=== PATIENT | female | born 1960 | race Caucasian/White ===

== ENCOUNTER 2017-08-14 21:24 | Inpatient (IN) | payer OTHER ==
[~2017-08-14] VITALS: Ht 162.6 cm; Wt 58.0 kg
[~2017-08-14 21:24] MED LIST: APRI0.372 PO; AZAT50 PO; DILTCD120 PO; FERR324T4 PO; GLUCTAB PO; METH5 PO; PRED20 PO; RISP2TAB2 PO
--- NOTE | 2017-08-14 21:36 | PD ---
HPI Chief Complaint: BA Time Seen by Provider: 21:33 Travel History International Travel<30 days: No Contact w/Intl Traveler<30days: No Traveled to known affect area: No History of Present Illness HPI This is a 56-year-old female who presents under Guardado act initiated by [facility]'s office. According her paperwork the patient has been noncompliant with her psychiatric medication and has been defecating all over the house and refusing to shower. She has been exposing herself and making paranoid statements. symptoms are moderate, onset unknown, no aggravating or relieving factors known. According to chart review she has a history of schizophrenia, ulcerative colitis, hyperthyroidism, atrial fibrillation, anxiety. When asked if she has a history of schizophrenia, ulcerative colitis hyperthyroidism she answers in the affirmative. When asked if she has been taking her medication she says no. She otherwise refuses to answer any questions and she smiles and laughs appropriately during the examination. History is limited. PFSH Past Medical History Arthritis: No Asthma: No Atrial Fibrillation: Yes (hx of) Autoimmune Disease: No Blood Disorders: No Bipolar Disorder: Yes (denies. states only schizophrenic) Anxiety: Yes Depression: No Heart Rhythm Problems: No Cancer: No Cardiovascular Problems: No High Cholesterol: No Chemotherapy: No Chest Pain: No Congestive Heart Failure: No COPD: No Cerebrovascular Accident: No Diabetes: Yes Diminished Hearing: No Endocrine: Yes Gastrointestinal Disorders: Yes (ulcerative colitis) GERD: No Genitourinary: No Hiatal Hernia: No Immune Disorder: No Implanted Vascular Access Dvce: No Kidney Stones: No Musculoskeletal: No Neurologic: No Psychiatric: Yes Reproductive: No Respiratory: No Immunizations Current: No Migraines: No Radiation Therapy: No Renal Failure: No Schizophrenia: Yes Seizures: No Sleep Apnea: No Thyroid Disease: Yes Ulcer: No Menopausal: Yes : 0 Past Surgical History Abdominal Surgery: No Cardiac Surgery: No Ear Surgery: No Endocrine Surgery: No Eye Surgery: No Genitourinary Surgery: No Gynecologic Surgery: No Oral Surgery: No Thoracic Surgery: No Tonsillectomy: Yes (as a child) Other Surgery: No Social History Alcohol Use: No Tobacco Use: No Substance Use: No Allergies-Medications (Allergen,Severity, Reaction): Coded Allergies: meperidine (Unverified Allergy, Severe, Rash, 08/14/17) Reported Meds & Prescriptions Reported Meds & Active Scripts Active Bactrim DS (Sulfamethoxazole-Trimethoprim) 800-160 Mg Tab 1 Tab PO BID Reported Risperdal (Risperidone) 1 Mg Tab 1 Mg BID Prednisone 20 Mg Tab 20 Mg PO DAILY Review of Systems ROS Limitations: Psychotic Except as stated in HPI: all other systems reviewed are Neg Physical Exam Exam Limitations: Psychotic Narrative GENERAL: Well-developed well-nourished female no acute distress SKIN: Warm and dry. HEAD: Atraumatic. Normocephalic. EYES: Pupils equal and round. No scleral icterus. No injection or drainage. ENT: No nasal bleeding or discharge. Mucous membranes pink and moist. NECK: Trachea midline. No JVD. CARDIOVASCULAR: Regular rate and rhythm. No murmur appreciated. RESPIRATORY: No accessory muscle use. Clear to auscultation. Breath sounds equal bilaterally. GASTROINTESTINAL: Abdomen soft, non-tender, nondistended. Hepatic and splenic margins not palpable. MUSCULOSKELETAL: No obvious deformities. No clubbing. No cyanosis. No edema. NEUROLOGICAL: Awake and alert. No obvious cranial nerve deficits. Motor grossly within normal limits. Normal speech. PSYCHIATRIC: Smiling laughing appropriately. Insight and judgment are poor. Data Data Last Documented VS Vital Signs Date Time Temp Pulse Resp B/P (MAP) Pulse Ox O2 Delivery O2 Flow Rate FiO2 08/15/17 08:29 98.2 76 18 126/61 (82) 98 Room Air Orders Orders Complete Blood Count With Diff (08/14/17 21:43) Comprehensive Metabolic Panel (08/14/17 21:43) Thyroid Stimulating Hormone (08/14/17 21:43) Psych Screen (08/14/17 21:43) Drug Screen, Random Urine (08/14/17 21:43) Alcohol (Ethanol) (08/14/17 21:43) Free Thyroxine (T4) (08/14/17 21:48) Free T3 (08/14/17 21:48) Urinalysis - C+S If Indicated (08/14/17 21:48) Urine Culture (08/14/17 21:55) Ceftriaxone Inj (Rocephin Inj) (08/14/17 22:45) Sodium Chlor 0.9% 1000 Ml Inj (Ns 1000 M (08/14/17 22:39) Potassium Chloride (Kcl) (08/14/17 22:45) Methimazole (Tapazole) (08/14/17 22:45) Diet Regular Basic (08/15/17 Breakfast) Admit Order (Ed Use Only) (08/15/17 11:25) Admit To Inpatient Psych (08/15/17 ) Code Status (08/15/17 11:25) Vital Signs (Adult) GUNNER.Q12H.E (08/15/17 11:25) Activity Oob Ad Pham (08/15/17 11:25) Diet Diabetic (08/15/17 Lunch) Acetaminophen (Tylenol) (08/15/17 11:30) Magnesium Hydroxide Liq (Milk Of Magnesi (08/15/17 11:30) Al-Mag Hy-Si 40-40-4 Mg/Ml Liq (Mag-Al P (08/15/17 11:30) Basic Metabolic Panel (Bmp) (08/16/17 06:00) Lipid Profile (08/16/17 06:00) Hemoglobin (Hgb) A1c (08/16/17 06:00) Sulfamet-Trimeth Ds 800-160 Mg (Bactrim (08/15/17 12:00) Labs Laboratory Tests Test 08/14/17 21:55 White Blood Count 12.6 TH/MM3 Red Blood Count 4.12 MIL/MM3 Hemoglobin 9.9 GM/DL Hematocrit 30.6 % Mean Corpuscular Volume 74.3 FL Mean Corpuscular Hemoglobin 24.0 PG Mean Corpuscular Hemoglobin Concent 32.2 % Red Cell Distribution Width 16.6 % Platelet Count 285 TH/MM3 Mean Platelet Volume 7.1 FL Neutrophils (%) (Auto) 73.8 % Lymphocytes (%) (Auto) 12.7 % Monocytes (%) (Auto) 12.1 % Eosinophils (%) (Auto) 1.1 % Basophils (%) (Auto) 0.3 % Neutrophils # (Auto) 9.3 TH/MM3 Lymphocytes # (Auto) 1.6 TH/MM3 Monocytes # (Auto) 1.5 TH/MM3 Eosinophils # (Auto) 0.1 TH/MM3 Basophils # (Auto) 0.0 TH/MM3 CBC Comment DIFF FINAL Differential Comment Urine Color ORANGE Urine Turbidity CLOUDY Urine pH 5.0 Urine Specific [place] 1.027 Urine Protein 30 mg/dL Urine Glucose (UA) TRACE mg/dL Urine Ketones 10 mg/dL Urine Occult Blood MOD Urine Nitrite NEG Urine Bilirubin NEG Urine Urobilinogen 4.0 MG/DL Urine Leukocyte Esterase MOD Urine RBC 13 /hpf Urine WBC 13 /hpf Urine Squamous Epithelial Cells 1 /hpf Urine Amorphous Sediment RARE Urine Bacteria OCC /hpf Urine Hyaline Casts 39 /lpf Urine Mucus MANY /lpf Microscopic Urinalysis Comment CULTURE INDICATED Blood Urea Nitrogen 17 MG/DL Creatinine 1.58 MG/DL Random Glucose 164 MG/DL Total Protein 7.1 GM/DL Albumin 2.7 GM/DL Calcium Level 8.2 MG/DL Alkaline Phosphatase 82 U/L Aspartate Amino Transf (AST/SGOT) 4 U/L Alanine Aminotransferase (ALT/SGPT) 10 U/L Total Bilirubin 1.0 MG/DL Sodium Level 134 MEQ/L Potassium Level 3.4 MEQ/L Chloride Level 100 MEQ/L Carbon Dioxide Level 16.6 MEQ/L Anion Gap 17 MEQ/L Estimat Glomerular Filtration Rate 34 ML/MIN Free Thyroxine 1.84 NG/DL Free Triiodothyronine (T3) pg/dL 4.47 PG/ML Thyroid Stimulating Hormone 3rd Gen LESS THAN 0.005 uIU/ML Urine Opiates Screen NEG Urine Barbiturates Screen NEG Urine Amphetamines Screen NEG Urine Benzodiazepines Screen NEG Urine Cocaine Screen NEG Urine Cannabinoids Screen NEG Ethyl Alcohol Level LESS THAN 3 MG/DL MDM Medical Decision Making Medical Screen Exam Complete: Yes Emergency Medical Condition: Yes Medical Record Reviewed: Yes Differential Diagnosis Schizophrenia, thyroid storm, acute psychosis, substance-induced mood disorder, medication noncompliance, adjustment reaction Narrative Course 56-year-old female with history of schizophrenia, hyperthyroidism, ulcerative colitis, presents under Guardado act for psychiatric evaluation. Mental health screening discussed with the patient. Psychiatric screen ordered. CBC reveals WBC count of 12.6 otherwise unremarkable. Catheterized urine specimen reveals moderate leukocyte esterase, 13 RBCs, 13 WBCs, pending culture results she will be given a dose of IV Rocephin and a prescription for Bactrim has been written. Her GFR is 34 which is decreased from her baseline and this is likely secondary to poor oral intake secondary to her psychiatric condition. 1 L of IV fluids will be initiated and oral hydration will be encouraged. Her TSH/T4/T3 findings are consistent with hyperthyroidism, according to most recent hospitalization in 2016 she was at that time taking methimazole 2.5 mg daily. She will be given a 5 mg dose today. If required during her psychiatric hospitalization certainly medicine could be consulted to help manage these medical conditions. She is medically cleared. Diagnosis Primary Impression: Schizophrenia Additional Impressions: Hyperthyroidism UTI (lower urinary tract infection) Acute kidney injury Scripts Sulfamethoxazole-Trimethoprim (Bactrim DS) 800-160 Mg Tab 1 TAB PO BID for Infection, #14 TAB 0 Refills Prov: Reinier Sauceda MD 08/14/17 Jose Hussein Aug 14, 2017 21:36
[2017-08-14 21:41] VITALS: BP 121/57; PULSE 89; RESP 18; TEMP 99.6; O2SAT 99
[2017-08-14 22:13] LABS: AUTOMATED NEUTROPHIL # 9.3 TH/MM3 (1.8-7.7); BASOPHIL % 0.3 % (0.0-2.0); EOSINOPHIL # 0.1 TH/MM3 (0-0.4); EOSINOPHIL % 1.1 % (0.0-4.0); HEMATOCRIT 30.6 % (35.0-46.0); HEMOGLOBIN 9.9 GM/DL (11.6-15.3); LYMPH % 12.7 % (9.0-44.0); LYMPHOCYTE # 1.6 TH/MM3 (1.0-4.8); MEAN CELL VOLUME 74.3 FL (80.0-100.0); MEAN CORPUSCULAR HGB CONC 32.2 % (32.0-36.0); MEAN PLATELET VOLUME 7.1 FL (7.0-11.0); MONO % 12.1 % (0.0-8.0); MONOCYTE # 1.5 TH/MM3 (0-0.9); NEUT % 73.8 % (16.0-70.0); PLATELET COUNT 285 TH/MM3 (150-450); RED BLOOD COUNT 4.12 MIL/MM3 (4.00-5.30); RED CELL DISTRIBUTION WIDTH 16.6 % (11.6-17.2); WHITE BLOOD COUNT 12.6 TH/MM3 (4.0-11.0)
[2017-08-14 22:30] LABS: AMORPHOUS SEDIMENT, URINE RARE; BACTERIA, URINE OCC /hpf; BLOOD, URINE MOD (NEG); GLUCOSE,URINE TRACE mg/dL (NEG); HYALINE CAST, URINE 39 /lpf (RARE); KETONE, URINE 10 mg/dL (NEG); MUCUS URINE MANY /lpf (OCC); NITRITE,URINE NEG (NEG); SQUAMOUS EPITHELIAL CELL URINE 1 /hpf (0-5); URINE LEUKOCYTE ESTERASE MOD (NEG)
[2017-08-14 22:31] LABS: ALBUMIN 2.7 GM/DL (3.4-5.0); AST (GOT) 4 U/L (15-37); BICARBONATE 16.6 MEQ/L (21.0-32.0); BLOOD UREA NITROGEN 17 MG/DL (7-18); CALCIUM 8.2 MG/DL (8.5-10.1); CHLORIDE 100 MEQ/L (98-107); CREATININE 1.58 MG/DL (0.50-1.00); GLOMERULAR FILTRATION RATE 34 ML/MIN (>89); GLUCOSE,RANDOM 164 MG/DL (74-106); SODIUM (NA) 134 MEQ/L (136-145)
[2017-08-14 22:32] LABS: BILIRUBIN, URINE NEG (NEG); URINE COLOR ORANGE (YELLW/STRAW)
[2017-08-14 22:33] LABS: ALT (GPT) 10 U/L (10-53)
[2017-08-14] MEDS ORDERED: BACT800T5 PO (22:37)
[2017-08-14] MEDS ORDERED: SODIUM CHLOR 0.9% 1000 ML INJ 1,000 ML IV SCH (22:39)
[2017-08-14 22:42] LABS: ALKALINE PHOSPHATASE 82 U/L (45-117); FREE T3 4.47 PG/ML (2.18-3.98); FREE T4 1.84 NG/DL (0.76-1.46); TOTAL PROTEIN 7.1 GM/DL (6.4-8.2)
[2017-08-14] MEDS ORDERED: METHIMAZOLE 5 MG TAB PO ONE (22:45)
[2017-08-14] MEDS ORDERED: POTASSIUM CHLORIDE 20 MEQ CONTROLLED RELEASE TAB PO ONE (22:45)
[2017-08-14] MEDS ORDERED: cefTRIAXone INJ 1,000 MG in SODIUM CHLORIDE 0.9% INJ 100 ML IV ONE (22:45)
[2017-08-15 02:43] VITALS: BP 114/56; PULSE 80; RESP 16; O2SAT 99
[2017-08-15 07:15] VITALS: BP 120/60; PULSE 76; RESP 16; O2SAT 97
[2017-08-15 08:29] VITALS: BP 126/61; PULSE 76; RESP 18; TEMP 98.2; O2SAT 98
--- NOTE | 2017-08-15 11:10 | PD ---
History of Present Illness Chief Complaint: Psychiatric Symptoms Time Seen by Provider: 08:30 Travel History International Travel<30 Days: No Contact w/Intl Traveler<30days: No Known affected area: No History of Present Illness: Patient is a 56-year-old female who was brought to the emergency room under a Guardado Act by the [facility]. Guardado act states, "on 08/14/2017 approximately 1929, Olaf Bautista responded to address in reference to her well- being check. Upon arrival he may contact with Xavier Conteh who advised Ramonita was not taking her medications and has been defecating all over the house refusing to shower. Xavier stated he that she is supposed to be on psychotropic medications and not been taking them. Xavier also states she has been walking around the house exposing herself inquiring if the bubbles in the poisonous. Xavier expressed a huge concern for Ramonita's well-being and self-neglect. I made contact with Ramonita and her bedroom area and observed fecal matter all over the floor. Her landlord Ramonita Dev advised that she came over to check on Ramonita and found that she had been defecating all over herself and then in the room. Ramonita was not advised that she had been eaten or when she had had last bathed. Both Ramonita Park completed a written sworn statement 12 which were attached to this document. Is great concern that without care of treatment Ramonita is likely to suffer from the neglect, refused to care for herself." Chart reviewed and discussed with nursing staff. Patient is in room D38 of the Emergency Department. She is in a hospital gown, disheveled and malodorous. She is thought blocking and will only answer select questions. She states she is not hearing voices, but is internally stimulated. Demonstrating signs of paranoia. She states she has a poor appetite and does sleep well. She states she has a son, but I am not sure if this is true. Insight and judgement is poor. Speech is normal for rate , tone and rhythm. Patient currently has a UTI and has been prescribed Bactrim. Patient was last seen in 2017 and was a patient in inpatient psychiatry, at that time she was also under a Guardado Act and not medication compliant. She had eloped from a facility . At that time they were trying Risperdal M-Tab and [place]. At this time, I do not have a medication list and patient is unable to tell me her medications. From record: Thyroid, Atrial fib, NIDDM, Ulcerative colitis and IBS. Patient is a poor historian. I attempted to call the Landlord for a medication list, Ciera Méndez [phone] , but was unable to reach her. Dx: Schizophrenia PFSH Past Medical History Arthritis: No Asthma: No Atrial Fibrillation: Yes Autoimmune Disease: No Blood Disorders: No Bipolar Disorder: Yes Anxiety: Yes Depression: No Heart Rhythm Problems: No Cancer: No Cardiovascular Problems: No High Cholesterol: No Chemotherapy: No Chest Pain: No Congestive Heart Failure: No COPD: No Cerebrovascular Accident: No Diabetes: Yes Diminished Hearing: No Endocrine: Yes Gastrointestinal Disorders: Yes (ulcerative colitis) GERD: No Genitourinary: No Hiatal Hernia: No Immune Disorder: No Implanted Vascular Access Dvce: No Kidney Stones: No Musculoskeletal: No Neurologic: No Psychiatric: Yes Reproductive: No Respiratory: No Immunizations Current: No Migraines: No Radiation Therapy: No Renal Failure: No Schizophrenia: Yes Seizures: No Sleep Apnea: No Thyroid Disease: Yes Ulcer: No Menopausal: Yes : 0 Past Surgical History Abdominal Surgery: No Cardiac Surgery: No Ear Surgery: No Endocrine Surgery: No Eye Surgery: No Genitourinary Surgery: No Gynecologic Surgery: No Oral Surgery: No Thoracic Surgery: No Tonsillectomy: Yes (as a child) Other Surgery: No Psychiatric History Psychiatric History Last psychiatric admission in 2014 at [facility] with Dr. Byrne. Hx Psychiatric Treatment: LONG HISTORY OF SCHIZOPHRENIA. History of Inpatient Treatment: Yes Social History Hx Alcohol Use: No Hx Tobacco Use: No Hx Substance Use: No Hx of Substance Use Treatment: No Allergies-Medications (Allergen,Severity, Reaction): Coded Allergies: meperidine (Unverified Allergy, Severe, Rash, 08/14/17) Reported Meds & Prescriptions Reported Meds & Active Scripts Active Bactrim DS (Sulfamethoxazole-Trimethoprim) 800-160 Mg Tab 1 Tab PO BID Mental Status Examination Appearance: Dirty, Disheveled Consciousness: Alert Orientation: Person Motor Activity: Normal gait Speech: Unremarkable Language: Adequate Fund of Knowledge: Poor Attention and Concentration: Easily Distracted Memory: Impaired Mood: Good Affect: Euthymic Thought Process & Associations: Loose associations, Disorganized Thought Content: Hallucinations Hallucination Type: Auditory Delusion Type: Bizarre, Paranoid Suicidal Ideation: No Suicidal Plan: No Suicidal Intention: No Homicidal Ideation: No Homicidal Plan: No Homicidal Intention: No Insight: Adequate Judgment: Adequate MDM Medical Decision Making Medical Record Reviewed: Yes Assessment/Plan Patient is a 56 year old female under a Guardado Act. She has along history of Schizophrenia and not being medication compliant. A well check call found the patient in her own feces in her apartment by her landlord. Patient is currently thought blocking and refusing to answer questions. She is a poor historian. She is internally stimulated, paranoid and appears to be hearing voices. She is easily distracted and is not aware of her current situation. Patient is at moderate risk for decompensation. Will admit patient for further assessment and evaluation. Orders Orders Complete Blood Count With Diff (08/14/17 21:43) Comprehensive Metabolic Panel (08/14/17 21:43) Thyroid Stimulating Hormone (08/14/17 21:43) Psych Screen (08/14/17 21:43) Drug Screen, Random Urine (08/14/17 21:43) Alcohol (Ethanol) (08/14/17 21:43) Free Thyroxine (T4) (08/14/17 21:48) Free T3 (08/14/17 21:48) Urinalysis - C+S If Indicated (08/14/17 21:48) Urine Culture (08/14/17 21:55) Ceftriaxone Inj (Rocephin Inj) (08/14/17 22:45) Sodium Chlor 0.9% 1000 Ml Inj (Ns 1000 M (08/14/17 22:39) Potassium Chloride (Kcl) (08/14/17 22:45) Methimazole (Tapazole) (08/14/17 22:45) Diet Regular Basic (08/15/17 Breakfast) Results Vital Signs Date Time Temp Pulse Resp B/P (MAP) Pulse Ox O2 Delivery O2 Flow Rate FiO2 08/15/17 08:29 98.2 76 18 126/61 (82) 98 Room Air 08/15/17 07:15 76 16 120/60 (80) 97 Room Air 08/15/17 02:43 80 16 114/56 (75) 99 Room Air 08/14/17 21:41 99.6 89 18 121/57 (78) 99 Laboratory Tests Test 08/14/17 21:55 White Blood Count 12.6 Red Blood Count 4.12 Hemoglobin 9.9 Hematocrit 30.6 Mean Corpuscular Volume 74.3 Mean Corpuscular Hemoglobin 24.0 Mean Corpuscular Hemoglobin Concent 32.2 Red Cell Distribution Width 16.6 Platelet Count 285 Mean Platelet Volume 7.1 Neutrophils (%) (Auto) 73.8 Lymphocytes (%) (Auto) 12.7 Monocytes (%) (Auto) 12.1 Eosinophils (%) (Auto) 1.1 Basophils (%) (Auto) 0.3 Neutrophils # (Auto) 9.3 Lymphocytes # (Auto) 1.6 Monocytes # (Auto) 1.5 Eosinophils # (Auto) 0.1 Basophils # (Auto) 0.0 CBC Comment DIFF FINAL Differential Comment Urine Color ORANGE Urine Turbidity CLOUDY Urine pH 5.0 Urine Specific [place] 1.027 Urine Protein 30 Urine Glucose (UA) TRACE Urine Ketones 10 Urine Occult Blood MOD Urine Nitrite NEG Urine Bilirubin NEG Urine Urobilinogen 4.0 Urine Leukocyte Esterase MOD Urine RBC 13 Urine WBC 13 Urine Squamous Epithelial Cells 1 Urine Amorphous Sediment RARE Urine Bacteria OCC Urine Hyaline Casts 39 Urine Mucus MANY Microscopic Urinalysis Comment CULTURE INDICATED Blood Urea Nitrogen 17 Creatinine 1.58 Random Glucose 164 Total Protein 7.1 Albumin 2.7 Calcium Level 8.2 Alkaline Phosphatase 82 Aspartate Amino Transf (AST/SGOT) 4 Alanine Aminotransferase (ALT/SGPT) 10 Total Bilirubin 1.0 Sodium Level 134 Potassium Level 3.4 Chloride Level 100 Carbon Dioxide Level 16.6 Anion Gap 17 Estimat Glomerular Filtration Rate 34 Free Thyroxine 1.84 Free Triiodothyronine (T3) pg/dL 4.47 Thyroid Stimulating Hormone 3rd Gen LESS THAN 0.005 Urine Opiates Screen NEG Urine Barbiturates Screen NEG Urine Amphetamines Screen NEG Urine Benzodiazepines Screen NEG Urine Cocaine Screen NEG Urine Cannabinoids Screen NEG Ethyl Alcohol Level LESS THAN 3 Date/Time Source Procedure Growth Status 08/14/17 21:55 Urine Random Urine Urine Culture Pending Received Diagnosis Primary Impression: Schizophrenia Additional Impression: UTI (lower urinary tract infection) Admitting Information Admitting Physician Requests: Admit Prescriptions Sulfamethoxazole-Trimethoprim (Bactrim DS) 800-160 Mg Tab 1 TAB PO BID for Infection, #14 TAB 0 Refills Prov: Reinier Sauceda MD 08/14/17 Problem Qualifiers Sarah Hobbs Aug 15, 2017 11:10
[2017-08-15] MEDS ORDERED: ALUMINUM/MAGNESIUM/SIMETH 30 ML CUP PO PRN (11:30)
[2017-08-15] MEDS ORDERED: ACETAMINOPHEN 325 MG TAB PO PRN (11:30)
[2017-08-15] MEDS ORDERED: MAGNESIUM HYDROXIDE SUSP 30 ML CUP PO PRN (11:30)
[2017-08-15 12:00] VITALS: BP 120/65; PULSE 76; RESP 20; O2SAT 98
[2017-08-15] MEDS: SULFAMETHOXAZOLE-TRIMETHOPRIM DS 800-160 MG TAB PO SCH (12:00)
[2017-08-15] MEDS ORDERED: PRED20 PO (13:02)
[2017-08-15] MEDS ORDERED: RISP1 (13:02)
[2017-08-15 15:19] VITALS: BP 150/64; PULSE 91; RESP 18; O2SAT 93
[2017-08-16 06:13] VITALS: BP 128/59; PULSE 96; RESP 18; TEMP 99.1; O2SAT 95
[2017-08-16] MEDS: SULFAMETHOXAZOLE-TRIMETHOPRIM DS 800-160 MG TAB PO SCH ×2 (11:11)
[2017-08-16] MEDS ORDERED: hydrOXYzine HCL 50 MG TAB PO PRN ×2 (13:15→14:45)
[2017-08-16] MEDS ORDERED: diphenhydrAMINE HCL 50 MG CAP PO PRN (13:15)
[2017-08-16] MEDS ORDERED: ZIPRASIDONE MESYLATE 20 MG VIAL IM PRN ×2 (13:15→14:45)
--- NOTE | 2017-08-16 13:25 | HHI.HP ---
Provisional Diagnosis Admission Date Aug 15, 2017 at 11:31 [place] I. Paranoid schizophrenia F 20.0 Certification of Person's Competence To Provide Express and Informed Consent I have personally examined Ramonita Valente , a person being served at [facility] on, Aug 16, 2017 13:12. Express and informed consent means consent voluntarily given in writing, by a competent person, after sufficient explanation and disclosure of the subject matter involved to enable the person to make a knowing and willful decision without any element of force, fraud, deceit, duress, or other form of constraint or coercion. This person is 18 years of age or older, is not now known to be incompetent to consent to treatment with a guardian advocate, and does not have a health care surrogate or proxy currently making medical treatment decisions. I have found this person to be one of the following: [xxx] Competent to provide express and informed consent, as defined above, for voluntary admission to this facility and is competent to provide express and informed consent for treatment. He/she has the consistent capacity to make well reasoned, willful, and knowing decisions concerning his or her medical or mental health treatment. The person fully and consistently understands the purpose of the admission for examination/placement and is fully capable of personally exercising all rights assured under [place] Incompetent to provide express and informed consent to voluntary admission, and this is incompetent to provide express and informed consent to treatment. The person must be transferred to involuntary status and a petition for a guardian advocate filed with the Circuit Court. [] Refusing to provide express and informed consent to voluntary admission but is competent to provide express and informed consent for treatment. The person must be discharged or transferred to involuntary status. Form shall be completed within 24 hours of a person's arrival at the receiving facility and filed in the clinical record of each person: 1. Admitted on a voluntary basis 2. Permitted to provide express and informed consent to his/her own treatment 3. Allowed to transfer from involuntary to voluntary status 4. Prior to permitting a person to consent to his or her own treatment after having been previously found incompetent to consent to treatment. History of Present Illness Capacity: Lacks Capacity HPI Patient is a 56-year-old white female well known to us from multiple prior psychiatric hospitalizations comes here under a Guardado act by the [facility]'s office dated 08/13/2017 1929 hrs. that document reviewed essentially stated that the police responded to her address contact of the [employer] and advised that Ciera was not taking her medication had been defecating all over the house and refusing to shower that she had also been walking around the house exposing herself Inc. and inquiring if the bubbles and soda are poisonous and appears to landlord Ciera Méndez also came to the house and follow the defecation all over herself in the room. Patient seen screen in the ED urine toxicology negative. At the present time patient sitting quietly in her room house staff present throughout session. Ramonita is alert somewhat silly and childlike. Sitting in addressing down and appear she had just been showered. Respond ounces are markedly delayed she appears markedly distracted. She speaks quite loudly as if having out hearing difficulty. She acknowledges people talking in her head telling her to do bad things. To kill herself. She acknowledges not taking her medication when I asked how long she smiled at me and did not respond. There is no significant history of physical or sexual abuse noted, patient denies mental health issues in her family, she states they have been though she has 1 son. She is vague about any alcohol or drug use. At this time patient meets criteria for involuntary psychiatric hospitalization the Guardado act I will do first opinion request second opinion. I feel she does not have any capacity thus I will ask for health care surrogate and guardian advocate. Patient is given a quite confusing acceptance for taking medication agreeing and then disagreeing. Considering this I feel the need to offer medication that can be given either orally or intramuscularly. We will offer her Geodon 40 mg p.o. twice daily if she refuses the Geodon [address] its [address]. We need to contact patient's caregiver Ciera Méndez to discuss further care treatment of possible placement issues Review of Systems Except as stated in HPI: all other systems reviewed are Neg Past Psych History Psychological trauma history Unknown at this time Violence risk - others (6 mos) Low Violence risk - self (6 mos) Low to moderate Substance Abuse History Drugs/Alcohol past 12 months Unknown at this time Past Family Social History Coded Allergies: meperidine (Unverified Allergy, Severe, Rash, 08/14/17) Active Scripts Sulfamethoxazole-Trimethoprim (Bactrim DS) 800-160 Mg Tab, 1 TAB PO BID for Infection, #14 TAB 0 Refills Prov:Reinier Sauceda MD 08/14/17 Reported Medications Risperidone (Risperdal) 1 Mg Tab, 1 MG BID, #30 TAB 0 Refills 08/15/17 Prednisone (Prednisone) 20 Mg Tab, 20 MG PO DAILY, TAB 0 Refills 08/15/17 Current Medications Medications (Trade) Dose Ordered Sig/Ronaldo Route Start Time Stop Time Status Last Admin (Tylenol) 650 mg Q4H PRN PO 08/15/17 11:30 (Milk Of Magnesia Liq) 30 ml DAILY PRN PO 08/15/17 11:30 (Mag-Al Plus Susp Liq) 30 ml Q6H PRN PO 08/15/17 11:30 (Bactrim Ds 800-160 Mg) 1 tab Q12H PO 08/15/17 12:00 (Benadryl) 50 mg HS PRN PO 08/16/17 13:15 UNV (Atarax) 50 mg Q6H PRN PO 08/16/17 13:15 UNV Family Psych History Unknown at this time Social History Patient states she has never been is one child lives alone Patient's Strengths (min. 2) Patient verbal and has good support group Physical Exam Patient medically cleared ED at the present time patient sitting somewhat aroused state in her room she is in no acute distress, no complaints of respiratory distress or chest pain, no complaints of abdominal pain. Patient moving all 4 extremities without difficulty Vital Signs Vital Signs Date Time Temp Pulse Resp B/P (MAP) Pulse Ox O2 Delivery O2 Flow Rate FiO2 08/16/17 06:13 99.1 96 18 128/59 (82) 95 08/15/17 12:00 Room Air I/O 08/16/17 08/16/17 08/17/17 08:00 16:00 00:00 Intake Total 240 ml Balance 240 ml Lab Results Date/Time Source Procedure Growth Status 08/14/17 21:55 Urine Random Urine Urine Culture - Final NO GROWTH IN 48 HOURS. Complete Mental Status Examination Appearance: Dirty, Disheveled Consciousness: Alert Orientation: Person Motor Activity: Normal gait Speech: Unremarkable Language: Adequate Fund of Knowledge: Poor Attention and Concentration: Easily Distracted Memory: Impaired Mood: Good Affect: Euthymic Thought Process & Associations: Loose associations, Disorganized Thought Content: Hallucinations Hallucination Type: Auditory Delusion Type: Bizarre, Paranoid Suicidal Ideation: No Suicidal Plan: No Suicidal Intention: No Homicidal Ideation: No Homicidal Plan: No Homicidal Intention: No Insight: Poor Judgment: Poor Assessment & Plan Problem List: (1) Schizophrenia ICD Codes: F20.9 - Schizophrenia Status: Acute Assessment & Plan Estimated LOS: days patient is quite psychotic with significant command auditory hallucinations. Noncompliance medications. At this time I feel she is not competent will do first opinion and asked for second opinion and ask for health care surrogate and guardian advocate. We will attempt to reach patient' s guardian to gain further information discuss medication treatment of possible placement issues Discharge Planning To be determined Request HC Surrog/Guard Advoc?: Yes Problem Qualifiers (1) Schizophrenia: Qualified Codes: F20.0 - Paranoid schizophrenia Richmond Byrne MD Aug 16, 2017 13:25
--- NOTE | 2017-08-16 15:28 | PD.TTN ---
Patient Problems 1. Discharge planning 2. Medication compliance 3. Knowledge deficit 4. Lack of coping skills Progress Toward Goals Provider Present: Dr. Gamaliel Byrne Provider Input: 08/16/17 pt is known to this provider , she is psychotic Nurse(s) Input: 08/16/17Kim: euphoric, non-sensical, psychotic, appears to have a UTI, has been here 3 years ago Psychiatric Counselors Present: Yennifer Dawson LCSW Psych Therapist Input: 08/16/17 pt is not open to talk, appears suspicious Group Spec/RT/OT/NAVARRO Present: EKTA Ruff Group Spec/RT/OT/NAVARRO Input: 08/16/17 new today Documentation Teaching Recipient: Patient Yennifer Dawson LCSW Aug 16, 2017 15:28
--- NOTE | 2017-08-16 15:55 | PD.PSY.CON ---
Provisional Diagnosis Admission Date Aug 15, 2017 at 11:31 [place] I. Paranoid schizophrenia F 20.0 History of Present Illness Service Psychiatry Consult Requested By Dr. Byrne Reason for Consult Second opinion Primary Care Physician Unknown HPI Patient is a 56-year-old white female well known to us from multiple prior psychiatric hospitalizations comes here under a Guardado act by the [facility]'s office dated 08/13/2017 1929 hrs. that document reviewed essentially stated that the police responded to her address contact of the [employer] and advised that Ciera was not taking her medication had been defecating all over the house and refusing to shower that she had also been walking around the house exposing herself Inc. and inquiring if the bubbles and soda are poisonous and appears to landlord Ciera Méndez also came to the house and follow the defecation all over herself in the room. Patient seen screen in the ED urine toxicology negative. At the present time patient sitting quietly in her room house staff present throughout session. Ramonita is alert somewhat silly and childlike. Sitting in addressing down and appear she had just been showered. Respond ounces are markedly delayed she appears markedly distracted. She speaks quite loudly as if having out hearing difficulty. She acknowledges people talking in her head telling her to do bad things. To kill herself. She acknowledges not taking her medication when I asked how long she smiled at me and did not respond. There is no significant history of physical or sexual abuse noted, patient denies mental health issues in her family, she states they have been though she has 1 son. She is vague about any alcohol or drug use. At this time patient meets criteria for involuntary psychiatric hospitalization the Guardado act I will do first opinion request second opinion. I feel she does not have any capacity thus I will ask for health care surrogate and guardian advocate. Patient is given a quite confusing acceptance for taking medication agreeing and then disagreeing. Considering this I feel the need to offer medication that can be given either orally or intramuscularly. We will offer her Geodon 40 mg p.o. twice daily if she refuses the Geodon [address] its [address]. We need to contact patient's caregiver Ciera Méndez to discuss further care treatment of possible placement issues. The patient is a 56-year-old woman, she has psychiatric history of schizophrenia, multiple psychiatric hospitalizations, brought to the hospital due to psychotic behavior, noncompliant with medications. Consulted to me for second opinion. On my evaluation today the patient is alert, she seems to be in a good mood, good spirit, but selectively mute. She does not answer most of my questions, but she does say that she is happy. The patient denies suicidal and homicidal ideation, she denies visual and auditory hallucinations. She says that she is taking her medications, she wants to get better and be discharged back home. She denies pain, distress, she is smiles inappropriately often, seems to be internally stimulated. Past Family Social History Coded Allergies: meperidine (Unverified Allergy, Severe, Rash, 08/14/17) Active Scripts Sulfamethoxazole-Trimethoprim (Bactrim DS) 800-160 Mg Tab, 1 TAB PO BID for Infection, #14 TAB 0 Refills Prov:Reinier Sauceda MD 08/14/17 Reported Medications Risperidone (Risperdal) 1 Mg Tab, 1 MG BID, #30 TAB 0 Refills 08/15/17 Prednisone (Prednisone) 20 Mg Tab, 20 MG PO DAILY, TAB 0 Refills 08/15/17 Current Medications Medications (Trade) Dose Ordered Sig/Ronaldo Route Start Time Stop Time Status Last Admin (Tylenol) 650 mg Q4H PRN PO 08/15/17 11:30 (Milk Of Magnesia Liq) 30 ml DAILY PRN PO 08/15/17 11:30 (Mag-Al Plus Susp Liq) 30 ml Q6H PRN PO 08/15/17 11:30 (Bactrim Ds 800-160 Mg) 1 tab Q12H PO 08/15/17 12:00 (Benadryl) 50 mg HS PRN PO 08/16/17 13:15 (Atarax) 50 mg Q6H PRN PO 08/16/17 14:45 (Geodon) 40 mg BIDPC PO 08/16/17 18:00 (Geodon Inj) 10 mg BIDAC PRN IM 08/16/17 14:45 Patient's Strengths (min. 2) Patient verbal and has good support group Physical Exam Vital Signs Vital Signs Date Time Temp Pulse Resp B/P (MAP) Pulse Ox O2 Delivery O2 Flow Rate FiO2 08/16/17 06:13 99.1 96 18 128/59 (82) 95 08/15/17 12:00 Room Air I/O 08/16/17 08/16/17 08/17/17 08:00 16:00 00:00 Intake Total 240 ml Balance 240 ml Lab Results Date/Time Source Procedure Growth Status 08/14/17 21:55 Urine Random Urine Urine Culture - Final NO GROWTH IN 48 HOURS. Complete Mental Status Examination Appearance: Dirty, Disheveled Consciousness: Alert Orientation: Person Motor Activity: Normal gait Speech: Unremarkable Language: Adequate Fund of Knowledge: Poor Attention and Concentration: Easily Distracted Memory: Impaired Mood: Good Affect: Euthymic Thought Process & Associations: Loose associations, Disorganized Thought Content: Hallucinations Hallucination Type: Auditory Delusion Type: Bizarre, Paranoid Suicidal Ideation: No Suicidal Plan: No Suicidal Intention: No Homicidal Ideation: No Homicidal Plan: No Homicidal Intention: No Insight: Poor Judgment: Poor Assessment & Plan Problem List: (1) Schizophrenia ICD Codes: F20.9 - Schizophrenia Status: Acute Assessment & Plan: I have seen and examined this patient, reviewed documentation, I agree and concur with Dr. Byrne's assessment and plan. Assessment & Plan Estimated LOS: days Request HC Surrog/Guard Advoc?: Yes Problem Qualifiers (1) Schizophrenia: Qualified Codes: F20.0 - Paranoid schizophrenia Neri Rose MD Aug 16, 2017 15:55
[2017-08-16 17:31] VITALS: BP 112/73; PULSE 120; RESP 18; TEMP 98.3; O2SAT 95
[2017-08-16] MEDS ORDERED: ZIPRASIDONE HCL 40 MG CAP PO SCH ×2 (18:00)
[2017-08-17] MEDS: SULFAMETHOXAZOLE-TRIMETHOPRIM DS 800-160 MG TAB PO SCH
[2017-08-17 02:20] VITALS: BP 127/60; PULSE 140; RESP 18; TEMP 98.8; O2SAT 95
[2017-08-17 02:44] VITALS: BP 152/80; PULSE 138; PULSE 140; RESP 19; O2SAT 94
[2017-08-17] MEDS ORDERED: METOPROLOL TARTRATE 5 MG/5 ML VIAL IV PUSH ONE (02:45)
[2017-08-17 03:11] LABS: AUTOMATED NEUTROPHIL # 5.6 TH/MM3 (1.8-7.7); BASOPHIL # 0.1 TH/MM3 (0-0.2); BASOPHIL % 0.6 % (0.0-2.0); EOSINOPHIL # 0.4 TH/MM3 (0-0.4); EOSINOPHIL % 4.4 % (0.0-4.0); HEMATOCRIT 27.4 % (35.0-46.0); HEMOGLOBIN 9.3 GM/DL (11.6-15.3); LYMPH % 20.7 % (9.0-44.0); LYMPHOCYTE # 1.9 TH/MM3 (1.0-4.8); MEAN CELL VOLUME 73.2 FL (80.0-100.0); MEAN CORPUSCULAR HEMOGLOBIN 24.9 PG (27.0-34.0); MEAN CORPUSCULAR HGB CONC 33.9 % (32.0-36.0); MEAN PLATELET VOLUME 7.3 FL (7.0-11.0); MONO % 14.7 % (0.0-8.0); MONOCYTE # 1.4 TH/MM3 (0-0.9); NEUT % 59.6 % (16.0-70.0); PLATELET COUNT 250 TH/MM3 (150-450); RED BLOOD COUNT 3.75 MIL/MM3 (4.00-5.30); RED CELL DISTRIBUTION WIDTH 17.2 % (11.6-17.2); WHITE BLOOD COUNT 9.4 TH/MM3 (4.0-11.0)
[2017-08-17 03:26] LABS: BICARBONATE 17.5 MEQ/L (21.0-32.0); CALCIUM 8.1 MG/DL (8.5-10.1); CREATININE 1.23 MG/DL (0.50-1.00); MAGNESIUM 1.5 MG/DL (1.5-2.5)
--- NOTE | 2017-08-17 07:12 | EKG ---
Date Performed: 08/17/2017 Time Performed: 02:38:22 PTAGE: 56 years EKG: ATRIAL FIBRILLATION WITH RAPID VENTRICULAR RESPONSE Nonspecific ST and T wave abnormalities Compared to prior electrocardiogram, atrial fibrillation and Nonspecific ST and T wave abnormalities are now present . DOCTOR: Tereso Boss Interpretating Date/Time 08/17/2017 07:10:29
== END 2017-08-17 03:45 | disposition short-term general hospital (02) | DRG 885 ==
LOC: NEPD 21:24 → NEDA 08-15 11:31 → H250 08-15 14:05
PROVIDERS: ADMIT Psychiatry & Neurology Psychiatry; ATTEND Psychiatry & Neurology Psychiatry
DX: F20.0 Paranoid schizophrenia (principal); N17.9 Acute kidney failure, unspecified; E11.9 Type 2 diabetes mellitus without complications; I48.91 Unspecified atrial fibrillation; K51.90 Ulcerative colitis, unspecified, without complications; Z91.14 Patient's other noncompliance with medication regimen; N39.0 Urinary tract infection, site not specified; E05.90 Thyrotoxicosis, unspecified without thyrotoxic crisis or storm; K58.9 Irritable bowel syndrome, unspecified
CPT/HCPCS: 80048; 80053; 80307; 81001; 83735; 84439; 84443; 84481; 85025; 87086; 93005; 96374; J0696; J3486; J7030

== ENCOUNTER 2017-08-17 03:17 | Inpatient (IN) | payer MEDICAID ==
[2017-08-17] VITALS (13 sets, daily range): BP systolic 98–137; BP diastolic 62–74; PULSE 77–150; RESP 20–25; TEMP 97.9–98.4; O2SAT 97–98
[~2017-08-17] VITALS: Ht 167.6 cm; Wt 76.8 kg
[~2017-08-17 03:17] MED LIST changes: -APRI0.372 PO; -AZAT50 PO; +BACT800T5 PO; -DILTCD120 PO; -FERR324T4 PO; -GLUCTAB PO; -METH5 PO; +RISP1; -RISP2TAB2 PO
[2017-08-17] MEDS ORDERED: SODIUM CHLOR 0.9% 1000 ML INJ 1,000 ML IV SCH (03:59)
[2017-08-17] MEDS ORDERED: ACETAMINOPHEN 325 MG TAB PO PRN (04:00)
[2017-08-17] MEDS ORDERED: NALOXONE HCL 0.4 MG/ML AMP IV PUSH PRN (04:00)
[2017-08-17] MEDS ORDERED: SODIUM CHLORIDE 0.9% FLUSH 10 ML FLUSH IV FLUSH PRN (04:00)
[2017-08-17] MEDS ORDERED: MAGNESIUM SULFATE 1 GM PREMIX 100 ML IV ONE (04:15)
[2017-08-17] MEDS ORDERED: hydrOXYzine HCL 50 MG TAB PO PRN (04:15)
[2017-08-17] MEDS ORDERED: diphenhydrAMINE HCL 50 MG CAP PO PRN (04:15)
--- NOTE | 2017-08-17 04:18 | HHI.HP ---
HPI Service [facility] Primary Care Physician Unknown Admission Diagnosis Atrial fibrillation with RVR, GI bleeding/ulcerative colitis . Diagnoses: Chief Complaint: Rapid heart rate and GI bleeding Travel History International Travel<30 Days: No Contact w/Intl Traveler <30 Da: No History of Present Illness This is a 56-year-old female with a history of hyperthyroidism, atrial fibrillation, diabetes mellitus, schizophrenia, and bipolar disorder who presented to the hospital on 08/14/2017 for psychiatric treatment under Guardado act. Her heart rate was progressively becoming more elevated during her inpatient psychiatric admission and she began developing multiple episodes of diarrhea with blood clots in stool. [facility] Hospitalists were consulted and the patient was recommended for transfer to [facility] for further management and evaluation of acute medical problems. The patient is seen but is uncooperative with much of physical exam and history taking process. She answers some questions at times with simple answers but denies some of her medical history that is been clearly recorded in the electronic medical record. Review of Systems ROS Limitations: Uncooperative (unable to obtain reliable ROS) Past Family Social History Past Medical History The patient is not cooperative with much of the history taking, therefore the following is taken from review of the EMR: hyperthyroidism, atrial fibrillation, diabetes mellitus, schizophrenia, and bipolar disorder . Past Surgical History The patient is not cooperative with much of the history taking, therefore the following is taken from review of the EMR: Tonsillectomy and ankle repair in childhood . Reported Medications The patient is not cooperative with much of the history taking, therefore the following is taken from review of the EMR: Reported Meds & Active Scripts Active Bactrim DS (Sulfamethoxazole-Trimethoprim) 800-160 Mg Tab 1 Tab PO BID Reported Risperdal (Risperidone) 1 Mg Tab 1 Mg BID Prednisone 20 Mg Tab 20 Mg PO DAILY . Allergies: Coded Allergies: meperidine (Unverified Allergy, Severe, Rash, 08/14/17) Family History The patient is not cooperative with much of the history taking, therefore the following is taken from review of the EMR: Mother in her 50's, had kidney failure . Social History The patient is not cooperative with much of the history taking, therefore the following is taken from review of the EMR: previously denied smoking, drinking or taking illicit drugs . Physical Exam Vital Signs Vital Signs Date Time Temp Pulse Resp B/P (MAP) Pulse Ox O2 Delivery O2 Flow Rate FiO2 08/17/17 04:00 150 Physical Exam CONSTITUTIONAL: This is a selectively mute female patient who is frequently uncooperative with interview process. INTEGUMENTARY: No rashes, ecchymoses or lesions. Cool and dry. HEAD: Atraumatic. Normocephalic. EYES: No scleral icterus. No injection or drainage. ENT: Nose without bleeding, purulent drainage. NECK: Trachea midline. No JVD. CARDIOVASCULAR: Rapidly irregularly irregular rate without murmurs, gallops, or rubs. +1 bilateral ankle edema. RESPIRATORY: Clear to auscultation. Breath sounds equal bilaterally. No wheezes , rales, or rhonchi. GASTROINTESTINAL: Abdomen soft, non-tender, nondistended. No guarding. MUSCULOSKELETAL: Extremities without clubbing, cyanosis. No calf tenderness. NEUROLOGICAL: Awake and alert. Difficult to fully assess due to lack of cooperation from patient. . Caprini VTE Risk Assessment Caprini VTE Risk Assessment: Mod/High Risk (score >= 2) VTE Pharm Contraindication: Active bleeding Caprini Risk Assessment Model Point Value = 1 Point Value = 2 Point Value = 3 Point Value = 5 Age 41-60 Minor surgery BMI > 25 kg/m2 Swollen legs Varicose veins or History of unexplained or recurrent spontaneous Oral contraceptives or hormone replacement Sepsis (< 1 month) Serious lung disease, including pneumonia (< 1 month) Abnormal pulmonary function Acute myocardial infarction Congestive heart failure (< 1 month) History of inflammatory bowel disease Medical patient at bed rest Age 61-74 Arthroscopic surgery Major open surgery (> 45 min) Laparoscopic surgery (> 45 min) Malignancy Confined to bed (> 72 hours) Immobilizing plaster cast Central venous access Age >= 75 History of VTE Family history of VTE Factor V Leiden Prothrombin [id number] Lupus anticoagulant Anticardiolipin antibodies Elevated serum homocysteine Heparin-induced thrombocytopenia Other congenital or acquired thrombophilia Stroke (< 1 month) Elective arthroplasty Hip, pelvis, or leg fracture Acute spinal cord injury (< 1 month) Prophylaxis Regimen Total Risk Factor Score Risk Level Prophylaxis Regimen 0-1 Low Early ambulation 2 Moderate Order ONE of the following: *Sequential Compression Device (SCD) *Heparin 5000 units SQ BID 3-4 Higher Order ONE of the following medications: *Heparin 5000 units SQ TID *Enoxaparin/Lovenox 40 mg SQ daily (WT < 150 kg, CrCl > 30 mL/min) *Enoxaparin/Lovenox 30 mg SQ daily (WT < 150 kg, CrCl > 10-29 mL/min) *Enoxaparin/Lovenox 30 mg SQ BID (WT < 150 kg, CrCl > 30 mL/min) AND/OR *Sequential Compression Device (SCD) 5 or more Highest Order ONE of the following medications: *Heparin 5000 units SQ TID (Preferred with Epidurals) *Enoxaparin/Lovenox 40 mg SQ daily (WT < 150 kg, CrCl > 30 mL/min) *Enoxaparin/Lovenox 30 mg SQ daily (WT < 150 kg, CrCl > 10-29 mL/min) *Enoxaparin/Lovenox 30 mg SQ BID (WT < 150 kg, CrCl > 30 mL/min) AND *Sequential Compression Device (SCD) Assessment and Plan Problem List: (1) Atrial fibrillation with rapid ventricular response ICD Code: I48.91 - Atrial fibrillation with rapid ventricular response Status: Acute (2) Hyperthyroidism ICD Code: E05.90 - Thyrotoxicosis, unspecified without thyrotoxic crisis or storm Status: Acute (3) Ulcerative colitis ICD Code: K51.90 - Ulcerative colitis, unspecified, without complications Status: Acute (4) Diabetes ICD Code: E11.9 - Diabetes mellitus Status: Chronic Assessment and Plan This is a 56-year-old female with a history of hyperthyroidism, atrial fibrillation, diabetes mellitus, schizophrenia, and bipolar disorder who presented to the hospital on 08/14/2017 for psychiatric treatment under Guardado act. Her heart rate was progressively becoming more elevated during her inpatient psychiatric admission and she began developing multiple episodes of diarrhea with blood clots in stool. [facility] hospitalists were consulted and the patient was recommended for transfer to [facility] for further management and evaluation of acute medical problems. Atrial fibrillation with rapid ventricular response -Stat EKG obtained was personally reviewed and shows atrial fibrillation with heart rate of [address] T-wave changes -We will consult cardiology though suspect ST-T wave changes noted on EKG were likely rate related -Metoprolol 5 mg IV q5 min x 3 for sustained HR > 130 -July be related to poorly controlled hyperthyroidism Hyperthyroidism, poorly controlled - In the ER on 08/14/17 - TSH low at < 0.005, elevated Free T3/Free T4: Free T4 - 1.84, and Free T3 - 4.47 - start Methimazole 5 mg q8h p.o. - obtain baseline LFTs to monitor for hepatotoxicity and monitor CBC for pancytopenia - both adverse effects associated with methimazole GI bleeding History of ulcerative colitis - tredn serial H&H q6h - consult GI - Solumedrol 40 mg IV q12h Type 2 Diabetes Mellitus - Accucheck AC and HS with low dose NovoLog sliding scale coverage - PRN hypoglycemia treatment protocol ordered - monitor trends in blood glucose readings and adjust treatments accordingly - IVF hydration with D5NS at 100 cc/hr while NPO Bipolar disorder with acute psychotic episode - continue medications started in the psychiatric inpatient unit - consult psychiatry - Guardado Act upheld by psychiatrist - will likely need help with symptomatology while admitted for medical management DVT prophylaxis - chemoprophylaxis contraindicated by GI bleeding - SCDs/TEDs Discussed Condition With RN and Dr. Wood Physician Certification 2 Midnight Certification Type: Admission for Inpatient Services Order for Inpatient Services The services are ordered in accordance with Medicare regulations or non- Medicare payer requirements, as applicable. In the case of services not specified as inpatient-only, they are appropriately provided as inpatient services in accordance with the 2-midnight benchmark. Estimated LOS (days): 3 days is the estimated time the patient will need to remain in the hospital, assuming treatment plan goals are met and no additional complications. Post-Hospital Plan: Not yet determined Peggy Douglas Aug 17, 2017 04:18
[2017-08-17] MEDS: POTASSIUM CHLOR 20 MEQ PREMIX 100 ML IV SCH ×2 (04:25→05:26)
[2017-08-17] MEDS: METOPROLOL TARTRATE 5 MG/5 ML VIAL IV PUSH PRN ×2 (04:27→07:22)
[2017-08-17] MEDS: DEXT 5%-NACL 0.9% 1000 ML INJ 1,000 ML IV SCH ×3 (05:15→14:56)
[2017-08-17] MEDS ORDERED: DEXTROSE 50% IN WATER 50 ML VIAL(D50) IV PUSH PRN (05:15)
[2017-08-17] MEDS ORDERED: GLUCAGON 1 MG/ML VIAL OTHER PRN (05:15)
[2017-08-17] MEDS: METHIMAZOLE 5 MG TAB PO SCH ×4 (05:26→21:57)
[2017-08-17] MEDS: ZIPRASIDONE MESYLATE 20 MG VIAL IM SCH ×2 (05:33→15:55)
[2017-08-17] MEDS: INSULIN ASPART SUPPLEMENTAL SCALE SQ SCH ×4 (07:45→20:05)
[2017-08-17] MEDS: methylPREDNISolone SOD SUCC 40 MG/1 ML VIAL IV PUSH SCH ×2 (09:00→19:49)
[2017-08-17] MEDS: ZIPRASIDONE HCL 40 MG CAP PO SCH ×2 (09:00→16:22)
[2017-08-17] MEDS: SODIUM CHLORIDE 0.9% FLUSH 10 ML FLUSH IV FLUSH SCH ×2 (09:00→19:49)
[2017-08-17 09:05] LABS: HEMATOCRIT 27.7 % (35.0-46.0); HEMOGLOBIN 9.1 GM/DL (11.6-15.3)
[2017-08-17 09:18] LABS: ALBUMIN 2.3 GM/DL (3.4-5.0); DIRECT BILIRUBIN ADULT 0.1 MG/DL (0.0-0.2)
[2017-08-17 09:21] LABS: INDIRECT BILIRUBIN 0.2 MG/DL (0.0-0.8); TOTAL BILIRUBIN ADULT 0.3 MG/DL (0.2-1.0); TOTAL PROTEIN 6.3 GM/DL (6.4-8.2)
--- NOTE | 2017-08-17 11:07 | PD.CONS ---
HPI History of Present Illness This is a 56 year old F with PMH significant for atrial fibrillation, hyperthyroidism, DM, schizophrenia, bipolar disorder and UC who was brought to [place] on 08/14 under a Guardado act, she was transferred from inpatient psych to ICU due to a fib RVR. Our service has been consulted due to reports of rectal bleeding. Pt is unable to provide any history, she is awake and smiles when I answer questions. According to previous records, our service has previously seen pt for UC. Pt denies taking any medication at home for this, there is Prednisone listed on her home medication list. She denies any abdominal pain. Per RN she has not witnessed any stool yet today. Pts last EGD and colonoscopy ntoed in the computer from July 2015 --> Normal EGD. Descending colon, sigmoid colon, and rectum revealed significant diffuse ulcerative colitis. Pathology consistent with severe chronic active colitis. (Jyotsna Negro) PFSH Past Medical History The patient is not cooperative with much of the history taking, therefore the following is taken from review of the EMR: hyperthyroidism, atrial fibrillation, diabetes mellitus, schizophrenia, and bipolar disorder . Past Surgical History The patient is not cooperative with much of the history taking, therefore the following is taken from review of the EMR: Tonsillectomy and ankle repair in childhood . (Jyotsna Negro) Coded Allergies: meperidine (Unverified Allergy, Severe, Rash, 08/14/17) Family History The patient is not cooperative with much of the history taking, therefore the following is taken from review of the EMR: Mother in her 50's, had kidney failure . Social History The patient is not cooperative with much of the history taking, therefore the following is taken from review of the EMR: previously denied smoking, drinking or taking illicit drugs . (Jyotsna Negro) Review of Systems Gastrointestinal: COMPLAINS OF: Bloody stools, Diarrhea, DENIES: Abdominal pain , Constipation, Nausea, Vomiting, Difficulty Swallowing, Odynophagia, Swelling of Abdomen, Heartburn, Hematemesis (Jyotsna Negro) GI Exam Vitals I&O Vital Signs Date Time Temp Pulse Resp B/P (MAP) Pulse Ox O2 Delivery O2 Flow Rate FiO2 08/17/17 10:00 104 08/17/17 08:00 98.3 124 25 109/62 (78) 98 08/17/17 08:00 138 08/17/17 07:00 144 08/17/17 07:00 97 Room Air 08/17/17 06:00 150 08/17/17 04:00 150 I/O 08/16/17 08/16/17 08/16/17 08/17/17 08/17/17 08/17/17 07:00 15:00 23:00 07:00 15:00 23:00 Intake Total 200 ml Output Total 0 ml Balance 0 ml 200 ml Intake IV Total 200 ml Output Urine Total 0 ml Laboratory Test 08/17/17 08:42 Hemoglobin 9.1 GM/DL Hematocrit 27.7 % Total Bilirubin 0.3 MG/DL Direct Bilirubin 0.1 MG/DL Indirect Bilirubin 0.2 MG/DL Aspartate Amino Transf (AST/SGOT) 5 U/L Alanine Aminotransferase (ALT/SGPT) 8 U/L Alkaline Phosphatase 75 U/L Total Protein 6.3 GM/DL Albumin 2.3 GM/DL Physical Examination HEENT: Normocephalic; atraumatic CHEST: Even/unlabored CARDIAC: Irregular rate and rhythm, rate elevated ABDOMEN: Obese, soft, nontender, bowel sounds active EXTREMITIES: No clubbing, cyanosis, or edema. SKIN: Normal; no rash; no jaundice. [employer]: Alert. (Jyotsna Negro) Assessment and Plan Plan Assessment: Pt does not provide history therefore history was obtained through chart review - History of UC with reports of rectal bleeding, states multiple episodes a day. Unsure if she is on home medication for this, Prednisone is listed on home meds. Unsure if she follow up with a GI doctor Pt denies any associated abdominal pain. H/H has been stable since admission on 08/14 currently hgb 9.1 Previously seen by our service while inpatient. July 2015 --> Normal EGD. Descending colon, sigmoid colon, and rectum revealed significant diffuse ulcerative colitis. Pathology consistent with severe chronic active colitis. - A-fib RVR- cardiology evaluation - Guardado act Plan: C Diff stool Flex sig tomorrow Obtain consent NPO after MN Soap suds enema x 2 in AM Monitor H/H Continue Solumedrol Further recommendations based on clinical course and results of above Pt has been seen and examined by myself and Dr. Edwards and this note is written on his behalf (Jyotsna Negro) Physician Comments Seen and examined, plan as above. Consent obtained from the father. Will proceed with sigmoidoscopy in AM. Thank you for the consult. (Margaret Edwards MD) Jyotsna Negro Aug 17, 2017 11:07 Margaret Edwards MD Aug 17, 2017 23:09
[2017-08-17] MEDS ORDERED: ESMOLOL HCL 100 MG/10 ML VIAL IV PUSH PRN (13:00)
--- NOTE | 2017-08-17 13:14 | HHI.PYPN ---
Subjective Remarks The patient is a 56-year-old woman, she has psychiatric history of schizophrenia, multiple psychiatric hospitalizations, brought to the hospital due to psychotic behavior, noncompliant with medications. Consulted to me for second opinion. On my evaluation today the patient is alert, she seems to be in a good mood, good spirit, but selectively mute. She does not answer most of my questions, but she does say that she is happy. The patient denies suicidal and homicidal ideation, she denies visual and auditory hallucinations. She says that she is taking her medications, she wants to get better and be discharged back home. She denies pain, distress, she is smiles inappropriately often, seems to be internally stimulated. No aggressive behavior, no agitation reported. Mental Status Examination Appearance: Appropriate Consciousness: Alert Orientation: x4 Motor Activity: Normal gait Speech: Unremarkable, Other (Selectively mute) Language: Adequate Fund of Knowledge: Adequate Attention and Concentration: Adequate Memory: Unremarkable Mood: Appropriate Affect: Appropriate Thought Process & Associations: Loose associations, Disorganized Thought Content: Delusional Hallucination Type: None Delusion Type: None Suicidal Ideation: No Suicidal Plan: No Suicidal Intention: No Homicidal Ideation: No Homicidal Plan: No Homicidal Intention: No Insight: Poor Judgment: Poor Results Labs Test 08/17/17 08:42 Hemoglobin 9.1 GM/DL Hematocrit 27.7 % Total Bilirubin 0.3 MG/DL Direct Bilirubin 0.1 MG/DL Indirect Bilirubin 0.2 MG/DL Aspartate Amino Transf (AST/SGOT) 5 U/L Alanine Aminotransferase (ALT/SGPT) 8 U/L Alkaline Phosphatase 75 U/L Total Protein 6.3 GM/DL Albumin 2.3 GM/DL Vitals/IOs Vital Signs Date Time Temp Pulse Resp B/P (MAP) Pulse Ox O2 Delivery O2 Flow Rate FiO2 08/17/17 12:00 130 08/17/17 12:00 98.4 20 137/73 (94) 98 08/17/17 07:00 Room Air Intake and Output 08/17/17 08/17/17 08/18/17 08:00 16:00 00:00 Intake Total 200 ml Output Total 0 ml Balance 0 ml 200 ml Assessment & Plan Problem List: (1) Schizophrenia ICD Codes: F20.9 - Schizophrenia Status: Acute Assessment & Plan Estimated LOS: days Justification for Cont. Inpt. Patient continues to be acutely psychotic. Discharge Planning Continue current psychotropic regimen. Haldol 5 mg IM/IV every 8 hours as needed severe aggressive behavior or agitation. Transfer back to psychiatry was medically clear. Neri Rose MD Aug 17, 2017 13:14
[2017-08-17] MEDS: ESMOLOL DRIP INJ PREMIX 250 ML IV PRN ×3 (13:37→23:35)
[2017-08-17 16:21] LABS: HEMOGLOBIN 9.3 GM/DL (11.6-15.3)
[2017-08-17 22:16] LABS: HEMATOCRIT 26.9 % (35.0-46.0); HEMOGLOBIN 8.8 GM/DL (11.6-15.3)
[2017-08-18] VITALS (14 sets, daily range): BP systolic 114–140; BP diastolic 58–82; PULSE 72–93; RESP 14–24; TEMP 97.2–98.4; O2SAT 96–99
--- NOTE | 2017-08-18 00:51 | MB ---
cc: Rajesh Grijalva DO DATE: 08/17/2017 REASON FOR CONSULTATION: Atrial fibrillation with rapid ventricular response. HISTORY OF PRESENT ILLNESS: Ramonita Valente is a 56-year-old female who originally presented to the hospital on 08/14/2017 for psychiatric treatment under a Guardado Act. Apparently, she has been noncompliant with her psychiatric medications and defecating all over her house and refusing to shower. History is overall limited, as the patient will somewhat answer questions with yes or no shakes of her head, but will not talk to me. While in psych treatment, it was starting to be noticed that she had elevated heart rates and she was in atrial fibrillation with rapid ventricular response. Because of this, she was moved from the psychiatric unit and was admitted to the ICU. In seeing her, she is currently hemodynamically stable and answers no to chest pain, shortness of breath or palpitations. She has also had multiple episodes of diarrhea with blood clots in her stool. I was consulted to try to help with her atrial fibrillation management. Apparently, she has a history of atrial fibrillation, but was not on any medications for it per the medical records. PAST MEDICAL HISTORY: 1. Hyperthyroidism. 2. Atrial fibrillation. 3. Diabetes mellitus. 4. Schizophrenia. 5. Bipolar disorder. PAST SURGICAL HISTORY: 1. Tonsillectomy. 2. Ankle repair as a child. ALLERGIES: MEPERIDINE. MEDICATIONS: 1. Risperdal 1 mg b.i.d. 2. Prednisone 20 mg daily. FAMILY HISTORY: Mother in her 50s due to kidney failure. SOCIAL HISTORY: Previously denied tobacco, alcohol or drug abuse. REVIEW OF SYSTEMS: Unable to obtain due to the patient not answering questions, but denies chest pain, shortness of breath by shaking her head no. PHYSICAL EXAMINATION: VITAL SIGNS: Temperature 98.3, heart rate 130, blood pressure 137/73, respirations 20, pulse oximetry 98% on room air. GENERAL: The patient appears well, in no acute distress, alert and awake. She is selectively mute. HEENT: Extraocular muscles intact. Mucous membranes moist. NECK: Supple. No JVD at 45 degrees. No carotid bruits heard bilaterally. Carotid upstroke is brisk in nature. HEART: Irregularly irregular, tachycardic. No murmurs, gallops or rubs noted. LUNGS: Clear to auscultation bilaterally. No wheezes, rales or rhonchi. ABDOMEN: Soft, nontender, nondistended. No organomegaly noted. EXTREMITIES: Show no clubbing, cyanosis or edema. Femoral and distal pulses are intact bilaterally. NEUROLOGIC: No focal deficits noted. SKIN: Warm, dry and intact. OSTEOPATHIC: No kyphoscoliosis, lordosis or paraspinal tender points. LABORATORY DATA: Hemoglobin 9.1, hematocrit 27.7, platelets 250. Potassium 3.3, BUN 14, creatinine 1.23, TSH is less than 0.05. Electrocardiogram (08/17/2017 at 0238), atrial fibrillation with rapid ventricular response, with ST-T wave changes. IMPRESSION: 1. Atrial fibrillation with rapid ventricular response. 2. Possible gastrointestinal bleed with blood clots noted in the history of ulcerative colitis. 3. Hyperthyroidism. 4. Type 2 diabetes mellitus. 5. Schizophrenia. 6. Bipolar disorder. RECOMMENDATIONS: 1. Ms. Valente presented originally as a Guardado Act due to her schizophrenia and Psychiatry has been consulted for such. 2. She was found to be in atrial fibrillation with rapid ventricular response and this may be due to her hyperthyroidism. She is currently not on treatment for her atrial fibrillation or hyperthyroidism. 3. As she is not taking oral pills and there is a national shortage on Cardizem, we will place her on an esmolol drip to try to help control her heart rates. After being treated by psych and willing to take oral pills, we will plan on transferring her to some type of oral therapy for atrial fibrillation. 4. We will check a 2-D echo to look at her overall left ventricular function, cardiac structure and possible valvulopathies. 5. Overall, she is not a candidate for anticoagulation due to recurrent gastrointestinal bleed or her inability to take medications. She will be treated for her hyperthyroidism by the primary medical team. 6. Further recommendations will be made based on the hospital course. Thank you for allowing me to see Ramonita Valente. If there are any questions, please do not hesitate to call. DO TAVO Tesfaye/VALDO , 11:56 PM , 12:50 AM
[2017-08-18] MEDS: DEXT 5%-NACL 0.9% 1000 ML INJ 1,000 ML IV SCH ×3 (01:01→21:41)
[2017-08-18] MEDS: ESMOLOL DRIP INJ PREMIX 250 ML IV PRN ×4 (03:17→22:00)
[2017-08-18 03:34] LABS: HEMATOCRIT 26.3 % (35.0-46.0); HEMOGLOBIN 8.6 GM/DL (11.6-15.3)
[2017-08-18] MEDS: METHIMAZOLE 5 MG TAB PO SCH ×3 (05:42→22:00)
[2017-08-18] MEDS: INSULIN ASPART SUPPLEMENTAL SCALE SQ SCH ×4 (08:00→21:00)
[2017-08-18 08:47] LABS: AUTOMATED NEUTROPHIL # 3.9 TH/MM3 (1.8-7.7); BASOPHIL % 0.1 % (0.0-2.0); HEMATOCRIT 25.1 % (35.0-46.0); HEMOGLOBIN 8.3 GM/DL (11.6-15.3); LYMPH % 15.5 % (9.0-44.0); LYMPHOCYTE # 0.8 TH/MM3 (1.0-4.8); MEAN CELL VOLUME 75.3 FL (80.0-100.0); MEAN CORPUSCULAR HEMOGLOBIN 24.8 PG (27.0-34.0); MEAN CORPUSCULAR HGB CONC 32.9 % (32.0-36.0); MEAN PLATELET VOLUME 7.5 FL (7.0-11.0); MONO % 7.1 % (0.0-8.0); MONOCYTE # 0.4 TH/MM3 (0-0.9); NEUT % 77.3 % (16.0-70.0); PLATELET COUNT 236 TH/MM3 (150-450); RED BLOOD COUNT 3.33 MIL/MM3 (4.00-5.30); WHITE BLOOD COUNT 5.1 TH/MM3 (4.0-11.0)
[2017-08-18] MEDS: ZIPRASIDONE MESYLATE 20 MG VIAL IM SCH ×2 (08:57→16:30)
[2017-08-18] MEDS: methylPREDNISolone SOD SUCC 40 MG/1 ML VIAL IV PUSH SCH ×2 (08:57→21:00)
[2017-08-18] MEDS: SODIUM CHLORIDE 0.9% FLUSH 10 ML FLUSH IV FLUSH SCH ×2 (08:57→21:00)
[2017-08-18] MEDS: ZIPRASIDONE HCL 40 MG CAP PO SCH ×2 (08:58→18:00)
--- NOTE | 2017-08-18 11:54 | GIPROC ---
[facility] [address] [facility]. [facility], [address] FLEXIBLE SIGMOIDOSCOPY PROCEDURE REPORT EXAM DATE: 08/18/2017 PATIENT NAME: Ramonita Valente MR #: [id number] BIRTHDATE: 1960 ORDER #: [id number] ATTENDING: Margaret Edwards MD CROSSCUTTER: Ranjit Paz and Sarita Llanes STATUS: inpatient INDICATIONS: The patient is a 56 yr old female here for a flexible sigmoidoscopy due to chronic diarrhea PROCEDURE PERFORMED: Flexible Sigmoidoscopy with biopsy MEDICATIONS: None and Per Anesthesia. ESTIMATED BLOOD LOSS: None CONSENT: The patient understands the risks and benefits of the procedure and understands that these risks include, but are not limited to: sedation, allergic reaction, infection, perforation and/or bleeding. Alternative means of evaluation and treatment include, among others: physical exam, x-rays, and/or surgical intervention. The patient elects to proceed with this endoscopic procedure. medical equipment was checked for proper function. Hand hygiene and appropriate measures for infection prevention was taken. After the risks, benefits and alternatives of the procedure were thoroughly explained, Informed consent was verified, confirmed and timeout was successfully executed by the treatment team. A digital rectal exam revealed no abnormalities of the rectum The Pentax [id number] endoscope was introduced through the anus and advanced to the sigmoid colon. The prep was poor. The instrument was then slowly withdrawn as the colon was fully examined. COLON FINDINGS: Non-bleeding mucosal ulceration, continuous across the area examined, was present in the sigmoid colon. Multiple biopsies were performed using cold forceps. Retroflexion was not performed due to a narrow rectal vault The scope was then completely withdrawn from the patient and the procedure terminated. ADVERSE EVENTS: There were no complications. IMPRESSIONS: Non-bleeding mucosal ulceration in the sigmoid colon; multiple biopsies were performed using cold forceps compatible with ulcerative colitis. RECOMMENDATIONS: Await biopsy results RECALL: NONE Margaret Edwards MD eSigned: Margaret Edwards MD 08/18/2017 11:53 AM cc:
[2017-08-18] MEDS ORDERED: PROPOFOL 200 MG/20 ML AMP IV ONE (12:00)
[2017-08-18] MEDS ORDERED: LIDOCAINE HCL 1% PF 5 ML SYRINGE OTHER ONE (12:00)
[2017-08-18] MEDS ORDERED: DO NOT ADM ANY ANTICOAGULANT DRUGS PRN (13:00)
--- NOTE | 2017-08-18 16:51 | HHI.PR ---
Subjective Remarks Patient is laying in bed with eyes open but she is nonverbal catatonic I discussed with nurse and the bookstore manager Dr. Grijalva he will continue on esmolol and slowly taper her to p.o. rate control agent No other issue no fever or chills Objective Vitals Vital Signs Date Time Temp Pulse Resp B/P (MAP) Pulse Ox O2 Delivery O2 Flow Rate FiO2 08/18/17 15:00 75 08/18/17 14:00 73 08/18/17 12:00 97.9 72 14 136/82 (100) 97 08/18/17 12:00 72 08/18/17 12:00 97.8 80 14 105/54 (71) 100 Nasal Cannula 2 08/18/17 11:48 76 120/57 08/18/17 11:45 97.8 82 14 113/58 (76) 100 Nasal Cannula 2 08/18/17 10:00 78 08/18/17 08:00 80 08/18/17 08:00 97.2 80 15 120/59 (79) 98 08/18/17 07:00 82 08/18/17 07:00 98 Room Air 08/18/17 06:00 78 08/18/17 04:00 78 08/18/17 04:00 98.2 78 22 120/58 (78) 96 08/18/17 03:17 80 116/61 08/18/17 02:00 75 08/18/17 00:00 98.4 93 20 114/59 (77) 97 08/18/17 00:00 93 08/17/17 23:35 93 114/59 08/17/17 23:00 94 08/17/17 22:00 77 08/17/17 20:00 97.9 120 24 128/63 (84) 98 08/17/17 20:00 120 08/17/17 19:49 121 105/58 08/17/17 19:00 97 Room Air 08/17/17 18:00 114 I/O 08/17/17 08/17/17 08/17/17 08/18/17 08/18/17 08/18/17 07:00 15:00 23:00 07:00 15:00 23:00 Intake Total 1033 ml 260 ml 1495 ml 150 ml Output Total 0 ml Balance 0 ml 1033 ml 260 ml 1495 ml 150 ml Intake IV Total 1033 ml 260 ml 1495 ml Other 150 ml Output Urine Total 0 ml # Voids 3 4 # Bowel Movements 2 1 Result Diagram: 08/18/17 0816 Objective Remarks GENERAL: This is a well-nourished, well-developed patient, laying in bed staring at the door in catatonic state CARDIOVASCULAR: RRR, no gallops, or rubs. RESPIRATORY: Fair air entry bilaterally. No W, R, or R GASTROINTESTINAL: Abdomen soft, non-tender, nondistended. Positive bowel sounds MUSCULOSKELETAL: Extremities without clubbing, cyanosis, or edema. Pedal pulses appreciated NEUROLOGICAL: Awake and alert in catatonic state not answering question. Able to moves all extremity. A/P Problem List: (1) Atrial fibrillation with rapid ventricular response ICD Code: I48.91 - Atrial fibrillation with rapid ventricular response Status: Acute (2) Hyperthyroidism ICD Code: E05.90 - Thyrotoxicosis, unspecified without thyrotoxic crisis or storm Status: Acute (3) Ulcerative colitis ICD Code: K51.90 - Ulcerative colitis, unspecified, without complications Status: Acute (4) Diabetes ICD Code: E11.9 - Diabetes mellitus Status: Chronic Assessment and Plan This is a 56-year-old female with a history of hyperthyroidism, atrial fibrillation, diabetes mellitus, schizophrenia, and bipolar disorder who presented to the hospital on 08/14/2017 for psychiatric treatment under Guardado act. Her heart rate was progressively becoming more elevated during her inpatient psychiatric admission and she began developing multiple episodes of diarrhea with blood clots in stool. [facility] hospitalists were consulted and the patient was recommended for transfer to [facility] for further management and evaluation of acute medical problems. 08/18: Discussed with cardiology Dr. Grijalva, he will continue esmolol and switch to p.o. agents, patient to continue on steroids, sigmoidoscopy revealed colitis, biopsy pending, on steroids, appreciate GI follow-up, A/P: Atrial fibrillation with rapid ventricular response -Stat EKG obtained was personally reviewed and shows atrial fibrillation with heart rate of [address] T-wave changes -Appreciate cardiology consultation -Metoprolol 5 mg IV q5 min x 3 for sustained HR > 130 -Due to hyperthyroidism Hyperthyroidism, poorly controlled - In the ER on 08/14/17 - TSH low at < 0.005, elevated Free T3/Free T4: Free T4 - 1.84, and Free T3 - 4.47 - start Methimazole 5 mg q8h p.o. - obtain baseline LFTs to monitor for hepatotoxicity and monitor CBC for pancytopenia - both adverse effects associated with methimazole GI bleeding History of ulcerative colitis - tredn serial H&H q6h - consult GI - Solumedrol 40 mg IV q12h Type 2 Diabetes Mellitus - Accucheck AC and HS with low dose NovoLog sliding scale coverage - PRN hypoglycemia treatment protocol ordered - monitor trends in blood glucose readings and adjust treatments accordingly - IVF hydration with D5NS at 100 cc/hr while NPO Bipolar disorder with acute psychotic episode - continue medications started in the psychiatric inpatient unit - consult psychiatry - Guardado Act upheld by psychiatrist - will likely need help with symptomatology while admitted for medical management DVT prophylaxis - chemoprophylaxis contraindicated by GI bleeding - SCDs/TEDs Johanne Olsen MD Aug 18, 2017 16:51
--- NOTE | 2017-08-18 16:53 | PD.CARD.PN ---
Subjective Subjective Remarks No events overnight Converted to sinus rhythm Still not taking oral medications Objective Medications Current Medications Medications (Trade) Dose Ordered Sig/Ronaldo Route Start Time Stop Time Status Last Admin (NS Flush) 2 ml UNSCH PRN IV FLUSH 08/17/17 04:00 (NS Flush) 2 ml BID IV FLUSH 08/17/17 09:00 08/18/17 08:57 (Tylenol) 650 mg Q4H PRN PO 08/17/17 04:00 (Narcan Inj) 0.4 mg UNSCH PRN IV PUSH 08/17/17 04:00 (SoluMEDROL INJ) 40 mg Q12HR IV PUSH 08/17/17 09:00 08/18/17 08:57 (Lopressor Inj) 5 mg Q5M PRN IV PUSH 08/17/17 04:15 08/17/17 07:22 (Geodon) 40 mg BIDPC PO 08/17/17 09:00 (Geodon Inj) 10 mg BIDAC IM 08/17/17 07:00 08/18/17 16:30 (Atarax) 50 mg Q6H PRN PO 08/17/17 04:15 (Benadryl) 50 mg HS PRN PO 08/17/17 04:15 (Tapazole) 5 mg Q8HR PO 08/17/17 06:00 08/17/17 13:25 (D50w (Vial) Inj) 50 ml UNSCH PRN IV PUSH 08/17/17 05:15 (Glucagon Inj) 1 mg UNSCH PRN OTHER 08/17/17 05:15 (NovoLOG SUPPLEMENTAL SCALE) 1 ACHS SLIDING SCALE SQ 08/17/17 08:00 08/18/17 16:38 Dextrose/Sodium Chloride 1,000 ml @ 100 mls/hr Q10H IV 08/17/17 05:15 08/18/17 11:47 Esmolol HCl/ Sodium Chloride 250 ml @ 21 mls/hr TITRATE PRN IV 08/17/17 13:00 08/18/17 11:48 (Brevibloc Bolus Inj) 35 mg BOLUS PRN IV PUSH 08/17/17 13:00 ([facility] Nursing Information) ALL NURSING DEPARTME... UNSCH PRN .XX 08/18/17 13:00 08/19/17 12:59 Vital Signs / I&O Vital Signs Date Time Temp Pulse Resp B/P (MAP) Pulse Ox O2 Delivery O2 Flow Rate FiO2 08/18/17 15:00 75 08/18/17 14:00 73 08/18/17 12:00 97.9 72 14 136/82 (100) 97 08/18/17 12:00 72 08/18/17 12:00 97.8 80 14 105/54 (71) 100 Nasal Cannula 2 08/18/17 11:48 76 120/57 08/18/17 11:45 97.8 82 14 113/58 (76) 100 Nasal Cannula 2 08/18/17 10:00 78 08/18/17 08:00 80 08/18/17 08:00 97.2 80 15 120/59 (79) 98 08/18/17 07:00 82 08/18/17 07:00 98 Room Air 08/18/17 06:00 78 08/18/17 04:00 78 08/18/17 04:00 98.2 78 22 120/58 (78) 96 08/18/17 03:17 80 116/61 08/18/17 02:00 75 08/18/17 00:00 98.4 93 20 114/59 (77) 97 08/18/17 00:00 93 08/17/17 23:35 93 114/59 08/17/17 23:00 94 08/17/17 22:00 77 08/17/17 20:00 97.9 120 24 128/63 (84) 98 08/17/17 20:00 120 08/17/17 19:49 121 105/58 08/17/17 19:00 97 Room Air 08/17/17 18:00 114 I/O 08/17/17 08/17/17 08/17/17 08/18/17 08/18/17 08/18/17 07:00 15:00 23:00 07:00 15:00 23:00 Intake Total 1033 ml 260 ml 1495 ml 150 ml Output Total 0 ml Balance 0 ml 1033 ml 260 ml 1495 ml 150 ml Intake IV Total 1033 ml 260 ml 1495 ml Other 150 ml Output Urine Total 0 ml # Voids 3 4 # Bowel Movements 2 1 Physical Exam GENERAL: NAD, resting comfortably SKIN: Warm and dry. HEAD: Atraumatic. Normocephalic. EYES: Pupils equal and round. No scleral icterus. No injection or drainage. ENT: No nasal bleeding or discharge. Mucous membranes pink and moist. NECK: Trachea midline. No JVD. CARDIOVASCULAR: Regular rate and rhythm. RESPIRATORY: No accessory muscle use. Clear to auscultation. Breath sounds equal bilaterally. GASTROINTESTINAL: Abdomen soft, non-tender, nondistended. Hepatic and splenic margins not palpable. MUSCULOSKELETAL: Extremities without clubbing, cyanosis, or edema. No obvious deformities. NEUROLOGICAL: Awake and alert. No obvious cranial nerve deficits. Laboratory Laboratory Tests Test 08/17/17 21:11 08/18/17 02:39 08/18/17 08:16 Hemoglobin 8.8 GM/DL 8.6 GM/DL 8.3 GM/DL Hematocrit 26.9 % 26.3 % 25.1 % White Blood Count 5.1 TH/MM3 Red Blood Count 3.33 MIL/MM3 Mean Corpuscular Volume 75.3 FL Mean Corpuscular Hemoglobin 24.8 PG Mean Corpuscular Hemoglobin Concent 32.9 % Red Cell Distribution Width 17.0 % Platelet Count 236 TH/MM3 Mean Platelet Volume 7.5 FL Neutrophils (%) (Auto) 77.3 % Lymphocytes (%) (Auto) 15.5 % Monocytes (%) (Auto) 7.1 % Eosinophils (%) (Auto) 0.0 % Basophils (%) (Auto) 0.1 % Neutrophils # (Auto) 3.9 TH/MM3 Lymphocytes # (Auto) 0.8 TH/MM3 Monocytes # (Auto) 0.4 TH/MM3 Eosinophils # (Auto) 0.0 TH/MM3 Basophils # (Auto) 0.0 TH/MM3 CBC Comment DIFF FINAL Differential Comment Assessment and Plan Problem List: (1) Atrial fibrillation with rapid ventricular response ICD Codes: I48.91 - Atrial fibrillation with rapid ventricular response Status: Acute (2) Schizophrenia ICD Codes: F20.9 - Schizophrenia Status: Acute (3) Hyperthyroidism ICD Codes: E05.90 - Thyrotoxicosis, unspecified without thyrotoxic crisis or storm Status: Acute (4) Diabetes ICD Codes: E11.9 - Diabetes mellitus Status: Chronic (5) Ulcerative colitis ICD Codes: K51.90 - Ulcerative colitis, unspecified, without complications Status: Acute (6) Anemia ICD Codes: D64.9 - Anemia, unspecified Status: Acute (7) Lower GI bleeding ICD Codes: K92.2 - Gastrointestinal hemorrhage, unspecified Status: Resolved Assessment and Plan 1) AFib with RVR Possibly due to hyperthyroidism Converted to sinus rhythm Weaning off Esmolol drip Will try to place on oral medications and IV PRN as can't be on Esmolol forever But not taking oral medications 2) Hyperthyroidism Per primary team 3) Anemia GI bleed? Unsure results of scope Rajesh Grijalva DO Aug 18, 2017 16:53
[2017-08-18] MEDS ORDERED: PILL SPLITTER OTHER PRN (17:30)
[2017-08-18] MEDS: METOPROLOL TARTRATE 25 MG TAB PO SCH (21:00)
[2017-08-19] VITALS (12 sets, daily range): BP systolic 138–166; BP diastolic 64–91; PULSE 60–106; RESP 18–54; TEMP 97.7–98.4; O2SAT 93–100
[2017-08-19] MEDS: METHIMAZOLE 5 MG TAB PO SCH ×3 (06:00→22:08)
[2017-08-19] MEDS: ZIPRASIDONE MESYLATE 20 MG VIAL IM SCH ×2 (06:38→16:31)
[2017-08-19] MEDS: DEXT 5%-NACL 0.9% 1000 ML INJ 1,000 ML IV SCH ×2 (07:15→16:31)
[2017-08-19] MEDS: INSULIN ASPART SUPPLEMENTAL SCALE SQ SCH ×4 (08:46→21:00)
[2017-08-19] MEDS: SODIUM CHLORIDE 0.9% FLUSH 10 ML FLUSH IV FLUSH SCH ×2 (08:47→21:00)
[2017-08-19] MEDS: METOPROLOL TARTRATE 25 MG TAB PO SCH ×2 (08:47→22:07)
[2017-08-19] MEDS: ZIPRASIDONE HCL 40 MG CAP PO SCH ×2 (08:47→18:00)
[2017-08-19] MEDS: methylPREDNISolone SOD SUCC 40 MG/1 ML VIAL IV PUSH SCH ×2 (08:47→22:06)
--- NOTE | 2017-08-19 12:22 | PD.CARD.PN ---
Subjective Subjective Remarks No events overnight Converted to sinus rhythm Took dose of Metoprolol this morning Objective Medications Current Medications Medications (Trade) Dose Ordered Sig/Ronaldo Route Start Time Stop Time Status Last Admin (NS Flush) 2 ml UNSCH PRN IV FLUSH 08/17/17 04:00 (NS Flush) 2 ml BID IV FLUSH 08/17/17 09:00 08/18/17 08:57 (Tylenol) 650 mg Q4H PRN PO 08/17/17 04:00 (Narcan Inj) 0.4 mg UNSCH PRN IV PUSH 08/17/17 04:00 (SoluMEDROL INJ) 40 mg Q12HR IV PUSH 08/17/17 09:00 08/19/17 08:47 (Lopressor Inj) 5 mg Q5M PRN IV PUSH 08/17/17 04:15 08/17/17 07:22 (Geodon) 40 mg BIDPC PO 08/17/17 09:00 08/19/17 08:47 (Geodon Inj) 10 mg BIDAC IM 08/17/17 07:00 08/19/17 06:38 (Atarax) 50 mg Q6H PRN PO 08/17/17 04:15 (Benadryl) 50 mg HS PRN PO 08/17/17 04:15 (Tapazole) 5 mg Q8HR PO 08/17/17 06:00 08/17/17 13:25 (D50w (Vial) Inj) 50 ml UNSCH PRN IV PUSH 08/17/17 05:15 (Glucagon Inj) 1 mg UNSCH PRN OTHER 08/17/17 05:15 (NovoLOG SUPPLEMENTAL SCALE) 1 ACHS SLIDING SCALE SQ 08/17/17 08:00 08/19/17 12:07 Dextrose/Sodium Chloride 1,000 ml @ 100 mls/hr Q10H IV 08/17/17 05:15 08/19/17 07:15 Esmolol HCl/ Sodium Chloride 250 ml @ 21 mls/hr TITRATE PRN IV 08/17/17 13:00 08/18/17 22:00 (Brevibloc Bolus Inj) 35 mg BOLUS PRN IV PUSH 08/17/17 13:00 ([facility] [place] [facility]) ALL NURSING DEPARTME... UNSCH PRN .XX 08/18/17 13:00 08/19/17 12:59 (Lopressor) 12.5 mg Q12HR PO 08/18/17 21:00 08/19/17 08:47 (Pill Splitter) 1 ea UNSCH PRN OTHER 08/18/17 17:30 08/19/17 08:48 Vital Signs / I&O Vital Signs Date Time Temp Pulse Resp B/P (MAP) Pulse Ox O2 Delivery O2 Flow Rate FiO2 08/19/17 06:00 81 08/19/17 04:00 88 08/19/17 04:00 97.9 94 20 150/79 (102) 93 08/19/17 02:00 79 08/19/17 00:00 98.3 80 18 138/64 (88) 98 08/19/17 00:00 80 08/18/17 22:00 82 08/18/17 22:00 75 140/69 08/18/17 20:00 98.0 92 17 140/65 (90) 97 08/18/17 20:00 88 08/18/17 19:00 97 Room Air 08/18/17 18:00 79 08/18/17 16:30 62 144/66 08/18/17 16:00 74 08/18/17 16:00 98.1 74 24 122/58 (79) 99 08/18/17 15:00 75 08/18/17 14:00 73 I/O 08/18/17 08/18/17 08/18/17 08/19/17 08/19/17 08/19/17 07:00 15:00 23:00 07:00 15:00 23:00 Intake Total 1495 ml 1400 ml 250 ml 240 ml Balance 1495 ml 1400 ml 250 ml 240 ml Intake Oral 240 ml IV Total 1495 ml 1250 ml 250 ml Other 150 ml # Voids 4 5 3 # Bowel Movements 1 2 3 Physical Exam GENERAL: NAD, resting comfortably SKIN: Warm and dry. HEAD: Atraumatic. Normocephalic. EYES: Pupils equal and round. No scleral icterus. No injection or drainage. ENT: No nasal bleeding or discharge. Mucous membranes pink and moist. NECK: Trachea midline. No JVD. CARDIOVASCULAR: Regular rate and rhythm. RESPIRATORY: No accessory muscle use. Clear to auscultation. Breath sounds equal bilaterally. GASTROINTESTINAL: Abdomen soft, non-tender, nondistended. Hepatic and splenic margins not palpable. MUSCULOSKELETAL: Extremities without clubbing, cyanosis, or edema. No obvious deformities. NEUROLOGICAL: Awake and alert. No obvious cranial nerve deficits. Assessment and Plan Problem List: (1) Atrial fibrillation with rapid ventricular response ICD Codes: I48.91 - Atrial fibrillation with rapid ventricular response Status: Acute (2) Schizophrenia ICD Codes: F20.9 - Schizophrenia Status: Acute (3) Hyperthyroidism ICD Codes: E05.90 - Thyrotoxicosis, unspecified without thyrotoxic crisis or storm Status: Acute (4) Diabetes ICD Codes: E11.9 - Diabetes mellitus Status: Chronic (5) Ulcerative colitis ICD Codes: K51.90 - Ulcerative colitis, unspecified, without complications Status: Acute (6) Anemia ICD Codes: D64.9 - Anemia, unspecified Status: Acute (7) Lower GI bleeding ICD Codes: K92.2 - Gastrointestinal hemorrhage, unspecified Status: Resolved Assessment and Plan 1) AFib with RVR Possibly due to hyperthyroidism Converted to sinus rhythm Esmolol drip off Will try to place on oral medications and IV PRN Took Metoprolol this morning, will increase dose and hopefully she will con't to take meds 2) Hyperthyroidism Per primary team 3) Anemia Non-bleeding ulcer noted, Rajesh Grijalva DO Aug 19, 2017 12:22
--- NOTE | 2017-08-19 13:59 | HHI.GIFU ---
Subjective Remarks Pt resting in bed, nurse helping her eat lunch RN reports that pt has had loose stools today Pt with no complaints (Jyotsna Negro) Objective Vitals I&O Vital Signs Date Time Temp Pulse Resp B/P (MAP) Pulse Ox O2 Delivery O2 Flow Rate FiO2 08/19/17 12:00 106 08/19/17 12:00 106 08/19/17 10:00 88 08/19/17 10:00 88 08/19/17 08:00 68 08/19/17 08:00 82 08/19/17 07:00 97 Room Air 08/19/17 06:00 81 08/19/17 04:00 88 08/19/17 04:00 97.9 94 20 150/79 (102) 93 08/19/17 02:00 79 08/19/17 00:00 98.3 80 18 138/64 (88) 98 08/19/17 00:00 80 08/18/17 22:00 82 08/18/17 22:00 75 140/69 08/18/17 20:00 98.0 92 17 140/65 (90) 97 08/18/17 20:00 88 08/18/17 19:00 97 Room Air 08/18/17 18:00 79 08/18/17 16:30 62 144/66 08/18/17 16:00 74 08/18/17 16:00 98.1 74 24 122/58 (79) 99 08/18/17 15:00 75 08/18/17 14:00 73 I/O 08/18/17 08/18/17 08/18/17 08/19/17 08/19/17 08/19/17 07:00 15:00 23:00 07:00 15:00 23:00 Intake Total 1495 ml 1400 ml 250 ml 240 ml Balance 1495 ml 1400 ml 250 ml 240 ml Intake Oral 240 ml IV Total 1495 ml 1250 ml 250 ml Other 150 ml # Voids 4 5 3 # Bowel Movements 1 2 3 Laboratory Date/Time Source Procedure Growth Status 08/17/17 00:00 Stool Stool Stool Occult Blood (BERE) - Final HEMOCCULT POSITIVE Complete Physical Exam HEENT: Normocephalic; atraumatic CHEST: Even/unlabored CARDIAC: RRR ABDOMEN: Soft, nondistended, nontender; bowel sounds active EXTREMITIES: No clubbing, cyanosis, or edema. SKIN: Normal; no rash; no jaundice. TAKE DOWN SORTER: Alert (Jyotsna Negro) Assessment and Plan Plan Assessment: Pt does not provide history therefore history was obtained through chart review - History of UC with reports of rectal bleeding, states multiple episodes a day. Unsure if she is on home medication for this, Prednisone is listed on home meds. Unsure if she follow up with a GI doctor Pt denies any associated abdominal pain. H/H has been stable since admission on 08/14 currently hgb 9.1 Previously seen by our service while inpatient. July 2015 --> Normal EGD. Descending colon, sigmoid colon, and rectum revealed significant diffuse ulcerative colitis. Pathology consistent with severe chronic active colitis. - A-fib RVR- cardiology evaluation - Guardado act (08/19) Pt S/P flex sigmoidoscopy yesterday --> Non-bleeding mucosal ulceration in the sigmoid colon; multiple biopsies were performed using cold forceps compatible with ulcerative colitis. H/H fairly stable overnight. C. Diff negative Pt tolerating regular diet. Plan: Continue steroids DC on steroids with GI follow up GI will sign off, please reconsult as needed Have pt follow up with GI after DC Pt has been seen and examined by myself and Dr. Edwards and this note is written on his behalf (Jyotsna Negro) Physician Comments As above, please notify us if needed again. (Margaret Edwards MD) Jyotsna Negro Aug 19, 2017 13:59 Margaret Edwards MD Aug 20, 2017 10:48
--- NOTE | 2017-08-19 15:37 | HHI.PR ---
Subjective Remarks Patient is more talkative today but she is not making coherent speech She kept asking me who on my and every time I explained she would ask me again explained to me I discussed with the nurse heart rate has been up and down between 80s-106 patient was switched from esmolol to Lopressor, cardiology wants to monitor her for 2 days Objective Vitals Vital Signs Date Time Temp Pulse Resp B/P (MAP) Pulse Ox O2 Delivery O2 Flow Rate FiO2 08/19/17 12:00 106 08/19/17 12:00 106 08/19/17 10:00 88 08/19/17 10:00 88 08/19/17 08:00 68 08/19/17 08:00 82 08/19/17 07:00 97 Room Air 08/19/17 06:00 81 08/19/17 04:00 88 08/19/17 04:00 97.9 94 20 150/79 (102) 93 08/19/17 02:00 79 08/19/17 00:00 98.3 80 18 138/64 (88) 98 08/19/17 00:00 80 08/18/17 22:00 82 08/18/17 22:00 75 140/69 08/18/17 20:00 98.0 92 17 140/65 (90) 97 08/18/17 20:00 88 08/18/17 19:00 97 Room Air 08/18/17 18:00 79 08/18/17 16:30 62 144/66 08/18/17 16:00 74 08/18/17 16:00 98.1 74 24 122/58 (79) 99 I/O 08/18/17 08/18/17 08/18/17 08/19/17 08/19/17 08/19/17 06:59 14:59 22:59 06:59 14:59 22:59 Intake Total 1495 ml 1400 ml 250 ml 240 ml Balance 1495 ml 1400 ml 250 ml 240 ml Intake Oral 240 ml IV Total 1495 ml 1250 ml 250 ml Other 150 ml # Voids 4 5 3 # Bowel Movements 1 2 3 Result Diagram: 08/18/17 0816 Objective Remarks GENERAL: This is a well-nourished, well-developed patient, laying in bed staring at the door in catatonic state CARDIOVASCULAR: RRR, no gallops, or rubs. RESPIRATORY: Fair air entry bilaterally. No W, R, or R GASTROINTESTINAL: Abdomen soft, non-tender, nondistended. Positive bowel sounds MUSCULOSKELETAL: Extremities without clubbing, cyanosis, or edema. Pedal pulses appreciated NEUROLOGICAL: Awake and alert in catatonic state not answering question. Able to moves all extremity. A/P Problem List: (1) Atrial fibrillation with rapid ventricular response ICD Code: I48.91 - Atrial fibrillation with rapid ventricular response Status: Acute (2) Hyperthyroidism ICD Code: E05.90 - Thyrotoxicosis, unspecified without thyrotoxic crisis or storm Status: Acute (3) Ulcerative colitis ICD Code: K51.90 - Ulcerative colitis, unspecified, without complications Status: Acute (4) Diabetes ICD Code: E11.9 - Diabetes mellitus Status: Chronic Assessment and Plan This is a 56-year-old female with a history of hyperthyroidism, atrial fibrillation, diabetes mellitus, schizophrenia, and bipolar disorder who presented to the hospital on 08/14/2017 for psychiatric treatment under Guardado act. Her heart rate was progressively becoming more elevated during her inpatient psychiatric admission and she began developing multiple episodes of diarrhea with blood clots in stool. [facility] hospitalists were consulted and the patient was recommended for transfer to [facility] for further management and evaluation of acute medical problems. 08/18: Discussed with cardiology Dr. Grijalva, he will continue esmolol and switch to p.o. agents, patient to continue on steroids, sigmoidoscopy revealed colitis, biopsy pending, on steroids, appreciate GI follow-up, 08/19: Agricultural Equipment Mechanic switched esmolol drip to Lopressor with titration, IV as needed, continue monitoring for the next day or 2, GI signed off continue steroid with outpatient follow-up A/P: Atrial fibrillation with rapid ventricular response -Stat EKG obtained was personally reviewed and shows atrial fibrillation with heart rate of [address] T-wave changes -Appreciate cardiology consultation -Metoprolol 5 mg IV q5 min x 3 for sustained HR > 130 -Due to hyperthyroidism Hyperthyroidism, poorly controlled - In the ER on 08/14/17 - TSH low at < 0.005, elevated Free T3/Free T4: Free T4 - 1.84, and Free T3 - 4.47 - start Methimazole 5 mg q8h p.o. - obtain baseline LFTs to monitor for hepatotoxicity and monitor CBC for pancytopenia - both adverse effects associated with methimazole GI bleeding History of ulcerative colitis - tredn serial H&H q6h - consult GI - Solumedrol 40 mg IV q12h Type 2 Diabetes Mellitus - Accucheck AC and HS with low dose NovoLog sliding scale coverage - PRN hypoglycemia treatment protocol ordered - monitor trends in blood glucose readings and adjust treatments accordingly - IVF hydration with D5NS at 100 cc/hr while NPO Bipolar disorder with acute psychotic episode - continue medications started in the psychiatric inpatient unit - consult psychiatry - Guardado Act upheld by psychiatrist - will likely need help with symptomatology while admitted for medical management DVT prophylaxis - chemoprophylaxis contraindicated by GI bleeding - SCDs/TEDs Johanne Olsen MD Aug 19, 2017 15:37
--- NOTE | 2017-08-19 18:58 | EKG ---
Date Performed: 08/18/2017 Time Performed: 09:35:16 PTAGE: 56 years EKG: Sinus rhythm . Possible left atrial abnormality Septal T wave changes are nonspecific when compared to prior EKG, patient is no longer in atrial fibrillation Borderline ECG PREVIOUS TRACING :08/17/2017 02.38 DOCTOR: Janneth Corrigan Interpretating Date/Time 08/19/2017 18:57:06
[2017-08-20] VITALS (16 sets, daily range): BP systolic 85–159; BP diastolic 52–94; PULSE 71–146; RESP 20–31; TEMP 97–99.7; O2SAT 92–99
[2017-08-20] MEDS: METHIMAZOLE 5 MG TAB PO SCH ×4 (05:14→22:06)
[2017-08-20] MEDS: DEXT 5%-NACL 0.9% 1000 ML INJ 1,000 ML IV SCH ×3 (06:40→17:16)
[2017-08-20] MEDS: METOPROLOL TARTRATE 5 MG/5 ML VIAL IV PUSH PRN ×7 (07:52→18:09)
[2017-08-20] MEDS: INSULIN ASPART SUPPLEMENTAL SCALE SQ SCH ×4 (08:00→22:06)
[2017-08-20] MEDS: METOPROLOL TARTRATE 25 MG TAB PO SCH ×3 (09:00→21:00)
[2017-08-20] MEDS: ZIPRASIDONE HCL 40 MG CAP PO SCH ×3 (09:00→18:00)
[2017-08-20] MEDS: SODIUM CHLORIDE 0.9% FLUSH 10 ML FLUSH IV FLUSH SCH ×2 (09:00→21:00)
[2017-08-20] MEDS: methylPREDNISolone SOD SUCC 40 MG/1 ML VIAL IV PUSH SCH ×2 (10:15→21:00)
[2017-08-20] MEDS: ZIPRASIDONE MESYLATE 20 MG VIAL IM SCH ×2 (10:51→16:39)
--- NOTE | 2017-08-20 15:18 | HHI.PYPN ---
Subjective Remarks I have seen and examined this patient today for psychiatric reevaluation, the patient was recently given Geodon 10 mg IM due to increased agitation and disorganized behavior. For this reason at the moment of my evaluation the patient is sedated, poorly cooperative, she reports feeling okay, denies suicidal and homicidal ideation, she denies visual and auditory hallucinations, but continue falling asleep. As per nursing charge the patient has been having episodes of agitation, disorganization, and which the patient does not follow directions. Review of Systems Except as stated in HPI: all other systems reviewed are Neg Mental Status Examination Appearance: Appropriate Consciousness: Alert Orientation: x4 Motor Activity: Normal gait Speech: Unremarkable, Other (Selectively mute) Language: Adequate Fund of Knowledge: Adequate Attention and Concentration: Adequate Memory: Unremarkable Mood: Appropriate Affect: Appropriate Thought Process & Associations: Loose associations, Disorganized Thought Content: Delusional Hallucination Type: None Delusion Type: None Suicidal Ideation: No Suicidal Plan: No Suicidal Intention: No Homicidal Ideation: No Homicidal Plan: No Homicidal Intention: No Insight: Poor Judgment: Poor Results Labs Date/Time Source Procedure Growth Status 08/17/17 00:00 Stool Stool Stool Occult Blood (BERE) - Final HEMOCCULT POSITIVE Complete Vitals/IOs Vital Signs Date Time Temp Pulse Resp B/P (MAP) Pulse Ox O2 Delivery O2 Flow Rate FiO2 08/20/17 12:00 145 08/20/17 07:00 99 Room Air 08/20/17 04:00 98.1 20 150/72 (98) 08/18/17 12:00 2 Intake and Output 08/20/17 08/20/17 08/21/17 08:00 16:00 00:00 Intake Total 200 ml Balance 200 ml Assessment & Plan Problem List: (1) Schizophrenia ICD Codes: F20.9 - Schizophrenia Status: Acute Assessment & Plan: I will add Depakote 250 mg twice daily for behavioral dysregulation. Continue Geodon 40 mg twice daily. The patient will be admitted in psychiatry once medically stable. Assessment & Plan Estimated LOS: days Justification for Cont. Inpt. To be admitted in psychiatry. Neri Rose MD Aug 20, 2017 15:18
[2017-08-20] MEDS: ESMOLOL DRIP INJ PREMIX 250 ML IV PRN ×2 (15:43→19:43)
--- NOTE | 2017-08-20 15:53 | HHI.PR ---
Subjective Remarks Patient alternates between on and off catatonic status and noncoherent talk She does not give any valuable information Per the nurse they noticed a david blood spot on the bed today Objective Vitals Vital Signs Date Time Temp Pulse Resp B/P (MAP) Pulse Ox O2 Delivery O2 Flow Rate FiO2 08/20/17 15:43 158 105/60 08/20/17 12:00 145 08/20/17 12:00 99.7 145 28 159/63 (95) 97 08/20/17 10:00 138 08/20/17 08:00 146 08/20/17 08:00 97.2 146 24 147/94 (111) 99 08/20/17 07:00 99 Room Air 08/20/17 06:00 107 08/20/17 04:00 78 08/20/17 04:00 98.1 80 20 150/72 (98) 98 08/20/17 02:00 71 08/20/17 00:00 97.9 85 25 141/67 (91) 99 08/20/17 00:00 71 08/19/17 22:00 75 08/19/17 20:00 96 Room Air 08/19/17 20:00 87 08/19/17 20:00 97.9 85 25 141/67 (91) 99 08/19/17 18:00 92 08/19/17 16:00 97.8 86 22 166/76 (106) 96 08/19/17 16:00 86 I/O 08/19/17 08/19/17 08/19/17 08/20/17 08/20/17 08/20/17 07:00 15:00 23:00 07:00 15:00 23:00 Intake Total 240 ml 200 ml Balance 240 ml 200 ml Intake Oral 240 ml 200 ml # Voids 3 3 2 # Bowel Movements 3 3 2 Result Diagram: 08/18/17 0816 Objective Remarks GENERAL: This is a well-nourished, well-developed patient, laying in bed staring at the door in catatonic state CARDIOVASCULAR: RRR, no gallops, or rubs. RESPIRATORY: Fair air entry bilaterally. No W, R, or R GASTROINTESTINAL: Abdomen soft, non-tender, nondistended. Positive bowel sounds MUSCULOSKELETAL: Extremities without clubbing, cyanosis, or edema. Pedal pulses appreciated NEUROLOGICAL: Awake and alert in catatonic state not answering question. Able to moves all extremity. A/P Problem List: (1) Atrial fibrillation with rapid ventricular response ICD Code: I48.91 - Atrial fibrillation with rapid ventricular response Status: Acute (2) Hyperthyroidism ICD Code: E05.90 - Thyrotoxicosis, unspecified without thyrotoxic crisis or storm Status: Acute (3) Ulcerative colitis ICD Code: K51.90 - Ulcerative colitis, unspecified, without complications Status: Acute (4) Diabetes ICD Code: E11.9 - Diabetes mellitus Status: Chronic Assessment and Plan This is a 56-year-old female with a history of hyperthyroidism, atrial fibrillation, diabetes mellitus, schizophrenia, and bipolar disorder who presented to the hospital on 08/14/2017 for psychiatric treatment under Guardado act. Her heart rate was progressively becoming more elevated during her inpatient psychiatric admission and she began developing multiple episodes of diarrhea with blood clots in stool. [facility] hospitalists were consulted and the patient was recommended for transfer to [facility] for further management and evaluation of acute medical problems. 08/18: Discussed with cardiology Dr. Grijalva, he will continue esmolol and switch to p.o. agents, patient to continue on steroids, sigmoidoscopy revealed colitis, biopsy pending, on steroids, appreciate GI follow-up, 08/19: Amortization Clerk switched esmolol drip to Lopressor with titration, IV as needed, continue monitoring for the next day or 2, GI signed off continue steroid with outpatient follow-up 08/20: Heart rate back up again in the 130-140, cardiology put her back on esmolol, patient back again refusing her p.o. meds, psychiatry reevaluated the patient they recommended Depakote, we will need to consider PEG tube if you continuing to refuse oral intake and medication however there is a risk of her pulling out her tube David blood spot on the bed>> continue monitoring hemoglobin, GI following A/P: Atrial fibrillation with rapid ventricular response -Stat EKG obtained was personally reviewed and shows atrial fibrillation with heart rate of [address] T-wave changes -Appreciate cardiology consultation -Metoprolol 5 mg IV q5 min x 3 for sustained HR > 130 -Due to hyperthyroidism Hyperthyroidism, poorly controlled - In the ER on 08/14/17 - TSH low at < 0.005, elevated Free T3/Free T4: Free T4 - 1.84, and Free T3 - 4.47 - start Methimazole 5 mg q8h p.o. - obtain baseline LFTs to monitor for hepatotoxicity and monitor CBC for pancytopenia - both adverse effects associated with methimazole GI bleeding History of ulcerative colitis - tredn serial H&H q6h - consult GI - Solumedrol 40 mg IV q12h Type 2 Diabetes Mellitus - Accucheck AC and HS with low dose NovoLog sliding scale coverage - PRN hypoglycemia treatment protocol ordered - monitor trends in blood glucose readings and adjust treatments accordingly - IVF hydration with D5NS at 100 cc/hr while NPO Bipolar disorder with acute psychotic episode - continue medications started in the psychiatric inpatient unit - consult psychiatry - Guardado Act upheld by psychiatrist - will likely need help with symptomatology while admitted for medical management DVT prophylaxis - chemoprophylaxis contraindicated by GI bleeding - SCDs/TEDs Johanne Olsen MD Aug 20, 2017 15:53
[2017-08-20 17:31] LABS: HEMOGLOBIN 9.5 GM/DL (11.6-15.3)
--- NOTE | 2017-08-20 17:37 | PD.CARD.PN ---
Subjective Subjective Remarks No events overnight Converted back to Afib with RVR this morning Took pills yesterday, but agitated and not taking pills today Objective Medications Current Medications Medications (Trade) Dose Ordered Sig/Ronaldo Route Start Time Stop Time Status Last Admin (NS Flush) 2 ml UNSCH PRN IV FLUSH 08/17/17 04:00 (NS Flush) 2 ml BID IV FLUSH 08/17/17 09:00 08/18/17 08:57 (Tylenol) 650 mg Q4H PRN PO 08/17/17 04:00 (Narcan Inj) 0.4 mg UNSCH PRN IV PUSH 08/17/17 04:00 (SoluMEDROL INJ) 40 mg Q12HR IV PUSH 08/17/17 09:00 08/20/17 10:15 (Lopressor Inj) 5 mg Q5M PRN IV PUSH 08/17/17 04:15 08/20/17 16:49 (Geodon) 40 mg BIDPC PO 08/17/17 09:00 08/19/17 08:47 (Geodon Inj) 10 mg BIDAC IM 08/17/17 07:00 08/20/17 16:39 (Atarax) 50 mg Q6H PRN PO 08/17/17 04:15 (Benadryl) 50 mg HS PRN PO 08/17/17 04:15 (Tapazole) 5 mg Q8HR PO 08/17/17 06:00 08/20/17 05:14 (D50w (Vial) Inj) 50 ml UNSCH PRN IV PUSH 08/17/17 05:15 (Glucagon Inj) 1 mg UNSCH PRN OTHER 08/17/17 05:15 (NovoLOG SUPPLEMENTAL SCALE) 1 ACHS SLIDING SCALE SQ 08/17/17 08:00 08/20/17 16:40 Dextrose/Sodium Chloride 1,000 ml @ 100 mls/hr Q10H IV 08/17/17 05:15 08/20/17 17:16 Esmolol HCl/ Sodium Chloride 250 ml @ 21 mls/hr TITRATE PRN IV 08/17/17 13:00 08/20/17 15:43 (Brevibloc Bolus Inj) 35 mg BOLUS PRN IV PUSH 08/17/17 13:00 08/20/17 14:54 (Pill Splitter) 1 ea UNSCH PRN OTHER 08/18/17 17:30 08/19/17 08:48 (Lopressor) 25 mg Q12HR PO 08/19/17 21:00 08/19/17 22:07 (Depakote Er) 250 mg BID PO 08/20/17 21:00 Vital Signs / I&O Vital Signs Date Time Temp Pulse Resp B/P (MAP) Pulse Ox O2 Delivery O2 Flow Rate FiO2 08/20/17 15:43 158 105/60 08/20/17 12:00 145 08/20/17 12:00 99.7 145 28 159/63 (95) 97 08/20/17 10:00 138 08/20/17 08:00 146 08/20/17 08:00 97.2 146 24 147/94 (111) 99 08/20/17 07:00 99 Room Air 08/20/17 06:00 107 08/20/17 04:00 78 08/20/17 04:00 98.1 80 20 150/72 (98) 98 08/20/17 02:00 71 08/20/17 00:00 97.9 85 25 141/67 (91) 99 08/20/17 00:00 71 08/19/17 22:00 75 08/19/17 20:00 96 Room Air 08/19/17 20:00 87 08/19/17 20:00 97.9 85 25 141/67 (91) 99 08/19/17 18:00 92 I/O 08/19/17 08/19/17 08/19/17 08/20/17 08/20/17 08/20/17 07:00 15:00 23:00 07:00 15:00 23:00 Intake Total 240 ml 200 ml Balance 240 ml 200 ml Intake Oral 240 ml 200 ml # Voids 3 3 2 # Bowel Movements 3 3 2 Physical Exam GENERAL: NAD, agitated SKIN: Warm and dry. HEAD: Atraumatic. Normocephalic. EYES: Pupils equal and round. No scleral icterus. No injection or drainage. ENT: No nasal bleeding or discharge. Mucous membranes pink and moist. NECK: Trachea midline. No JVD. CARDIOVASCULAR: Regular rate and rhythm. RESPIRATORY: No accessory muscle use. Clear to auscultation. Breath sounds equal bilaterally. GASTROINTESTINAL: Abdomen soft, non-tender, nondistended. Hepatic and splenic margins not palpable. MUSCULOSKELETAL: Extremities without clubbing, cyanosis, or edema. No obvious deformities. NEUROLOGICAL: Awake and alert. No obvious cranial nerve deficits. Laboratory Laboratory Tests Test 08/20/17 16:24 Hemoglobin 9.5 GM/DL Hematocrit 30.0 % Assessment and Plan Problem List: (1) Atrial fibrillation with rapid ventricular response ICD Codes: I48.91 - Atrial fibrillation with rapid ventricular response Status: Acute (2) Schizophrenia ICD Codes: F20.9 - Schizophrenia Status: Acute (3) Hyperthyroidism ICD Codes: E05.90 - Thyrotoxicosis, unspecified without thyrotoxic crisis or storm Status: Acute (4) Diabetes ICD Codes: E11.9 - Diabetes mellitus Status: Chronic (5) Ulcerative colitis ICD Codes: K51.90 - Ulcerative colitis, unspecified, without complications Status: Acute (6) Anemia ICD Codes: D64.9 - Anemia, unspecified Status: Acute (7) Lower GI bleeding ICD Codes: K92.2 - Gastrointestinal hemorrhage, unspecified Status: Resolved Assessment and Plan 1) AFib with RVR Possibly due to hyperthyroidism Restarted on Esmolol drip Attempt to wean off May benefit from Amiodarone to convert her to sinus and stay in sinus, but anything we do she needs to be taking her pills for us to help Stabilize psych issues, get her to take her pills, then off Esmolol If unable/unwilling to take pills, ?PEG 2) Hyperthyroidism Per primary team 3) Anemia Non-bleeding ulcer noted, UC 4) Dr. Last available PRN over the weekend Rajesh Grijalva DO Aug 20, 2017 17:37
[2017-08-20] MEDS ORDERED: AMIODARONE INJ 150 MG in DEXTROSE 5% IN WATER 100ML INJ 100 ML IV ONE ×2 (18:41)
[2017-08-20] MEDS: AMIODARONE INJ 450 MG in SODIUM CHLOR 0.9% (EXCEL) INJ 241 ML IV PRN (19:31)
[2017-08-20] MEDS: DIVALPROEX SODIUM E.R. 250 MG TAB PO SCH (21:00)
[2017-08-21] VITALS (12 sets, daily range): BP systolic 105–141; BP diastolic 56–77; PULSE 61–85; RESP 21–27; TEMP 97.4–98.1; O2SAT 94–99
[2017-08-21] MEDS: AMIODARONE INJ 450 MG in SODIUM CHLOR 0.9% (EXCEL) INJ 241 ML IV PRN (01:14)
[2017-08-21] MEDS: METHIMAZOLE 5 MG TAB PO SCH ×3 (05:10→21:07)
[2017-08-21] MEDS: INSULIN ASPART SUPPLEMENTAL SCALE SQ SCH ×4 (08:00→21:00)
[2017-08-21] MEDS: ZIPRASIDONE HCL 40 MG CAP PO SCH ×4 (09:00→18:32)
[2017-08-21] MEDS: METOPROLOL TARTRATE 25 MG TAB PO SCH ×3 (09:00→19:11)
[2017-08-21] MEDS: DIVALPROEX SODIUM E.R. 250 MG TAB PO SCH ×3 (09:00→19:11)
[2017-08-21] MEDS: DEXT 5%-NACL 0.9% 1000 ML INJ 1,000 ML IV SCH (09:15)
[2017-08-21] MEDS: SODIUM CHLORIDE 0.9% FLUSH 10 ML FLUSH IV FLUSH SCH ×2 (09:50→19:12)
[2017-08-21] MEDS: methylPREDNISolone SOD SUCC 40 MG/1 ML VIAL IV PUSH SCH (09:51)
--- NOTE | 2017-08-21 09:54 | PD.CARD.PN ---
Subjective Subjective Remarks Not answering questions at the moment. Objective Medications Item Value Date Time Amiodarone HCl 250 ml @ 33.33 mls/hr 08/20/17 1851 450 mg/Sodium .Q7H31M PRN/IV 08/21/17 0114 Chloride Metoprolol 25 mg 08/19/17 2100 Tartrate Q12HR/PO (Lopressor) Current Medications Medications (Trade) Dose Ordered Sig/Ronaldo Route Start Time Stop Time Status Last Admin (NS Flush) 2 ml UNSCH PRN IV FLUSH 08/17/17 04:00 (NS Flush) 2 ml BID IV FLUSH 08/17/17 09:00 08/21/17 09:50 (Tylenol) 650 mg Q4H PRN PO 08/17/17 04:00 (Narcan Inj) 0.4 mg UNSCH PRN IV PUSH 08/17/17 04:00 (SoluMEDROL INJ) 40 mg Q12HR IV PUSH 08/17/17 09:00 08/21/17 09:51 (Lopressor Inj) 5 mg Q5M PRN IV PUSH 08/17/17 04:15 08/20/17 18:09 (Geodon) 40 mg BIDPC PO 08/17/17 09:00 08/21/17 09:50 (Geodon Inj) 10 mg BIDAC IM 08/17/17 07:00 08/20/17 16:39 (Atarax) 50 mg Q6H PRN PO 08/17/17 04:15 (Benadryl) 50 mg HS PRN PO 08/17/17 04:15 (Tapazole) 5 mg Q8HR PO 08/17/17 06:00 08/21/17 05:10 (D50w (Vial) Inj) 50 ml UNSCH PRN IV PUSH 08/17/17 05:15 (Glucagon Inj) 1 mg UNSCH PRN OTHER 08/17/17 05:15 (NovoLOG SUPPLEMENTAL SCALE) 1 ACHS SLIDING SCALE SQ 08/17/17 08:00 08/20/17 22:06 Dextrose/Sodium Chloride 1,000 ml @ 100 mls/hr Q10H IV 08/17/17 05:15 08/20/17 17:16 Esmolol HCl/ Sodium Chloride 250 ml @ 21 mls/hr TITRATE PRN IV 08/17/17 13:00 08/20/17 19:43 (Brevibloc Bolus Inj) 35 mg BOLUS PRN IV PUSH 08/17/17 13:00 08/20/17 14:54 (Pill Splitter) 1 ea UNSCH PRN OTHER 08/18/17 17:30 08/19/17 08:48 (Lopressor) 25 mg Q12HR PO 08/19/17 21:00 08/21/17 09:50 (Depakote Er) 250 mg BID PO 08/20/17 21:00 08/21/17 09:50 Amiodarone HCl 450 mg/Sodium Chloride 250 ml @ 33.33 mls/ hr Q7H31M PRN IV 08/20/17 18:51 08/21/17 01:14 Vital Signs / I&O Vital Signs Date Time Temp Pulse Resp B/P (MAP) Pulse Ox O2 Delivery O2 Flow Rate FiO2 08/21/17 06:00 66 08/21/17 04:00 74 08/21/17 04:00 97.8 74 23 118/64 (82) 99 08/21/17 02:00 61 08/21/17 01:14 64 109/61 08/21/17 00:00 97.4 67 27 105/56 (72) 98 08/21/17 00:00 67 08/20/17 22:00 71 08/20/17 20:30 79 97/62 (74) 08/20/17 20:15 79 85/52 (63) 08/20/17 20:00 78 08/20/17 20:00 97 Room Air 08/20/17 20:00 97.0 78 26 96/60 (72) 97 08/20/17 19:53 75 08/20/17 19:43 96 114/80 08/20/17 19:31 138 128/88 08/20/17 19:28 148 128/88 08/20/17 19:00 140 26 128/88 (101) 92 08/20/17 19:00 117 08/20/17 18:00 134 08/20/17 16:00 97.6 130 31 92/54 (67) 95 08/20/17 16:00 130 08/20/17 15:43 158 105/60 08/20/17 14:00 129 08/20/17 12:00 145 08/20/17 12:00 99.7 145 28 159/63 (95) 97 08/20/17 10:00 138 I/O 08/20/17 08/20/17 08/20/17 08/21/17 08/21/17 08/21/17 07:00 15:00 23:00 07:00 15:00 23:00 Intake Total 200 ml 672 ml 2139 ml Output Total 1 ml Balance 200 ml 671 ml 2139 ml Intake Oral 200 ml 300 ml 720 ml IV Total 372 ml 1419 ml Output Urine Total 1 ml # Voids 2 2 # Bowel Movements 2 2 Physical Exam GENERAL: Well developed, well nourished. No acute distress. HEENT: Jugular venous pressure is normal. CHEST: Lungs clear to auscultation anteriorly. CARDIAC: Regular rate and rhythm without S3, S4, or murmur. ABDOMEN: Soft, nontender, no hepatosplenomegaly. Bowel sounds present. EXTREMITIES: No clubbing, cyanosis, or edema. Laboratory Laboratory Tests Test 08/20/17 16:24 Hemoglobin 9.5 GM/DL Hematocrit 30.0 % Assessment and Plan Problem List: (1) Atrial fibrillation with rapid ventricular response ICD Codes: I48.91 - Atrial fibrillation with rapid ventricular response Status: Acute Plan: Stable overnight. Remains in NSR on IV Amiodarone. Will try changing to oral Amiodarone later, continue oral metoprolol if she will take it. Code Status full code Discussed Condition With patient Mega Last MD Aug 21, 2017 09:54
[2017-08-21] MEDS: ZIPRASIDONE MESYLATE 20 MG VIAL IM SCH ×2 (10:05→19:08)
[2017-08-21] MEDS: INSULIN DETEMIR 100 UNITS/ML VIAL SQ SCH ×2 (13:45→19:12)
--- NOTE | 2017-08-21 15:47 | HHI.PR ---
Subjective Remarks Patient sleeping she did not wake up to voice She was switched to amiodarone by cardiology and with was converted We will continue monitoring Objective Vitals Vital Signs Date Time Temp Pulse Resp B/P (MAP) Pulse Ox O2 Delivery O2 Flow Rate FiO2 08/21/17 14:00 82 08/21/17 12:00 77 08/21/17 12:00 98.1 77 24 137/69 (91) 94 08/21/17 10:00 78 08/21/17 08:00 97.5 72 21 124/71 (88) 98 08/21/17 08:00 72 08/21/17 07:00 98 Room Air 08/21/17 06:00 66 08/21/17 04:00 74 08/21/17 04:00 97.8 74 23 118/64 (82) 99 08/21/17 02:00 61 08/21/17 01:14 64 109/61 08/21/17 00:00 97.4 67 27 105/56 (72) 98 08/21/17 00:00 67 08/20/17 22:00 71 08/20/17 20:30 79 97/62 (74) 08/20/17 20:15 79 85/52 (63) 08/20/17 20:00 78 08/20/17 20:00 97 Room Air 08/20/17 20:00 97.0 78 26 96/60 (72) 97 08/20/17 19:53 75 08/20/17 19:43 96 114/80 08/20/17 19:31 138 128/88 08/20/17 19:28 148 128/88 08/20/17 19:00 140 26 128/88 (101) 92 08/20/17 19:00 117 08/20/17 18:00 134 08/20/17 16:00 97.6 130 31 92/54 (67) 95 08/20/17 16:00 130 I/O 08/20/17 08/20/17 08/20/17 08/21/17 08/21/17 08/21/17 07:00 15:00 23:00 07:00 15:00 23:00 Intake Total 200 ml 672 ml 2139 ml Output Total 1 ml Balance 200 ml 671 ml 2139 ml Intake Oral 200 ml 300 ml 720 ml IV Total 372 ml 1419 ml Output Urine Total 1 ml # Voids 2 2 # Bowel Movements 2 2 Result Diagram: 08/20/17 7834 Objective Remarks GENERAL: This is a well-nourished, well-developed patient, sleeping in bed CARDIOVASCULAR: RRR, no gallops, or rubs. RESPIRATORY: Fair air entry bilaterally. No W, R, or R GASTROINTESTINAL: Abdomen soft, non-tender, nondistended. Positive bowel sounds MUSCULOSKELETAL: Extremities without clubbing, cyanosis, or edema. Pedal pulses appreciated NEUROLOGICAL: Sleeping. A/P Problem List: (1) Atrial fibrillation with rapid ventricular response ICD Code: I48.91 - Atrial fibrillation with rapid ventricular response Status: Acute (2) Hyperthyroidism ICD Code: E05.90 - Thyrotoxicosis, unspecified without thyrotoxic crisis or storm Status: Acute (3) Ulcerative colitis ICD Code: K51.90 - Ulcerative colitis, unspecified, without complications Status: Acute (4) Diabetes ICD Code: E11.9 - Diabetes mellitus Status: Chronic Assessment and Plan This is a 56-year-old female with a history of hyperthyroidism, atrial fibrillation, diabetes mellitus, schizophrenia, and bipolar disorder who presented to the hospital on 08/14/2017 for psychiatric treatment under [place] act. Her heart rate was progressively becoming more elevated during her inpatient psychiatric admission and she began developing multiple episodes of diarrhea with blood clots in stool. [facility] hospitalists were consulted and the patient was recommended for transfer to [facility] for further management and evaluation of acute medical problems. 08/18: Discussed with cardiology Dr. Grijalva, he will continue esmolol and switch to p.o. agents, patient to continue on steroids, sigmoidoscopy revealed colitis, biopsy pending, on steroids, appreciate GI follow-up, 08/19: [employer] switched esmolol drip to Lopressor with titration, IV as needed, continue monitoring for the next day or 2, GI signed off continue steroid with outpatient follow-up 08/20: Heart rate back up again in the 130-140, cardiology put her back on esmolol, patient back again refusing her p.o. meds, psychiatry reevaluated the patient they recommended Depakote, we will need to consider PEG tube if you continuing to refuse oral intake and medication however there is a risk of her pulling out her tube Thang blood spot on the bed>> continue monitoring hemoglobin, GI following 08/21: Hemoglobin stable around 9 yesterday, she was switched to amiodarone and then was converted, cardiology following continue monitoring under telemetry A/P: Atrial fibrillation with rapid ventricular response -Stat EKG obtained was personally reviewed and shows atrial fibrillation with heart rate of [address] T-wave changes -Appreciate cardiology consultation -Metoprolol 5 mg IV q5 min x 3 for sustained HR > 130 -Due to hyperthyroidism Hyperthyroidism, poorly controlled - In the ER on 08/14/17 - TSH low at < 0.005, elevated Free T3/Free T4: Free T4 - 1.84, and Free T3 - 4.47 - start Methimazole 5 mg q8h p.o. - consult endocrinology - obtain baseline LFTs to monitor for hepatotoxicity and monitor CBC for pancytopenia - both adverse effects associated with methimazole GI bleeding History of ulcerative colitis - tredn serial H&H q6h - consult GI - Solumedrol 40 mg IV q12h Type 2 Diabetes Mellitus - Accucheck AC and HS with low dose NovoLog sliding scale coverage - PRN hypoglycemia treatment protocol ordered - monitor trends in blood glucose readings and adjust treatments accordingly - IVF hydration with D5NS at 100 cc/hr while NPO Bipolar disorder with acute psychotic episode - continue medications started in the psychiatric inpatient unit - consult psychiatry - Guardado Act upheld by psychiatrist - will likely need help with symptomatology while admitted for medical management DVT prophylaxis - chemoprophylaxis contraindicated by GI bleeding - SCDs/Johanne Dominguez MD Aug 21, 2017 15:47
[2017-08-21 16:48] LABS: BICARBONATE 21.8 MEQ/L (21.0-32.0); BLOOD UREA NITROGEN 16 MG/DL (7-18); CALCIUM 7.5 MG/DL (8.5-10.1); CHLORIDE 113 MEQ/L (98-107); CREATININE 1.01 MG/DL (0.50-1.00); GLOMERULAR FILTRATION RATE 56 ML/MIN (>89); GLUCOSE,RANDOM 321 MG/DL (74-106); MAGNESIUM 1.4 MG/DL (1.5-2.5); PHOSPHORUS 2.6 MG/DL (2.5-4.9); SODIUM (NA) 144 MEQ/L (136-145)
[2017-08-21] MEDS: AMIODARONE 200 MG TAB PO SCH (17:13)
[2017-08-21] MEDS: MAGNESIUM SULFATE 1 GM PREMIX 100 ML IV SCH ×2 (18:32→19:11)
[2017-08-22] VITALS (9 sets, daily range): BP systolic 114–138; BP diastolic 56–72; PULSE 63–83; RESP 16–24; TEMP 96–98.9; O2SAT 94–100
[2017-08-22] MEDS: METHIMAZOLE 5 MG TAB PO SCH ×6 (05:58→22:00)
[2017-08-22] MEDS: ZIPRASIDONE MESYLATE 20 MG VIAL IM SCH ×2 (07:00→16:00)
[2017-08-22] MEDS: INSULIN ASPART SUPPLEMENTAL SCALE SQ SCH ×3 (08:00→17:00)
[2017-08-22] MEDS: INSULIN DETEMIR 100 UNITS/ML VIAL SQ SCH (09:00)
[2017-08-22] MEDS: SODIUM CHLORIDE 0.9% FLUSH 10 ML FLUSH IV FLUSH SCH ×3 (09:00→21:00)
[2017-08-22] MEDS: METOPROLOL TARTRATE 25 MG TAB PO SCH ×3 (09:51→20:30)
[2017-08-22] MEDS: DIVALPROEX SODIUM E.R. 250 MG TAB PO SCH ×3 (09:51→20:30)
[2017-08-22] MEDS: ZIPRASIDONE HCL 40 MG CAP PO SCH ×2 (09:51→17:56)
[2017-08-22] MEDS: AMIODARONE 200 MG TAB PO SCH (09:52)
--- NOTE | 2017-08-22 10:40 | PD.CARD.PN ---
Subjective Subjective Remarks Denies CP, SOB, palpitations. Objective Medications Item Value Date Time Amiodarone HCl 400 mg 08/21/17 1900 (Cordarone) DAILY/PO 08/22/17 0952 Metoprolol 25 mg 08/19/17 2100 Tartrate Q12HR/PO 08/22/17 0951 (Lopressor) Current Medications Medications (Trade) Dose Ordered Sig/Ronaldo Route Start Time Stop Time Status Last Admin (NS Flush) 2 ml UNSCH PRN IV FLUSH 08/17/17 04:00 (NS Flush) 2 ml BID IV FLUSH 08/17/17 09:00 08/22/17 09:00 (Tylenol) 650 mg Q4H PRN PO 08/17/17 04:00 (Narcan Inj) 0.4 mg UNSCH PRN IV PUSH 08/17/17 04:00 (Lopressor Inj) 5 mg Q5M PRN IV PUSH 08/17/17 04:15 08/20/17 18:09 (Geodon) 40 mg BIDPC PO 08/17/17 09:00 08/22/17 09:51 (Geodon Inj) 10 mg BIDAC IM 08/17/17 07:00 08/21/17 19:08 (Atarax) 50 mg Q6H PRN PO 08/17/17 04:15 (Benadryl) 50 mg HS PRN PO 08/17/17 04:15 (Tapazole) 5 mg Q8HR PO 08/17/17 06:00 08/22/17 05:58 (D50w (Vial) Inj) 50 ml UNSCH PRN IV PUSH 08/17/17 05:15 (Glucagon Inj) 1 mg UNSCH PRN OTHER 08/17/17 05:15 (NovoLOG SUPPLEMENTAL SCALE) 1 ACHS SLIDING SCALE SQ 08/17/17 08:00 08/21/17 21:00 Esmolol HCl/ Sodium Chloride 250 ml @ 21 mls/hr TITRATE PRN IV 08/17/17 13:00 08/20/17 19:43 (Brevibloc Bolus Inj) 35 mg BOLUS PRN IV PUSH 08/17/17 13:00 08/20/17 14:54 (Pill Splitter) 1 ea UNSCH PRN OTHER 08/18/17 17:30 08/19/17 08:48 (Lopressor) 25 mg Q12HR PO 08/19/17 21:00 08/22/17 09:51 (Depakote Er) 250 mg BID PO 08/20/17 21:00 08/22/17 09:51 (Cordarone) 400 mg DAILY PO 08/21/17 19:00 08/22/17 09:52 (Levemir Inj) 5 units Q12HR SQ 08/21/17 13:45 08/22/17 09:00 Vital Signs / I&O Vital Signs Date Time Temp Pulse Resp B/P (MAP) Pulse Ox O2 Delivery O2 Flow Rate FiO2 08/22/17 08:00 97.9 79 16 114/56 (75) 100 08/22/17 07:00 98 Room Air 08/22/17 06:00 78 08/22/17 04:00 83 08/22/17 04:00 96.0 83 24 133/72 (92) 99 08/22/17 02:00 76 08/22/17 00:00 74 08/22/17 00:00 96.0 74 23 114/58 (76) 97 08/21/17 22:00 81 08/21/17 20:00 95 Room Air 08/21/17 20:00 97.4 85 24 141/77 (98) 95 08/21/17 20:00 85 08/21/17 18:00 77 08/21/17 16:00 80 08/21/17 16:00 97.4 80 22 132/70 (90) 95 08/21/17 14:00 82 08/21/17 12:00 77 08/21/17 12:00 98.1 77 24 137/69 (91) 94 I/O 08/21/17 08/21/17 08/21/17 08/22/17 08/22/17 08/22/17 07:00 15:00 23:00 07:00 15:00 23:00 Intake Total 2139 ml 1046 ml 240 ml Balance 2139 ml 1046 ml 240 ml Intake Oral 720 ml 840 ml 240 ml IV Total 1419 ml 206 ml # Voids 2 3 3 # Bowel Movements 2 3 3 Physical Exam GENERAL: Well developed, well nourished. No acute distress. HEENT: Jugular venous pressure is normal. CHEST: Lungs clear to auscultation anteriorly. CARDIAC: Regular rate and rhythm without S3, S4, or murmur. ABDOMEN: Soft, nontender, no hepatosplenomegaly. Bowel sounds present. EXTREMITIES: No clubbing, cyanosis, or edema. Laboratory Laboratory Tests Test 08/21/17 16:05 Blood Urea Nitrogen 16 MG/DL Creatinine 1.01 MG/DL Random Glucose 321 MG/DL Calcium Level 7.5 MG/DL Phosphorus Level 2.6 MG/DL Magnesium Level 1.4 MG/DL Sodium Level 144 MEQ/L Potassium Level 3.8 MEQ/L Chloride Level 113 MEQ/L Carbon Dioxide Level 21.8 MEQ/L Anion Gap 9 MEQ/L Estimat Glomerular Filtration Rate 56 ML/MIN Assessment and Plan Problem List: (1) Atrial fibrillation with rapid ventricular response ICD Codes: I48.91 - Atrial fibrillation with rapid ventricular response Status: Acute Plan: Brief tachycardia last night, hard to tell on strips as considerable artefact, may have been just sinus tachycardia. NSR this morning. Recommend continue oral Amiodarone and metoprolol. Code Status full code Discussed Condition With patient Mega Last MD Aug 22, 2017 10:40
[2017-08-22 13:58] LABS: HEMOGLOBIN A1C 7.3 % (4.3-6.0)
--- NOTE | 2017-08-22 15:15 | HHI.PR ---
Subjective Remarks Patient is nonverbal today per the nurse she has been refusing some of her medication Blood glucose still out of range we will increase her Levemir Heart rate has been stable on amiodarone but per the nurse it was not given last night I will ask psychiatry to reassess the patient and pending endocrinology consultation Currently patient is supposed to be on amiodarone and Lopressor cardiology following Objective Vitals Vital Signs Date Time Temp Pulse Resp B/P (MAP) Pulse Ox O2 Delivery O2 Flow Rate FiO2 08/22/17 08:00 97.9 79 16 114/56 (75) 100 08/22/17 07:00 98 Room Air 08/22/17 06:00 78 08/22/17 04:00 83 08/22/17 04:00 96.0 83 24 133/72 (92) 99 08/22/17 02:00 76 08/22/17 00:00 74 08/22/17 00:00 96.0 74 23 114/58 (76) 97 08/21/17 22:00 81 08/21/17 20:00 95 Room Air 08/21/17 20:00 97.4 85 24 141/77 (98) 95 08/21/17 20:00 85 08/21/17 18:00 77 08/21/17 16:00 80 08/21/17 16:00 97.4 80 22 132/70 (90) 95 I/O 08/21/17 08/21/17 08/21/17 08/22/17 08/22/17 08/22/17 07:00 15:00 23:00 07:00 15:00 23:00 Intake Total 2139 ml 1046 ml 240 ml Balance 2139 ml 1046 ml 240 ml Intake Oral 720 ml 840 ml 240 ml IV Total 1419 ml 206 ml # Voids 2 3 3 # Bowel Movements 2 3 3 Result Diagram: 08/20/17 1624 08/21/17 1605 Objective Remarks GENERAL: This is a well-nourished, well-developed patient, in no acute distress CARDIOVASCULAR: RRR, no gallops, or rubs. RESPIRATORY: Fair air entry bilaterally. No W, R, or R GASTROINTESTINAL: Abdomen soft, non-tender, nondistended. Positive bowel sounds MUSCULOSKELETAL: Extremities without clubbing, cyanosis, or edema. Pedal pulses appreciated NEUROLOGICAL: Nonverbal A/P Problem List: (1) Atrial fibrillation with rapid ventricular response ICD Code: I48.91 - Atrial fibrillation with rapid ventricular response Status: Acute (2) Hyperthyroidism ICD Code: E05.90 - Thyrotoxicosis, unspecified without thyrotoxic crisis or storm Status: Acute (3) Ulcerative colitis ICD Code: K51.90 - Ulcerative colitis, unspecified, without complications Status: Acute (4) Diabetes ICD Code: E11.9 - Diabetes mellitus Status: Chronic Assessment and Plan This is a 56-year-old female with a history of hyperthyroidism, atrial fibrillation, diabetes mellitus, schizophrenia, and bipolar disorder who presented to the hospital on 08/14/2017 for psychiatric treatment under [place] act. Her heart rate was progressively becoming more elevated during her inpatient psychiatric admission and she began developing multiple episodes of diarrhea with blood clots in stool. [facility] hospitalists were consulted and the patient was recommended for transfer to [facility] for further management and evaluation of acute medical problems. 08/18: Discussed with cardiology Dr. Grijalva, he will continue esmolol and switch to p.o. agents, patient to continue on steroids, sigmoidoscopy revealed colitis, biopsy pending, on steroids, appreciate GI follow-up, 08/19: Ammonium Nitrate Neutralizer switched esmolol drip to Lopressor with titration, IV as needed, continue monitoring for the next day or 2, GI signed off continue steroid with outpatient follow-up 08/20: Heart rate back up again in the 130-140, cardiology put her back on esmolol, patient back again refusing her p.o. meds, psychiatry reevaluated the patient they recommended Depakote, we will need to consider PEG tube if you continuing to refuse oral intake and medication however there is a risk of her pulling out her tube Thang blood spot on the bed>> continue monitoring hemoglobin, GI following 08/21: Hemoglobin stable around 9 yesterday, she was switched to amiodarone and then was converted, cardiology following continue monitoring under telemetry 08/22:Patient is nonverbal today per the nurse she has been refusing some of her medication Blood glucose still out of range we will increase her Levemir Heart rate has been stable on amiodarone but per the nurse it was not given last night I will ask psychiatry to reassess the patient and pending endocrinology consultation Currently patient is supposed to be on amiodarone and Lopressor cardiology following A/P: Atrial fibrillation with rapid ventricular response -Stat EKG obtained was personally reviewed and shows atrial fibrillation with heart rate of [address] T-wave changes -Appreciate cardiology consultation -Metoprolol 5 mg IV q5 min x 3 for sustained HR > 130 -Due to hyperthyroidism Hyperthyroidism, poorly controlled - In the ER on 08/14/17 - TSH low at < 0.005, elevated Free T3/Free T4: Free T4 - 1.84, and Free T3 - 4.47 - start Methimazole 5 mg q8h p.o. - consult endocrinology - obtain baseline LFTs to monitor for hepatotoxicity and monitor CBC for pancytopenia - both adverse effects associated with methimazole GI bleeding History of ulcerative colitis - tredn serial H&H q6h - consult GI - Solumedrol 40 mg IV q12h Type 2 Diabetes Mellitus - Accucheck AC and HS with low dose NovoLog sliding scale coverage - PRN hypoglycemia treatment protocol ordered - monitor trends in blood glucose readings and adjust treatments accordingly - IVF hydration with D5NS at 100 cc/hr while NPO Bipolar disorder with acute psychotic episode - continue medications started in the psychiatric inpatient unit - consult psychiatry - Guardado Act upheld by psychiatrist - will likely need help with symptomatology while admitted for medical management DVT prophylaxis - chemoprophylaxis contraindicated by GI bleeding - SCDs/TEDJohanne Eddy MD Aug 22, 2017 15:15
[2017-08-23] VITALS (12 sets, daily range): BP systolic 122–151; BP diastolic 58–81; PULSE 66–140; RESP 19–36; TEMP 96.7–98.5; O2SAT 95–100
[2017-08-23] MEDS: ZIPRASIDONE MESYLATE 20 MG VIAL IM SCH ×3 (00:15→16:22)
[2017-08-23] MEDS: INSULIN DETEMIR 100 UNITS/ML VIAL SQ SCH ×3 (00:44→21:00)
[2017-08-23] MEDS: INSULIN ASPART SUPPLEMENTAL SCALE SQ SCH ×5 (00:44→21:30)
[2017-08-23] MEDS: METHIMAZOLE 5 MG TAB PO SCH ×4 (06:00→21:49)
[2017-08-23] MEDS: AMIODARONE 200 MG TAB PO SCH ×2 (09:00→16:31)
[2017-08-23] MEDS: DIVALPROEX SODIUM E.R. 250 MG TAB PO SCH ×3 (09:00→21:30)
[2017-08-23] MEDS: METOPROLOL TARTRATE 25 MG TAB PO SCH ×3 (09:00→21:30)
[2017-08-23] MEDS: ZIPRASIDONE HCL 40 MG CAP PO SCH ×2 (09:00→16:58)
[2017-08-23] MEDS: SODIUM CHLORIDE 0.9% FLUSH 10 ML FLUSH IV FLUSH SCH ×2 (09:47→21:00)
--- NOTE | 2017-08-23 10:24 | PD.CARD.PN ---
Subjective Subjective Remarks No events overnight Currently sinus rhythm Not taking pills this morning Unarousable in bed at this time Objective Medications Current Medications Medications (Trade) Dose Ordered Sig/Ronaldo Route Start Time Stop Time Status Last Admin (NS Flush) 2 ml UNSCH PRN IV FLUSH 08/17/17 04:00 (NS Flush) 2 ml BID IV FLUSH 08/17/17 09:00 08/23/17 09:47 (Tylenol) 650 mg Q4H PRN PO 08/17/17 04:00 (Narcan Inj) 0.4 mg UNSCH PRN IV PUSH 08/17/17 04:00 (Lopressor Inj) 5 mg Q5M PRN IV PUSH 08/17/17 04:15 08/20/17 18:09 (Geodon) 40 mg BIDPC PO 08/17/17 09:00 08/22/17 09:51 (Geodon Inj) 10 mg BIDAC IM 08/17/17 07:00 08/23/17 09:45 (Atarax) 50 mg Q6H PRN PO 08/17/17 04:15 (Benadryl) 50 mg HS PRN PO 08/17/17 04:15 (Tapazole) 5 mg Q8HR PO 08/17/17 06:00 08/22/17 05:58 (D50w (Vial) Inj) 50 ml UNSCH PRN IV PUSH 08/17/17 05:15 (Glucagon Inj) 1 mg UNSCH PRN OTHER 08/17/17 05:15 (NovoLOG SUPPLEMENTAL SCALE) 1 ACHS SLIDING SCALE SQ 08/17/17 08:00 08/21/17 21:00 Esmolol HCl/ Sodium Chloride 250 ml @ 21 mls/hr TITRATE PRN IV 08/17/17 13:00 08/20/17 19:43 (Brevibloc Bolus Inj) 35 mg BOLUS PRN IV PUSH 08/17/17 13:00 08/20/17 14:54 (Pill Splitter) 1 ea UNSCH PRN OTHER 08/18/17 17:30 08/19/17 08:48 (Lopressor) 25 mg Q12HR PO 08/19/17 21:00 08/22/17 09:51 (Depakote Er) 250 mg BID PO 08/20/17 21:00 08/22/17 09:51 (Cordarone) 400 mg DAILY PO 08/21/17 19:00 08/22/17 09:52 (Levemir Inj) 10 units Q12HR SQ 08/22/17 21:00 Vital Signs / I&O Vital Signs Date Time Temp Pulse Resp B/P (MAP) Pulse Ox O2 Delivery O2 Flow Rate FiO2 08/23/17 06:00 72 08/23/17 04:00 98.3 70 24 137/68 (91) 97 08/23/17 04:00 70 08/23/17 02:00 66 08/23/17 00:00 74 08/23/17 00:00 98.5 68 20 122/58 (79) 97 08/22/17 22:00 63 08/22/17 20:00 96 Room Air 08/22/17 20:00 98.9 74 23 138/64 (88) 94 08/22/17 17:00 97.8 73 23 124/68 (86) 97 08/22/17 16:00 98.4 72 21 122/59 (80) 97 I/O 08/22/17 08/22/17 08/22/17 08/23/17 08/23/17 08/23/17 07:00 15:00 23:00 07:00 15:00 23:00 Intake Total 240 ml 180 ml 50 ml Balance 240 ml 180 ml 50 ml Intake Oral 240 ml 180 ml 50 ml # Voids 3 3 # Bowel Movements 3 1 1 Physical Exam GENERAL: NAD SKIN: Warm and dry. HEAD: Atraumatic. Normocephalic. EYES: Pupils equal and round. No scleral icterus. No injection or drainage. ENT: No nasal bleeding or discharge. Mucous membranes pink and moist. NECK: Trachea midline. No JVD. CARDIOVASCULAR: Regular rate and rhythm. RESPIRATORY: No accessory muscle use. Clear to auscultation. Breath sounds equal bilaterally. GASTROINTESTINAL: Abdomen soft, non-tender, nondistended. Hepatic and splenic margins not palpable. MUSCULOSKELETAL: Extremities without clubbing, cyanosis, or edema. No obvious deformities. NEUROLOGICAL: Awake and alert. No obvious cranial nerve deficits. Assessment and Plan Problem List: (1) Atrial fibrillation with rapid ventricular response ICD Codes: I48.91 - Atrial fibrillation with rapid ventricular response Status: Acute (2) Schizophrenia ICD Codes: F20.9 - Schizophrenia Status: Acute (3) Lower GI bleeding ICD Codes: K92.2 - Gastrointestinal hemorrhage, unspecified Status: Resolved (4) Hyperthyroidism ICD Codes: E05.90 - Thyrotoxicosis, unspecified without thyrotoxic crisis or storm Status: Acute (5) Diabetes ICD Codes: E11.9 - Diabetes mellitus Status: Chronic (6) Ulcerative colitis ICD Codes: K51.90 - Ulcerative colitis, unspecified, without complications Status: Acute Assessment and Plan 1) AFib with RVR Possibly due to hyperthyroidism Con't Amiodarone PO 400mg daily for 1 week Then 200mg daily If unable/unwilling to take pills, ?PEG 2) Hyperthyroidism Per primary team 3) Anemia Non-bleeding ulcer noted, UC 4) Patient can be moved to Med/Surg or Med/Psych from my standpoint Biggest concern is that if she does not take her Tapazole or Amiodarone, then she will be right back her with Afib with RVR She will need yearly TSH due to being on Amiodarone Rajesh Grijalva DO Aug 23, 2017 10:24
[2017-08-23] MEDS: METOPROLOL TARTRATE 5 MG/5 ML VIAL IV PUSH PRN ×2 (13:10→17:15)
--- NOTE | 2017-08-23 14:08 | HHI.PYPN ---
Subjective Remarks The patient was seen today for psychiatric reevaluation. Case discussed with nurse in charge. The patient has not been taking her medications, no interacting with staff and family, selectively mute, eating on and off. On my evaluation the patient is alert, with eye openings, staring, seems to be internally stimulated, but will not answer any of my questions. There is no stiffness, no waxy flexibility suggest catatonia, but her lack of motivation, her mutism, flat affect suggest a potential catatonia. Mental Status Examination Appearance: Appropriate Consciousness: Alert Orientation: Person Motor Activity: Normal gait Speech: Other (Selectively mute) Language: Adequate Fund of Knowledge: Adequate Attention and Concentration: Adequate Memory: Impaired Mood: Appropriate Affect: Flat Thought Content: Thought blocking, Delusional Suicidal Ideation: No Suicidal Plan: No Suicidal Intention: No Homicidal Ideation: No Homicidal Plan: No Homicidal Intention: No Insight: Poor Judgment: Poor Results Labs Date/Time Source Procedure Growth Status 08/17/17 00:00 Stool Stool Stool Occult Blood (BERE) - Final HEMOCCULT POSITIVE Complete Vitals/IOs Vital Signs Date Time Temp Pulse Resp B/P (MAP) Pulse Ox O2 Delivery O2 Flow Rate FiO2 08/23/17 10:00 74 08/23/17 08:00 96.9 19 125/80 (95) 97 08/23/17 07:00 Room Air Intake and Output 08/23/17 08/23/17 08/24/17 08:00 16:00 00:00 Intake Total 50 ml Balance 50 ml Assessment & Plan Problem List: (1) Schizophrenia ICD Codes: F20.9 - Schizophrenia Status: Acute Assessment & Plan: My psychiatric evaluation today the patient continues to be selectively mute, alert, but with a prominent thought blocking, internal stimulation, lack of motivation, flat affect. Patient does not have a prominent waxy flexibility, stiffness, blood catatonia is suspected. I am going to start Ativan 1 mg IV every 8 hours to break catatonia. Will increase Geodon to 15 mg IM every 12 for psychosis. Patient will be transferred to med psych. Assessment & Plan Estimated LOS: days Justification for Cont. Inpt. To be admitted in the MedPsych unit. Neri Rose MD Aug 23, 2017 14:08
[2017-08-23] MEDS: LORazepam 2 MG/ML VIAL IV PUSH SCH ×2 (14:16→21:31)
--- NOTE | 2017-08-23 14:58 | HHI.PR ---
Subjective Remarks Patient seen and examined, chart reviewed full consult to follow. Orders written. Objective Vital Signs Date Time Temp Pulse Resp B/P (MAP) Pulse Ox O2 Delivery O2 Flow Rate FiO2 08/23/17 10:00 74 08/23/17 08:00 96.9 82 19 125/80 (95) 97 08/23/17 08:00 82 08/23/17 07:00 96 Room Air 08/23/17 06:00 72 08/23/17 04:00 98.3 70 24 137/68 (91) 97 08/23/17 04:00 70 08/23/17 02:00 66 08/23/17 00:00 74 08/23/17 00:00 98.5 68 20 122/58 (79) 97 08/22/17 22:00 63 08/22/17 20:00 96 Room Air 08/22/17 20:00 98.9 74 23 138/64 (88) 94 08/22/17 17:00 97.8 73 23 124/68 (86) 97 08/22/17 16:00 98.4 72 21 122/59 (80) 97 I/O 08/22/17 08/22/17 08/22/17 08/23/17 08/23/17 08/23/17 07:00 15:00 23:00 07:00 15:00 23:00 Intake Total 240 ml 180 ml 50 ml Balance 240 ml 180 ml 50 ml Intake Oral 240 ml 180 ml 50 ml # Voids 3 3 # Bowel Movements 3 1 1 Result Diagram: 08/20/17 1624 08/21/17 1605 Assessment and Plan Assessment and Plan Hyperthyroidism: Will repeat TSH and Free T4 next draw. Will order thyroid ultrasound for evaluation of Goiter. Full consult to follow John Whittaker MD Aug 23, 2017 14:58
--- NOTE | 2017-08-23 15:26 | HHI.PR ---
Subjective Remarks Patient is acting nicely today, she is eating her lunch However some occasions she refused to eat to take her medication Awaiting another evaluation by psych to see if we need to go ahead with PEG tube versus improvement in her behavior and accepting her medication and food Objective Vitals Vital Signs Date Time Temp Pulse Resp B/P (MAP) Pulse Ox O2 Delivery O2 Flow Rate FiO2 08/23/17 10:00 74 08/23/17 08:00 96.9 82 19 125/80 (95) 97 08/23/17 08:00 82 08/23/17 07:00 96 Room Air 08/23/17 06:00 72 08/23/17 04:00 98.3 70 24 137/68 (91) 97 08/23/17 04:00 70 08/23/17 02:00 66 08/23/17 00:00 74 08/23/17 00:00 98.5 68 20 122/58 (79) 97 08/22/17 22:00 63 08/22/17 20:00 96 Room Air 08/22/17 20:00 98.9 74 23 138/64 (88) 94 08/22/17 17:00 97.8 73 23 124/68 (86) 97 08/22/17 16:00 98.4 72 21 122/59 (80) 97 I/O 08/22/17 08/22/17 08/22/17 08/23/17 08/23/17 08/23/17 06:59 14:59 22:59 06:59 14:59 22:59 Intake Total 240 ml 180 ml 50 ml Balance 240 ml 180 ml 50 ml Intake Oral 240 ml 180 ml 50 ml # Voids 3 3 # Bowel Movements 3 1 1 Result Diagram: 08/20/17 1624 08/21/17 1605 Objective Remarks GENERAL: This is a well-nourished, well-developed patient, in no acute distress CARDIOVASCULAR: RRR, no gallops, or rubs. RESPIRATORY: Fair air entry bilaterally. No W, R, or R GASTROINTESTINAL: Abdomen soft, non-tender, nondistended. Positive bowel sounds MUSCULOSKELETAL: Extremities without clubbing, cyanosis, or edema. Pedal pulses appreciated NEUROLOGICAL: Nonverbal A/P Problem List: (1) Atrial fibrillation with rapid ventricular response ICD Code: I48.91 - Atrial fibrillation with rapid ventricular response Status: Acute (2) Hyperthyroidism ICD Code: E05.90 - Thyrotoxicosis, unspecified without thyrotoxic crisis or storm Status: Acute (3) Ulcerative colitis ICD Code: K51.90 - Ulcerative colitis, unspecified, without complications Status: Acute (4) Diabetes ICD Code: E11.9 - Diabetes mellitus Status: Chronic Assessment and Plan This is a 56-year-old female with a history of hyperthyroidism, atrial fibrillation, diabetes mellitus, schizophrenia, and bipolar disorder who presented to the hospital on 08/14/2017 for psychiatric treatment under Guardado act. Her heart rate was progressively becoming more elevated during her inpatient psychiatric admission and she began developing multiple episodes of diarrhea with blood clots in stool. [facility] hospitalists were consulted and the patient was recommended for transfer to [facility] for further management and evaluation of acute medical problems. 08/18: Discussed with cardiology Dr. Grijalva, he will continue esmolol and switch to p.o. agents, patient to continue on steroids, sigmoidoscopy revealed colitis, biopsy pending, on steroids, appreciate GI follow-up, 08/19: Medical Office Receptionist switched esmolol drip to Lopressor with titration, IV as needed, continue monitoring for the next day or 2, GI signed off continue steroid with outpatient follow-up 08/20: Heart rate back up again in the 130-140, cardiology put her back on esmolol, patient back again refusing her p.o. meds, psychiatry reevaluated the patient they recommended Depakote, we will need to consider PEG tube if you continuing to refuse oral intake and medication however there is a risk of her pulling out her tube Thang blood spot on the bed>> continue monitoring hemoglobin, GI following 08/21: Hemoglobin stable around 9 yesterday, she was switched to amiodarone and then was converted, cardiology following continue monitoring under telemetry 08/22:Patient is nonverbal today per the nurse she has been refusing some of her medication Blood glucose still out of range we will increase her Levemir Heart rate has been stable on amiodarone but per the nurse it was not given last night I will ask psychiatry to reassess the patient and pending endocrinology consultation Currently patient is supposed to be on amiodarone and Lopressor cardiology following 08/23: Patient is having a better behavior today, however the nurse still complaining about her not taking her medication, appreciate reevaluation from psychiatry, recommending Ativan to pay catatonia with increasing Geodon, also recommended transfer to [facility] when medically stable. 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 A/P: Atrial fibrillation with rapid ventricular response -Stat EKG obtained was personally reviewed and shows atrial fibrillation with heart rate of [address] T-wave changes -Appreciate cardiology consultation -Metoprolol 5 mg IV q5 min x 3 for sustained HR > 130 -Due to hyperthyroidism Hyperthyroidism, poorly controlled - In the ER on 08/14/17 - TSH low at < 0.005, elevated Free T3/Free T4: Free T4 - 1.84, and Free T3 - 4.47 - start Methimazole 5 mg q8h p.o. 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, referred for endocrinology for adjustment GI bleeding History of ulcerative colitis - tredn serial H&H q6h - consult GI - Solumedrol 40 mg IV q12h Type 2 Diabetes Mellitus - Accucheck AC and HS with low dose NovoLog sliding scale coverage - PRN hypoglycemia treatment protocol ordered - monitor trends in blood glucose readings and adjust treatments accordingly - IVF hydration with D5NS at 100 cc/hr while NPO Bipolar disorder with acute psychotic episode - continue medications started in the psychiatric inpatient unit - consult psychiatry - Guardado Act upheld by psychiatrist - will likely need help with symptomatology while admitted for medical management DVT prophylaxis - chemoprophylaxis contraindicated by GI bleeding - SCDs/TEDJohanne Eddy MD Aug 23, 2017 15:25
[2017-08-23 16:31] LABS: FREE T4 1.45 NG/DL (0.76-1.46)
[2017-08-23] MEDS: ESMOLOL DRIP INJ PREMIX 250 ML IV PRN ×2 (17:53→21:03)
[2017-08-24] VITALS (9 sets, daily range): BP systolic 97–122; BP diastolic 52–63; PULSE 76–97; RESP 20–24; TEMP 97.7–98.8; O2SAT 94–99
[2017-08-24] MEDS: LORazepam 2 MG/ML VIAL IV PUSH SCH ×3 (03:48→15:00)
[2017-08-24] MEDS: METHIMAZOLE 5 MG TAB PO SCH ×2 (06:00→14:00)
[2017-08-24] MEDS: ZIPRASIDONE MESYLATE 20 MG VIAL IM SCH ×2 (06:36→16:00)
[2017-08-24] MEDS: INSULIN ASPART SUPPLEMENTAL SCALE SQ SCH ×3 (08:00→17:00)
[2017-08-24] MEDS: INSULIN DETEMIR 100 UNITS/ML VIAL SQ SCH (09:00)
[2017-08-24] MEDS: ZIPRASIDONE HCL 40 MG CAP PO SCH (09:00)
[2017-08-24] MEDS: METOPROLOL TARTRATE 25 MG TAB PO SCH ×2 (09:00→14:35)
[2017-08-24] MEDS: SODIUM CHLORIDE 0.9% FLUSH 10 ML FLUSH IV FLUSH SCH (09:36)
[2017-08-24] MEDS: DIVALPROEX SODIUM E.R. 250 MG TAB PO SCH (09:55)
[2017-08-24] MEDS: AMIODARONE 200 MG TAB PO SCH (09:56)
--- NOTE | 2017-08-24 11:08 | PD.CARD.PN ---
Subjective Subjective Remarks No events overnight Currently sinus rhythm Yesterday placed back on Esmolol drip due to AFib with RVR Took pills this morning, but only what she wanted to Objective Medications Current Medications Medications (Trade) Dose Ordered Sig/Ronaldo Route Start Time Stop Time Status Last Admin (NS Flush) 2 ml UNSCH PRN IV FLUSH 08/17/17 04:00 (NS Flush) 2 ml BID IV FLUSH 08/17/17 09:00 08/24/17 09:36 (Tylenol) 650 mg Q4H PRN PO 08/17/17 04:00 (Narcan Inj) 0.4 mg UNSCH PRN IV PUSH 08/17/17 04:00 (Lopressor Inj) 5 mg Q5M PRN IV PUSH 08/17/17 04:15 08/23/17 17:15 (Geodon) 40 mg BIDPC PO 08/17/17 09:00 08/22/17 09:51 (Atarax) 50 mg Q6H PRN PO 08/17/17 04:15 (Benadryl) 50 mg HS PRN PO 08/17/17 04:15 (Tapazole) 5 mg Q8HR PO 08/17/17 06:00 08/22/17 05:58 (D50w (Vial) Inj) 50 ml UNSCH PRN IV PUSH 08/17/17 05:15 (Glucagon Inj) 1 mg UNSCH PRN OTHER 08/17/17 05:15 (NovoLOG SUPPLEMENTAL SCALE) 1 ACHS SLIDING SCALE SQ 08/17/17 08:00 08/23/17 21:30 Esmolol HCl/ Sodium Chloride 250 ml @ 21 mls/hr TITRATE PRN IV 08/17/17 13:00 08/23/17 21:03 (Brevibloc Bolus Inj) 35 mg BOLUS PRN IV PUSH 08/17/17 13:00 08/20/17 14:54 (Pill Splitter) 1 ea UNSCH PRN OTHER 08/18/17 17:30 08/19/17 08:48 (Lopressor) 25 mg Q12HR PO 08/19/17 21:00 08/22/17 09:51 (Depakote Er) 250 mg BID PO 08/20/17 21:00 08/24/17 09:55 (Cordarone) 400 mg DAILY PO 08/21/17 19:00 08/23/17 16:31 (Levemir Inj) 10 units Q12HR SQ 08/22/17 21:00 (Geodon Inj) 15 mg BIDAC IM 08/23/17 16:00 08/24/17 06:36 (Ativan Inj) 1 mg Q6H IV PUSH 08/23/17 15:00 08/24/17 09:36 Vital Signs / I&O Vital Signs Date Time Temp Pulse Resp B/P (MAP) Pulse Ox O2 Delivery O2 Flow Rate FiO2 08/24/17 10:00 97 08/24/17 08:00 88 08/24/17 08:00 98.8 90 24 110/55 (73) 94 08/24/17 07:00 94 Room Air 08/24/17 06:00 76 08/24/17 04:00 97.7 78 20 112/57 (75) 95 08/24/17 04:00 78 08/24/17 02:00 76 08/24/17 00:00 84 08/24/17 00:00 98.1 84 20 97/52 (67) 98 08/23/17 22:00 90 08/23/17 21:03 90 117/57 08/23/17 20:00 97.8 126 22 151/67 (95) 100 08/23/17 20:00 126 08/23/17 19:00 95 Room Air 08/23/17 18:00 120 08/23/17 17:53 136 117/57 08/23/17 16:00 140 08/23/17 16:00 97.9 140 29 141/81 (101) 95 08/23/17 14:00 122 08/23/17 12:00 92 08/23/17 12:00 96.7 92 36 131/78 (95) 99 I/O 08/23/17 08/23/17 08/23/17 08/24/17 08/24/17 08/24/17 07:00 15:00 23:00 07:00 15:00 23:00 Intake Total 50 ml 250 ml 120 ml Output Total 100 ml Balance 50 ml 250 ml 20 ml Intake Oral 50 ml 120 ml IV Total 250 ml Output Urine Total 100 ml # Voids 3 4 3 # Bowel Movements 1 2 1 Physical Exam GENERAL: NAD SKIN: Warm and dry. HEAD: Atraumatic. Normocephalic. EYES: Pupils equal and round. No scleral icterus. No injection or drainage. ENT: No nasal bleeding or discharge. Mucous membranes pink and moist. NECK: Trachea midline. No JVD. CARDIOVASCULAR: Regular rate and rhythm. RESPIRATORY: No accessory muscle use. Clear to auscultation. Breath sounds equal bilaterally. GASTROINTESTINAL: Abdomen soft, non-tender, nondistended. Hepatic and splenic margins not palpable. MUSCULOSKELETAL: Extremities without clubbing, cyanosis, or edema. No obvious deformities. NEUROLOGICAL: Awake and alert. No obvious cranial nerve deficits. Laboratory Laboratory Tests Test 08/23/17 15:35 Free Thyroxine 1.45 NG/DL Thyroid Stimulating Hormone 3rd Gen LESS THAN 0.005 uIU/ML Assessment and Plan Problem List: (1) Atrial fibrillation with rapid ventricular response ICD Codes: I48.91 - Atrial fibrillation with rapid ventricular response Status: Acute (2) Schizophrenia ICD Codes: F20.9 - Schizophrenia Status: Acute (3) Lower GI bleeding ICD Codes: K92.2 - Gastrointestinal hemorrhage, unspecified Status: Resolved (4) Hyperthyroidism ICD Codes: E05.90 - Thyrotoxicosis, unspecified without thyrotoxic crisis or storm Status: Acute (5) Diabetes ICD Codes: E11.9 - Diabetes mellitus Status: Chronic (6) Ulcerative colitis ICD Codes: K51.90 - Ulcerative colitis, unspecified, without complications Status: Acute Assessment and Plan 1) AFib with RVR Possibly due to hyperthyroidism Con't Amiodarone PO 400mg daily for 1 week Then 200mg daily If unable/unwilling to take pills, ?PEG 2) Hyperthyroidism Per primary team 3) Anemia Non-bleeding ulcer noted, UC 4) Patient can be moved to Med/Surg or Med/Psych from my standpoint Biggest concern is that if she does not take her Tapazole or Amiodarone, then she will be right back her with Afib with RVR She will need yearly TSH due to being on Amiodarone Rajesh Grijalva DO Aug 24, 2017 11:08
--- NOTE | 2017-08-24 11:22 | RADRPT ---
EXAM DATE: 08/24/2017 11:03 AM EDT AGE/SEX: 56 years / Female INDICATIONS: Thyroid goiter. CLINICAL DATA: This is the patient's initial encounter. Patient reports that signs and symptoms have been present for 1 day and indicates a pain score of 0/10. MEDICAL/SURGICAL HISTORY: Diabetes. Atrial fibrillation. Ulcerative colitis. GI bleed. Inflamma tory bowel disease. Schizophrenia. Bipolar disorder. Blood transfusion. Tonsillectomy. Ankle repair. COMPARISON: No prior exams available for comparison. MEASUREMENTS: Right Lobe: 4.8 x 1.6 x 2.3 cm Left Lobe: 5.7 x 2.5 x 3.4 cm FINDINGS: Right Lobe: The right lobe is somewhat heterogeneous. There appears to be a focal hypoechoic well-de fined nodule in the upper pole measuring 1.4 x 1.0 cm. Left Lobe: The left lobe is diffusely heterogeneous. There appears to be a large complex mass along t he lower pole measuring 4.8 x 3.9 cm. There is a smaller complex nodule along the mid pole measuring 1.9 x 1.8 cm. Isthmus: Normal in size without focal abnormality. CONCLUSION: 1. Large complex mass along the lower pole left lobe of the thyroid gland measuring 4.8 x 3.9 cm. 2. Small complex nodule midpole left lobe measuring 1.9 cm. 3. Well-defined hypoechoic nodule upper pole right lobe measuring 1.4 cm. Electronically signed by: Brett Christie MD 08/24/2017 11:20 AM EDT
--- NOTE | 2017-08-24 13:24 | HHI.PR ---
Subjective Remarks Sleeping became bed mostly because of Geodon Discussed with the nurse heart rate has been stable she did not need Lopressor today Cleared by cardiology to go to [facility] Objective Vitals Vital Signs Date Time Temp Pulse Resp B/P (MAP) Pulse Ox O2 Delivery O2 Flow Rate FiO2 08/24/17 12:00 86 08/24/17 12:00 98.7 86 24 113/53 (73) 95 08/24/17 10:00 97 08/24/17 08:00 88 08/24/17 08:00 98.8 90 24 110/55 (73) 94 08/24/17 07:00 94 Room Air 08/24/17 06:00 76 08/24/17 04:00 97.7 78 20 112/57 (75) 95 08/24/17 04:00 78 08/24/17 02:00 76 08/24/17 00:00 84 08/24/17 00:00 98.1 84 20 97/52 (67) 98 08/23/17 22:00 90 08/23/17 21:03 90 117/57 08/23/17 20:00 97.8 126 22 151/67 (95) 100 08/23/17 20:00 126 08/23/17 19:00 95 Room Air 08/23/17 18:00 120 08/23/17 17:53 136 117/57 08/23/17 16:00 140 08/23/17 16:00 97.9 140 29 141/81 (101) 95 08/23/17 14:00 122 I/O 08/23/17 08/23/17 08/23/17 08/24/17 08/24/17 08/24/17 07:00 15:00 23:00 07:00 15:00 23:00 Intake Total 50 ml 250 ml 120 ml Output Total 100 ml Balance 50 ml 250 ml 20 ml Intake Oral 50 ml 120 ml IV Total 250 ml Output Urine Total 100 ml # Voids 3 4 3 # Bowel Movements 1 2 1 Result Diagram: 08/20/17 1624 08/21/17 1605 Objective Remarks GENERAL: This is a well-nourished, well-developed patient, in no acute distress CARDIOVASCULAR: RRR, no gallops, or rubs. RESPIRATORY: Fair air entry bilaterally. No W, R, or R GASTROINTESTINAL: Abdomen soft, non-tender, nondistended. Positive bowel sounds MUSCULOSKELETAL: Extremities without clubbing, cyanosis, or edema. Pedal pulses appreciated NEUROLOGICAL: Nonverbal A/P Problem List: (1) Atrial fibrillation with rapid ventricular response ICD Code: I48.91 - Atrial fibrillation with rapid ventricular response Status: Acute (2) Hyperthyroidism ICD Code: E05.90 - Thyrotoxicosis, unspecified without thyrotoxic crisis or storm Status: Acute (3) Ulcerative colitis ICD Code: K51.90 - Ulcerative colitis, unspecified, without complications Status: Acute (4) Diabetes ICD Code: E11.9 - Diabetes mellitus Status: Chronic Assessment and Plan This is a 56-year-old female with a history of hyperthyroidism, atrial fibrillation, diabetes mellitus, schizophrenia, and bipolar disorder who presented to the hospital on 08/14/2017 for psychiatric treatment under Guardado act. Her heart rate was progressively becoming more elevated during her inpatient psychiatric admission and she began developing multiple episodes of diarrhea with blood clots in stool. [facility] hospitalists were consulted and the patient was recommended for transfer to [facility] for further management and evaluation of acute medical problems. 08/18: Discussed with cardiology Dr. Grijalva, he will continue esmolol and switch to p.o. agents, patient to continue on steroids, sigmoidoscopy revealed colitis, biopsy pending, on steroids, appreciate GI follow-up, 08/19: Basket Person switched esmolol drip to Lopressor with titration, IV as needed, continue monitoring for the next day or 2, GI signed off continue steroid with outpatient follow-up 08/20: Heart rate back up again in the 130-140, cardiology put her back on esmolol, patient back again refusing her p.o. meds, psychiatry reevaluated the patient they recommended Depakote, we will need to consider PEG tube if you continuing to refuse oral intake and medication however there is a risk of her pulling out her tube Thang blood spot on the bed>> continue monitoring hemoglobin, GI following 08/21: Hemoglobin stable around 9 yesterday, she was switched to amiodarone and then was converted, cardiology following continue monitoring under telemetry 08/22:Patient is nonverbal today per the nurse she has been refusing some of her medication Blood glucose still out of range we will increase her Levemir Heart rate has been stable on amiodarone but per the nurse it was not given last night I will ask psychiatry to reassess the patient and pending endocrinology consultation Currently patient is supposed to be on amiodarone and Lopressor cardiology following 08/23: Patient is having a better behavior today, however the nurse still complaining about her not taking her medication, appreciate reevaluation from psychiatry, recommending Ativan to pay catatonia with increasing Geodon, also recommended transfer to med psych when medically stable. 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 08/24: Cleared by cardiology to go to med psych floor on amiodarone and Lopressor , appreciate psychiatry recommendation , we will proceed with transfer to med psych floor and monitor from there A/P: Atrial fibrillation with rapid ventricular response -Stat EKG obtained was personally reviewed and shows atrial fibrillation with heart rate of [address] T-wave changes -Appreciate cardiology consultation -Metoprolol 5 mg IV q5 min x 3 for sustained HR > 130 -Due to hyperthyroidism Hyperthyroidism, poorly controlled - In the ER on 08/14/17 - TSH low at < 0.005, elevated Free T3/Free T4: Free T4 - 1.84, and Free T3 - 4.47 - start Methimazole 5 mg q8h p.o. 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, referred for endocrinology for adjustment GI bleeding History of ulcerative colitis - tredn serial H&H q6h - consult GI - Solumedrol 40 mg IV q12h Type 2 Diabetes Mellitus - Accucheck AC and HS with low dose NovoLog sliding scale coverage - PRN hypoglycemia treatment protocol ordered - monitor trends in blood glucose readings and adjust treatments accordingly - IVF hydration with D5NS at 100 cc/hr while NPO Bipolar disorder with acute psychotic episode - continue medications started in the psychiatric inpatient unit - consult psychiatry - Guardado Act upheld by psychiatrist - will likely need help with symptomatology while admitted for medical management DVT prophylaxis - chemoprophylaxis contraindicated by GI bleeding - SCDs/TEDs Johanne Olsen MD Aug 24, 2017 13:24
[2017-08-24] MEDS ORDERED: AMIO200T PO ×2 (15:24)
[2017-08-24] MEDS ORDERED: DIVA250ER PO (15:24)
[2017-08-24] MEDS ORDERED: ZIPR40 PO (15:24)
[2017-08-24] MEDS ORDERED: LEVEMIR SQ (15:24)
[2017-08-24] MEDS ORDERED: METO25TA3 PO (15:24)
[2017-08-24] MEDS ORDERED: NOVOLOGSS SQ (15:24)
[2017-08-24] MEDS ORDERED: METH5 PO (15:24)
--- NOTE | 2017-08-24 15:24 | HHI.DS ---
Discharge Summary Admission Date Aug 17, 2017 at 04:01 Discharge Date: Aug 24, 2017 Admitting Diagnosis Atrial fibrillation with RVR, GI bleeding/ulcerative colitis . (1) Atrial fibrillation with rapid ventricular response ICD Code: I48.91 - Atrial fibrillation with rapid ventricular response Status: Acute (2) Hyperthyroidism ICD Code: E05.90 - Thyrotoxicosis, unspecified without thyrotoxic crisis or storm Status: Acute (3) Ulcerative colitis ICD Code: K51.90 - Ulcerative colitis, unspecified, without complications Status: Acute (4) Diabetes ICD Code: E11.9 - Diabetes mellitus Status: Chronic Procedures see below Brief History - From Admission This is a 56-year-old female with a history of hyperthyroidism, atrial fibrillation, diabetes mellitus, schizophrenia, and bipolar disorder who presented to the hospital on 08/14/2017 for psychiatric treatment under Guardado act. Her heart rate was progressively becoming more elevated during her inpatient psychiatric admission and she began developing multiple episodes of diarrhea with blood clots in stool. [facility] hospitalists were consulted and the patient was recommended for transfer to [facility] for further management and evaluation of acute medical problems. The patient is seen but is uncooperative with much of physical exam and history taking process. She answers some questions at times with simple answers but denies some of her medical history that is been clearly recorded in the electronic medical record. CBC/BMP: 08/20/17 1624 08/21/17 1605 Significant Findings Laboratory Tests Test 08/21/17 16:05 08/23/17 15:35 Creatinine 1.01 MG/DL (0.50-1.00) Random Glucose 321 MG/DL (74-106) Calcium Level 7.5 MG/DL (8.5-10.1) Magnesium Level 1.4 MG/DL (1.5-2.5) Chloride Level 113 MEQ/L (98-107) Estimat Glomerular Filtration Rate 56 ML/MIN (>89) Hemoglobin A1c 7.3 % (4.3-6.0) Thyroid Stimulating Hormone 3rd Gen LESS THAN 0.005 uIU/ML PE at Discharge GENERAL: This is a well-nourished, well-developed patient, in no acute distress CARDIOVASCULAR: RRR, no gallops, or rubs. RESPIRATORY: Fair air entry bilaterally. No W, R, or R GASTROINTESTINAL: Abdomen soft, non-tender, nondistended. Positive bowel sounds MUSCULOSKELETAL: Extremities without clubbing, cyanosis, or edema. Pedal pulses appreciated NEUROLOGICAL: Nonverbal Hospital Course 66 years old female with extensive psychiatry history admitted for A. fib with RVR hyperthyroidism she has a history of ulcerative colitis, cardiology consulted patient started on esmolol drip due to national shortage on Cardizem drip, however patient due to her psychiatry story she has on and off frequent mutism/catheter Unasyn, psychiatry consulted she takes her medication on and off , later on patient switched to amiodarone with metoprolol. Patient also was found to have a low TSH with increased free T4, patient started on methimazole and endocrinology consult obtained, psychiatry recommended transfer to psych med floor upon discharge. Discussed with the nurse today patient is stable heart rate is controlled we will proceed with discharge to med psych floor, senior support engineer to be notified to follow patient over there. [id number] encounter performed with the patient on discharge day, as well as physical exam, summary of hospitalization course and postdischarge plan has been D/W the patient. D/W nurse D/W case filler. Discharge medications reviewed and printed and signed, post discharge follow up visit with PCP and other specialist as well as Brief hospital course and discharge summary has been placed. Pt Condition on Discharge: Fair Discharge Disposition: Disc to Psych Care Fac Discharge Time: > 30 minutes Discharge Instructions DIET: Follow Instructions for: Heart Healthy Diet, Diabetic Diet Activities you can perform: Weight Bearing as Carter New Medications: Amiodarone (Amiodarone) 200 Mg Tab 200 MG PO DAILY for Regulate Heart Beat, #30 TAB 0 Refills Amiodarone (Amiodarone) 200 Mg Tab 400 MG PO DAILY for afib, #4 TAB Divalproex ER (Depakote ER) 250 Mg Ole 250 MG PO BID for psych, #60 TAB Insulin Aspart Inj (Novolog Inj) 100 Unit/Ml Inj 1 UNIT SQ ACHS SLIDING SCALE for dm for 30 Days, INJECTION Insulin Detemir Inj (Levemir Inj) 1,000 unit/ 10 ML Vial 10 UNITS SQ Q12HR for dm for 30 Days, INJECTION Do not mix with any other Insulin. Methimazole (Tapazole) 5 Mg Tab 5 MG PO Q8HR for hyper thyroid, #10 TAB Metoprolol Tartrate (Metoprolol Tartrate) 25 Mg Tab 25 MG PO Q12HR for afib, #60 TAB Ziprasidone (Geodon) 40 Mg Cap 40 MG PO BIDPC for psych, #60 CAP Continued Medications: Prednisone (Prednisone) 20 Mg Tab 20 MG PO DAILY, TAB 0 Refills Johanne Olsen MD Aug 24, 2017 15:24
== END 2017-08-24 18:03 | DRG 309 ==
LOC: UNDOADMOB 03:17 → N03A 03:17 → INTOOBSV 03:17 → OBSVTOIN 03:17 → N03A 04:01 → OBSVTOIN 04:01
PROVIDERS: ADMIT Internal Medicine; ATTEND Internal Medicine
PROC: 0DBN8ZX Excision of Sigmoid Colon, Via Natural or Artificial Opening Endoscopic, Diagnostic (ICD-10-PCS; principal; 2017-08-18 11:16)
DX: I48.91 Unspecified atrial fibrillation (principal); K51.90 Ulcerative colitis, unspecified, without complications; D64.9 Anemia, unspecified; E11.9 Type 2 diabetes mellitus without complications; F31.89 Other bipolar disorder; K92.1 Melena; F20.2 Catatonic schizophrenia; K52.9 Noninfective gastroenteritis and colitis, unspecified; E05.90 Thyrotoxicosis, unspecified without thyrotoxic crisis or storm; F94.0 Selective mutism; Z91.14 Patient's other noncompliance with medication regimen; Z88.8 Allergy status to other drugs, medicaments and biological substances
CPT/HCPCS: 76536; 76937; 80048; 80076; 82272; 82948; 83036; 83735; 84100; 84439; 84443; 85014; 85018; 85025; 87493; 88305; 93005; J0282; J1815; J2060; J2920; J3475; J3480; J3486; J7030; J7042; J7050

== ENCOUNTER 2017-08-24 15:57 | Inpatient (IN) | payer MEDICAID, OTHER ==
[~2017-08-24 15:57] MED LIST changes: +AMIO200T PO; +DIVA250ER PO; +LEVEMIR SQ; +METH5 PO; +METO25TA3 PO; +NOVOLOGSS SQ; +ZIPR40 PO
[2017-08-24] MEDS ORDERED: LORazepam 2 MG/ML VIAL IM PRN ×2 (20:45)
[2017-08-24] MEDS ORDERED: LORazepam 0.5 MG TAB PO PRN (20:45)
[2017-08-24] MEDS ORDERED: ALUMINUM/MAGNESIUM/SIMETH 30 ML CUP PO PRN (20:45)
[2017-08-24] MEDS ORDERED: LORazepam 1 MG TAB PO PRN (20:45)
[2017-08-24] MEDS ORDERED: MAGNESIUM HYDROXIDE SUSP 30 ML CUP PO PRN (20:45)
[2017-08-24] MEDS ORDERED: ACETAMINOPHEN 325 MG TAB PO PRN (20:45)
[2017-08-24] MEDS: METOPROLOL TARTRATE 25 MG TAB PO SCH (21:00)
[2017-08-25 05:25] VITALS: BP 145/66; PULSE 93; RESP 17; TEMP 98; O2SAT 93
[2017-08-25] MEDS ORDERED: AMIODARONE 200 MG TAB PO SCH (09:00)
[2017-08-25] MEDS ORDERED: NICOTINE 21 MG/24 HR PATCH T-DERMAL SCH (09:00)
[2017-08-25] MEDS: AMIODARONE 200 MG TAB PO SCH (09:56)
[2017-08-25] MEDS: METOPROLOL TARTRATE 25 MG TAB PO SCH ×2 (09:56→20:13)
[2017-08-25] MEDS: predniSONE 20 MG TAB PO SCH (10:00)
[2017-08-25] MEDS ORDERED: INSULIN DETEMIR 100 UNITS/ML VIAL SQ SCH (10:00)
[2017-08-25] MEDS: INSULIN DETEMIR 100 UNITS/ML VIAL SQ SCH (10:00)
--- NOTE | 2017-08-25 10:22 | PD.CONS ---
[facility] Reason for Consult Medical management Primary Care Physician Unknown Diagnoses: History of Present Illness This is a 56-year-old female with a past medical history of hyperthyroidism, atrial fibrillation, diabetes mellitus, ulcerative colitis, schizophrenia and bipolar disorder who presented to the hospital on 08/14/2017 for psychiatric treatment under Guardado act. Her heart rate was progressively becoming more elevated during her inpatient psychiatric admission and she began developing multiple episodes of diarrhea with blood clots in stool. [facility] hospitalists were consulted and the patient was recommended for transfer to [facility] for further management and evaluation of acute medical problems. The patient was evaluated by cardiology and gastroenterology as well as endocrinology. The patient's A. fib with RVR became controlled. The patient's colonoscopy was significant for ulcerative colitis. She was continued on steroids. The patient was continued on methimazole for hyperthyroidism. She had an ultrasound of the thyroid which revealed large complex mass on the left. The patient was transferred back to psychiatry. She is minimally verbal. She did not indicate any complaints at this time. Discussed with nursing. Review of Systems ROS Limitations: Clinical Condition, Altered Mental Status, Psychotic Except as stated in HPI: all other systems reviewed are Neg Past Family Social History Allergies: Coded Allergies: meperidine (Unverified Allergy, Severe, Rash, 08/14/17) Past Medical History Hyperthyroidism Atrial fibrillation Diabetes mellitus Schizophrenia Bipolar disorder Ulcerative colitis Past Surgical History Tonsillectomy Ankle repair Family History Unable to obtain at this time Social History Unable to obtain at this time Physical Exam Vital Signs Vital Signs Date Time Temp Pulse Resp B/P (MAP) Pulse Ox O2 Delivery O2 Flow Rate FiO2 08/25/17 05:25 98.0 93 17 145/66 (92) 93 Physical Exam GENERAL: This is a well-nourished, well-developed patient, in no acute distress. HEENT: NC, AT. CARDIOVASCULAR: RRR, no gallops, or rubs. RESPIRATORY: Fair air entry bilaterally. No W, R, or R. GASTROINTESTINAL: Abdomen soft, non-tender, nondistended. Positive bowel sounds MUSCULOSKELETAL: Extremities without clubbing, cyanosis, or edema. Pedal pulses appreciated NEUROLOGICAL: Nonverbal. PSYCH: Inappropriate bursts of laughter. Assessment and Plan Assessment and Plan Psychosis The pt has been transferred back to [facility]psych. - management per psychiatry. Hyperthyroidism Thyroid US revealed large complex mass on the lower pole of left lobe and two nodules. - endocrinology consult pending. - continue methimazole. A fib Rate controlled for now, however, pt has been refusing medications. - continue HR meds. - continue methimazole. UC The pt still has diarrhea. Rectal tube has been d/c. - continue prednisone. - follow CBC and transfuse as needed. DM Exacerbated by prednisone. - insulin sliding scale and Levemir. Adjust regimen as needed. Noncompliance The pt has been refusing meds at times. - consider NGT placement for medication administration. PPx: Ambulation Discussed Condition With Pt, nurse Kam Carpenter DO Aug 25, 2017 10:22
[2017-08-25] MEDS: METHIMAZOLE 5 MG TAB PO SCH ×2 (11:00→19:00)
[2017-08-25 11:29] LABS: HEMATOCRIT 32.9 % (35.0-46.0); HEMOGLOBIN 10.7 GM/DL (11.6-15.3); MEAN CELL VOLUME 73.8 FL (80.0-100.0); MEAN CORPUSCULAR HEMOGLOBIN 24.1 PG (27.0-34.0); MEAN CORPUSCULAR HGB CONC 32.7 % (32.0-36.0); MEAN PLATELET VOLUME 7.2 FL (7.0-11.0); PLATELET COUNT 316 TH/MM3 (150-450); RED BLOOD COUNT 4.46 MIL/MM3 (4.00-5.30); RED CELL DISTRIBUTION WIDTH 17.1 % (11.6-17.2); WHITE BLOOD COUNT 11.9 TH/MM3 (4.0-11.0)
[2017-08-25 11:59] LABS: BICARBONATE 26.4 MEQ/L (21.0-32.0); BLOOD UREA NITROGEN 6 MG/DL (7-18); CALCIUM 7.8 MG/DL (8.5-10.1); CHLORIDE 101 MEQ/L (98-107); CREATININE 0.62 MG/DL (0.50-1.00); GLOMERULAR FILTRATION RATE 99 ML/MIN (>89); GLUCOSE,RANDOM 113 MG/DL (74-106); MAGNESIUM 1.5 MG/DL (1.5-2.5); SODIUM (NA) 139 MEQ/L (136-145)
[2017-08-25 12:00] LABS: CHOLESTEROL 114 MG/DL (120-200); PHOSPHORUS 2.5 MG/DL (2.5-4.9); TRIGLYCERIDES 141 MG/DL (42-150)
[2017-08-25] MEDS: INSULIN ASPART SUPPLEMENTAL SCALE SQ SCH ×2 (12:00→19:39)
[2017-08-25 12:02] LABS: CHOLESTEROL/ HDL RATIO 3.59 RATIO; HDL CHOLESTEROL 31.7 MG/DL (40.0-60.0); LDL CHOLESTEROL 54 MG/DL (0-99)
--- NOTE | 2017-08-25 14:26 | HHI.HP ---
Provisional Diagnosis Admission Date Aug 24, 2017 at 18:21 [place] I. Schizophrenia Certification of Person's Competence To Provide Express and Informed Consent I have personally examined Ramonita Valente , a person being served at [facility] on, Aug 25, 2017 14:23. Express and informed consent means consent voluntarily given in writing, by a competent person, after sufficient explanation and disclosure of the subject matter involved to enable the person to make a knowing and willful decision without any element of force, fraud, deceit, duress, or other form of constraint or coercion. This person is 18 years of age or older, is not now known to be incompetent to consent to treatment with a guardian advocate, and does not have a health care surrogate or proxy currently making medical treatment decisions. I have found this person to be one of the following: [] Competent to provide express and informed consent, as defined above, for voluntary admission to this facility and is competent to provide express and informed consent for treatment. He/she has the consistent capacity to make well reasoned, willful, and knowing decisions concerning his or her medical or mental health treatment. The person fully and consistently understands the purpose of the admission for examination/placement and is fully capable of personally exercising all rights assured [place] [x] Incompetent to provide express and informed consent to voluntary admission, and this is incompetent to provide express and informed consent to treatment. The person must be transferred to involuntary status and a petition for a guardian advocate filed with the Circuit Court. [] Refusing to provide express and informed consent to voluntary admission but is competent to provide express and informed consent for treatment. The person must be discharged or transferred to involuntary status. Form shall be completed within 24 hours of a person's arrival at the receiving facility and filed in the clinical record of each person: 1. Admitted on a voluntary basis 2. Permitted to provide express and informed consent to his/her own treatment 3. Allowed to transfer from involuntary to voluntary status 4. Prior to permitting a person to consent to his or her own treatment after having been previously found incompetent to consent to treatment. History of Present Illness Capacity: Lacks Capacity HPI 08/16/2017 Patient is a 56-year-old white female well known to us from multiple prior psychiatric hospitalizations comes here under a Guardado act by the [facility]'s office dated 08/13/2017 1929 hrs. that document reviewed essentially stated that the police responded to her address contact of the Xavier Olmos and advised that Ciera was not taking her medication had been defecating all over the house and refusing to shower that she had also been walking around the house exposing herself Inc. and inquiring if the bubbles and soda are poisonous and appears to landlord Ciera Méndez also came to the house and follow the defecation all over herself in the room. Patient seen screen in the ED urine toxicology negative. At the present time patient sitting quietly in her room house staff present throughout session. Ramonita is alert somewhat silly and childlike. Sitting in addressing down and appear she had just been showered. Respond ounces are markedly delayed she appears markedly distracted. She speaks quite loudly as if having out hearing difficulty. She acknowledges people talking in her head telling her to do bad things. To kill herself. She acknowledges not taking her medication when I asked how long she smiled at me and did not respond. There is no significant history of physical or sexual abuse noted, patient denies mental health issues in her family, she states they have been though she has 1 son. She is vague about any alcohol or drug use. At this time patient meets criteria for involuntary psychiatric hospitalization the Guardado act I will do first opinion request second opinion. I feel she does not have any capacity thus I will ask for health care surrogate and guardian advocate. Patient is given a quite confusing acceptance for taking medication agreeing and then disagreeing. Considering this I feel the need to offer medication that can be given either orally or intramuscularly. We will offer her Geodon 40 mg p.o. twice daily if she refuses the Geodon [address] its [address]. We need to contact patient's caregiver Ciera Méndez to discuss further care treatment of possible placement issues 08/17/2017 The patient is a 56-year-old woman, she has psychiatric history of schizophrenia, multiple psychiatric hospitalizations, brought to the hospital due to psychotic behavior, noncompliant with medications. Consulted to me for second opinion. On my evaluation today the patient is alert, she seems to be in a good mood, good spirit, but selectively mute. She does not answer most of my questions, but she does say that she is happy. The patient denies suicidal and homicidal ideation, she denies visual and auditory hallucinations. She says that she is taking her medications, she wants to get better and be discharged back home. She denies pain, distress, she is smiles inappropriately often, seems to be internally stimulated. No aggressive behavior, no 08/20/2017 I have seen and examined this patient today for psychiatric reevaluation, the patient was recently given Geodon 10 mg IM due to increased agitation and disorganized behavior. For this reason at the moment of my evaluation the patient is sedated, poorly cooperative, she reports feeling okay , denies suicidal and homicidal ideation, she denies visual and auditory hallucinations, but continue falling asleep. As per nursing charge the patient has been having episodes of agitation, disorganization, and which the patient does not follow directions. 08/23/2017 The patient was seen today for psychiatric reevaluation. Case discussed with nurse in charge. The patient has not been taking her medications , no interacting with staff and family, selectively mute, eating on and off. On my evaluation the patient is alert, with eye openings, staring, seems to be internally stimulated, but will not answer any of my questions. There is no stiffness, no waxy flexibility suggest catatonia, but her lack of motivation, her mutism, flat affect suggest a potential catatonia. 08/25/2017 the patient was seen today for psychiatric evaluation. The case was discussed widely with counselor nurse in charge. Patient continues to be selectively mute, she responds to some questions, usually with yes or not. She presents with a quite labile mood, at times she is laughing, a second later she is profusely crying. The patient seems to be quite internally preoccupied, perplexed, even paranoid. She was able to tell me today that her favorite [place] is the group [id number] and Thang Guerreroa, I played and of their sons, she was able to enjoy the summer the beginning, but later started to cry again. Patient continues to refuse her medications per Review of Systems Constitutional: DENIES: Diaphoretic episodes, Fatigue, Fever, Weight gain, Weight loss, Chills, Dizziness, Change in appetite, Night Sweats Endocrine: DENIES: Abnorml menstrual pattern, Heat/cold intolerance, Polydipsia , Polyuria, Polyphagia Eyes: DENIES: Blurred vision, Diplopia, Eye inflammation, Eye pain, Vision loss , Photosensitivity, Double Vision Ears, nose, mouth, throat: DENIES: Tinnitus, Hearing loss, Vertigo, Nasal discharge, Oral lesions, Throat pain, Hoarseness, Ear Pain, Running Nose, Epistaxis, Sinus Pain, Toothache, Odynophagia Respiratory: DENIES: Apneas, Cough, Snoring, Wheezing, Hemoptysis, Sputum production, Shortness of breath Cardiovascular: DENIES: Chest pain, Palpitations, Syncope, Dyspnea on Exertion , PND, Lower Extremity Edema, Orthopnea, Claudication Gastrointestinal: DENIES: Abdominal pain, Black stools, Bloody stools, Constipation, Diarrhea, Nausea, Vomiting, Difficulty Swallowing, Anorexia Genitourinary: DENIES: Abnormal vaginal bleeding, Dysmenorrhea, Dyspareunia, Sexual dysfunction, Urinary frequency, Urinary incontinence, Urgency, Hematuria , Dysuria, Nocturia, Vaginal discharge Musculoskeletal: DENIES: Joint pain, Muscle aches, Stiffness, Joint Swelling, Back pain, Neck pain Integumentary: DENIES: Abnormal pigmentation, Pruritus, Rash, Nail changes, Breast masses, Breast skin changes, Nipple discharge Hematologic/lymphatic: DENIES: Bruising, Lymphadenopathy Immunologic/allergic: DENIES: Eczema, Urticaria Neurologic: DENIES: Abnormal gait, Headache, Localized weakness, Paresthesias, Seizures, Speech Problems, Tremor, Poor Balance Psychiatric: DENIES: Anxiety, Confusion, Mood changes, Depression, Hallucinations, Agitation, Suicidal Ideation, Homicidal Ideation, Delusions Past Family Social History Coded Allergies: meperidine (Unverified Allergy, Severe, Rash, 08/14/17) Active Scripts Amiodarone (Amiodarone) 200 Mg Tab, 200 MG PO DAILY for Regulate Heart Beat, # 30 TAB 0 Refills Prov:Johanne Olsen MD 08/24/17 Ziprasidone (Geodon) 40 Mg Cap, 40 MG PO BIDPC for psych, #60 CAP Prov:Johanne Olsen MD 08/24/17 Metoprolol Tartrate (Metoprolol Tartrate) 25 Mg Tab, 25 MG PO Q12HR for afib, # 60 TAB Prov:Johanne Olsen MD 08/24/17 Divalproex ER (Depakote ER) 250 Mg Ole, 250 MG PO BID for psych, #60 TAB Prov:Johanne Olsen MD 08/24/17 Insulin Aspart Inj (Novolog Inj) 100 Unit/Ml Inj, 1 UNIT SQ ACHS SLIDING SCALE for dm for 30 Days, INJECTION Prov:Johanne Olsen MD 08/24/17 Insulin Detemir Inj (Levemir Inj) 1,000 unit/ 10 ML Vial, 10 UNITS SQ Q12HR for dm for 30 Days, INJECTION Do not mix with any other Insulin. Prov:Johanne Olsen MD 08/24/17 Methimazole (Tapazole) 5 Mg Tab, 5 MG PO Q8HR for hyper thyroid, #10 TAB Prov:Johanne Olsen MD 08/24/17 Amiodarone (Amiodarone) 200 Mg Tab, 400 MG PO DAILY for afib, #4 TAB Prov:Johanne Olsen MD 08/24/17 Sulfamethoxazole-Trimethoprim (Bactrim DS) 800-160 Mg Tab, 1 TAB PO BID for Infection, #14 TAB 0 Refills Prov:Reinier Sauceda MD 08/14/17 Reported Medications Risperidone (Risperdal) 1 Mg Tab, 1 MG BID, #30 TAB 0 Refills 08/15/17 Prednisone (Prednisone) 20 Mg Tab, 20 MG PO DAILY, TAB 0 Refills 08/15/17 Current Medications Medications (Trade) Dose Ordered Sig/Ronaldo Route Start Time Stop Time Status Last Admin (Ativan) 1 mg Q6H PRN PO 08/24/17 20:45 (Ativan Inj) 1 mg Q6H PRN IM 08/24/17 20:45 (Tylenol) 650 mg Q4H PRN PO 08/24/17 20:45 (Milk Of Magnesia Liq) 30 ml DAILY PRN PO 08/24/17 20:45 (Mag-Al Plus Susp Liq) 30 ml Q6H PRN PO 08/24/17 20:45 (Cordarone) 200 mg DAILY PO 08/25/17 09:00 08/25/17 09:56 (Lopressor) 25 mg Q12HR PO 08/24/17 21:00 08/25/17 09:56 (NovoLOG SUPPLEMENTAL SCALE) 1 ACHS SLIDING SCALE SQ 08/25/17 12:00 (Tapazole) 5 mg Q8H PO 08/25/17 11:00 (Deltasone) 20 mg DAILY PO 08/25/17 10:00 (Levemir Inj) 10 units DAILY SQ 08/25/17 10:00 08/25/17 10:00 (Depakote Er) 250 mg BID PO 08/25/17 21:00 UNV (Geodon) 40 mg BIDPC PO 08/25/17 18:00 UNV Physical Exam Vital Signs Vital Signs Date Time Temp Pulse Resp B/P (MAP) Pulse Ox O2 Delivery O2 Flow Rate FiO2 08/25/17 05:25 98.0 93 17 145/66 (92) 93 I/O 08/25/17 08/25/17 08/26/17 08:00 16:00 00:00 Intake Total 480 ml Balance 480 ml Lab Results Test 08/25/17 11:10 08/25/17 11:11 White Blood Count 11.9 TH/MM3 Red Blood Count 4.46 MIL/MM3 Hemoglobin 10.7 GM/DL Hematocrit 32.9 % Mean Corpuscular Volume 73.8 FL Mean Corpuscular Hemoglobin 24.1 PG Mean Corpuscular Hemoglobin Concent 32.7 % Red Cell Distribution Width 17.1 % Platelet Count 316 TH/MM3 Mean Platelet Volume 7.2 FL Blood Urea Nitrogen 6 MG/DL Creatinine 0.62 MG/DL Random Glucose 113 MG/DL Calcium Level 7.8 MG/DL Phosphorus Level 2.5 MG/DL Magnesium Level 1.5 MG/DL Sodium Level 139 MEQ/L Potassium Level 3.0 MEQ/L Chloride Level 101 MEQ/L Carbon Dioxide Level 26.4 MEQ/L Anion Gap 12 MEQ/L Estimat Glomerular Filtration Rate 99 ML/MIN Triglycerides Level 141 MG/DL Cholesterol Level 114 MG/DL LDL Cholesterol 54 MG/DL HDL Cholesterol 31.7 MG/DL Cholesterol/HDL Ratio 3.59 RATIO Mental Status Examination Appearance: Appropriate Consciousness: Alert Orientation: Person, Place Speech: Other (Selectively mute) Mood: Oppositional Affect: Labile Thought Process & Associations: Disorganized Thought Content: Thought blocking Suicidal Ideation: No Suicidal Plan: No Suicidal Intention: No Homicidal Ideation: No Homicidal Plan: No Homicidal Intention: No Insight: Poor Judgment: Poor Assessment & Plan Problem List: (1) Schizophrenia ICD Codes: F20.9 - Schizophrenia Status: Chronic Assessment & Plan: The patient continues to present acutely psychotic. She has a prominent selective mutism, internal preoccupation, paranoia, blocking thought. Patient has been refusing her medications consistently. Patient is now stable of her A. fib. Will be admitted in psychiatry for stabilization and safety. Will consult hospitalist to continue medical treatment, psychiatry for second opinion. I will start Geodon 80 mg p.o. twice daily, and 10 mg IM twice daily if patient refuses the p.o. Assessment & Plan Estimated LOS: days Neri Rose MD Aug 25, 2017 14:26
[2017-08-25] MEDS ORDERED: ZIPRASIDONE MESYLATE 20 MG VIAL IM PRN (14:30)
--- NOTE | 2017-08-25 15:44 | PD.PSY.CON ---
Provisional Diagnosis Admission Date Aug 24, 2017 at 18:21 [place]. Schizophrenia History of Present Illness Service Psychiatry Consult Requested By Dr. Conway Reason for Consult Second opinion petition supporting Guardado act Primary Care Physician Unknown HPI 08/16/2017 Patient is a 56-year-old white female well known to us from multiple prior psychiatric hospitalizations comes here under a Guardado act by the [facility]'s office dated 08/13/2017 1929 hrs. that document reviewed essentially stated that the police responded to her address contact of the Xavier Olmos and advised that Ciera was not taking her medication had been defecating all over the house and refusing to shower that she had also been walking around the house exposing herself Inc. and inquiring if the bubbles and soda are poisonous and appears to landlord Ciera Méndez also came to the house and follow the defecation all over herself in the room. Patient seen screen in the ED urine toxicology negative. At the present time patient sitting quietly in her room house staff present throughout session. Ramonita is alert somewhat silly and childlike. Sitting in addressing down and appear she had just been showered. Respond ounces are markedly delayed she appears markedly distracted. She speaks quite loudly as if having out hearing difficulty. She acknowledges people talking in her head telling her to do bad things. To kill herself. She acknowledges not taking her medication when I asked how long she smiled at me and did not respond. There is no significant history of physical or sexual abuse noted, patient denies mental health issues in her family, she states they have been though she has 1 son. She is vague about any alcohol or drug use. At this time patient meets criteria for involuntary psychiatric hospitalization the Guardado act I will do first opinion request second opinion. I feel she does not have any capacity thus I will ask for health care surrogate and guardian advocate. Patient is given a quite confusing acceptance for taking medication agreeing and then disagreeing. Considering this I feel the need to offer medication that can be given either orally or intramuscularly. We will offer her Geodon 40 mg p.o. twice daily if she refuses the Geodon [address] its [address]. We need to contact patient's caregiver Ciera Méndez to discuss further care treatment of possible placement issues 08/17/2017 The patient is a 56-year-old woman, she has psychiatric history of schizophrenia, multiple psychiatric hospitalizations, brought to the hospital due to psychotic behavior, noncompliant with medications. Consulted to me for second opinion. On my evaluation today the patient is alert, she seems to be in a good mood, good spirit, but selectively mute. She does not answer most of my questions, but she does say that she is happy. The patient denies suicidal and homicidal ideation, she denies visual and auditory hallucinations. She says that she is taking her medications, she wants to get better and be discharged back home. She denies pain, distress, she is smiles inappropriately often, seems to be internally stimulated. No aggressive behavior, no 08/20/2017 I have seen and examined this patient today for psychiatric reevaluation, the patient was recently given Geodon 10 mg IM due to increased agitation and disorganized behavior. For this reason at the moment of my evaluation the patient is sedated, poorly cooperative, she reports feeling okay , denies suicidal and homicidal ideation, she denies visual and auditory hallucinations, but continue falling asleep. As per nursing charge the patient has been having episodes of agitation, disorganization, and which the patient does not follow directions. 08/23/2017 The patient was seen today for psychiatric reevaluation. Case discussed with nurse in charge. The patient has not been taking her medications , no interacting with staff and family, selectively mute, eating on and off. On my evaluation the patient is alert, with eye openings, staring, seems to be internally stimulated, but will not answer any of my questions. There is no stiffness, no waxy flexibility suggest catatonia, but her lack of motivation, her mutism, flat affect suggest a potential catatonia. 08/25/2017 the patient was seen today for psychiatric evaluation. The case was discussed widely with counselor nurse in charge. Patient continues to be selectively mute, she responds to some questions, usually with yes or not. She presents with a quite labile mood, at times she is laughing, a second later she is profusely crying. The patient seems to be quite internally preoccupied, perplexed, even paranoid. She was able to tell me today that her favorite [place] is the group [employer], I played and of their sons, she was able to enjoy the summer the beginning, but later started to cry again. Patient continues to refuse her medications per 08/25/2017 Above note dictated by Dr. Conway reviewed and agreed with. Patient admitted to Dr. Conway service under the Guardado act. Dr. Conway is done first opinion petition supporting Guardado act. I guarded degree. Patient meets criteria for involuntary psychiatric hospitalization under the Guardado act. Thus I will cosign second opinion petition supporting Guardado act. Patient seen by me with nurse Akila patient sitting on the edge of her bed sleeping quite still with fair eye contact she has a somewhat vacuous stare she is what appears to be selectively mute at the present time she is not making any response at all to my questions. Though she does meet criteria Past Family Social History Coded Allergies: meperidine (Unverified Allergy, Severe, Rash, 08/14/17) Active Scripts Amiodarone (Amiodarone) 200 Mg Tab, 200 MG PO DAILY for Regulate Heart Beat, # 30 TAB 0 Refills Prov:Johanne Olsen MD 08/24/17 Ziprasidone (Geodon) 40 Mg Cap, 40 MG PO BIDPC for psych, #60 CAP Prov:Johanne Olsen MD 08/24/17 Metoprolol Tartrate (Metoprolol Tartrate) 25 Mg Tab, 25 MG PO Q12HR for afib, # 60 TAB Prov:Johanne Olsen MD 08/24/17 Divalproex ER (Depakote ER) 250 Mg Ole, 250 MG PO BID for psych, #60 TAB Prov:Johanne Olsen MD 08/24/17 Insulin Aspart Inj (Novolog Inj) 100 Unit/Ml Inj, 1 UNIT SQ ACHS SLIDING SCALE for dm for 30 Days, INJECTION Prov:Johanne Olsen MD 08/24/17 Insulin Detemir Inj (Levemir Inj) 1,000 unit/ 10 ML Vial, 10 UNITS SQ Q12HR for dm for 30 Days, INJECTION Do not mix with any other Insulin. Prov:Johanne Olsen MD 08/24/17 Methimazole (Tapazole) 5 Mg Tab, 5 MG PO Q8HR for hyper thyroid, #10 TAB Prov:Johanne Olsen MD 08/24/17 Amiodarone (Amiodarone) 200 Mg Tab, 400 MG PO DAILY for afib, #4 TAB Prov:Johanne Olsen MD 08/24/17 Sulfamethoxazole-Trimethoprim (Bactrim DS) 800-160 Mg Tab, 1 TAB PO BID for Infection, #14 TAB 0 Refills Prov:Reinier Sauceda MD 08/14/17 Reported Medications Risperidone (Risperdal) 1 Mg Tab, 1 MG BID, #30 TAB 0 Refills 08/15/17 Prednisone (Prednisone) 20 Mg Tab, 20 MG PO DAILY, TAB 0 Refills 08/15/17 Current Medications Medications (Trade) Dose Ordered Sig/Ronaldo Route Start Time Stop Time Status Last Admin (Ativan) 1 mg Q6H PRN PO 08/24/17 20:45 (Ativan Inj) 1 mg Q6H PRN IM 08/24/17 20:45 (Tylenol) 650 mg Q4H PRN PO 08/24/17 20:45 (Milk Of Magnesia Liq) 30 ml DAILY PRN PO 08/24/17 20:45 (Mag-Al Plus Susp Liq) 30 ml Q6H PRN PO 08/24/17 20:45 (Cordarone) 200 mg DAILY PO 08/25/17 09:00 08/25/17 09:56 (Lopressor) 25 mg Q12HR PO 08/24/17 21:00 08/25/17 09:56 (NovoLOG SUPPLEMENTAL SCALE) 1 ACHS SLIDING SCALE SQ 08/25/17 12:00 (Tapazole) 5 mg Q8H PO 08/25/17 11:00 (Deltasone) 20 mg DAILY PO 08/25/17 10:00 (Levemir Inj) 10 units DAILY SQ 08/25/17 10:00 08/25/17 10:00 (Depakote Er) 250 mg BID PO 08/25/17 21:00 (Geodon) 40 mg BIDPC PO 08/25/17 18:00 (Geodon Inj) 10 mg Q12H PRN IM 08/25/17 14:30 Physical Exam Vital Signs Vital Signs Date Time Temp Pulse Resp B/P (MAP) Pulse Ox O2 Delivery O2 Flow Rate FiO2 08/25/17 05:25 98.0 93 17 145/66 (92) 93 I/O 08/25/17 08/25/17 08/25/17 07:59 15:59 23:59 Intake Total 480 ml Balance 480 ml Lab Results Test 08/25/17 11:10 08/25/17 11:11 White Blood Count 11.9 TH/MM3 Red Blood Count 4.46 MIL/MM3 Hemoglobin 10.7 GM/DL Hematocrit 32.9 % Mean Corpuscular Volume 73.8 FL Mean Corpuscular Hemoglobin 24.1 PG Mean Corpuscular Hemoglobin Concent 32.7 % Red Cell Distribution Width 17.1 % Platelet Count 316 TH/MM3 Mean Platelet Volume 7.2 FL Blood Urea Nitrogen 6 MG/DL Creatinine 0.62 MG/DL Random Glucose 113 MG/DL Calcium Level 7.8 MG/DL Phosphorus Level 2.5 MG/DL Magnesium Level 1.5 MG/DL Sodium Level 139 MEQ/L Potassium Level 3.0 MEQ/L Chloride Level 101 MEQ/L Carbon Dioxide Level 26.4 MEQ/L Anion Gap 12 MEQ/L Estimat Glomerular Filtration Rate 99 ML/MIN Triglycerides Level 141 MG/DL Cholesterol Level 114 MG/DL LDL Cholesterol 54 MG/DL HDL Cholesterol 31.7 MG/DL Cholesterol/HDL Ratio 3.59 RATIO Mental Status Examination Appearance: Appropriate Consciousness: Alert Orientation: Person, Place Speech: Other (Selectively mute) Mood: Oppositional Affect: Labile Thought Process & Associations: Disorganized Thought Content: Thought blocking Suicidal Ideation: No Suicidal Plan: No Suicidal Intention: No Homicidal Ideation: No Homicidal Plan: No Homicidal Intention: No Insight: Poor Judgment: Poor Assessment & Plan Problem List: (1) Schizophrenia ICD Codes: F20.9 - Schizophrenia Status: Chronic Assessment & Plan Estimated LOS: days Richmond Byrne MD Aug 25, 2017 15:44
[2017-08-25] MEDS: ZIPRASIDONE HCL 40 MG CAP PO SCH (18:00)
[2017-08-25] MEDS: DIVALPROEX SODIUM E.R. 250 MG TAB PO SCH (20:13)
[2017-08-26] MEDS: METHIMAZOLE 5 MG TAB PO SCH ×4 (03:00→21:28)
[2017-08-26 06:37] VITALS: BP 136/63; PULSE 94; RESP 18; TEMP 98.2; O2SAT 95
[2017-08-26] MEDS: INSULIN ASPART SUPPLEMENTAL SCALE SQ SCH ×4 (08:00→21:00)
[2017-08-26] MEDS: INSULIN DETEMIR 100 UNITS/ML VIAL SQ SCH (08:44)
[2017-08-26] MEDS: DIVALPROEX SODIUM E.R. 250 MG TAB PO SCH ×3 (09:00→21:28)
[2017-08-26] MEDS: ZIPRASIDONE HCL 40 MG CAP PO SCH (09:00)
[2017-08-26] MEDS: AMIODARONE 200 MG TAB PO SCH (09:00)
[2017-08-26] MEDS: METOPROLOL TARTRATE 25 MG TAB PO SCH ×3 (09:00→21:28)
[2017-08-26] MEDS: predniSONE 20 MG TAB PO SCH (09:00)
--- NOTE | 2017-08-26 09:50 | HHI.PR ---
Subjective Remarks The pt was resting comfortably. She seemed to be in a good mood. She was eating breakfast. She had no acute complaints. Objective Vitals Vital Signs Date Time Temp Pulse Resp B/P (MAP) Pulse Ox O2 Delivery O2 Flow Rate FiO2 08/26/17 06:37 98.2 94 18 136/63 (87) 95 I/O 08/25/17 08/25/17 08/25/17 08/26/17 08/26/17 08/26/17 07:00 15:00 23:00 07:00 15:00 23:00 Intake Total 480 ml 240 ml Balance 480 ml 240 ml Intake Oral 480 ml 240 ml Result Diagram: 08/25/17 1110 08/25/17 1111 Objective Remarks GENERAL: This is a well-nourished, well-developed patient, in no acute distress. HEENT: NC, AT. CARDIOVASCULAR: RRR, no gallops, or rubs. RESPIRATORY: Fair air entry bilaterally. No W, R, or R. GASTROINTESTINAL: Abdomen soft, non-tender, nondistended. Positive bowel sounds. MUSCULOSKELETAL: Extremities without clubbing, cyanosis, or edema. Pedal pulses appreciated. NEUROLOGICAL: Nonverbal. PSYCH: Calm. A/P Assessment and Plan Psychosis The pt has been transferred back to med-psych. - management per psychiatry. Hyperthyroidism Thyroid US revealed large complex mass on the lower pole of left lobe and two nodules. - endocrinology consult pending. - continue methimazole. A fib Rate controlled for now, however, pt has been refusing medications. HR in the 90s. - continue amiodarone and Lopressor. - continue methimazole. UC The pt still has diarrhea. Rectal tube has been d/c. - continue prednisone. - follow CBC and transfuse as needed. DM Exacerbated by prednisone. A1c 7%. Well controlled. - lifestyle modifications. Noncompliance The pt has been refusing meds at times. Improved. - encouragement. Hypokalemia K level was 3. - IV KCl x 2. - BMP in AM. PPx: Ambulation Kam Carpenter DO Aug 26, 2017 09:50
[2017-08-26] MEDS: POTASSIUM CHLOR 20 MEQ PREMIX 100 ML IV SCH ×2 (10:00→22:32)
--- NOTE | 2017-08-26 14:41 | HHI.PYPN ---
Subjective Remarks Patient is seen in her room with nurse less, patient laying in bed alert did recognize me continues quite silly irritable and hostile making vague gestures with her arms waving them and flipping them around while holding a glass of water in each hand. She has been noncompliant with her oral Geodon. At this time will increase her Geodon to 60 mg twice daily the patient refuses increase the IM Geodon to 15 mg twice daily in its place Review of Systems Except as stated in HPI: all other systems reviewed are Neg Mental Status Examination Appearance: Appropriate Consciousness: Alert Orientation: Person, Place Speech: Other (Selectively mute) Mood: Oppositional Affect: Labile Thought Process & Associations: Disorganized Thought Content: Thought blocking Suicidal Ideation: No Suicidal Plan: No Suicidal Intention: No Homicidal Ideation: No Homicidal Plan: No Homicidal Intention: No Insight: Poor Judgment: Poor Results Vitals/IOs Vital Signs Date Time Temp Pulse Resp B/P (MAP) Pulse Ox O2 Delivery O2 Flow Rate FiO2 08/26/17 06:37 98.2 94 18 136/63 (87) 95 Assessment & Plan Problem List: (1) Schizophrenia ICD Codes: F20.9 - Schizophrenia Status: Chronic Assessment & Plan Estimated LOS: days patient figures psychotic irritable paranoid and labile, refusing oral medication, she medication adjustments above Justification for Cont. Inpt. At this time patient would decompensate a place to a lower level of care Discharge Planning To be determined Problem Qualifiers (1) Schizophrenia: Qualified Codes: F20.0 - Paranoid schizophrenia Richmond Byrne MD Aug 26, 2017 14:41
[2017-08-26] MEDS ORDERED: POTASSIUM CHLORIDE 20 MEQ CONTROLLED RELEASE TAB PO ONE (17:15)
[2017-08-26 18:00] VITALS: BP 127/58; PULSE 105; RESP 18; TEMP 100.8; O2SAT 95
[2017-08-26] MEDS: ZIPRASIDONE HCL 60 MG CAP PO SCH (18:00)
[2017-08-26] MEDS ORDERED: ZIPRASIDONE MESYLATE 20 MG VIAL IM ONE (18:07)
[2017-08-26] MEDS: ZIPRASIDONE MESYLATE 20 MG VIAL IM PRN (18:09)
[2017-08-27] MEDS: METHIMAZOLE 5 MG TAB PO SCH ×2 (03:00→11:00)
[2017-08-27 06:50] VITALS: BP 112/55; PULSE 115; RESP 15; TEMP 98.7; O2SAT 96
[2017-08-27] MEDS: INSULIN ASPART SUPPLEMENTAL SCALE SQ SCH ×4 (08:00→21:00)
[2017-08-27] MEDS: INSULIN DETEMIR 100 UNITS/ML VIAL SQ SCH (09:00)
[2017-08-27] MEDS: ZIPRASIDONE HCL 60 MG CAP PO SCH ×2 (09:00→18:00)
[2017-08-27] MEDS: AMIODARONE 200 MG TAB PO SCH (09:00)
[2017-08-27] MEDS: METOPROLOL TARTRATE 25 MG TAB PO SCH ×2 (09:00→21:00)
[2017-08-27] MEDS: DIVALPROEX SODIUM E.R. 250 MG TAB PO SCH ×2 (09:00→21:00)
[2017-08-27] MEDS: metroNIDAZOLE 500 MG INJ 100 ML IV SCH ×2 (10:00→18:00)
--- NOTE | 2017-08-27 10:27 | HHI.PYPN ---
Subjective Remarks Patient seen in her room with nurse Jackie, patient chart reviewed patient mixed compliance medication, patient discussed with nurse. Patient laying in bed alert continues superficial silly and childlike expression on her face patient considered low to me that is nonverbal. She was nonverbal with nurse. She is refusing her oral medication. We will continue with the IM Rene as replacement Review of Systems Except as stated in HPI: all other systems reviewed are Neg Mental Status Examination Appearance: Appropriate Consciousness: Alert Orientation: Person, Place Speech: Other (Selectively mute) Mood: Oppositional Affect: Labile Thought Process & Associations: Disorganized Thought Content: Thought blocking Suicidal Ideation: No Suicidal Plan: No Suicidal Intention: No Homicidal Ideation: No Homicidal Plan: No Homicidal Intention: No Insight: Poor Judgment: Poor Results Vitals/IOs Vital Signs Date Time Temp Pulse Resp B/P (MAP) Pulse Ox O2 Delivery O2 Flow Rate FiO2 08/27/17 06:50 98.7 115 15 112/55 (74) 96 Intake and Output 08/27/17 08/27/17 08/28/17 08:00 16:00 00:00 Intake Total 0 ml Balance 0 ml Assessment & Plan Problem List: (1) Schizophrenia ICD Codes: F20.9 - Schizophrenia Status: Chronic Assessment & Plan Estimated LOS: days patient continues psychotic noncompliant medication somewhat childlike and delusional Justification for Cont. Inpt. At this time patient would decompensate a place to a lower level of care Discharge Planning To be determined Problem Qualifiers (1) Schizophrenia: Qualified Codes: F20.0 - Paranoid schizophrenia Richmond Byrne MD Aug 27, 2017 10:27
--- NOTE | 2017-08-27 10:53 | HHI.PR ---
Subjective Remarks The patient does not answer my questions. Discussed the case with RN who states the patient is having diarrhea with some mucus and streaks of blood. The patient had a fever with a T-max of 100.8 yesterday. Patient noted to be tachycardic. Objective Vitals Vital Signs Date Time Temp Pulse Resp B/P (MAP) Pulse Ox O2 Delivery O2 Flow Rate FiO2 08/27/17 06:50 98.7 115 15 112/55 (74) 96 08/26/17 18:00 100.8 105 18 127/58 (81) 95 I/O 08/26/17 08/26/17 08/26/17 08/27/17 08/27/17 08/27/17 07:00 15:00 23:00 07:00 15:00 23:00 Intake Total 600 ml 0 ml Balance 600 ml 0 ml Intake Oral 600 ml 0 ml # Voids 2 2 # Bowel Movements 1 3 Result Diagram: 08/25/17 1110 08/25/17 1111 Objective Remarks GENERAL: This is a well-nourished, well-developed patient, in no acute distress. HEENT: NC, AT. CARDIOVASCULAR: RRR, no gallops, or rubs. RESPIRATORY: Fair air entry bilaterally. No W, R, or R. GASTROINTESTINAL: Abdomen soft, non-tender, nondistended. Positive bowel sounds. MUSCULOSKELETAL: Extremities without clubbing, cyanosis, or edema. Pedal pulses appreciated. NEUROLOGICAL: Nonverbal. PSYCH: Calm. A/P Assessment and Plan Psychosis The pt has been transferred back to med-psych. - management per psychiatry. Hyperthyroidism Thyroid US revealed large complex mass on the lower pole of left lobe and two nodules. - endocrinology consult pending. - continue methimazole. A fib Rate controlled for now, however, pt has been refusing medications. HR in the 90s. - continue amiodarone and Lopressor. - continue methimazole. Ulcerative colitis exacerbation Diarrhea The patient continues to have diarrhea which has some streaks of blood. I will discontinue oral prednisone started on IV Solu-Medrol, check CT abdomen and pelvis. Start IV Flagyl as patient meets SIRS/sepsis criteria. Check C. difficile toxin PCR. Consult GI. Diabetes mellitus type 2 Exacerbated by prednisone. A1c 7%. Well controlled. - lifestyle modifications. Noncompliance The pt has been refusing meds at times. Improved. - encouragement. Hypokalemia K level was 3. - IV KCl x 2. Check BMP today and replace as needed. PPx: Ambulation Galo Cabral MD Aug 27, 2017 10:53
[2017-08-27] MEDS: methylPREDNISolone SOD SUCC 40 MG/1 ML VIAL IV PUSH SCH ×3 (12:00→23:32)
[2017-08-27] MEDS ORDERED: DIATRIZOATE MEGLUM/DIATRIZOATE SOD 9 ML CUP PO ONE (12:15)
--- NOTE | 2017-08-27 15:25 | PD.CONS ---
History of Present Illness Service Endocrinology Consult Requested By Reason for Consult Hyperthyroidism Primary Care Physician Unknown Diagnoses: History of Present Illness 56 years old lady evaluated for hyperthyroidism. Initially pateint was not able to give a history. Thyroid profile and thyroid ultrasound was ordered for evaluation. Her TSH is still suppressed while her ultrasound reveals a multinodular goiter. Patient has been transferred back to [facility]. Past Family Social History Allergies: Coded Allergies: meperidine (Unverified Allergy, Severe, Rash, 08/14/17) Past Medical History Per chart review hyperthyroidism, atrial fibrillation, bipolar disease, Schizophrenia Family History Unobtainable Social History unobtainable Physical Exam Vital Signs Vital Signs Date Time Temp Pulse Resp B/P (MAP) Pulse Ox O2 Delivery O2 Flow Rate FiO2 08/27/17 06:50 98.7 115 15 112/55 (74) 96 08/26/17 18:00 100.8 105 18 127/58 (81) 95 Physical Exam On initial evaluation patient was not in acute disstress and not able to give a history. Limited HEENT examination performed revealing a goiter with no tenderness and no bruit. Laboratory Laboratory Tests Test 08/27/17 11:15 Result Diagram: 08/25/17 1110 08/25/17 1111 Imaging thyroid ultrasound report reviewed consistent with a multinodular goiter. Assessment and Plan Assessment and Plan Hyperthyroidism Multinodular Goiter At this point recommend to increase dose of methimazole and repeat thyroid profile in 4 - 6 weeks. Further assessment to be done as an out patient. Work up including the negative TSI antibody titer previously is mainly consistent with a toxic multinodular goiter. John Whittaker MD Aug 27, 2017 15:25
[2017-08-27 18:51] VITALS: BP 104/56; PULSE 88; RESP 15; TEMP 97.5; O2SAT 95
[2017-08-27] MEDS ORDERED: IOHEXOL 350 MG/ML 10 ML VIAL (for RAD DIAG) IVCONTRAST ONE (20:31)
[2017-08-27] MEDS: METHIMAZOLE 10 MG TAB PO SCH (21:00)
--- NOTE | 2017-08-27 22:03 | RADRPT ---
EXAM DATE: 08/27/2017 8:28 PM EDT AGE/SEX: 56 years / Female INDICATIONS: Abdomen pain. CLINICAL DATA: This is the patient's initial encounter. Patient reports that signs and symptoms have been present for 1 day and indicates a pain score of 5/10. MEDICAL/SURGICAL HISTORY: . C-diff. None. ORAL CONTRAST: No oral contrast ingested. RADIATION DOSE: 6.90 CTDI (mGy) COMPARISON: No prior exams available for comparison. TECHNIQUE: Multiple contiguous axial images were obtained through the abdomen and pelvis following b olus infusion of 100 ml Omnipaque 350 (iohexol) nonionic water-soluble contrast as a single exam do se. No oral contrast ingested. Using automated exposure control and adjustment of the mA and/or kV a ccording to patient size, radiation dose was kept as low as reasonably achievable to obtain optimal d iagnostic quality images. DICOM format image data is available electronically for review and compari son. FINDINGS: A small right sided effusion is present. There is subsegmental atelectasis in the both bases. The danny er and spleen are normal in size and no focal defects are identified. There are multiple gallstones within the gallbladder without wall thickening or pericholecystic fluid the largest measuring 3 mm Th e pancreas demonstrates no evidence of mass and there is no dilatation of the pancreatic duct. The ad renal glands and kidneys appear normal bilaterally. No hydronephrosis or mass lesions are identified. Examination of the pelvis demonstrates no evidence of free fluid or pelvic mass. No abnormally enlarg ed inguinal or retroperitoneal lymph nodes are present. The bladder is unremarkable. There is a marke dly enlarged uterus with numerous fibroids present the largest measuring approximate 5 cm. No free fl uid is identified. There is mild diffuse thickening of the colon from the level of the hepatic flex ure to the rectum. This may reflect infectious or inflammatory colitis. There is no evidence of absce ss. CONCLUSION: Mild diffuse thickening of the colon as above characteristic of infectious or inflammatory colitis wi thout abscess. Cholelithiasis Markedly enlarged fibroid uterus Electronically signed by: Xavier Ruiz MD 08/27/2017 10:02 PM EDT
[2017-08-28] MEDS: metroNIDAZOLE 500 MG INJ 100 ML IV SCH ×3 (02:40→18:00)
[2017-08-28 06:46] VITALS: BP 129/58; PULSE 76; RESP 16; TEMP 97.5; O2SAT 95
[2017-08-28] MEDS: methylPREDNISolone SOD SUCC 40 MG/1 ML VIAL IV PUSH SCH ×3 (06:48→18:00)
[2017-08-28] MEDS: INSULIN ASPART SUPPLEMENTAL SCALE SQ SCH ×3 (08:00→17:00)
[2017-08-28] MEDS: DIVALPROEX SODIUM E.R. 250 MG TAB PO SCH ×2 (09:00→21:00)
[2017-08-28] MEDS: ZIPRASIDONE HCL 60 MG CAP PO SCH ×2 (09:00→18:00)
[2017-08-28] MEDS: INSULIN DETEMIR 100 UNITS/ML VIAL SQ SCH (09:00)
[2017-08-28] MEDS: AMIODARONE 200 MG TAB PO SCH (09:00)
[2017-08-28] MEDS: METOPROLOL TARTRATE 25 MG TAB PO SCH ×2 (09:00→21:00)
[2017-08-28] MEDS: METHIMAZOLE 10 MG TAB PO SCH ×2 (09:00→21:00)
[2017-08-28] MEDS: ZIPRASIDONE MESYLATE 20 MG VIAL IM PRN (10:23)
--- NOTE | 2017-08-28 10:30 | HHI.PYPN ---
Subjective Remarks Patient seen for follow, chart reviewed. Discussion nursing staff reported the patient currently being managed by medical team for C. difficile, eating, slightly mute at times, poor motivation. Patient was found sitting in hospital bed eating breakfast noted B nonverbal only nodding yes to answer questions. Patient was able to state that she is feeling "good", denying any suicidal homicidal ideations and denying any perceptual disturbances. When asked about specifically daughter hallucinations patient just maintained nonverbal stare and smiling inappropriately. Review of Systems Except as stated in HPI: all other systems reviewed are Neg Mental Status Examination Appearance: Appropriate Consciousness: Alert Orientation: Person, Place Speech: Other (Selectively mute) Language: Other (Nonverbal) Mood: Oppositional Affect: Labile Thought Process & Associations: Disorganized Thought Content: Thought blocking Suicidal Ideation: No Suicidal Plan: No Suicidal Intention: No Homicidal Ideation: No Homicidal Plan: No Homicidal Intention: No Insight: Poor Judgment: Poor Results Labs Test 08/27/17 11:15 Stool C. difficile Toxin (PCR) POSITIVE Stl C. difficile Toxin Epiderm 027 PRESUMPTIVE NEGATIVE Vitals/IOs Vital Signs Date Time Temp Pulse Resp B/P (MAP) Pulse Ox O2 Delivery O2 Flow Rate FiO2 08/28/17 06:46 97.5 76 16 129/58 (81) 95 Intake and Output 08/28/17 08/28/17 08/29/17 08:00 16:00 00:00 Intake Total 0 ml 360 ml Balance 0 ml 360 ml Assessment & Plan Problem List: (1) Schizophrenia ICD Codes: F20.9 - Schizophrenia Status: Chronic Assessment & Plan She at this time continues to be selectively mute, only answering questions with nodding and unclear whether patient is experiencing auditory hallucinations with inappropriate smiling at times. Continue current treatment. Continue to monitor mood and behavior. Discharge planning in progress. Justification for Cont. Inpt. At risk for further decompensation if at lower level of care Problem Qualifiers (1) Schizophrenia: Qualified Codes: F20.0 - Paranoid schizophrenia Parviz Last MD Aug 28, 2017 10:30
--- NOTE | 2017-08-28 10:39 | HHI.PR ---
Subjective Remarks Patient is noted to have toxic multinodular goiter has been seen by endocrinology Medications have been adjusted Discussed with RN and patient Found to have Clostridium difficile toxin colitis will start on p.o. vancomycin 250 mg 4 times a day for 21 days Have discussed with RN who will try to make sure that patient takes her medications Patient has been refusing her oral medications Patient was not very cooperative during my exam with her Female RN was in attendance during the exam Objective Vitals Vital Signs Date Time Temp Pulse Resp B/P (MAP) Pulse Ox O2 Delivery O2 Flow Rate FiO2 08/28/17 06:46 97.5 76 16 129/58 (81) 95 08/27/17 18:51 97.5 88 15 104/56 (72) 95 I/O 08/27/17 08/27/17 08/27/17 08/28/17 08/28/17 08/28/17 07:00 15:00 23:00 07:00 15:00 23:00 Intake Total 0 ml 1080 ml 0 ml 360 ml Balance 0 ml 1080 ml 0 ml 360 ml Intake Oral 0 ml 1080 ml 0 ml 360 ml # Voids 2 2 2 # Bowel Movements 3 2 3 Result Diagram: 08/25/17 1110 08/25/17 1111 Other Results Laboratory Tests Test 08/25/17 11:10 08/25/17 11:11 08/27/17 11:15 White Blood Count 11.9 TH/MM3 Red Blood Count 4.46 MIL/MM3 Hemoglobin 10.7 GM/DL Hematocrit 32.9 % Mean Corpuscular Volume 73.8 FL Mean Corpuscular Hemoglobin 24.1 PG Mean Corpuscular Hemoglobin Concent 32.7 % Red Cell Distribution Width 17.1 % Platelet Count 316 TH/MM3 Mean Platelet Volume 7.2 FL Blood Urea Nitrogen 6 MG/DL Creatinine 0.62 MG/DL Random Glucose 113 MG/DL Calcium Level 7.8 MG/DL Phosphorus Level 2.5 MG/DL Magnesium Level 1.5 MG/DL Sodium Level 139 MEQ/L Potassium Level 3.0 MEQ/L Chloride Level 101 MEQ/L Carbon Dioxide Level 26.4 MEQ/L Anion Gap 12 MEQ/L Estimat Glomerular Filtration Rate 99 ML/MIN Hemoglobin A1c 7.0 % Triglycerides Level 141 MG/DL Cholesterol Level 114 MG/DL LDL Cholesterol 54 MG/DL HDL Cholesterol 31.7 MG/DL Cholesterol/HDL Ratio 3.59 RATIO Stool C. difficile Toxin (PCR) POSITIVE Stl C. difficile Toxin Epiderm 027 PRESUMPTIVE NEGATIVE Imaging Last Impressions Abdomen/Pelvis CT 08/27/17 0000 Signed Impressions: CONCLUSION: Mild diffuse thickening of the colon as above characteristic of infectious or i nflammatory colitis without abscess. Cholelithiasis Markedly enlarged fibroid uterus Objective Remarks GENERAL: Patient is nonverbal to me but did communicate with the nurse and speak Serbian --she did not want to answer questions for me either SKIN: Warm and dry. HEAD: Atraumatic. Normocephalic. EYES: Pupils equal and round. No scleral icterus. No injection or drainage. EOMI ENT: No nasal bleeding or discharge. Mucous membranes pink and moist. Tongue is midline NECK: Trachea midline. No JVD. Supple CARDIOVASCULAR: Regular rate and rhythm. S1-S2 no S3 or S4 RESPIRATORY: No accessory muscle use. Clear to auscultation. Breath sounds equal bilaterally. GASTROINTESTINAL: Abdomen soft, non-tender, nondistended. Hepatic and splenic margins not palpable. MUSCULOSKELETAL: Extremities without clubbing, cyanosis, or edema. No obvious deformities. NEUROLOGICAL: Awake and alert. No obvious cranial nerve deficits. Motor grossly within normal limits. Five out of 5 muscle strength in the arms and legs. ABNormal speech. PSYCHIATRIC: INAppropriate mood and affect; insight and judgment ABnormal. Procedures NONE Medications and IVs Current Medications Lorazepam (Ativan) 1 mg Q6H PRN PO MODERATE TO SEVERE ANXIETY; Start 08/24/17 at 20:45 Lorazepam (Ativan Inj) 1 mg Q6H PRN IM MODERATE TO SEVERE ANXIETY; Start at 20:45 Lorazepam (Ativan) 0.5 mg Q12H PRN PO MODERATE TO SEVERE ANXIETY; Start at 20:45; Stop 08/24/17 at 20:45; Status DC Lorazepam (Ativan Inj) 0.5 mg Q12H PRN IM MODERATE TO SEVERE ANXIETY; Start at 20:45; Stop 08/24/17 at 20:45; Status DC Acetaminophen (Tylenol) 650 mg Q4H PRN PO Pain 1-5 or Temp >101F; Start at 20:45 Magnesium Hydroxide (Milk Of Magnesia Liq) 30 ml DAILY PRN PO CONSTIPATION; Start 08/24/17 at 20:45 Al Hydrox/Mg Hydrox/Simethicone (Mag-Al Plus Susp Liq) 30 ml Q6H PRN PO DYSPEPSIA; Start 08/24/17 at 20:45 Nicotine (Habitrol 21 Mg Patch.24 Hr) 1 patch DAILY T-DERMAL ; Start 08/25/17 at 09:00; Stop 08/25/17 at 09:00; Status DC Amiodarone HCl (Cordarone) 200 mg DAILY PO Last administered on 08/25/17at 09:56 ; Start 08/25/17 at 09:00 Amiodarone HCl (Cordarone) 400 mg DAILY PO ; Start 08/25/17 at 09:00; Stop 08/25 at 09:00; Status DC Metoprolol Tartrate (Lopressor) 25 mg Q12HR PO Last administered on 08/25/17at 09:56; Start 08/24/17 at 21:00 Insulin Aspart (NovoLOG SUPPLEMENTAL SCALE) 1 ACHS SLIDING SCALE SQ Last administered on 08/27/17at 21:00; Start 08/25/17 at 12:00 Insulin Detemir (Levemir Inj) 10 units Q12HR SQ ; Start 08/25/17 at 10:00; Stop 08/25/17 at 10:20; Status DC Methimazole (Tapazole) 5 mg Q8H PO ; Start 08/25/17 at 11:00; Stop 08/27/17 at 15:30; Status DC Prednisone (Deltasone) 20 mg DAILY PO ; Start 08/25/17 at 10:00; Stop 08/27/17 at 10:42; Status DC Insulin Detemir (Levemir Inj) 10 units DAILY SQ Last administered on 08/27/17at 09:00; Start 08/25/17 at 10:00 Divalproex Sodium (Depakote Er) 250 mg BID PO ; Start 08/25/17 at 21:00 Ziprasidone (Geodon) 40 mg BIDPC PO ; Start 08/25/17 at 18:00; Stop 08/26/17 at 14:39; Status DC Ziprasidone (Geodon Inj) 10 mg Q12H PRN IM If patient refuses PO Last administered on 08/26/17at 08:45; Start 08/25/17 at 14:30; Stop 08/26/17 at 14:39 ; Status DC Potassium Chloride 100 ml @ 50 mls/hr Q2H IV Last administered on 08/26/17at 22 :32; Start 08/26/17 at 10:00; Stop 08/26/17 at 13:59; Status DC Ziprasidone (Geodon) 60 mg BIDPC PO ; Start 08/26/17 at 18:00 Ziprasidone (Geodon Inj) 15 mg Q12H PRN IM If patient refuses PO Last administered on 08/26/17at 18:09; Start 08/27/17 at 02:30 Potassium Chloride (KCl) 40 meq ONCE ONCE PO ; Start 08/26/17 at 17:15; Stop at 17:24; Status DC Ziprasidone (Geodon Inj) 20 mg STK-MED ONCE IM ; Start 08/26/17 at 18:07; Stop 08/26/17 at 18:08; Status DC Metronidazole 100 ml @ 100 mls/hr Q8H IV Last administered on 08/28/17at 02:40 ; Start 08/27/17 at 10:00 Methylprednisolone Sodium Succinate (SoluMEDROL INJ) 40 mg Q6HR IV PUSH Last administered on 08/28/17at 06:48; Start 08/27/17 at 12:00 Diatrizoate Meglum/ Diatrizoate Sod ( Gastroview Liq) 18 ml ONCE ONCE PO Last administered on 08/27/17at 13:20; Start 08/27/17 at 12:15; Stop 08/27/17 at 12:16; Status DC Methimazole (Tapazole) 10 mg BID PO ; Start 08/27/17 at 21:00 Iohexol (Omnipaque 350 Inj) 75 ml STK-MED ONCE IVCONTRAST Last administered on 08/27/17at 20:31; Start 08/27/17 at 20:31; Stop 08/27/17 at 20:32; Status DC Vancomycin HCl (VANCOMYCIN for oral use only) 250 mg QID PO ; Start 08/28/17 at 13:00; Stop 09/18/17 at 12:59 A/P Assessment and Plan Psychosis The pt has been transferred back to med-psych. - management per psychiatry. Hyperthyroidism Thyroid US revealed large complex mass on the lower pole of left lobe and two nodules. - endocrinology consult pending. - continue methimazole. Was seen by endocrine already they feel it is a multinodular goiter--they have increased her methimazole A fib Rate controlled for now, however, pt has been refusing medications. HR in the 90s. - continue amiodarone and Lopressor. - continue methimazole. Ulcerative colitis exacerbation Diarrhea The patient continues to have diarrhea which has some streaks of blood. I will discontinue oral prednisone started on IV Solu-Medrol, check CT abdomen and pelvis. Start IV Flagyl as patient meets SIRS/sepsis criteria. Check C. difficile toxin PCR. Consult GI. We will start on vancomycin 250 mg p.o. 4 times daily for 21 days Diabetes mellitus type 2 Exacerbated by prednisone. A1c 7%. Well controlled. - lifestyle modifications. Noncompliance The pt has been refusing meds at times. Improved. - encouragement. Hypokalemia K level was 3. - IV KCl x 2. PPx: Ambulation Discharge Planning Pending psychiatric placement and completion of her vancomycin 250 mg p.o. 4 times daily for 21 day Portillo Medrano DO Aug 28, 2017 10:39
[2017-08-28] MEDS: VANCOMYCIN 500 MG VIAL (FOR ORAL USE ONLY) PO SCH ×3 (12:16→22:38)
[2017-08-28 18:21] VITALS: BP 114/55; PULSE 85; RESP 16; TEMP 97.3; O2SAT 96
[2017-08-28 23:05] LABS: AUTOMATED NEUTROPHIL # 18.6 TH/MM3 (1.8-7.7); BASOPHIL % 0.2 % (0.0-2.0); EOSINOPHIL % 0.1 % (0.0-4.0); HEMATOCRIT 28.1 % (35.0-46.0); LYMPH % 3.8 % (9.0-44.0); LYMPHOCYTE # 0.8 TH/MM3 (1.0-4.8); MEAN CORPUSCULAR HEMOGLOBIN 23.7 PG (27.0-34.0); MEAN CORPUSCULAR HGB CONC 32.1 % (32.0-36.0); MEAN PLATELET VOLUME 7.5 FL (7.0-11.0); MONO % 5.2 % (0.0-8.0); MONOCYTE # 1.1 TH/MM3 (0-0.9); NEUT % 90.7 % (16.0-70.0); PLATELET COUNT 311 TH/MM3 (150-450); RED CELL DISTRIBUTION WIDTH 17.4 % (11.6-17.2); WHITE BLOOD COUNT 20.5 TH/MM3 (4.0-11.0)
[2017-08-28 23:43] LABS: ALBUMIN 2.2 GM/DL (3.4-5.0); ALKALINE PHOSPHATASE 80 U/L (45-117); ALT (GPT) 8 U/L (10-53); AST (GOT) LESS THAN 3 U/L (15-37); BICARBONATE 25.4 MEQ/L (21.0-32.0); BICARBONATE 28.6 MEQ/L (21.0-32.0); BLOOD UREA NITROGEN 22 MG/DL (7-18); CALCIUM 8.4 MG/DL (8.5-10.1); CHLORIDE 104 MEQ/L (98-107); CREATININE 0.99 MG/DL (0.50-1.00); CREATININE 1.03 MG/DL (0.50-1.00); GLOMERULAR FILTRATION RATE 55 ML/MIN (>89); GLUCOSE,RANDOM 232 MG/DL (74-106); MAGNESIUM 2.1 MG/DL (1.5-2.5); SODIUM (NA) 140 MEQ/L (136-145); TOTAL BILIRUBIN ADULT 0.2 MG/DL (0.2-1.0); TOTAL PROTEIN 6.1 GM/DL (6.4-8.2)
[2017-08-29] MEDS: methylPREDNISolone SOD SUCC 40 MG/1 ML VIAL IV PUSH SCH ×5 (00:23→23:42)
[2017-08-29] MEDS: INSULIN ASPART SUPPLEMENTAL SCALE SQ SCH ×5 (00:26→21:00)
[2017-08-29] MEDS: metroNIDAZOLE 500 MG INJ 100 ML IV SCH ×3 (01:11→17:29)
[2017-08-29 06:13] VITALS: BP 133/63; PULSE 63; RESP 16; TEMP 97.7; O2SAT 98
[2017-08-29] MEDS: AMIODARONE 200 MG TAB PO SCH (09:00)
[2017-08-29] MEDS: METHIMAZOLE 5 MG TAB PO SCH ×2 (09:00→21:00)
[2017-08-29] MEDS: INSULIN DETEMIR 100 UNITS/ML VIAL SQ SCH (09:00)
[2017-08-29] MEDS: ZIPRASIDONE HCL 60 MG CAP PO SCH ×2 (09:00→17:30)
[2017-08-29] MEDS: METOPROLOL TARTRATE 25 MG TAB PO SCH ×2 (09:00→21:00)
[2017-08-29] MEDS: DIVALPROEX SODIUM E.R. 250 MG TAB PO SCH ×2 (09:00→21:00)
[2017-08-29 09:23] LABS: AUTOMATED NEUTROPHIL # 14.9 TH/MM3 (1.8-7.7); BASOPHIL % 0.1 % (0.0-2.0); HEMATOCRIT 28.4 % (35.0-46.0); LYMPH % 5.1 % (9.0-44.0); LYMPHOCYTE # 0.8 TH/MM3 (1.0-4.8); MEAN CELL VOLUME 74.5 FL (80.0-100.0); MEAN CORPUSCULAR HEMOGLOBIN 23.6 PG (27.0-34.0); MEAN CORPUSCULAR HGB CONC 31.7 % (32.0-36.0); MEAN PLATELET VOLUME 7.4 FL (7.0-11.0); MONO % 2.9 % (0.0-8.0); MONOCYTE # 0.5 TH/MM3 (0-0.9); NEUT % 91.9 % (16.0-70.0); PLATELET COUNT 302 TH/MM3 (150-450); RED BLOOD COUNT 3.82 MIL/MM3 (4.00-5.30); RED CELL DISTRIBUTION WIDTH 16.9 % (11.6-17.2); WHITE BLOOD COUNT 16.2 TH/MM3 (4.0-11.0)
[2017-08-29 09:46] LABS: ALBUMIN 2.2 GM/DL (3.4-5.0); AST (GOT) 4 U/L (15-37); BICARBONATE 24.4 MEQ/L (21.0-32.0); BLOOD UREA NITROGEN 20 MG/DL (7-18); CALCIUM 7.8 MG/DL (8.5-10.1); CHLORIDE 105 MEQ/L (98-107); CREATININE 0.79 MG/DL (0.50-1.00); GLOMERULAR FILTRATION RATE 75 ML/MIN (>89); GLUCOSE,RANDOM 301 MG/DL (74-106); SODIUM (NA) 139 MEQ/L (136-145)
[2017-08-29] MEDS: VANCOMYCIN 500 MG VIAL (FOR ORAL USE ONLY) PO SCH ×3 (09:46→21:44)
[2017-08-29 09:50] LABS: ALKALINE PHOSPHATASE 73 U/L (45-117); ALT (GPT) 8 U/L (10-53); PHOSPHORUS 3.2 MG/DL (2.5-4.9); TOTAL BILIRUBIN ADULT 0.2 MG/DL (0.2-1.0); TOTAL PROTEIN 5.9 GM/DL (6.4-8.2)
[2017-08-29] MEDS: ZIPRASIDONE MESYLATE 20 MG VIAL IM PRN (09:50)
--- NOTE | 2017-08-29 11:56 | HHI.PR ---
Objective Vitals Vital Signs Date Time Temp Pulse Resp B/P (MAP) Pulse Ox O2 Delivery O2 Flow Rate FiO2 08/29/17 06:13 97.7 63 16 133/63 (86) 98 08/28/17 18:21 97.3 85 16 114/55 (74) 96 I/O 08/28/17 08/28/17 08/28/17 08/29/17 08/29/17 08/29/17 07:00 15:00 23:00 07:00 15:00 23:00 Intake Total 0 ml 360 ml 1560 ml Balance 0 ml 360 ml 1560 ml Intake Oral 0 ml 360 ml 1560 ml # Voids 2 1 1 # Bowel Movements 3 1 1 Result Diagram: 08/29/17 0840 08/29/17 0840 Nannette Brizuela Aug 29, 2017 11:56
--- NOTE | 2017-08-29 14:52 | HHI.PR ---
Subjective Remarks Follow-up on patient with hyperthyroidism, C. difficile colitis, ulcerative colitis. Patient seen and examined. Patient is nonverbal with me will not answer any questions. She is fairly cooperative with exam. She sitting up in bed eating lunch. Discussed with JESSICA Mejia patient with multiple bloody bowel movements overnight, yesterday the day before. 1 brownish BM today. Patient has been refusing majority of her medications including her oral vancomycin and blood pressure medications. Patient is afebrile. Vital signs stable. Objective Vitals Vital Signs Date Time Temp Pulse Resp B/P (MAP) Pulse Ox O2 Delivery O2 Flow Rate FiO2 08/29/17 06:13 97.7 63 16 133/63 (86) 98 08/28/17 18:21 97.3 85 16 114/55 (74) 96 I/O 08/28/17 08/28/17 08/28/17 08/29/17 08/29/17 08/29/17 06:59 14:59 22:59 06:59 14:59 22:59 Intake Total 0 ml 360 ml 1560 ml Balance 0 ml 360 ml 1560 ml Intake Oral 0 ml 360 ml 1560 ml # Voids 2 1 1 # Bowel Movements 3 1 1 Result Diagram: 08/29/17 0840 08/29/17 0840 Imaging Last Impressions Abdomen/Pelvis CT 08/27/17 0000 Signed Impressions: CONCLUSION: Mild diffuse thickening of the colon as above characteristic of infectious or i nflammatory colitis without abscess. Cholelithiasis Markedly enlarged fibroid uterus Objective Remarks GENERAL: This is a well-nourished, well-developed female patient, in no acute distress. Sitting up in bed eating lunch. Appears comfortable. Nonverbal with me today. SKIN: Warm and dry. No generalized rash. HEENT: NC/AT, EOMI. Sclera anicteric. No nasal drainage. Airway patent. MMM. CARDIOVASCULAR: Regular rate and rhythm. No murmurs rubs or gallops appreciated. RESPIRATORY: Poor effort. Nonlabored. Clear to auscultation. GASTROINTESTINAL: Abdomen soft, non-tender, nondistended. Positive bowel sounds. +brown colored diarrhea in underwear. MUSCULOSKELETAL: Extremities without clubbing, cyanosis, or edema. Bilateral calves supple, nontender. NEUROLOGICAL: Awake. Nonverbal. Able to move all extremities spontaneously. PSYCH: Calm and fairly cooperative with exam Procedures NONE A/P Assessment and Plan 56-year-old female with a past medical history of hyperthyroidism, atrial fibrillation, diabetes mellitus, ulcerative colitis, schizophrenia and bipolar disorder who presented to the hospital on 08/14/2017 for psychiatric treatment under [employer] act. Psychosis - management per psychiatry. Hyperthyroidism Thyroid US revealed large complex mass on the lower pole of left lobe and two nodules. - endocrinology following, appreciate assistance. Methimazole dose increased. Recommends repeat thyroid profile in 4-6 weeks. A fib with RVR Rate controlled for now, however, pt has been refusing medications. Per cardiology, patient is not a candidate for anticoagulation due to recurrent GI bleeds and inability to take medications - continue amiodarone and Lopressor. Patient will need yearly TSH checks while on amiodarone - continue methimazole. - Continue to monitor heart rate Leukocytosis, multifactorial, suspect secondary to colitis and steroid rxn WBC 11.9 -> 20.5 -> 16.2 Patient is afebrile - Continue to monitor white count - Monitor patient clinical C diff associated diarrhea Concern for ulcerative colitis exacerbation CT of the abdomen/pelvis shows mild diffuse thickening of the colon consistent with colitis - Consult GI, appreciate assistance - Continue on IV Flagyl - Continue on po Vancomycin, taper dose to 125 mg p.o. 4 times daily - Monitor stooling Anemia, microcytic, hypochromic, appears chronic Concern for GIB/ulcerative colitis exacerbation - Consult GI as above - Obtain iron studies - Monitor for evidence of active bleeding - Monitor H&H closely Diabetes mellitus type 2 Exacerbated by steroid. A1c 7%. Blood sugars fair control - Continue on diabetic diet - Continue Levemir 10u daily - Continue Accu-Cheks with insulin sliding scale Noncompliance The pt has been refusing meds at times. Improved. - encouragement. DVT prophylaxis '- Chemoprophylaxis contraindicated at this time - bilateral SCD/KATIE Nannette Stratton Aug 29, 2017 14:52
--- NOTE | 2017-08-29 16:27 | PD.CONS ---
HPI History of Present Illness This is a 56 year old female who arrived at the hospital on 08/24/2017. Patient is currently being managed in the psychiatric unit and is not communicating verbally. She opens her eyes and looks around but no facial grimace noted according to the record patient has significant schizophrenia and bipolar disorder and a history of ulcerative colitis. According to patient's nurse she has been having multiple episodes of bloody diarrhea with minimal stool noted until today 08/29/2017. GI was consulted to assist in her care she is currently positive for C. difficile with possibility of ulcerative colitis flare with bloody bowel movements. it is unknown whether she has been in any other facilities recently. Most of my information is being obtained from the record and/or the staff. Patient also has a history of atrial fibrillation with RVR but noted today controlled ventricular response in the 60s. There is no family present. CT scan was done on 08/27/2017 which showed mild diffuse thickening of the colon as above characteristic of infectious or inflammatory colitis without abscess. Cholelithiasis. (Ana Moses) PFSH Past Medical History Per the record ulcerative colitis Hypothyroidism Atrial fib Diabetes mellitus Schizophrenia and bipolar disorder Past Surgical History Tonsillectomy Ankle repair per the record (Ana Moses) Coded Allergies: meperidine (Unverified Allergy, Severe, Rash, 08/14/17) Medications Last Impressions Abdomen/Pelvis CT 08/27/17 0000 Signed Impressions: CONCLUSION: Mild diffuse thickening of the colon as above characteristic of infectious or i nflammatory colitis without abscess. Cholelithiasis Markedly enlarged fibroid uterus Family History Unknown (Ana Moses) GI Exam Vitals I&O Vital Signs Date Time Temp Pulse Resp B/P (MAP) Pulse Ox O2 Delivery O2 Flow Rate FiO2 08/29/17 06:13 97.7 63 16 133/63 (86) 98 08/28/17 18:21 97.3 85 16 114/55 (74) 96 I/O 08/28/17 08/28/17 08/28/17 08/29/17 08/29/17 08/29/17 07:00 15:00 23:00 07:00 15:00 23:00 Intake Total 0 ml 360 ml 1560 ml Balance 0 ml 360 ml 1560 ml Intake Oral 0 ml 360 ml 1560 ml # Voids 2 1 1 # Bowel Movements 3 1 1 Imaging Last Impressions Abdomen/Pelvis CT 08/27/17 0000 Signed Impressions: CONCLUSION: Mild diffuse thickening of the colon as above characteristic of infectious or i nflammatory colitis without abscess. Cholelithiasis Markedly enlarged fibroid uterus Laboratory Test 08/28/17 22:32 08/29/17 08:40 White Blood Count 20.5 TH/MM3 16.2 TH/MM3 Red Blood Count 3.80 MIL/MM3 3.82 MIL/MM3 Hemoglobin 9.0 GM/DL 9.0 GM/DL Hematocrit 28.1 % 28.4 % Mean Corpuscular Volume 74.0 FL 74.5 FL Mean Corpuscular Hemoglobin 23.7 PG 23.6 PG Mean Corpuscular Hemoglobin Concent 32.1 % 31.7 % Red Cell Distribution Width 17.4 % 16.9 % Platelet Count 311 TH/MM3 302 TH/MM3 Mean Platelet Volume 7.5 FL 7.4 FL Neutrophils (%) (Auto) 90.7 % 91.9 % Lymphocytes (%) (Auto) 3.8 % 5.1 % Monocytes (%) (Auto) 5.2 % 2.9 % Eosinophils (%) (Auto) 0.1 % 0.0 % Basophils (%) (Auto) 0.2 % 0.1 % Neutrophils # (Auto) 18.6 TH/MM3 14.9 TH/MM3 Lymphocytes # (Auto) 0.8 TH/MM3 0.8 TH/MM3 Monocytes # (Auto) 1.1 TH/MM3 0.5 TH/MM3 Eosinophils # (Auto) 0.0 TH/MM3 0.0 TH/MM3 Basophils # (Auto) 0.0 TH/MM3 0.0 TH/MM3 CBC Comment DIFF FINAL DIFF FINAL Differential Comment Blood Urea Nitrogen 22 MG/DL 20 MG/DL Creatinine 1.03 MG/DL 0.79 MG/DL Random Glucose 232 MG/DL 301 MG/DL Total Protein 6.1 GM/DL 5.9 GM/DL Albumin 2.2 GM/DL 2.2 GM/DL Calcium Level 8.4 MG/DL 7.8 MG/DL Alkaline Phosphatase 80 U/L 73 U/L Aspartate Amino Transf (AST/SGOT) LESS THAN 3 U/L 4 U/L Alanine Aminotransferase (ALT/SGPT) 8 U/L 8 U/L Total Bilirubin 0.2 MG/DL 0.2 MG/DL Sodium Level 140 MEQ/L 139 MEQ/L Potassium Level 4.2 MEQ/L 4.1 MEQ/L Chloride Level 104 MEQ/L 105 MEQ/L Carbon Dioxide Level 25.4 MEQ/L 24.4 MEQ/L Magnesium Level 2.1 MG/DL 2.0 MG/DL Anion Gap 11 MEQ/L 10 MEQ/L Estimat Glomerular Filtration Rate 55 ML/MIN 75 ML/MIN Phosphorus Level 3.2 MG/DL Physical Examination HEENT: Pale, normocephalic; atraumatic; no jaundice. NECK: Supple CHEST: Chest is clear to auscultation and percussion. CARDIAC: Rhythm irregular but controlled rate ABDOMEN: Round, soft, nondistended, no tenderness noted to light palpation; no hepatosplenomegaly; bowel sounds are present in all four quadrants. EXTREMITIES: No clubbing, cyanosis, or edema. SKIN: no rash; no jaundice. INSTITUTIONAL COOK: Eyes open, nonverbal (Ana Moses) Assessment and Plan Assessment: (1) Ulcerative colitis ICD Codes: K51.90 - Ulcerative colitis, unspecified, without complications Status: Acute (2) Anemia ICD Codes: D64.9 - Anemia, unspecified Status: Acute (3) Lower GI bleeding ICD Codes: K92.2 - Gastrointestinal hemorrhage, unspecified Status: Resolved Plan This is a 56-year-old female who is being managed in the psychiatric area [facility]. GI has been consulted to monitor and assist following with her C. difficile colitis and multiple bloody diarrhea stools. Patient was started on vancomycin p.o. and is also receiving IV Flagyl and steroids. Staff notes that there is been less blood noted in her loose stools today. Patient is nonverbal so all information is being obtained to the record is unknown previous EGD or colonoscopy information. History of ulcerative colitis Current labs show hemoglobin 9., And WBC count 16.2. Leukocytosis probably secondary to inflammatory C. difficile colitis Plan Diet Continue vancomycin p.o. Steroids IV Flagyl Monitor labs with special attention to hemoglobin Intake and output Patient may need colonoscopy at some point in the future, can be planned on an outpatient basis. Further recommendations to follow, medical management for now Patient was seen per myself and Dr. Byrd, this note was written on her behalf (Ana Moses) Physician Comments seen, examined agree with above (Alea Byrd MD) Ana Moses Aug 29, 2017 16:27 Alea Byrd MD Aug 29, 2017 19:38
--- NOTE | 2017-08-29 17:01 | HHI.PYPN ---
Subjective Remarks Patient seen for follow, chart reviewed. Discussion nursing staff reported the patient now to be more interactive and smiling but continues to be selectively mute with certain staff. Patient continues to refuse p.o. medications and receiving IM administration of antipsychotic. Patient appears more awake. Patient was found sitting in hospital bed noted to be assuming to be asleep but had been alert and awake has prompted by a nurse. Patient continues to refuse to speak to [employer] underwriter but continues to not yes or no to questions. Patient was able to denying any perceptional disturbances, suicidal or homicidal ideation but not able to express if she is able to ambulate without assistance. Review of Systems Except as stated in HPI: all other systems reviewed are Neg Mental Status Examination Appearance: Appropriate Consciousness: Alert Orientation: Person, Place Speech: Other (Selectively mute) Language: Other (Nonverbal) Mood: Oppositional Affect: Labile Thought Process & Associations: Disorganized Thought Content: Thought blocking Suicidal Ideation: No Suicidal Plan: No Suicidal Intention: No Homicidal Ideation: No Homicidal Plan: No Homicidal Intention: No Insight: Poor Judgment: Poor Results Labs Test 08/28/17 22:32 08/29/17 08:40 White Blood Count 20.5 TH/MM3 16.2 TH/MM3 Red Blood Count 3.80 MIL/MM3 3.82 MIL/MM3 Hemoglobin 9.0 GM/DL 9.0 GM/DL Hematocrit 28.1 % 28.4 % Mean Corpuscular Volume 74.0 FL 74.5 FL Mean Corpuscular Hemoglobin 23.7 PG 23.6 PG Mean Corpuscular Hemoglobin Concent 32.1 % 31.7 % Red Cell Distribution Width 17.4 % 16.9 % Platelet Count 311 TH/MM3 302 TH/MM3 Mean Platelet Volume 7.5 FL 7.4 FL Neutrophils (%) (Auto) 90.7 % 91.9 % Lymphocytes (%) (Auto) 3.8 % 5.1 % Monocytes (%) (Auto) 5.2 % 2.9 % Eosinophils (%) (Auto) 0.1 % 0.0 % Basophils (%) (Auto) 0.2 % 0.1 % Neutrophils # (Auto) 18.6 TH/MM3 14.9 TH/MM3 Lymphocytes # (Auto) 0.8 TH/MM3 0.8 TH/MM3 Monocytes # (Auto) 1.1 TH/MM3 0.5 TH/MM3 Eosinophils # (Auto) 0.0 TH/MM3 0.0 TH/MM3 Basophils # (Auto) 0.0 TH/MM3 0.0 TH/MM3 CBC Comment DIFF FINAL DIFF FINAL Differential Comment Blood Urea Nitrogen 22 MG/DL 20 MG/DL Creatinine 1.03 MG/DL 0.79 MG/DL Random Glucose 232 MG/DL 301 MG/DL Total Protein 6.1 GM/DL 5.9 GM/DL Albumin 2.2 GM/DL 2.2 GM/DL Calcium Level 8.4 MG/DL 7.8 MG/DL Alkaline Phosphatase 80 U/L 73 U/L Aspartate Amino Transf (AST/SGOT) LESS THAN 3 U/L 4 U/L Alanine Aminotransferase (ALT/SGPT) 8 U/L 8 U/L Total Bilirubin 0.2 MG/DL 0.2 MG/DL Sodium Level 140 MEQ/L 139 MEQ/L Potassium Level 4.2 MEQ/L 4.1 MEQ/L Chloride Level 104 MEQ/L 105 MEQ/L Carbon Dioxide Level 25.4 MEQ/L 24.4 MEQ/L Magnesium Level 2.1 MG/DL 2.0 MG/DL Anion Gap 11 MEQ/L 10 MEQ/L Estimat Glomerular Filtration Rate 55 ML/MIN 75 ML/MIN Phosphorus Level 3.2 MG/DL Vitals/IOs Vital Signs Date Time Temp Pulse Resp B/P (MAP) Pulse Ox O2 Delivery O2 Flow Rate FiO2 08/29/17 06:13 97.7 63 16 133/63 (86) 98 Assessment & Plan Problem List: (1) Schizophrenia ICD Codes: F20.9 - Schizophrenia Status: Chronic Assessment & Plan Patient this time continues to be selectively mute but alert and responsive to questioning's via nodding yes or no. Patient was continued limited interaction. We will continue current treatment. Continue to encourage patient to take p.o. form of medication. Continue to monitor mood and behavior. We will request physical therapy to assess and evaluate. Discharge planning in progress. Justification for Cont. Inpt. At risk for further decompensation if at lower level of care Problem Qualifiers (1) Schizophrenia: Qualified Codes: F20.0 - Paranoid schizophrenia Parviz Last MD Aug 29, 2017 17:01
[2017-08-29 18:17] VITALS: BP 125/60; PULSE 73; RESP 16; TEMP 98.6; O2SAT 96
[2017-08-30] MEDS: metroNIDAZOLE 500 MG INJ 100 ML IV SCH ×3 (01:13→17:56)
[2017-08-30 05:12] VITALS: BP 139/65; PULSE 68; RESP 16; TEMP 97.3; O2SAT 97
[2017-08-30] MEDS: methylPREDNISolone SOD SUCC 40 MG/1 ML VIAL IV PUSH SCH ×3 (05:58→17:56)
[2017-08-30] MEDS: INSULIN ASPART SUPPLEMENTAL SCALE SQ SCH ×4 (08:00→21:00)
[2017-08-30] MEDS: INSULIN DETEMIR 100 UNITS/ML VIAL SQ SCH ×2 (09:00→21:00)
[2017-08-30] MEDS: AMIODARONE 200 MG TAB PO SCH (09:35)
[2017-08-30] MEDS: METHIMAZOLE 5 MG TAB PO SCH ×2 (09:36→21:00)
[2017-08-30] MEDS: DIVALPROEX SODIUM E.R. 250 MG TAB PO SCH ×2 (09:36→21:00)
[2017-08-30] MEDS: METOPROLOL TARTRATE 25 MG TAB PO SCH ×2 (09:36→21:00)
[2017-08-30] MEDS: VANCOMYCIN 500 MG VIAL (FOR ORAL USE ONLY) PO SCH ×4 (09:36→21:00)
[2017-08-30] MEDS: ZIPRASIDONE HCL 60 MG CAP PO SCH (09:36)
--- NOTE | 2017-08-30 11:12 | HHI.PYPN ---
Subjective Remarks Is seen in her room with floor staff, chart reviewed patient continues mixed compliance with medication. Patient laying quietly in bed though alert staring at me from the time I enter the room. She had a superficial and silly smile on her face. She did say hello to me then she became selectively mute she did not answer questions about why she is not compliant with medication. She appears to be responding to internal stimuli. At this time will increase oral Geodon to 80 mg twice daily after meals and increase IM Geodon to 20 mg IM twice daily after meals if patient refuses the oral Review of Systems Except as stated in HPI: all other systems reviewed are Neg Mental Status Examination Appearance: Appropriate Consciousness: Alert Orientation: Person, Place Speech: Other (Selectively mute) Language: Other (Nonverbal) Mood: Oppositional Affect: Labile Thought Process & Associations: Disorganized Thought Content: Thought blocking Suicidal Ideation: No Suicidal Plan: No Suicidal Intention: No Homicidal Ideation: No Homicidal Plan: No Homicidal Intention: No Insight: Poor Judgment: Poor Results Vitals/IOs Vital Signs Date Time Temp Pulse Resp B/P (MAP) Pulse Ox O2 Delivery O2 Flow Rate FiO2 08/30/17 05:12 97.3 68 16 139/65 (89) 97 Intake and Output 08/30/17 08/30/17 08/31/17 08:00 16:00 00:00 Intake Total 240 ml Balance 240 ml Assessment & Plan Problem List: (1) Schizophrenia ICD Codes: F20.9 - Schizophrenia Status: Chronic Assessment & Plan Estimated LOS: days patient continues psychotic delusional noncompliant medications and selectively mute C medication adjustments above Justification for Cont. Inpt. At this time patient would decompensate a place to the lower level of care Discharge Planning To be determined Problem Qualifiers (1) Schizophrenia: Qualified Codes: F20.0 - Paranoid schizophrenia Richmond Byrne MD Aug 30, 2017 11:12
--- NOTE | 2017-08-30 11:42 | HHI.PR ---
Subjective Remarks Follow-up on patient with hyperthyroidism, C. difficile colitis, ulcerative colitis. Patient seen and examined. When I walk into the room, patient is lying crossways on the bed with her head upside down. Patient remains nonverbal with me today. Is mostly cooperative with exam but will not respond to any of my questions even to shake her head yes or no. Discussed with nursing staff, only 1 BM early this morning. Objective Vitals Vital Signs Date Time Temp Pulse Resp B/P (MAP) Pulse Ox O2 Delivery O2 Flow Rate FiO2 08/30/17 05:12 97.3 68 16 139/65 (89) 97 08/29/17 18:17 98.6 73 16 125/60 (81) 96 I/O 08/29/17 08/29/17 08/29/17 08/30/17 08/30/17 08/30/17 07:00 15:00 23:00 07:00 15:00 23:00 Intake Total 1220 ml 240 ml Output Total 2 ml Balance 1218 ml 240 ml Intake Oral 1220 ml 240 ml Output Stool Total 2 ml # Voids 1 4 2 # Bowel Movements 1 1 Result Diagram: 08/29/17 0840 08/29/17 0840 Imaging Last Impressions Abdomen/Pelvis CT 08/27/17 0000 Signed Impressions: CONCLUSION: Mild diffuse thickening of the colon as above characteristic of infectious or i nflammatory colitis without abscess. Cholelithiasis Markedly enlarged fibroid uterus Objective Remarks GENERAL: This is a well-nourished, well-developed female patient, in no acute distress. Awake and alert. Nonverbal. SKIN: Warm and dry. No generalized rash. HEENT: NC/AT, EOMI. Sclera anicteric. No nasal drainage. Airway patent. MMM. CARDIOVASCULAR: Regular rate and rhythm. No murmurs rubs or gallops appreciated. RESPIRATORY: Poor effort. Nonlabored. Clear to auscultation. GASTROINTESTINAL: Abdomen soft, non-tender, nondistended. Positive bowel sounds. MUSCULOSKELETAL: Extremities without clubbing, cyanosis, or edema. Bilateral calves supple, nontender. NEUROLOGICAL: Awake and alert. Nonverbal. Able to move all extremities spontaneously. PSYCH: Calm and fairly cooperative with exam Procedures NONE A/P Assessment and Plan 56-year-old female with a past medical history of hyperthyroidism, atrial fibrillation, diabetes mellitus, ulcerative colitis, schizophrenia and bipolar disorder who presented to the hospital on 08/14/2017 for psychiatric treatment under [place]. Psychosis - management per psychiatry. Hyperthyroidism Thyroid US revealed large complex mass on the lower pole of left lobe and two nodules. - endocrinology following, appreciate assistance. Methimazole dose increased. Recommends repeat thyroid profile in 4-6 weeks. A fib with RVR Rate controlled for now, however, pt has been refusing medications. Per cardiology, patient is not a candidate for anticoagulation due to recurrent GI bleeds and inability to take medications - continue amiodarone and Lopressor. Patient will need yearly TSH checks while on amiodarone - continue methimazole. - Continue to monitor heart rate Leukocytosis, multifactorial, suspect secondary to colitis and steroid rxn WBC 11.9 -> 20.5 -> 16.2 Patient is afebrile - Continue to monitor white count - Monitor patient clinically C diff associated diarrhea Concern for ulcerative colitis exacerbation CT of the abdomen/pelvis shows mild diffuse thickening of the colon consistent with colitis - GI following, appreciate assistance. Possible colonoscopy as outpatient - Continue on IV Flagyl - Continue on po Vancomycin - Lactobacillus - Monitor stooling Anemia, microcytic, hypochromic, appears chronic Concern for GIB/ulcerative colitis exacerbation - Consult GI as above - Obtain iron studies -ordered yesterday/pending specimen collection - Monitor for evidence of active bleeding - Monitor H&H closely Diabetes mellitus type 2 Exacerbated by steroid. A1c 7%. Blood sugars not well controlled while on IV steroids - Continue on diabetic diet - Continue Levemir 10u daily. Add Levemir 5 units at night. - Continue Accu-Cheks with insulin sliding scale Noncompliance The pt has been refusing meds at times. - encouragement. DVT prophylaxis '- Chemoprophylaxis contraindicated at this time - bilateral SCD/KATIE Nannette Stratton Aug 30, 2017 11:42
--- NOTE | 2017-08-30 12:38 | PD.TTN ---
Patient Problems 1. Discharge planning 2. Medication compliance 3. Knowledge deficit 4. Lack of coping skills Progress Toward Goals Provider Present: Dr. Gamaliel Byrne, Dr. Kylee Last Provider Input: Dr. Last reports pt is refusing PO medication but will accept IM meds. Pt continues to be non-verbal during interactions. Pt is refusing to eat. MD to request PT order. Nurse(s) Input: not present Psychiatric Counselors Present: Yennifer Dawson, [facility], Yun Eng, [facility], Nishant Cherry Jr., [facility], Sabina Stuart, [facility] Psych Therapist Input: Sabina Alston confirms MD report. Group Spec/RT/OT/NAVARRO Present: MELANIE Lema, Román Suresh, OT Group Spec/RT/OT/NAVARRO Input: Román Enriquez reports pt does not attend groups. Occupational Therapist Input: Román Enriquez reports pt is selectively mute, she is able to acknowledge and to indicate her needs and intentions. Pt is capable of independence with self care and ADLs regarding basic needs level but is inconsistent with her hygiene needs. Pt is observed staring or motionless with eyes closed for prolonged periods of time. Documentation Scribe: Román Suresh MS, OTR Teaching Recipient: Patient KerwinRomán OTR Aug 30, 2017 12:38
[2017-08-30] MEDS: LACTOBACILLUS ACIDOPHILUS TAB PO SCH ×2 (13:15→21:00)
[2017-08-30] MEDS: ZIPRASIDONE HCL 80 MG CAP PO SCH (17:56)
[2017-08-30 18:00] VITALS: BP 138/65; PULSE 78; RESP 16; TEMP 99.4; O2SAT 95
[2017-08-30 21:57] LABS: % SATURATION IRON PROFILE 30.9 % (20-50); IRON (FE) 54 MCG/DL (50-170); TOTAL IRON BINDING CAPACITY 175 MCG/DL (250-450)
[2017-08-30 22:22] LABS: FERRITIN 230 NG/ML (8-252)
[2017-08-31] MEDS: metroNIDAZOLE 500 MG INJ 100 ML IV SCH ×3 (00:47→17:36)
[2017-08-31 05:33] VITALS: BP 130/70; PULSE 60; RESP 15; TEMP 97.3; O2SAT 98
[2017-08-31] MEDS: methylPREDNISolone SOD SUCC 40 MG/1 ML VIAL IV PUSH SCH ×4 (06:00→17:36)
[2017-08-31] MEDS: INSULIN ASPART SUPPLEMENTAL SCALE SQ SCH ×4 (08:00→21:28)
[2017-08-31] MEDS: INSULIN DETEMIR 100 UNITS/ML VIAL SQ SCH ×2 (08:46→21:00)
[2017-08-31] MEDS: LACTOBACILLUS ACIDOPHILUS TAB PO SCH ×3 (08:52→21:27)
[2017-08-31] MEDS: ZIPRASIDONE HCL 80 MG CAP PO SCH ×2 (08:52→17:36)
[2017-08-31] MEDS: METHIMAZOLE 5 MG TAB PO SCH ×3 (08:52→21:27)
[2017-08-31] MEDS: DIVALPROEX SODIUM E.R. 250 MG TAB PO SCH ×3 (08:52→21:27)
[2017-08-31] MEDS: AMIODARONE 200 MG TAB PO SCH (08:52)
[2017-08-31] MEDS: METOPROLOL TARTRATE 25 MG TAB PO SCH ×3 (08:52→21:27)
[2017-08-31] MEDS: VANCOMYCIN 500 MG VIAL (FOR ORAL USE ONLY) PO SCH ×4 (08:54→21:28)
[2017-08-31] MEDS: ZIPRASIDONE MESYLATE 20 MG VIAL IM PRN ×2 (08:57→17:36)
[2017-08-31 09:47] LABS: AUTOMATED NEUTROPHIL # 14.2 TH/MM3 (1.8-7.7); BASOPHIL # 0.1 TH/MM3 (0-0.2); BASOPHIL % 0.7 % (0.0-2.0); HEMATOCRIT 30.9 % (35.0-46.0); HEMOGLOBIN 9.8 GM/DL (11.6-15.3); LYMPH % 3.7 % (9.0-44.0); LYMPHOCYTE # 0.6 TH/MM3 (1.0-4.8); MEAN CELL VOLUME 74.4 FL (80.0-100.0); MEAN CORPUSCULAR HEMOGLOBIN 23.7 PG (27.0-34.0); MEAN CORPUSCULAR HGB CONC 31.8 % (32.0-36.0); MEAN PLATELET VOLUME 7.6 FL (7.0-11.0); MONO % 4.7 % (0.0-8.0); MONOCYTE # 0.7 TH/MM3 (0-0.9); NEUT % 90.9 % (16.0-70.0); PLATELET COUNT 285 TH/MM3 (150-450); RED BLOOD COUNT 4.15 MIL/MM3 (4.00-5.30); RED CELL DISTRIBUTION WIDTH 17.4 % (11.6-17.2); WHITE BLOOD COUNT 15.6 TH/MM3 (4.0-11.0)
--- NOTE | 2017-08-31 10:17 | HHI.PYPN ---
Subjective Remarks Patient seen in her room with nurse Akila, chart reviewed, patient trying mixed compliance with medication. When I entered the room patient first responded to me appropriately saying hello and mentioning my name when I asked how she was she said okay. However then I asked if she was still hearing voices and she immediately became selectively mute refusing to answer any further questions from me and her eye contact virtually stopped. He has been no overt behavioral issues. For now continue treatment Review of Systems Except as stated in HPI: all other systems reviewed are Neg Mental Status Examination Appearance: Appropriate Consciousness: Alert Orientation: Person, Place Speech: Other (Selectively mute) Language: Other (Nonverbal) Mood: Oppositional Affect: Labile Thought Process & Associations: Disorganized Thought Content: Thought blocking Suicidal Ideation: No Suicidal Plan: No Suicidal Intention: No Homicidal Ideation: No Homicidal Plan: No Homicidal Intention: No Insight: Poor Judgment: Poor Results Labs Test 08/31/17 09:25 White Blood Count 15.6 TH/MM3 Red Blood Count 4.15 MIL/MM3 Hemoglobin 9.8 GM/DL Hematocrit 30.9 % Mean Corpuscular Volume 74.4 FL Mean Corpuscular Hemoglobin 23.7 PG Mean Corpuscular Hemoglobin Concent 31.8 % Red Cell Distribution Width 17.4 % Platelet Count 285 TH/MM3 Mean Platelet Volume 7.6 FL Neutrophils (%) (Auto) 90.9 % Lymphocytes (%) (Auto) 3.7 % Monocytes (%) (Auto) 4.7 % Eosinophils (%) (Auto) 0.0 % Basophils (%) (Auto) 0.7 % Neutrophils # (Auto) 14.2 TH/MM3 Lymphocytes # (Auto) 0.6 TH/MM3 Monocytes # (Auto) 0.7 TH/MM3 Eosinophils # (Auto) 0.0 TH/MM3 Basophils # (Auto) 0.1 TH/MM3 CBC Comment DIFF FINAL Differential Comment Vitals/IOs Vital Signs Date Time Temp Pulse Resp B/P (MAP) Pulse Ox O2 Delivery O2 Flow Rate FiO2 08/31/17 05:33 97.3 60 15 130/70 (90) 98 Intake and Output 08/31/17 08/31/17 09/01/17 08:00 16:00 00:00 Intake Total 480 ml Balance 480 ml Assessment & Plan Problem List: (1) Schizophrenia ICD Codes: F20.9 - Schizophrenia Status: Chronic Assessment & Plan Estimated LOS: days patient remains quite psychotic and delusional, noncompliant medication, selectively nonverbal Justification for Cont. Inpt. At this time patient would decompensate a place to a lower level of care Discharge Planning To be determined Problem Qualifiers (1) Schizophrenia: Qualified Codes: F20.0 - Paranoid schizophrenia Richmond Byrne MD Aug 31, 2017 10:17
[2017-08-31 10:36] LABS: BICARBONATE 26.7 MEQ/L (21.0-32.0); CALCIUM 7.9 MG/DL (8.5-10.1); CREATININE 0.72 MG/DL (0.50-1.00)
--- NOTE | 2017-08-31 11:07 | HHI.GIFU ---
Subjective Remarks Pt is resting in bed, smiling, not communicating. Per nurse, she hasn't been taking PO meds including Vanco. She is on Iv Flagyl. No reports of diarrhea or bleeding, not able to confirm, pt uses the toilet and flushes. (Dangelo Rdz SHIMA) Objective Vitals I&O Vital Signs Date Time Temp Pulse Resp B/P (MAP) Pulse Ox O2 Delivery O2 Flow Rate FiO2 08/31/17 05:33 97.3 60 15 130/70 (90) 98 08/30/17 18:00 99.4 78 16 138/65 (89) 95 I/O 08/30/17 08/30/17 08/30/17 08/31/17 08/31/17 08/31/17 07:00 15:00 23:00 07:00 15:00 23:00 Intake Total 960 ml 240 ml 480 ml Balance 960 ml 240 ml 480 ml Intake Oral 960 ml 240 ml 480 ml # Voids 2 2 # Bowel Movements 1 2 Laboratory Laboratory Tests Test 08/31/17 09:25 White Blood Count 15.6 Red Blood Count 4.15 Hemoglobin 9.8 Hematocrit 30.9 Mean Corpuscular Volume 74.4 Mean Corpuscular Hemoglobin 23.7 Mean Corpuscular Hemoglobin Concent 31.8 Red Cell Distribution Width 17.4 Platelet Count 285 Mean Platelet Volume 7.6 Neutrophils (%) (Auto) 90.9 Lymphocytes (%) (Auto) 3.7 Monocytes (%) (Auto) 4.7 Eosinophils (%) (Auto) 0.0 Basophils (%) (Auto) 0.7 Neutrophils # (Auto) 14.2 Lymphocytes # (Auto) 0.6 Monocytes # (Auto) 0.7 Eosinophils # (Auto) 0.0 Basophils # (Auto) 0.1 CBC Comment DIFF FINAL Differential Comment Blood Urea Nitrogen 23 Creatinine 0.72 Random Glucose 244 Calcium Level 7.9 Sodium Level 141 Potassium Level 4.0 Chloride Level 106 Carbon Dioxide Level 26.7 Anion Gap 8 Estimat Glomerular Filtration Rate 83 Imaging Last Impressions Abdomen/Pelvis CT 08/27/17 0000 Signed Impressions: CONCLUSION: Mild diffuse thickening of the colon as above characteristic of infectious or i nflammatory colitis without abscess. Cholelithiasis Markedly enlarged fibroid uterus Physical Exam HEENT: normocephalic; atraumatic; no jaundice. CHEST: Chest is clear to auscultation and percussion. CARDIAC: Regular rate and rhythm with no murmur gallop or rubs. ABDOMEN: Soft, nondistended, nontender; no hepatosplenomegaly; bowel sounds are present in all four quadrants. EXTREMITIES: No clubbing, cyanosis, or edema. SKIN: Normal; no rash; no jaundice. INK JET OPERATOR: Alert, not communicating (Dangelo Rdz) Assessment and Plan Assessment: (1) Ulcerative colitis ICD Codes: K51.90 - Ulcerative colitis, unspecified, without complications Status: Acute (2) Anemia ICD Codes: D64.9 - Anemia, unspecified Status: Acute (3) Lower GI bleeding ICD Codes: K92.2 - Gastrointestinal hemorrhage, unspecified Status: Resolved Plan This is a 56-year-old female who is being managed in the psychiatric area [facility]. GI has been consulted to monitor and assist following with her C. difficile colitis and multiple bloody diarrhea stools. Patient was started on vancomycin p.o. and is also receiving IV Flagyl and steroids. Staff notes that there is been less blood noted in her loose stools today. Patient is nonverbal so all information is being obtained to the record is unknown previous EGD or colonoscopy information. History of ulcerative colitis Current labs show hemoglobin 9., And WBC count 16.2. Leukocytosis probably secondary to inflammatory C. difficile colitis 08/31/17 Per nurse, she hasn't been taking PO meds including Vanco. She is on Iv Flagyl. No reports of diarrhea or bleeding, not able to confirm, pt uses the toilet and flushes. hh stable, WBC trending down Plan Diet Pt not taking vancomycin p.o. per nurse Cont. IV Flagyl Monitor labs with special attention to hemoglobin Intake and output Patient may need colonoscopy at some point in the future, can be planned on an outpatient basis. Further recommendations to follow, medical management for now Patient was seen per myself and Dr. Byrd, this note was written on her behalf (Dangelo Rdz) Physician Comments seen, examined agree with above (Alea Byrd MD) Dangelo Rdz Aug 31, 2017 11:07 Alea Byrd MD Aug 31, 2017 20:20
--- NOTE | 2017-08-31 11:09 | HHI.PR ---
Subjective Remarks Follow-up visit for hypothyroidism, C. difficile colitis, and ulcerative colitis. Nursing staff reports that patient has refused oral medications, unable to assess for number of bowel movements. Patient continues to be psychotic with inappropriate laughing as well as being nonverbal. Patient is seen and examined resting in bed eyes closed and appears to be in no acute distress. Patient is nonverbal and will not open her eyes or follow any commands. When asked repeatedly questions she does not respond, momentarily opens her eyes before closing them and once again not communicating. Objective Vitals Vital Signs Date Time Temp Pulse Resp B/P (MAP) Pulse Ox O2 Delivery O2 Flow Rate FiO2 08/31/17 05:33 97.3 60 15 130/70 (90) 98 08/30/17 18:00 99.4 78 16 138/65 (89) 95 I/O 08/30/17 08/30/17 08/30/17 08/31/17 08/31/17 08/31/17 07:00 15:00 23:00 07:00 15:00 23:00 Intake Total 960 ml 240 ml 480 ml Balance 960 ml 240 ml 480 ml Intake Oral 960 ml 240 ml 480 ml # Voids 2 2 # Bowel Movements 1 2 Result Diagram: 08/31/17 0925 08/31/17 0925 Imaging Last Impressions Abdomen/Pelvis CT 08/27/17 0000 Signed Impressions: CONCLUSION: Mild diffuse thickening of the colon as above characteristic of infectious or i nflammatory colitis without abscess. Cholelithiasis Markedly enlarged fibroid uterus Objective Remarks GENERAL: This is a well-nourished, well-developed female patient, in no acute distress. Resting in bed, nonverbal. SKIN: Warm and dry. HEENT: Pupils equal and round. Sclera anicteric. No nasal drainage. Airway patent. MMM. CARDIOVASCULAR: Regular rate and rhythm. No murmurs rubs or gallops appreciated. RESPIRATORY: Poor effort. Nonlabored. Clear to auscultation. GASTROINTESTINAL: Abdomen soft, non-tender, nondistended. Positive bowel sounds. MUSCULOSKELETAL: Extremities without clubbing, cyanosis, or edema. NEUROLOGICAL: Resting in bed with eyes closed, nonverbal. Seen moving all extremities spontaneously. PSYCH: Calm, does not communicate. Procedures NONE A/P Assessment and Plan 56-year-old female with a past medical history of hyperthyroidism, atrial fibrillation, diabetes mellitus, ulcerative colitis, schizophrenia and bipolar disorder who presented to the hospital on 08/14/2017 for psychiatric treatment under [place]. Psychosis - management per psychiatry. Hyperthyroidism Thyroid US revealed large complex mass on the lower pole of left lobe and two nodules. - endocrinology following, appreciate assistance. Methimazole dose increased. Recommends repeat thyroid profile in 4-6 weeks. A fib with RVR Rate controlled for now, however, pt has been refusing medications. Per cardiology, patient is not a candidate for anticoagulation due to recurrent GI bleeds and inability to take medications - continue amiodarone and Lopressor. Patient will need yearly TSH checks while on amiodarone - continue methimazole. - Continue to monitor heart rate, especially given patient's noncompliance with medications. Leukocytosis, multifactorial, suspect secondary to colitis and steroid rxn WBC 11.9 -> 20.5 -> 16.2->15.6 Patient is afebrile - Continue to monitor white count - Monitor patient clinically C diff associated diarrhea Concern for ulcerative colitis exacerbation CT of the abdomen/pelvis shows mild diffuse thickening of the colon consistent with colitis - GI following, appreciate assistance. Possible colonoscopy as outpatient - Continue on IV Flagyl - Continue on po Vancomycin (patient refusing oral medications) - Lactobacillus -Unable to monitor for stool frequency as patient using the bathroom without notifying nurse. Anemia, microcytic, hypochromic, appears chronic Concern for GIB/ulcerative colitis exacerbation - Consult GI as above - Obtain iron studies with serum iron 54, TIBC 175, saturation 30.9 and ferritin 230 - Monitor for evidence of active bleeding -CBC this morning with stable H&H, continue monitoring closely. Diabetes mellitus type 2 Exacerbated by steroid. A1c 7%. Blood sugars not well controlled while on IV steroids - Continue on diabetic diet - Continue Levemir 10u daily and 5 units at night. - Continue Accu-Cheks with insulin sliding scale - a.m BS 100, continue monitoring closely and if still low tomorrow decrease HS Levemir dose. Noncompliance The pt has been refusing meds at times. - encouragement, psych medication adjustment, hopefully there will be more compliance with medications. DVT prophylaxis - Chemoprophylaxis contraindicated at this time due to concern for GIB - bilateral SCD/KATIE hose Discussed with Jenae Putnam Aug 31, 2017 11:09
[2017-08-31 18:33] VITALS: BP 135/63; PULSE 85; RESP 16; TEMP 97.9; O2SAT 96
[2017-09-01] MEDS: methylPREDNISolone SOD SUCC 40 MG/1 ML VIAL IV PUSH SCH ×4 (00:09→17:44)
[2017-09-01] MEDS: metroNIDAZOLE 500 MG INJ 100 ML IV SCH ×3 (02:27→17:44)
[2017-09-01 04:34] VITALS: BP 166/70; PULSE 60; RESP 15; TEMP 97.9; O2SAT 96
[2017-09-01] MEDS: INSULIN ASPART SUPPLEMENTAL SCALE SQ SCH ×4 (07:41→21:00)
[2017-09-01] MEDS: AMIODARONE 200 MG TAB PO SCH (08:12)
[2017-09-01] MEDS: INSULIN DETEMIR 100 UNITS/ML VIAL SQ SCH ×2 (08:12→21:00)
[2017-09-01] MEDS: LACTOBACILLUS ACIDOPHILUS TAB PO SCH ×3 (08:13→21:01)
[2017-09-01] MEDS: VANCOMYCIN 500 MG VIAL (FOR ORAL USE ONLY) PO SCH ×2 (08:13→13:00)
[2017-09-01] MEDS: DIVALPROEX SODIUM E.R. 250 MG TAB PO SCH ×3 (08:13→21:01)
[2017-09-01] MEDS: ZIPRASIDONE HCL 80 MG CAP PO SCH ×2 (08:13→17:44)
[2017-09-01] MEDS: ZIPRASIDONE MESYLATE 20 MG VIAL IM PRN ×2 (08:13→17:44)
[2017-09-01] MEDS: METOPROLOL TARTRATE 25 MG TAB PO SCH ×3 (08:13→21:01)
[2017-09-01] MEDS: METHIMAZOLE 5 MG TAB PO SCH ×3 (08:13→21:01)
--- NOTE | 2017-09-01 11:03 | HHI.PYPN ---
Subjective Remarks Patient is seen sitting on the edge of her bed in her room with nurse Akila. Patient did say hello to me and then became mute. It appears patient continues incontinent of bladder and bowel. She is refusing all oral medications. They do not have a healthcare surrogate at this time. Patient scheduled for [address] tomorrow. Patient otherwise showing no significant behavioral problems except for this passive that he Review of Systems Except as stated in HPI: all other systems reviewed are Neg Mental Status Examination Appearance: Appropriate Consciousness: Alert Orientation: Person, Place Speech: Other (Selectively mute) Language: Other (Nonverbal) Mood: Oppositional Affect: Labile Thought Process & Associations: Disorganized Thought Content: Thought blocking Suicidal Ideation: No Suicidal Plan: No Suicidal Intention: No Homicidal Ideation: No Homicidal Plan: No Homicidal Intention: No Insight: Poor Judgment: Poor Results Vitals/IOs Vital Signs Date Time Temp Pulse Resp B/P (MAP) Pulse Ox O2 Delivery O2 Flow Rate FiO2 09/01/17 04:34 97.9 60 15 166/70 (102) 96 Intake and Output 09/01/17 09/01/17 09/02/17 08:00 16:00 00:00 Intake Total 480 ml Balance 480 ml Assessment & Plan Problem List: (1) Schizophrenia ICD Codes: F20.9 - Schizophrenia Status: Chronic Assessment & Plan Estimated LOS: days patient continues psychotic selectively mute noncompliant medications with a bladder and bowel incontinence Justification for Cont. Inpt. At this point patient would decompensate a place to the lower level of care Discharge Planning To be determined Request HC Surrog/Guard Advoc?: Yes Problem Qualifiers (1) Schizophrenia: Qualified Codes: F20.0 - Paranoid schizophrenia Richmond Byrne MD Sep 01, 2017 11:03
--- NOTE | 2017-09-01 12:02 | HHI.GIFU ---
Subjective Remarks Pt is non verbal, smiling. Nurse by bed side, states pt had 3 loose watery stools since yesterday, but this is only what she witnessed. Still not taking PO meds. (EstelacarrieDangelo) Objective Vitals I&O Vital Signs Date Time Temp Pulse Resp B/P (MAP) Pulse Ox O2 Delivery O2 Flow Rate FiO2 09/01/17 04:34 97.9 60 15 166/70 (102) 96 08/31/17 18:33 97.9 85 16 135/63 (87) 96 I/O 08/31/17 08/31/17 08/31/17 09/01/17 09/01/17 09/01/17 07:00 15:00 23:00 07:00 15:00 23:00 Intake Total 655 ml 1145 ml 120 ml 585 ml Balance 655 ml 1145 ml 120 ml 585 ml Intake Oral 555 ml 1035 ml 120 ml 480 ml IV Total 100 ml 110 ml 105 ml # Voids 2 2 # Bowel Movements 2 Laboratory Laboratory Tests Test 08/31/17 09:25 White Blood Count 15.6 TH/MM3 Red Blood Count 4.15 MIL/MM3 Hemoglobin 9.8 GM/DL Hematocrit 30.9 % Mean Corpuscular Volume 74.4 FL Mean Corpuscular Hemoglobin 23.7 PG Mean Corpuscular Hemoglobin Concent 31.8 % Red Cell Distribution Width 17.4 % Platelet Count 285 TH/MM3 Mean Platelet Volume 7.6 FL Neutrophils (%) (Auto) 90.9 % Lymphocytes (%) (Auto) 3.7 % Monocytes (%) (Auto) 4.7 % Eosinophils (%) (Auto) 0.0 % Basophils (%) (Auto) 0.7 % Neutrophils # (Auto) 14.2 TH/MM3 Lymphocytes # (Auto) 0.6 TH/MM3 Monocytes # (Auto) 0.7 TH/MM3 Eosinophils # (Auto) 0.0 TH/MM3 Basophils # (Auto) 0.1 TH/MM3 CBC Comment DIFF FINAL Differential Comment Blood Urea Nitrogen 23 MG/DL Creatinine 0.72 MG/DL Random Glucose 244 MG/DL Calcium Level 7.9 MG/DL Sodium Level 141 MEQ/L Potassium Level 4.0 MEQ/L Chloride Level 106 MEQ/L Carbon Dioxide Level 26.7 MEQ/L Anion Gap 8 MEQ/L Estimat Glomerular Filtration Rate 83 ML/MIN Imaging Last Impressions Abdomen/Pelvis CT 08/27/17 0000 Signed Impressions: CONCLUSION: Mild diffuse thickening of the colon as above characteristic of infectious or i nflammatory colitis without abscess. Cholelithiasis Markedly enlarged fibroid uterus Physical Exam HEENT: normocephalic; atraumatic; no jaundice. CHEST: Chest is clear to auscultation and percussion. CARDIAC: Regular rate and rhythm with no murmur gallop or rubs. ABDOMEN: Soft, nondistended, nontender; no hepatosplenomegaly; bowel sounds are present in all four quadrants. EXTREMITIES: No clubbing, cyanosis, or edema. SKIN: Normal; no rash; no jaundice. MILK PROCESSING WORKER: Alert, not communicating (Dangelo Rdz) Assessment and Plan Assessment: (1) Ulcerative colitis ICD Codes: K51.90 - Ulcerative colitis, unspecified, without complications Status: Acute (2) Anemia ICD Codes: D64.9 - Anemia, unspecified Status: Acute (3) Lower GI bleeding ICD Codes: K92.2 - Gastrointestinal hemorrhage, unspecified Status: Resolved Plan This is a 56-year-old female who is being managed in the psychiatric area [facility]. GI has been consulted to monitor and assist following with her C. difficile colitis and multiple bloody diarrhea stools. Patient was started on vancomycin p.o. and is also receiving IV Flagyl and steroids. Staff notes that there is been less blood noted in her loose stools today. Patient is nonverbal so all information is being obtained to the record is unknown previous EGD or colonoscopy information. History of ulcerative colitis Current labs show hemoglobin 9., And WBC count 16.2. Leukocytosis probably secondary to inflammatory C. difficile colitis 08/31/17 Per nurse, she hasn't been taking PO meds including Vanco. She is on Iv Flagyl. No reports of diarrhea or bleeding, not able to confirm, pt uses the toilet and flushes. hh stable, WBC trending down 09/01/17 per nurse, pt had 3 loose watery stools since yesterday, but this is only what she witnessed. Still not taking PO meds. WBC still high but trending down. hh stable Plan Diet Pt not taking vancomycin p.o. per nurse Cont. IV Flagyl Monitor labs with special attention to hemoglobin Intake and output Patient may need colonoscopy at some point in the future, can be planned on an outpatient basis. Further recommendations to follow, medical management for now Patient was seen per myself and Dr. Guzmán (Dangelo Rdz) Physician Comments Seen and examined with SHIMA, not taking po meds. IV vancomicin not beneficial for C. Diff infection. Will switch back to po. (Betty Guzmán MD) Dangelo Rdz Sep 01, 2017 12:02 Betty Guzmán MD Sep 02, 2017 16:44
--- NOTE | 2017-09-01 14:04 | HHI.PR ---
Subjective Remarks Follow-up visit for hypothyroidism, C. difficile colitis, and ulcerative colitis. Spoke with nurse reports patient continues to refuse medications, p.o. vancomycin has been switched over to IV vancomycin by GI services. Patient is seen and examined resting in bed comfortably and appears to be in no acute distress. Resting with eyes closed however will open her eyes when requested and smiles. She is nonverbal and does not follow any commands, will track. Objective Vitals Vital Signs Date Time Temp Pulse Resp B/P (MAP) Pulse Ox O2 Delivery O2 Flow Rate FiO2 09/01/17 04:34 97.9 60 15 166/70 (102) 96 08/31/17 18:33 97.9 85 16 135/63 (87) 96 I/O 08/31/17 08/31/17 08/31/17 09/01/17 09/01/17 09/01/17 07:00 15:00 23:00 07:00 15:00 23:00 Intake Total 655 ml 1145 ml 120 ml 585 ml Balance 655 ml 1145 ml 120 ml 585 ml Intake Oral 555 ml 1035 ml 120 ml 480 ml IV Total 100 ml 110 ml 105 ml # Voids 2 2 # Bowel Movements 2 Result Diagram: 08/31/17 0925 08/31/17 0925 Imaging Last Impressions Abdomen/Pelvis CT 08/27/17 0000 Signed Impressions: CONCLUSION: Mild diffuse thickening of the colon as above characteristic of infectious or i nflammatory colitis without abscess. Cholelithiasis Markedly enlarged fibroid uterus Objective Remarks GENERAL: This is a well-nourished, well-developed female patient, in no acute distress. Resting in bed, nonverbal. SKIN: Warm and dry. HEENT: Pupils equal and round. Sclera anicteric. No nasal drainage. Airway patent. MMM. CARDIOVASCULAR: Regular rate and rhythm. No murmurs rubs or gallops appreciated. RESPIRATORY: Poor effort. Nonlabored. Clear to auscultation. GASTROINTESTINAL: Abdomen soft, non-tender, nondistended. Positive bowel sounds. MUSCULOSKELETAL: Extremities without clubbing, cyanosis, or edema. NEUROLOGICAL: Awake, alert, nonverbal. Seen moving all extremities spontaneously. PSYCH: Calm, does not communicate. Procedures NONE A/P Assessment and Plan 56-year-old female with a past medical history of hyperthyroidism, atrial fibrillation, diabetes mellitus, ulcerative colitis, schizophrenia and bipolar disorder who presented to the hospital on 08/14/2017 for psychiatric treatment under [place]. Psychosis - management per psychiatry. -Patient continues to be nonverbal Hyperthyroidism Thyroid US revealed large complex mass on the lower pole of left lobe and two nodules. - endocrinology following, appreciate assistance. Methimazole dose increased. Recommends repeat thyroid profile in 4-6 weeks. A fib with RVR Rate controlled for now, however, pt has been refusing medications. Per cardiology, patient is not a candidate for anticoagulation due to recurrent GI bleeds and inability to take medications - continue amiodarone and Lopressor. Patient will need yearly TSH checks while on amiodarone - continue methimazole. - Continue to monitor heart rate, especially given patient's noncompliance with medications. Leukocytosis, multifactorial, suspect secondary to colitis and steroid rxn WBC 11.9 -> 20.5 -> 16.2->15.6 Patient is afebrile - Continue to monitor white count - Monitor patient clinically C diff associated diarrhea Concern for ulcerative colitis exacerbation CT of the abdomen/pelvis shows mild diffuse thickening of the colon consistent with colitis - GI following, appreciate assistance. Possible colonoscopy as outpatient - Continue on IV Flagyl -P.o. vancomycin switched over to IV secondary to oral noncompliance - Lactobacillus -Unable to monitor for stool frequency as patient using the bathroom without notifying nurse. Anemia, microcytic, hypochromic, appears chronic Concern for GIB/ulcerative colitis exacerbation - Consult GI as above - Iron studies with serum iron 54, TIBC 175, saturation 30.9 and ferritin 230 - Monitor for evidence of active bleeding -H&H so far stable, continue monitoring closely. Diabetes mellitus type 2 Exacerbated by steroid. A1c 7%. Blood sugars not well controlled while on IV steroids - Continue on diabetic diet - Continue Levemir 10u daily and 5 units at night. - Continue Accu-Cheks with insulin sliding scale -Blood sugar stable Noncompliance The pt has been refusing meds - encouragement, psych medication adjustment, hopefully there will be more compliance with medications. DVT prophylaxis - Chemoprophylaxis contraindicated at this time due to concern for GIB - bilateral SCD/KATIE hose Discussed with Jenae Putnam Sep 01, 2017 14:04
[2017-09-01] MEDS: VANCOMYCIN INJ 1,000 MG in SODIUM CHLOR 0.9% 250 ML INJ 250 ML IV SCH (15:02)
[2017-09-01 18:46] VITALS: BP 147/72; PULSE 53; RESP 15; TEMP 97.8; O2SAT 95
[2017-09-02] MEDS: methylPREDNISolone SOD SUCC 40 MG/1 ML VIAL IV PUSH SCH ×4 (01:18→18:00)
[2017-09-02] MEDS: metroNIDAZOLE 500 MG INJ 100 ML IV SCH ×3 (02:13→17:49)
[2017-09-02] MEDS: VANCOMYCIN INJ 1,000 MG in SODIUM CHLOR 0.9% 250 ML INJ 250 ML IV SCH ×2 (03:29→14:00)
[2017-09-02 06:00] VITALS: BP 126/62; PULSE 58; RESP 16; TEMP 98; O2SAT 93
[2017-09-02] MEDS: INSULIN ASPART SUPPLEMENTAL SCALE SQ SCH ×4 (08:00→21:00)
--- NOTE | 2017-09-02 08:32 | HHI.PR ---
Subjective Remarks Follow-up visit for hypothyroidism, C. difficile colitis, and ulcerative colitis. Nursing staff continues to report patient refusing medications, unable to assess for bowel movement frequency or number of BMs. Patient is seen and examined sitting up on the side of the bed, talking to staff members and myself this morning. She engages in conversations and is answering simple questions, not necessarily following commands. She is smiling and when asked why she does not take her oral medications she is requesting for a "shot". Discussed with patient that certain medications are not able to be administered via injection. Continues to report she does not want to take oral medication. Objective Vitals Vital Signs Date Time Temp Pulse Resp B/P (MAP) Pulse Ox O2 Delivery O2 Flow Rate FiO2 09/02/17 06:00 98.0 58 16 126/62 (83) 93 09/01/17 18:46 97.8 53 15 147/72 (97) 95 I/O 09/01/17 09/01/17 09/01/17 09/02/17 09/02/17 09/02/17 07:00 15:00 23:00 07:00 15:00 23:00 Intake Total 120 ml 1065 ml 270 ml Balance 120 ml 1065 ml 270 ml Intake Oral 120 ml 960 ml IV Total 105 ml 270 ml # Voids 2 1 2 # Bowel Movements 1 3 Result Diagram: 08/31/17 0925 08/31/17 0925 Imaging Last Impressions Abdomen/Pelvis CT 08/27/17 0000 Signed Impressions: CONCLUSION: Mild diffuse thickening of the colon as above characteristic of infectious or i nflammatory colitis without abscess. Cholelithiasis Markedly enlarged fibroid uterus Objective Remarks GENERAL: This is a well-nourished, well-developed female patient, in no acute distress. Resting in bed, nonverbal. SKIN: Warm and dry. HEENT: Pupils equal and round. Sclera anicteric. No nasal drainage. Airway patent. MMM. CARDIOVASCULAR: Regular rate and rhythm. No murmurs rubs or gallops appreciated. RESPIRATORY: Poor effort. Nonlabored. Clear to auscultation. GASTROINTESTINAL: Abdomen soft, non-tender, nondistended. Positive bowel sounds. MUSCULOSKELETAL: Extremities without clubbing, cyanosis, or edema. NEUROLOGICAL: Awake, alert, answering simple questions, at times inappropriate. Speech is clear, no facial droop noted seen moving all extremities spontaneously. PSYCH: Calm answering simple questions, and appropriate answers and smiling Procedures NONE A/P Assessment and Plan 56-year-old female with a past medical history of hyperthyroidism, atrial fibrillation, diabetes mellitus, ulcerative colitis, schizophrenia and bipolar disorder who presented to the hospital on 08/14/2017 for psychiatric treatment under [place]. Psychosis - management per psychiatry. -Talkative today although at times inappropriate, continues to refuse oral medications. Hyperthyroidism Thyroid US revealed large complex mass on the lower pole of left lobe and two nodules. - endocrinology following, appreciate assistance. Methimazole dose increased. Recommends repeat thyroid profile in 4-6 weeks. A fib with RVR Rate controlled for now, however, pt has been refusing medications. Per cardiology, patient is not a candidate for anticoagulation due to recurrent GI bleeds and inability to take medications - continue amiodarone and Lopressor. Patient will need yearly TSH checks while on amiodarone - continue methimazole. - Continue to monitor heart rate, especially given patient's noncompliance with medications. Leukocytosis, multifactorial, suspect secondary to colitis and steroid rxn WBC 11.9 -> 20.5 -> 16.2->15.6 Patient is afebrile -Recheck lab work tomorrow - Monitor patient clinically C diff associated diarrhea Concern for ulcerative colitis exacerbation CT of the abdomen/pelvis shows mild diffuse thickening of the colon consistent with colitis - GI following, appreciate assistance. Possible colonoscopy as outpatient - Continue on IV Flagyl -P.o. vancomycin switched over to IV secondary to oral noncompliance - Lactobacillus -Unable to monitor for stool frequency as patient using the bathroom without notifying nurse. Anemia, microcytic, hypochromic, appears chronic Concern for GIB/ulcerative colitis exacerbation - Consult GI as above - Iron studies with serum iron 54, TIBC 175, saturation 30.9 and ferritin 230 - Monitor for evidence of active bleeding -H&H so far stable, continue monitoring closely. Diabetes mellitus type 2 Exacerbated by steroid. A1c 7%. Blood sugars not well controlled while on IV steroids - Continue on diabetic diet - Continue Levemir 10u daily and 5 units at night. - Continue Accu-Cheks with insulin sliding scale -Patient has been refusing Accu-Cheks along with scheduled insulin. Noncompliance The pt has been refusing meds - encouragement, psych medication adjustment, hopefully there will be more compliance with medications. Due for mental health court today. DVT prophylaxis - Chemoprophylaxis contraindicated at this time due to concern for GIB - bilateral SCD/KATIE hose Discussed with Jenae Putnam Sep 02, 2017 08:32
[2017-09-02] MEDS: INSULIN DETEMIR 100 UNITS/ML VIAL SQ SCH ×2 (09:00→21:55)
[2017-09-02] MEDS: METHIMAZOLE 5 MG TAB PO SCH ×2 (09:00→21:00)
[2017-09-02] MEDS: METOPROLOL TARTRATE 25 MG TAB PO SCH ×2 (09:00→21:00)
[2017-09-02] MEDS: ZIPRASIDONE HCL 80 MG CAP PO SCH ×2 (09:00→18:00)
[2017-09-02] MEDS: DIVALPROEX SODIUM E.R. 250 MG TAB PO SCH ×2 (09:00→21:00)
[2017-09-02] MEDS: LACTOBACILLUS ACIDOPHILUS TAB PO SCH ×2 (09:00→21:00)
[2017-09-02] MEDS: AMIODARONE 200 MG TAB PO SCH (09:00)
--- NOTE | 2017-09-02 12:53 | HHI.PYPN ---
Subjective Remarks Patient seen in her room nurse edison. Chart reviewed, patient discussed with nurse, patient showing mixed compliance medication patient sitting on side of bed initially refusing to talk to me but crying softly. I attempted to explain the [employer] court proceedings that occurred this morning. She continues to sob a little bit then when I tried to leave the room she said thank you Dr. Byrne. Patient then presented [place] [employer]. Patient was retained by Usman Nazario. We will now get permission of guardian advocate to initiate psychotropic treatment Review of Systems Except as stated in HPI: all other systems reviewed are Neg Mental Status Examination Appearance: Appropriate Consciousness: Alert Orientation: Person, Place Speech: Other (Selectively mute) Language: Other (Nonverbal) Mood: Oppositional Affect: Labile Thought Process & Associations: Disorganized Thought Content: Thought blocking Suicidal Ideation: No Suicidal Plan: No Suicidal Intention: No Homicidal Ideation: No Homicidal Plan: No Homicidal Intention: No Insight: Poor Judgment: Poor Results Vitals/IOs Vital Signs Date Time Temp Pulse Resp B/P (MAP) Pulse Ox O2 Delivery O2 Flow Rate FiO2 09/02/17 06:00 98.0 58 16 126/62 (83) 93 Intake and Output 09/02/17 09/02/17 09/02/17 07:59 15:59 23:59 Intake Total 0 ml Balance 0 ml Assessment & Plan Problem List: (1) Schizophrenia ICD Codes: F20.9 - Schizophrenia Status: Chronic Assessment & Plan Estimated LOS: days patient continues psychotic and delusional, patient retained by [employer] [facility] signs and displays sales representative Mansi Justification for Cont. Inpt. At this time patient would decompensate a place to a lower level of care Discharge Planning To be determined Request HC Surrog/Guard Advoc?: Yes Problem Qualifiers (1) Schizophrenia: Qualified Codes: F20.0 - Paranoid schizophrenia Richmond Byrne MD Sep 02, 2017 12:53
--- NOTE | 2017-09-02 15:53 | HHI.GIFU ---
Subjective Remarks Pt not talking, no diarrhea today per nurse, now refusing IV tx (Dangelo Rdz) Objective Vitals I&O Vital Signs Date Time Temp Pulse Resp B/P (MAP) Pulse Ox O2 Delivery O2 Flow Rate FiO2 09/02/17 06:00 98.0 58 16 126/62 (83) 93 09/01/17 18:46 97.8 53 15 147/72 (97) 95 I/O 09/01/17 09/01/17 09/01/17 09/02/17 09/02/17 09/02/17 07:00 15:00 23:00 07:00 15:00 23:00 Intake Total 120 ml 1065 ml 270 ml 0 ml Balance 120 ml 1065 ml 270 ml 0 ml Intake Oral 120 ml 960 ml 0 ml IV Total 105 ml 270 ml # Voids 2 1 2 # Bowel Movements 1 3 Physical Exam HEENT: normocephalic; atraumatic; no jaundice. CHEST: Chest is clear to auscultation and percussion. CARDIAC: Regular rate and rhythm with no murmur gallop or rubs. ABDOMEN: Soft, nondistended, nontender; no hepatosplenomegaly; bowel sounds are present in all four quadrants. EXTREMITIES: No clubbing, cyanosis, or edema. SKIN: Normal; no rash; no jaundice. SALES FACILITATOR: Alert, not communicating (Dangelo Rdz) Assessment and Plan Assessment: (1) Ulcerative colitis ICD Codes: K51.90 - Ulcerative colitis, unspecified, without complications Status: Acute (2) Anemia ICD Codes: D64.9 - Anemia, unspecified Status: Acute (3) Lower GI bleeding ICD Codes: K92.2 - Gastrointestinal hemorrhage, unspecified Status: Resolved Plan This is a 56-year-old female who is being managed in the psychiatric area initially [facility]. GI has been consulted to monitor and assist following with her C. difficile colitis and multiple bloody diarrhea stools. Patient was started on vancomycin p.o. and is also receiving IV Flagyl and steroids. Staff notes that there is been less blood noted in her loose stools today. Patient is nonverbal so all information is being obtained to the record is unknown previous EGD or colonoscopy information. History of ulcerative colitis Current labs show hemoglobin 9., And WBC count 16.2. Leukocytosis probably secondary to inflammatory C. difficile colitis 08/31/17 Per nurse, she hasn't been taking PO meds including Vanco. She is on Iv Flagyl. No reports of diarrhea or bleeding, not able to confirm, pt uses the toilet and flushes. hh stable, WBC trending down 09/01/17 per nurse, pt had 3 loose watery stools since yesterday, but this is only what she witnessed. Still not taking PO meds. WBC still high but trending down. hh stable 09/02/17 Pt refusing Iv tx now, no diarrhea today per nurse Plan Diet Pt not taking PO or IV meds stressed with nurse to try again, but still pt refused vacno and IV Flagyl but pt not taking She will not allow NGT Monitor labs Intake and output Patient may need colonoscopy but is not possible with current condition, pt not cooperating Further recommendations to follow, medical management for now Patient was seen per myself and Dr. Guzmán (Dangelo Rdz) Physician Comments Seen and examined with LEAD SHOP OPERATOR, pt catatonic and not taking any meds. will not allow NG. On vancomicin/flagyl. Needs colonoscopy but not possible at this time. GI will sign off, reconsult when mental status better. Thank you (Betty Guzmán MD) Dangelo Rdz Sep 02, 2017 15:53 Betty Guzmán MD Sep 02, 2017 17:49
[2017-09-02] MEDS: VANCOMYCIN 500 MG VIAL (FOR ORAL USE ONLY) PO SCH ×2 (18:00→21:00)
[2017-09-02 18:24] VITALS: BP 162/67; PULSE 65; RESP 16; TEMP 98.2; O2SAT 95
[2017-09-03] MEDS: metroNIDAZOLE 500 MG INJ 100 ML IV SCH ×2 (02:00→10:00)
[2017-09-03] MEDS: methylPREDNISolone SOD SUCC 40 MG/1 ML VIAL IV PUSH SCH ×3 (06:00→11:44)
[2017-09-03 06:14] VITALS: BP 198/83; PULSE 61; RESP 16
[2017-09-03] MEDS: INSULIN ASPART SUPPLEMENTAL SCALE SQ SCH (07:29)
--- NOTE | 2017-09-03 08:29 | HHI.PR ---
Subjective Remarks Follow-up visit for hypothyroidism, C. difficile colitis, and ulcerative colitis. Patient is seen and examined in bed resting with eyes closed. She does open her eyes and talk to me. She denies any fevers, chills, N/V, cough, SOC or chest pain. Nurse reports patient unwilling to take PO or IV meds. Also having stools in bed now. 1 BM late yesterday in bed none overnight or this am. HR on exam very fast and irregular. Order for STAT EKG, patient refused even after discussing importance. Nurse has obtained orders for IM injections now that patient has health care appointed guardian. Will call quality lab technician for EKG to be done when patient willing. 10:45 call from med psych charge nurse to make me aware of EKG results. Discussed with will discuss with if patient can be held down for IV meds. Return to floor to see patient around that time, EKG reviewed , HR noted to be in the 170's with atrial flutter/fib on EKG. Discussed with , patient can be led for IV medications and patient will be discharged back to hospital. Communicated with for transfer to medical/tele floor, charge nurse attempting to get [facility] bed. Around noon [place] [facility] [place], however discussed with C charge and no beds open. Still no bed around 12:15, Talya[facility] called. At 12:40 5mg of IV metoprolol pushed as discussed with , HR improved to 120's-116, BP stable. [facility] nurse to transport patient to [facility]. Objective Vitals Vital Signs Date Time Temp Pulse Resp B/P (MAP) Pulse Ox O2 Delivery O2 Flow Rate FiO2 09/03/17 06:14 61 16 198/83 (121) 09/02/17 18:24 98.2 65 16 162/67 (98) 95 I/O 09/02/17 09/02/17 09/02/17 09/03/17 09/03/17 09/03/17 07:00 15:00 23:00 07:00 15:00 23:00 Intake Total 0 ml 840 ml Balance 0 ml 840 ml Intake Oral 0 ml 840 ml # Voids 2 1 # Bowel Movements 3 Result Diagram: 08/31/17 0925 08/31/17 0925 Imaging Last Impressions Abdomen/Pelvis CT 08/27/17 0000 Signed Impressions: CONCLUSION: Mild diffuse thickening of the colon as above characteristic of infectious or i nflammatory colitis without abscess. Cholelithiasis Markedly enlarged fibroid uterus Objective Remarks GENERAL: This is a well-nourished, well-developed female patient, in no acute distress. Resting in bed, nonverbal. SKIN: Warm and dry. HEENT: Pupils equal and round. Sclera anicteric. No nasal drainage. Airway patent. MMM. CARDIOVASCULAR: Irregular, very fast rate and rhythm. No murmurs rubs or gallops appreciated. RESPIRATORY: Poor effort. Nonlabored. Clear to auscultation. GASTROINTESTINAL: Abdomen soft, non-tender, nondistended. Positive bowel sounds. MUSCULOSKELETAL: Extremities without clubbing, cyanosis, or edema. NEUROLOGICAL: Awake, alert, answering simple questions. Speech is clear, no facial droop noted seen moving all extremities spontaneously. PSYCH: Calm answering simple questions, and appropriate answers and smiling Procedures NONE A/P Assessment and Plan 56-year-old female with a past medical history of hyperthyroidism, atrial fibrillation, diabetes mellitus, ulcerative colitis, schizophrenia and bipolar disorder who presented to the hospital on 08/14/2017 for psychiatric treatment under Guardado act. Psychosis - management per psychiatry. -Continues to refuse oral medications. Hyperthyroidism Thyroid US revealed large complex mass on the lower pole of left lobe and two nodules. - endocrinology following, appreciate assistance. Methimazole dose increased. Recommends repeat thyroid profile in 4-6 weeks. A fib with RVR Rate controlled for now, however, pt has been refusing medications. Per cardiology, patient is not a candidate for anticoagulation due to recurrent GI bleeds and inability to take medications - EKG with RVR due to medication noncompliance, 5mg IV Lopressor. Transfer to [facility] Leukocytosis, multifactorial, suspect secondary to colitis and steroid rxn WBC 11.9 -> 20.5 -> 16.2->15.6->15.2 Patient is afebrile - Monitor patient clinically C diff associated diarrhea Concern for ulcerative colitis exacerbation CT of the abdomen/pelvis shows mild diffuse thickening of the colon consistent with colitis - GI following, appreciate assistance. Possible colonoscopy as outpatient - Continue on IV Flagyl -P.o. vancomycin restarted by GI. GI has also signed off. -Continue to be noncompliant with meds. Anemia, microcytic, hypochromic, appears chronic Concern for GIB/ulcerative colitis exacerbation - Consult GI as above - Iron studies with serum iron 54, TIBC 175, saturation 30.9 and ferritin 230 - Monitor for evidence of active bleeding -H&H so far stable, continue monitoring closely. Diabetes mellitus type 2 Exacerbated by steroid. A1c 7%. Blood sugars not well controlled while on IV steroids - Continue on diabetic diet - Continue Levemir 10u daily and 5 units at night. - Continue Accu-Cheks with insulin sliding scale -Patient has been refusing Accu-Cheks along with scheduled insulin. Noncompliance The pt has been refusing meds - encouragement, healthcare appointed guardian now. DVT prophylaxis - Chemoprophylaxis contraindicated at this time due to concern for GIB - bilateral SCD/KATIE hose Discussed with RN, , rn discharge, Yuly RN, and . Jenae Rosario Sep 03, 2017 08:29
--- NOTE | 2017-09-03 08:50 | HHI.PYPN ---
Subjective Remarks Patient seen in her room with floor staff. Chart reviewed. Patient continues not compliant with medication. Patient more verbal today with me having a quite superficial conversation asking me what he had for breakfast and how much she enjoyed her breakfast. There is a EKG tach present also appears patient is showing significant increase in her pulse rate which could be indicative of atrial fib with rapid ventricular response. The hospitalist is in to assess the patient and I did discuss this with her she is attempting to get an EKG. It appears the patient is somewhat reluctant to give that. We will discuss this with the hospitalist. We need some verification of her cardiac status prior to any aggressive psychotropic treatment we do have permission from court to get permission from healthcare surrogate/guardian advocate Review of Systems Except as stated in HPI: all other systems reviewed are Neg Mental Status Examination Appearance: Appropriate Consciousness: Alert Orientation: Person, Place Speech: Other (Selectively mute) Language: Other (Nonverbal) Mood: Oppositional Affect: Labile Thought Process & Associations: Disorganized Thought Content: Thought blocking Suicidal Ideation: No Suicidal Plan: No Suicidal Intention: No Homicidal Ideation: No Homicidal Plan: No Homicidal Intention: No Insight: Poor Judgment: Poor Results Vitals/IOs Vital Signs Date Time Temp Pulse Resp B/P (MAP) Pulse Ox O2 Delivery O2 Flow Rate FiO2 09/03/17 06:14 61 16 198/83 (121) 09/02/17 18:24 98.2 95 Assessment & Plan Problem List: (1) Schizophrenia ICD Codes: F20.9 - Schizophrenia Status: Chronic Assessment & Plan Estimated LOS: days remained psychotic delusional somewhat more verbal today. Need to wait further confirmation from medicine service but cardiac status prior to initiation of antipsychotic treatment Justification for Cont. Inpt. At this time patient would decompensate a place to the lower level of care Discharge Planning To be determined Request HC Surrog/Guard Advoc?: Yes Problem Qualifiers (1) Schizophrenia: Qualified Codes: F20.0 - Paranoid schizophrenia Richmond Byrne MD Sep 03, 2017 08:50
[2017-09-03] MEDS: AMIODARONE 200 MG TAB PO SCH ×2 (09:00→09:25)
[2017-09-03] MEDS: INSULIN DETEMIR 100 UNITS/ML VIAL SQ SCH (09:00)
[2017-09-03] MEDS: METOPROLOL TARTRATE 25 MG TAB PO SCH ×2 (09:00→09:26)
[2017-09-03] MEDS: DIVALPROEX SODIUM E.R. 250 MG TAB PO SCH ×2 (09:00→09:26)
[2017-09-03] MEDS: ZIPRASIDONE HCL 80 MG CAP PO SCH (09:00)
[2017-09-03] MEDS: METHIMAZOLE 5 MG TAB PO SCH ×2 (09:00→09:26)
[2017-09-03] MEDS: LACTOBACILLUS ACIDOPHILUS TAB PO SCH ×2 (09:00→09:26)
[2017-09-03] MEDS: ZIPRASIDONE MESYLATE 20 MG VIAL IM PRN (09:25)
[2017-09-03] MEDS: VANCOMYCIN 500 MG VIAL (FOR ORAL USE ONLY) PO SCH (09:26)
[2017-09-03 10:04] LABS: AUTOMATED NEUTROPHIL # 11.3 TH/MM3 (1.8-7.7); BASOPHIL % 0.1 % (0.0-2.0); EOSINOPHIL % 0.2 % (0.0-4.0); HEMATOCRIT 34.7 % (35.0-46.0); LYMPH % 13.3 % (9.0-44.0); MEAN CELL VOLUME 76.9 FL (80.0-100.0); MEAN CORPUSCULAR HEMOGLOBIN 24.5 PG (27.0-34.0); MEAN CORPUSCULAR HGB CONC 31.8 % (32.0-36.0); MEAN PLATELET VOLUME 7.8 FL (7.0-11.0); MONO % 12.2 % (0.0-8.0); MONOCYTE # 1.9 TH/MM3 (0-0.9); NEUT % 74.2 % (16.0-70.0); PLATELET COUNT 166 TH/MM3 (150-450); RED BLOOD COUNT 4.51 MIL/MM3 (4.00-5.30); RED CELL DISTRIBUTION WIDTH 18.2 % (11.6-17.2); WHITE BLOOD COUNT 15.2 TH/MM3 (4.0-11.0)
[2017-09-03 10:24] LABS: BICARBONATE 24.3 MEQ/L (21.0-32.0); CALCIUM 7.6 MG/DL (8.5-10.1); CREATININE 0.66 MG/DL (0.50-1.00)
--- NOTE | 2017-09-03 11:10 | HHI.DS ---
Psychiatry Discharge Summary Inpatient Psychiatric care?: Yes Advance Directive: No Reason Not Provided: info given Mental Health AdvanceDirective: No Health Care Proxy: No Admission Admission Date Aug 24, 2017 at 18:21 Admission Diagnosis: (1) Schizophrenia ICD Code: F20.9 - Schizophrenia Brief History 08/16/2017 Patient is a 56-year-old white female well known to us from multiple prior psychiatric hospitalizations comes here under a Guardado act by the [facility]'s office dated 08/13/2017 1929 hrs. that document reviewed essentially stated that the police responded to her address contact of the Xavier Olmos and advised that Ciera was not taking her medication had been defecating all over the house and refusing to shower that she had also been walking around the house exposing herself Inc. and inquiring if the bubbles and soda are poisonous and appears to landlord Ciera Méndez also came to the house and follow the defecation all over herself in the room. Patient seen screen in the ED urine toxicology negative. At the present time patient sitting quietly in her room house staff present throughout session. Ramonita is alert somewhat silly and childlike. Sitting in addressing down and appear she had just been showered. Respond ounces are markedly delayed she appears markedly distracted. She speaks quite loudly as if having out hearing difficulty. She acknowledges people talking in her head telling her to do bad things. To kill herself. She acknowledges not taking her medication when I asked how long she smiled at me and did not respond. There is no significant history of physical or sexual abuse noted, patient denies mental health issues in her family, she states they have been though she has 1 son. She is vague about any alcohol or drug use. At this time patient meets criteria for involuntary psychiatric hospitalization the Guardado act I will do first opinion request second opinion. I feel she does not have any capacity thus I will ask for health care surrogate and guardian advocate. Patient is given a quite confusing acceptance for taking medication agreeing and then disagreeing. Considering this I feel the need to offer medication that can be given either orally or intramuscularly. We will offer her Geodon 40 mg p.o. twice daily if she refuses the Geodon [address]. We need to contact patient's caregiver Ciera Méndez to discuss further care treatment of possible placement issues 08/17/2017 The patient is a 56-year-old woman, she has psychiatric history of schizophrenia, multiple psychiatric hospitalizations, brought to the hospital due to psychotic behavior, noncompliant with medications. Consulted to me for second opinion. On my evaluation today the patient is alert, she seems to be in a good mood, good spirit, but selectively mute. She does not answer most of my questions, but she does say that she is happy. The patient denies suicidal and homicidal ideation, she denies visual and auditory hallucinations. She says that she is taking her medications, she wants to get better and be discharged back home. She denies pain, distress, she is smiles inappropriately often, seems to be internally stimulated. No aggressive behavior, no 08/20/2017 I have seen and examined this patient today for psychiatric reevaluation, the patient was recently given Geodon 10 mg IM due to increased agitation and disorganized behavior. For this reason at the moment of my evaluation the patient is sedated, poorly cooperative, she reports feeling okay , denies suicidal and homicidal ideation, she denies visual and auditory hallucinations, but continue falling asleep. As per nursing charge the patient has been having episodes of agitation, disorganization, and which the patient does not follow directions. 08/23/2017 The patient was seen today for psychiatric reevaluation. Case discussed with nurse in charge. The patient has not been taking her medications , no interacting with staff and family, selectively mute, eating on and off. On my evaluation the patient is alert, with eye openings, staring, seems to be internally stimulated, but will not answer any of my questions. There is no stiffness, no waxy flexibility suggest catatonia, but her lack of motivation, her mutism, flat affect suggest a potential catatonia. 08/25/2017 the patient was seen today for psychiatric evaluation. The case was discussed widely with counselor nurse in charge. Patient continues to be selectively mute, she responds to some questions, usually with yes or not. She presents with a quite labile mood, at times she is laughing, a second later she is profusely crying. The patient seems to be quite internally preoccupied, perplexed, even paranoid. She was able to tell me today that her favorite [place] is the group [employer] and [employer], I played and of their sons, she was able to enjoy the summer the beginning, but later started to cry again. Patient continues to refuse her medications per 08/25/2017 Above note dictated by Dr. Conway reviewed and agreed with. Patient admitted to Dr. Conway service under the Guardado act. Dr. Conway is done first opinion petition supporting Guardado act. I guarded degree. Patient meets criteria for involuntary psychiatric hospitalization under the Guardado act. Thus I will cosign second opinion petition supporting Guardado act. Patient seen by me with nurse Akila patient sitting on the edge of her bed sleeping quite still with fair eye contact she has a somewhat vacuous stare she is what appears to be selectively mute at the present time she is not making any response at all to my questions. Though she does meet criteria Tobacco Use In Past 30 Days: Refused To Answer Alcohol Use: Never Hospital Course Patient was retained under [place] yesterday. However patient seen by medicine service morning with severe tachycardia has been diagnosed as atrial fibrillation with rapid ventricular response. Patient to be transferred to the medical cardiac unit for further care and treatment of this thus patient to be discharged from [facility]. with direct admission to the unit Results Blood Pressure 198 / 83 Vital Signs Date Time Temp Pulse Resp B/P (MAP) Pulse Ox O2 Delivery O2 Flow Rate FiO2 09/03/17 06:14 61 16 198/83 (121) 09/02/17 18:24 98.2 95 Laboratory Tests Test 09/03/17 09:45 White Blood Count 15.2 TH/MM3 (4.0-11.0) Hemoglobin 11.0 GM/DL (11.6-15.3) Hematocrit 34.7 % (35.0-46.0) Mean Corpuscular Volume 76.9 FL (80.0-100.0) Mean Corpuscular Hemoglobin 24.5 PG (27.0-34.0) Mean Corpuscular Hemoglobin Concent 31.8 % (32.0-36.0) Red Cell Distribution Width 18.2 % (11.6-17.2) Neutrophils (%) (Auto) 74.2 % (16.0-70.0) Monocytes (%) (Auto) 12.2 % (0.0-8.0) Neutrophils # (Auto) 11.3 TH/MM3 (1.8-7.7) Monocytes # (Auto) 1.9 TH/MM3 (0-0.9) Blood Urea Nitrogen 19 MG/DL (7-18) Random Glucose 206 MG/DL (74-106) Calcium Level 7.6 MG/DL (8.5-10.1) Chloride Level 108 MEQ/L (98-107) Laboratory Results Test 08/25/17 11:11 Cholesterol Level 114 MG/DL (120-200) HDL Cholesterol 31.7 MG/DL (40.0-60.0) Hemoglobin A1c 7.0 % (4.3-6.0) LDL Cholesterol 54 MG/DL (0-99) Triglycerides Level 141 MG/DL (42-150) Summary of Procedures None done Imaging Last Impressions Abdomen/Pelvis CT 08/27/17 0000 Signed Impressions: CONCLUSION: Mild diffuse thickening of the colon as above characteristic of infectious or i nflammatory colitis without abscess. Cholelithiasis Markedly enlarged fibroid uterus Pending results at discharge: No Medications # of Antipsychotic meds at D/C: 1 Approp Antipsych med options 1 - Minimum of three failed multiple trials of monotherapy. 2 - Documented plan to taper to monotherapy due to previous use of multiple meds OR cross-taper in progress at D/C. 3 - Documentation of augmentation of Clozapine. 4 - Justification other than those listed in allowable values 1-3, document here : Discharge Discharge Date: Sep 03, 2017 Discharge Diagnosis: (1) Schizophrenia ICD Code: F20.9 - Schizophrenia Status: Chronic Pt Condition on Discharge: Guarded Discharge Disposition: Trnsfr to Other Facility Discharge Instructions Diet Instructions: As Tolerated, No Restrictions Additional Diet Instructions: Prior medical team cardiac unit Activities you can perform: Regular-No Restrictions Other Activity Instructions: Prior medical team cardiac unit Scheduled Appointment: Discharge 4 E. under direct admission 2 medical cardiac unit [facility] Discharge Time > 30 minutes Mental Status Examination Appearance: Appropriate Consciousness: Alert Orientation: Person, Place Speech: Other (Selectively mute) Language: Other (Nonverbal) Mood: Oppositional Affect: Labile Thought Process & Associations: Disorganized Thought Content: Thought blocking Suicidal Ideation: No Suicidal Plan: No Suicidal Intention: No Homicidal Ideation: No Homicidal Plan: No Homicidal Intention: No Insight: Poor Judgment: Poor Discharge/Advance Care Plan Health Problems: (1) Schizophrenia Goals to promote your health * To prevent worsening of your condition and complications * To maintain your health at the optimal level Directions to meet your goals Take your medications as prescribed Follow your dietary instruction Follow activity as directed Keep your appointments as scheduled Take your immunizations and boosters as scheduled If your symptoms worsen call your PCP, if no PCP go to Urgent Care Center or Emergency Room For 28/09 questions related to your inpatient stay or results of tests pending at discharge, please contact Dr. Richmond Byrne at Smoking is Dangerous to Your Health. Avoid second hand smoking Problem Qualifiers (1) Schizophrenia: Qualified Codes: F20.0 - Paranoid schizophrenia Richmond Byrne MD Sep 03, 2017 11:10
--- NOTE | 2017-09-03 11:44 | EKG ---
Date Performed: 09/03/2017 Time Performed: 10:34:37 PTAGE: 57 years EKG: ATRIAL FLUTTER/TACHYCARDIA WITH RAPID VENTRICULAR RESPONSE NONSPECIFIC ST & T-WAVE ABNORMAL ITY ABNORMAL RHYTHM ECG PREVIOUS TRACING : 08/18/2017 09.35 Compared to previous tracing, atrial flutter/tachycardia murray s replaced Sinus rhythm , heart rate has increased. DOCTOR: Mega Last Interpretating Date/Time 09/03/2017 11:42:53
[2017-09-03] MEDS ORDERED: METOPROLOL TARTRATE 5 MG/5 ML VIAL IV PUSH ONE (12:30)
== END 2017-09-03 13:00 | disposition short-term general hospital (02) | DRG 885 ==
LOC: H4EA 18:21
PROVIDERS: ADMIT Psychiatry & Neurology Psychiatry; ATTEND Psychiatry & Neurology Psychiatry
DX: F20.9 Schizophrenia, unspecified (principal); A04.72 Enterocolitis due to Clostridium difficile, not specified as recurrent; K51.90 Ulcerative colitis, unspecified, without complications; I48.91 Unspecified atrial fibrillation; E11.9 Type 2 diabetes mellitus without complications; Z91.19 Patient's noncompliance with other medical treatment and regimen; E05.20 Thyrotoxicosis with toxic multinodular goiter without thyrotoxic crisis or storm; E87.6 Hypokalemia; D50.9 Iron deficiency anemia, unspecified
CPT/HCPCS: 74177; 76937; 80048; 80053; 80061; 82607; 82728; 82948; 83036; 83540; 83550; 83735; 84100; 85025; 85027; 87493; 93005; J1815; J2060; J2920; J3370; J3480; J3486; J7050; Q9963; Q9967

== ENCOUNTER 2017-09-09 16:46 | Inpatient (IN) ==
[2017-09-10 06:13] VITALS: O2SAT 95
[2017-09-10 13:43] VITALS: BP 132/68; PULSE 156; RESP 20; TEMP 98.4
== END 2017-09-10 12:45 | disposition short-term general hospital (02) ==
LOC: H4EA 18:45
PROVIDERS: ADMIT Psychiatry & Neurology Psychiatry; ATTEND Psychiatry & Neurology Psychiatry

== ENCOUNTER 2017-09-10 12:52 | Inpatient (IN) ==
[2017-09-10] MEDS ORDERED: Acetaminophen 325 MG Tablet PO PRN (14:24)
[2017-09-10] MEDS ORDERED: Bisacodyl 10 MG Supp RECTAL PRN (14:24)
[2017-09-10] MEDS ORDERED: dilTIAZem Inj 125 MG in Sodium Chlor 0.9% Inj 100 ML IV.CONT PRN (14:31)
[2017-09-10] MEDS: Dextrose 5% in Water Inj 1,000 ML IV.CONT SCH (16:26)
[2017-09-10] MEDS: methIMAzole 5 MG Tablet PO SCH ×2 (17:25→23:11)
[2017-09-10] MEDS: Enoxaparin Inj 40 MG/0.4 ML Syringe SQ SCH (17:25)
[2017-09-10] MEDS: Insulin NovoLOG Aspart Correctional Sugar Inj SQ SCH ×2 (17:26→20:31)
[2017-09-10] MEDS: Esmolol 2,500 mg/250 mL Premix 2,500 MG/250 ML BAG IV.CONT PRN (18:40)
[2017-09-10] MEDS: Senna/Docusate Sodium 8.6/50 MG Tablet PO SCH (20:16)
[2017-09-11] MEDS ORDERED: Chlorhexidine Gluconate 2% 1 Pack (2 Cloths) TOPICAL PRN (04:00)
[2017-09-11] MEDS: Chlorhexidine Gluconate 2% 1 Pack (2 Cloths) TOPICAL SCH (05:48)
[2017-09-11] MEDS: methIMAzole 5 MG Tablet PO SCH ×3 (09:05→18:01)
[2017-09-11] MEDS: Senna/Docusate Sodium 8.6/50 MG Tablet PO SCH ×3 (09:05→20:29)
[2017-09-11] MEDS: Insulin NovoLOG Aspart Correctional Sugar Inj SQ SCH ×4 (09:33→20:28)
[2017-09-11] MEDS: Dextrose 5% in Water Inj 1,000 ML IV.CONT SCH (16:20)
[2017-09-11] MEDS: Enoxaparin Inj 40 MG/0.4 ML Syringe SQ SCH (18:31)
[2017-09-12] MEDS: methIMAzole 5 MG Tablet PO SCH ×2 (00:30→07:36)
[2017-09-12] MEDS: Chlorhexidine Gluconate 2% 1 Pack (2 Cloths) TOPICAL SCH (04:52)
[2017-09-12] MEDS: Insulin NovoLOG Aspart Correctional Sugar Inj SQ SCH ×3 (07:36→20:57)
[2017-09-12] MEDS: Senna/Docusate Sodium 8.6/50 MG Tablet PO SCH ×2 (10:32→20:59)
[2017-09-12] MEDS: Divalproex 250 MG DR Tablet PO SCH (20:58)
[2017-09-12] MEDS: Insulin Detemir Inj 1,000 UNIT/10 ML Vial SQ SCH (20:58)
[2017-09-12] MEDS: Metoprolol Tartrate 25 MG Tablet PO SCH (20:59)
[2017-09-13] MEDS: Chlorhexidine Gluconate 2% 1 Pack (2 Cloths) TOPICAL SCH (03:29)
[2017-09-13 07:11] LABS: Baso % (Auto) 0.1 % (0.0-2.0); Eos # (Auto) 0.3 th/mm3 (0.0-0.4); Eos % (Auto) 1.8 % (0.0-4.0); Hematocrit 31.4 % (35.0-46.0); Lymph # (Auto) 1.9 th/mm3 (1.0-4.8); Lymph % (Auto) 10.3 % (9.0-44.0); Mean Corpuscular HGB Conc 31.8 % (32.0-36.0); Mean Corpuscular Volume 78.7 fL (80.0-100.0); Mean Platelet Volume 8.7 fL (7.0-11.0); Mono % (Auto) 10.8 % (0.0-8.0); Platelet Count 117 th/mm3 (150-450); Red Blood Count 3.99 mil/mm3 (4.00-5.30); Red Cell Distribution Width 22.2 % (11.6-17.2); White Blood Count 18.2 th/mm3 (4.0-11.0)
[2017-09-13 07:17] LABS: Alanine Aminotransferase 9 U/L (10-53); Albumin 2.1 g/dL (3.4-5.0); Anion Gap 15 meq/L (5-15); Aspartate Aminotransferase 7 U/L (15-37); Blood Urea Nitrogen 7 mg/dL (7-18); Calcium 7.8 mg/dL (8.5-10.1); Carbon Dioxide 23.1 meq/L (21.0-32.0); Chloride 104 meq/L (98-107); Glomerular Filtration Rate Greater Than 89 mL/min (>89); Glucose,Random 58 mg/dL (74-106); Potassium 3.8 meq/L (3.5-5.1); Sodium 142 meq/L (136-145)
[2017-09-13 07:19] LABS: Alkaline Phosphatase 66 U/L (45-117); Total Protein 5.2 g/dL (6.4-8.2)
[2017-09-13] MEDS ORDERED: Amiodarone 200 MG Tablet PO SCH (09:00)
[2017-09-13] MEDS: Divalproex 250 MG DR Tablet PO SCH ×3 (09:35→23:48)
[2017-09-13] MEDS: methIMAzole 5 MG Tablet PO SCH ×4 (09:36→23:49)
[2017-09-13] MEDS: Amiodarone 200 MG Tablet PO SCH ×2 (09:36→09:48)
[2017-09-13] MEDS: Senna/Docusate Sodium 8.6/50 MG Tablet PO SCH (09:36)
[2017-09-13] MEDS: Metoprolol Tartrate 25 MG Tablet PO SCH ×2 (09:36→09:47)
[2017-09-13] MEDS: Insulin NovoLOG Aspart Correctional Sugar Inj SQ SCH ×4 (09:51→19:35)
[2017-09-13] MEDS: Dextrose 5% in Water Inj 1,000 ML IV.CONT SCH (11:00)
[2017-09-13] MEDS: Metoprolol Inj 5 MG/5 ML Vial IV.PUSH PRN ×3 (11:15→12:35)
[2017-09-13] MEDS: Esmolol 2,500 mg/250 mL Premix 2,500 MG/250 ML BAG IV.CONT PRN (14:33)
[2017-09-13] MEDS: Enoxaparin Inj 40 MG/0.4 ML Syringe SQ SCH ×2 (17:13→19:35)
[2017-09-14] MEDS: Insulin Detemir Inj 1,000 UNIT/10 ML Vial SQ SCH ×2 (00:18→22:02)
[2017-09-14] MEDS: Senna/Docusate Sodium 8.6/50 MG Tablet PO SCH ×3 (00:19→22:06)
[2017-09-14] MEDS: Insulin NovoLOG Aspart Correctional Sugar Inj SQ SCH ×5 (00:19→22:05)
[2017-09-14] MEDS: Metoprolol Tartrate 25 MG Tablet PO SCH ×3 (00:19→22:04)
[2017-09-14] MEDS ORDERED: Amiodarone Inj 150 MG in Dextrose 5% in Water Inj 97 ML IV.SIG ONE ×2 (00:57)
[2017-09-14] MEDS: Dextrose 5% in Water Inj 1,000 ML IV.CONT SCH ×2 (02:10→16:16)
[2017-09-14] MEDS: Chlorhexidine Gluconate 2% 1 Pack (2 Cloths) TOPICAL SCH (03:59)
[2017-09-14] MEDS: methIMAzole 5 MG Tablet PO SCH ×2 (08:19→15:43)
[2017-09-14] MEDS: Divalproex 250 MG DR Tablet PO SCH ×2 (08:19→22:02)
[2017-09-14] MEDS: Enoxaparin Inj 40 MG/0.4 ML Syringe SQ SCH (17:16)
[2017-09-15] MEDS: methIMAzole 5 MG Tablet PO SCH ×3 (04:12→15:55)
[2017-09-15] MEDS: Chlorhexidine Gluconate 2% 1 Pack (2 Cloths) TOPICAL SCH (07:27)
[2017-09-15] MEDS: Divalproex 250 MG DR Tablet PO SCH ×2 (08:12→22:39)
[2017-09-15] MEDS: Insulin NovoLOG Aspart Correctional Sugar Inj SQ SCH ×4 (08:12→22:40)
[2017-09-15] MEDS: Senna/Docusate Sodium 8.6/50 MG Tablet PO SCH ×2 (08:12→22:41)
[2017-09-15] MEDS: Metoprolol Tartrate 25 MG Tablet PO SCH ×2 (08:12→22:40)
[2017-09-15] MEDS: Dextrose 5% in Water Inj 1,000 ML IV.CONT SCH (15:54)
[2017-09-15] MEDS: Enoxaparin Inj 40 MG/0.4 ML Syringe SQ SCH (16:30)
[2017-09-15] MEDS ORDERED: Vancomycin Consult Pharmacy 1 EACH OTHER SCH (16:40)
[2017-09-15] MEDS ORDERED: Vancomycin Inj 1,250 MG in Sodium Chlor 0.9% Inj 250 ML IV.SIG SCH (17:00)
[2017-09-15 17:15] LABS: Bacteria,Urine Few /hpf; Bilirubin,Urine Negative (Negative); Clarity,Urine Cloudy (Clear); Color,Urine Yellow (Yellw/Straw); Glucose,Urine (UA) 50 mg/dL (Negative); Hyaline Casts,Urine 4 /lpf (0-3); Leukocyte Esterase,Urine Moderate (Negative); Mucus,Urine Many /lpf (Occasional); Nitrite,Urine Negative (Negative); Specific Gravity,Urine 1.012 (1.002-1.035)
[2017-09-15] MEDS: Vancomycin Inj 1,000 MG in Sodium Chlor 0.9% Inj 250 ML IV.SIG SCH (18:33)
[2017-09-15] MEDS: Insulin Detemir Inj 1,000 UNIT/10 ML Vial SQ SCH (22:40)
[2017-09-16] MEDS: methIMAzole 5 MG Tablet PO SCH ×4 (03:22→23:39)
[2017-09-16] MEDS: Vancomycin Inj 1,000 MG in Sodium Chlor 0.9% Inj 250 ML IV.SIG SCH ×2 (05:29→17:39)
[2017-09-16] MEDS: Insulin NovoLOG Aspart Correctional Sugar Inj SQ SCH ×3 (08:09→17:38)
[2017-09-16] MEDS: Metoprolol Tartrate 25 MG Tablet PO SCH ×2 (11:04→20:42)
[2017-09-16] MEDS: Divalproex 250 MG DR Tablet PO SCH ×2 (11:04→20:41)
[2017-09-16] MEDS: Senna/Docusate Sodium 8.6/50 MG Tablet PO SCH ×2 (11:05→20:43)
[2017-09-16] MEDS: Piperacil/Tazo 3.375 GM Premix 50 ML IV.SIG SCH ×2 (11:09→16:06)
[2017-09-16] MEDS ORDERED: Amiodarone Inj 150 MG in Dextrose 5% in Water Inj 97 ML IV.SIG ONE ×2 (14:01)
[2017-09-16] MEDS: Enoxaparin Inj 40 MG/0.4 ML Syringe SQ SCH (16:05)
[2017-09-16] MEDS: Dextrose 5% in Water Inj 1,000 ML IV.CONT SCH (16:05)
[2017-09-16] MEDS: Insulin Detemir Inj 1,000 UNIT/10 ML Vial SQ SCH (22:24)
[2017-09-17] MEDS: Piperacil/Tazo 3.375 GM Premix 50 ML IV.SIG SCH ×3 (00:59→16:58)
[2017-09-17] MEDS ORDERED: Pharmacy Ordered Lab Info OTHER ONE ×2 (05:45→17:45)
[2017-09-17] MEDS: Vancomycin Inj 1,000 MG in Sodium Chlor 0.9% Inj 250 ML IV.SIG SCH ×2 (06:23→19:27)
[2017-09-17] MEDS: Insulin NovoLOG Aspart Correctional Sugar Inj SQ SCH ×5 (06:59→21:02)
[2017-09-17] MEDS: Metoprolol Tartrate 25 MG Tablet PO SCH ×2 (09:30→22:29)
[2017-09-17] MEDS: Senna/Docusate Sodium 8.6/50 MG Tablet PO SCH ×2 (09:30→22:29)
[2017-09-17] MEDS: Divalproex 250 MG DR Tablet PO SCH ×2 (09:30→22:29)
[2017-09-17] MEDS: methIMAzole 5 MG Tablet PO SCH ×3 (09:30→22:29)
[2017-09-17] MEDS: Dextrose 5% in Water Inj 1,000 ML IV.CONT SCH (16:04)
[2017-09-17] MEDS: Enoxaparin Inj 40 MG/0.4 ML Syringe SQ SCH ×2 (16:58→17:05)
[2017-09-17] MEDS: Insulin Detemir Inj 1,000 UNIT/10 ML Vial SQ SCH (22:29)
[2017-09-18] MEDS: Piperacil/Tazo 3.375 GM Premix 50 ML IV.SIG SCH ×2 (01:42→09:31)
[2017-09-18] MEDS: Vancomycin Inj 1,000 MG in Sodium Chlor 0.9% Inj 250 ML IV.SIG SCH (05:59)
[2017-09-18 06:06] LABS: Baso % (Auto) 0.2 % (0.0-2.0); Eos # (Auto) 0.2 th/mm3 (0.0-0.4); Eos % (Auto) 1.3 % (0.0-4.0); Hematocrit 28.7 % (35.0-46.0); Hemoglobin 9.3 gm/dL (11.6-15.3); Lymph # (Auto) 1.1 th/mm3 (1.0-4.8); Lymph % (Auto) 8.6 % (9.0-44.0); Mean Corpuscular HGB Conc 32.2 % (32.0-36.0); Mean Corpuscular Hemoglobin 25.3 pg (27.0-34.0); Mean Corpuscular Volume 78.5 fL (80.0-100.0); Mean Platelet Volume 7.8 fL (7.0-11.0); Mono # (Auto) 1.6 th/mm3 (0.0-0.9); Mono % (Auto) 12.2 % (0.0-8.0); Neut % (Auto) 77.7 % (16.0-70.0); Platelet Count 160 th/mm3 (150-450); Red Blood Count 3.66 mil/mm3 (4.00-5.30); Red Cell Distribution Width 20.6 % (11.6-17.2); White Blood Count 12.9 th/mm3 (4.0-11.0)
[2017-09-18] MEDS: Insulin NovoLOG Aspart Correctional Sugar Inj SQ SCH ×4 (08:00→20:24)
[2017-09-18 08:22] LABS: Albumin 1.7 g/dL (3.4-5.0); Alkaline Phosphatase 77 U/L (45-117); Anion Gap 12 meq/L (5-15); Aspartate Aminotransferase 5 U/L (15-37); Blood Urea Nitrogen 4 mg/dL (7-18); Calcium 7.5 mg/dL (8.5-10.1); Carbon Dioxide 27.7 meq/L (21.0-32.0); Chloride 101 meq/L (98-107); Glomerular Filtration Rate 59 mL/min (>89); Glucose,Random 116 mg/dL (74-106); Magnesium 1.6 mg/dL (1.5-2.5); Phosphorus 2.8 mg/dL (2.5-4.9); Sodium 141 meq/L (136-145)
[2017-09-18 08:38] LABS: Potassium 2.1 meq/L (3.5-5.1)
[2017-09-18] MEDS: methIMAzole 5 MG Tablet PO SCH ×3 (10:44→23:42)
[2017-09-18] MEDS: Senna/Docusate Sodium 8.6/50 MG Tablet PO SCH ×2 (10:44→21:03)
[2017-09-18] MEDS: Divalproex 250 MG DR Tablet PO SCH ×2 (10:44→21:03)
[2017-09-18] MEDS: Metoprolol Tartrate 25 MG Tablet PO SCH ×2 (10:44→21:03)
[2017-09-18] MEDS: Potassium Chlor 20 mEq Premix 20 MEQ/100 ML PIGGYBACK IV.SIG SCH ×2 (10:48→13:03)
[2017-09-18] MEDS: Enoxaparin Inj 40 MG/0.4 ML Syringe SQ SCH (17:29)
[2017-09-18] MEDS: Dextrose 5% in Water Inj 1,000 ML IV.CONT SCH (19:20)
[2017-09-18] MEDS: Insulin Detemir Inj 1,000 UNIT/10 ML Vial SQ SCH (21:01)
[2017-09-19] MEDS: Dextrose 50% in Water 50 ML Vial IV.PUSH PRN (08:35)
[2017-09-19] MEDS: Insulin NovoLOG Aspart Correctional Sugar Inj SQ SCH ×4 (08:48→23:11)
[2017-09-19] MEDS: Senna/Docusate Sodium 8.6/50 MG Tablet PO SCH ×2 (08:49→23:12)
[2017-09-19] MEDS: Divalproex 250 MG DR Tablet PO SCH ×2 (08:49→23:11)
[2017-09-19] MEDS: methIMAzole 5 MG Tablet PO SCH ×3 (08:49→23:12)
[2017-09-19] MEDS: Metoprolol Tartrate 25 MG Tablet PO SCH ×2 (08:49→23:11)
[2017-09-19 11:35] LABS: Calcium 7.2 mg/dL (8.5-10.1)
[2017-09-19 12:16] LABS: Potassium 2.3 meq/L (3.5-5.1)
[2017-09-19] MEDS: Potassium Chlor 20 mEq Premix 20 MEQ/100 ML PIGGYBACK IV.SIG SCH ×3 (13:23→22:39)
[2017-09-19] MEDS: Enoxaparin Inj 40 MG/0.4 ML Syringe SQ SCH (17:51)
[2017-09-19] MEDS: Insulin Detemir Inj 1,000 UNIT/10 ML Vial SQ SCH (23:11)
[2017-09-20] MEDS: Potassium Chlor 20 mEq Premix 20 MEQ/100 ML PIGGYBACK IV.SIG SCH ×3 (00:38→11:49)
[2017-09-20 07:17] LABS: Calcium 7.5 mg/dL (8.5-10.1)
[2017-09-20 07:20] LABS: Potassium 2.9 meq/L (3.5-5.1)
[2017-09-20] MEDS: Insulin NovoLOG Aspart Correctional Sugar Inj SQ SCH ×4 (09:38→23:15)
[2017-09-20] MEDS: methIMAzole 5 MG Tablet PO SCH ×3 (10:52→23:22)
[2017-09-20] MEDS: Metoprolol Tartrate 25 MG Tablet PO SCH ×2 (10:52→23:22)
[2017-09-20] MEDS: Senna/Docusate Sodium 8.6/50 MG Tablet PO SCH ×2 (10:52→20:02)
[2017-09-20] MEDS: Divalproex 250 MG DR Tablet PO SCH ×2 (10:52→20:01)
[2017-09-20] MEDS: MethylPREDNISolone Sod Succinate Inj 40 MG/ML Vial IV.PUSH SCH ×2 (14:48→23:22)
[2017-09-20] MEDS: KCL 20 mEq/D5W/NaCl 0.45% Inj 1,000 ML IV.CONT SCH (14:57)
[2017-09-20 17:30] LABS: Hematocrit 24.5 % (35.0-46.0); Hemoglobin 7.8 gm/dL (11.6-15.3); Mean Corpuscular HGB Conc 31.9 % (32.0-36.0); Mean Corpuscular Hemoglobin 24.9 pg (27.0-34.0); Mean Corpuscular Volume 77.9 fL (80.0-100.0); Mean Platelet Volume 7.6 fL (7.0-11.0); Platelet Count 210 th/mm3 (150-450); Red Blood Count 3.14 mil/mm3 (4.00-5.30); Red Cell Distribution Width 21.2 % (11.6-17.2); White Blood Count 13.9 th/mm3 (4.0-11.0)
[2017-09-20 21:49] LABS: Hematocrit 24.8 % (35.0-46.0); Hemoglobin 8.1 gm/dL (11.6-15.3)
[2017-09-20] MEDS: Insulin Detemir Inj 1,000 UNIT/10 ML Vial SQ SCH (23:15)
[2017-09-21] MEDS: KCL 20 mEq/D5W/NaCl 0.45% Inj 1,000 ML IV.CONT SCH (01:11)
[2017-09-21 06:17] LABS: Hematocrit 28.1 % (35.0-46.0); Hemoglobin 9.2 gm/dL (11.6-15.3); Mean Corpuscular HGB Conc 32.8 % (32.0-36.0); Mean Corpuscular Hemoglobin 25.7 pg (27.0-34.0); Mean Corpuscular Volume 78.3 fL (80.0-100.0); Mean Platelet Volume 7.3 fL (7.0-11.0); Platelet Count 224 th/mm3 (150-450); Red Blood Count 3.59 mil/mm3 (4.00-5.30); White Blood Count 8.4 th/mm3 (4.0-11.0)
[2017-09-21 06:30] LABS: Carbon Dioxide 25.3 meq/L (21.0-32.0); Potassium 4.1 meq/L (3.5-5.1)
[2017-09-21] MEDS: MethylPREDNISolone Sod Succinate Inj 40 MG/ML Vial IV.PUSH SCH ×3 (06:31→21:48)
[2017-09-21] MEDS: Insulin NovoLOG Aspart Correctional Sugar Inj SQ SCH ×4 (08:23→22:11)
[2017-09-21] MEDS: methIMAzole 5 MG Tablet PO SCH ×3 (08:38→22:32)
[2017-09-21] MEDS: Metoprolol Tartrate 25 MG Tablet PO SCH ×2 (09:21→21:47)
[2017-09-21] MEDS: Senna/Docusate Sodium 8.6/50 MG Tablet PO SCH ×2 (10:05→21:48)
[2017-09-21] MEDS: LORazepam 0.5 MG Tablet PO SCH ×2 (10:55→21:47)
[2017-09-21] MEDS: Amiodarone 200 MG Tablet PO SCH (21:47)
[2017-09-21] MEDS: Insulin Detemir Inj 1,000 UNIT/10 ML Vial SQ SCH (22:11)
[2017-09-22] MEDS: MethylPREDNISolone Sod Succinate Inj 40 MG/ML Vial IV.PUSH SCH ×2 (06:03→14:24)
[2017-09-22] MEDS: Insulin NovoLOG Aspart Correctional Sugar Inj SQ SCH ×4 (08:22→22:56)
[2017-09-22] MEDS: Metoprolol Tartrate 25 MG Tablet PO SCH ×2 (09:44→22:53)
[2017-09-22] MEDS: Amiodarone 200 MG Tablet PO SCH (09:44)
[2017-09-22] MEDS: methIMAzole 5 MG Tablet PO SCH ×3 (09:44→22:49)
[2017-09-22] MEDS: LORazepam 0.5 MG Tablet PO SCH ×2 (09:44→22:50)
[2017-09-22] MEDS: Senna/Docusate Sodium 8.6/50 MG Tablet PO SCH ×2 (12:37→22:58)
[2017-09-22] MEDS ORDERED: Insulin Detemir Inj 1,000 UNIT/10 ML Vial SQ ONE (13:33)
[2017-09-22] MEDS: Insulin Detemir Inj 1,000 UNIT/10 ML Vial SQ SCH (22:42)
[2017-09-22] MEDS: predniSONE 20 MG Tablet NG/OG SCH (22:48)
[2017-09-23] MEDS: Amiodarone 200 MG Tablet PO SCH (08:23)
[2017-09-23] MEDS: predniSONE 20 MG Tablet NG/OG SCH ×2 (08:23→21:32)
[2017-09-23] MEDS: LORazepam 0.5 MG Tablet PO SCH ×2 (08:23→21:24)
[2017-09-23] MEDS: Metoprolol Tartrate 25 MG Tablet PO SCH ×2 (08:23→21:33)
[2017-09-23] MEDS: methIMAzole 5 MG Tablet PO SCH ×3 (08:23→22:41)
[2017-09-23] MEDS: Insulin Detemir Inj 1,000 UNIT/10 ML Vial SQ SCH ×2 (08:24→21:33)
[2017-09-23] MEDS: Senna/Docusate Sodium 8.6/50 MG Tablet PO SCH ×2 (08:25→21:23)
[2017-09-23] MEDS: Insulin NovoLOG Aspart Correctional Sugar Inj SQ SCH ×4 (08:30→21:42)
[2017-09-23 12:34] LABS: INR 1.1 Ratio; Prothrombin Time 11.3 sec (9.8-11.6)
[2017-09-24] MEDS ORDERED: ceFAZolin 2 GM Premix Inj 2 GM/50 ML PIGGYBACK IV.SIG ONE (09:09)
[2017-09-24] MEDS: Insulin NovoLOG Aspart Correctional Sugar Inj SQ SCH ×4 (09:45→20:35)
[2017-09-24] MEDS: methIMAzole 5 MG Tablet PO SCH ×3 (09:53→23:30)
[2017-09-24] MEDS: Insulin Detemir Inj 1,000 UNIT/10 ML Vial SQ SCH ×2 (09:54→20:34)
[2017-09-24] MEDS ORDERED: Iohexol 350 MG/ML 50 ML Vial (for Rad Diag) G-TUBE ONE (10:07)
[2017-09-24] MEDS: LORazepam 0.5 MG Tablet PO SCH (12:51)
[2017-09-24] MEDS: Senna/Docusate Sodium 8.6/50 MG Tablet PO SCH ×2 (13:16→20:36)
[2017-09-24] MEDS: predniSONE 20 MG Tablet NG/OG SCH ×2 (13:17→20:34)
[2017-09-24] MEDS: Amiodarone 200 MG Tablet PO SCH (13:17)
[2017-09-24] MEDS: Metoprolol Tartrate 25 MG Tablet PO SCH ×2 (13:17→20:34)
[2017-09-24] MEDS ORDERED: Insulin Detemir Inj 1,000 UNIT/10 ML Vial SQ SCH (21:00)
[2017-09-25] MEDS: predniSONE 20 MG Tablet NG/OG SCH ×2 (10:03→21:04)
[2017-09-25] MEDS: methIMAzole 5 MG Tablet PO SCH ×3 (10:03→22:56)
[2017-09-25] MEDS: Senna/Docusate Sodium 8.6/50 MG Tablet PO SCH ×2 (10:03→21:07)
[2017-09-25] MEDS: Amiodarone 200 MG Tablet PO SCH (10:03)
[2017-09-25] MEDS: Metoprolol Tartrate 25 MG Tablet PO SCH ×2 (10:03→21:04)
[2017-09-25] MEDS: Insulin NovoLOG Aspart Correctional Sugar Inj SQ SCH ×4 (10:04→21:05)
[2017-09-25] MEDS: Insulin Detemir Inj 1,000 UNIT/10 ML Vial SQ SCH ×2 (10:05→21:04)
[2017-09-26 07:19] LABS: Hematocrit 27.9 % (35.0-46.0); Hemoglobin 8.8 gm/dL (11.6-15.3); Lymph # (Auto) 0.6 th/mm3 (1.0-4.8); Lymph % (Auto) 3.6 % (9.0-44.0); Mean Corpuscular HGB Conc 31.7 % (32.0-36.0); Mean Corpuscular Volume 78.7 fL (80.0-100.0); Mean Platelet Volume 7.5 fL (7.0-11.0); Mono # (Auto) 0.7 th/mm3 (0.0-0.9); Mono % (Auto) 3.8 % (0.0-8.0); Neut # (Auto) 16.1 th/mm3 (1.8-7.7); Neut % (Auto) 92.6 % (16.0-70.0); Platelet Count 232 th/mm3 (150-450); Red Blood Count 3.54 mil/mm3 (4.00-5.30); White Blood Count 17.4 th/mm3 (4.0-11.0)
[2017-09-26 07:34] LABS: Carbon Dioxide 31.2 meq/L (21.0-32.0); Potassium 4.3 meq/L (3.5-5.1)
[2017-09-26] MEDS: methIMAzole 5 MG Tablet PO SCH ×3 (09:01→23:18)
[2017-09-26] MEDS: predniSONE 20 MG Tablet NG/OG SCH ×2 (09:01→21:29)
[2017-09-26] MEDS: Metoprolol Tartrate 25 MG Tablet PO SCH ×2 (09:02→21:29)
[2017-09-26] MEDS: Amiodarone 200 MG Tablet PO SCH (09:02)
[2017-09-26] MEDS: Insulin NovoLOG Aspart Correctional Sugar Inj SQ SCH ×4 (09:02→21:29)
[2017-09-26] MEDS: Senna/Docusate Sodium 8.6/50 MG Tablet PO SCH ×2 (09:03→21:30)
[2017-09-26] MEDS: Insulin Detemir Inj 1,000 UNIT/10 ML Vial SQ SCH ×2 (09:03→21:29)
[2017-09-26 09:31] LABS: Lymphocytes 6 % (9-44); Metamyelocytes 1 % (0-1); Monocytes 3 % (0-8); Myelocytes 1 % (0-0); Platelet Estimate Normal (Normal); Platelet Morphology Normal (Normal)
[2017-09-26 15:10] LABS: Bacteria,Urine Occasional /hpf; Bilirubin,Urine Negative (Negative); Clarity,Urine Cloudy (Clear); Color,Urine Yellow (Yellw/Straw); Glucose,Urine (UA) 150 mg/dL (Negative); Leukocyte Esterase,Urine Large (Negative); Nitrite,Urine Negative (Negative); Specific Gravity,Urine 1.016 (1.002-1.035)
[2017-09-27 07:07] LABS: Baso % (Auto) 0.1 % (0.0-2.0); Hematocrit 27.6 % (35.0-46.0); Hemoglobin 8.7 gm/dL (11.6-15.3); Lymph # (Auto) 0.7 th/mm3 (1.0-4.8); Lymph % (Auto) 2.9 % (9.0-44.0); Mean Corpuscular HGB Conc 31.6 % (32.0-36.0); Mean Corpuscular Hemoglobin 24.9 pg (27.0-34.0); Mean Corpuscular Volume 78.8 fL (80.0-100.0); Mean Platelet Volume 7.5 fL (7.0-11.0); Mono # (Auto) 1.2 th/mm3 (0.0-0.9); Mono % (Auto) 4.9 % (0.0-8.0); Neut # (Auto) 21.7 th/mm3 (1.8-7.7); Neut % (Auto) 92.1 % (16.0-70.0); Platelet Count 206 th/mm3 (150-450); Red Blood Count 3.49 mil/mm3 (4.00-5.30); Red Cell Distribution Width 21.8 % (11.6-17.2); White Blood Count 23.6 th/mm3 (4.0-11.0)
[2017-09-27] MEDS: methIMAzole 5 MG Tablet PO SCH ×2 (07:30→15:30)
[2017-09-27 07:34] LABS: Calcium 8.6 mg/dL (8.5-10.1); Carbon Dioxide 31.8 meq/L (21.0-32.0); Potassium 4.6 meq/L (3.5-5.1)
[2017-09-27] MEDS: Insulin NovoLOG Aspart Correctional Sugar Inj SQ SCH ×4 (08:00→21:23)
[2017-09-27 08:23] LABS: Lymphocytes 6 % (9-44); Metamyelocytes 1 % (0-1); Monocytes 2 % (0-8); Myelocytes 3 % (0-0); Promyelocyte 2 % (0-0)
[2017-09-27 08:24] LABS: Platelet Estimate Normal (Normal); Platelet Morphology Normal (Normal)
[2017-09-27] MEDS: Insulin Detemir Inj 1,000 UNIT/10 ML Vial SQ SCH ×2 (09:00→21:23)
[2017-09-27] MEDS: predniSONE 20 MG Tablet NG/OG SCH ×2 (09:00→21:24)
[2017-09-27] MEDS: Senna/Docusate Sodium 8.6/50 MG Tablet PO SCH ×2 (09:00→21:24)
[2017-09-27] MEDS: Metoprolol Tartrate 25 MG Tablet PO SCH ×2 (09:00→21:24)
[2017-09-27] MEDS: Amiodarone 200 MG Tablet PO SCH (09:00)
[2017-09-28] MEDS: methIMAzole 5 MG Tablet PO SCH ×4 (00:37→23:49)
[2017-09-28 05:13] LABS: Baso % (Auto) 0.1 % (0.0-2.0); Hemoglobin 8.7 gm/dL (11.6-15.3); Lymph # (Auto) 0.7 th/mm3 (1.0-4.8); Lymph % (Auto) 3.1 % (9.0-44.0); Mean Corpuscular HGB Conc 32.2 % (32.0-36.0); Mean Corpuscular Hemoglobin 25.7 pg (27.0-34.0); Mean Corpuscular Volume 79.6 fL (80.0-100.0); Mean Platelet Volume 7.9 fL (7.0-11.0); Mono # (Auto) 1.1 th/mm3 (0.0-0.9); Neut # (Auto) 19.9 th/mm3 (1.8-7.7); Neut % (Auto) 91.8 % (16.0-70.0); Platelet Count 166 th/mm3 (150-450); Red Blood Count 3.39 mil/mm3 (4.00-5.30); Red Cell Distribution Width 22.1 % (11.6-17.2); White Blood Count 21.7 th/mm3 (4.0-11.0)
[2017-09-28 05:40] LABS: Alanine Aminotransferase 19 U/L (10-53); Albumin 2.2 g/dL (3.4-5.0); Alkaline Phosphatase 80 U/L (45-117); Anion Gap 7 meq/L (5-15); Aspartate Aminotransferase 8 U/L (15-37); Blood Urea Nitrogen 56 mg/dL (7-18); Calcium 8.5 mg/dL (8.5-10.1); Carbon Dioxide 31.5 meq/L (21.0-32.0); Chloride 119 meq/L (98-107); Glomerular Filtration Rate 42 mL/min (>89); Glucose,Random 170 mg/dL (74-106); Magnesium 2.7 mg/dL (1.5-2.5); Potassium 4.6 meq/L (3.5-5.1); Total Protein 5.2 g/dL (6.4-8.2)
[2017-09-28 05:48] LABS: Sodium 157 meq/L (136-145)
[2017-09-28 07:58] LABS: Lymphocytes 1 % (9-44); Metamyelocytes 1 % (0-1); Monocytes 5 % (0-8); Myelocytes 1 % (0-0); Ovalocytes 1+; Platelet Estimate Normal (Normal); Platelet Morphology Normal (Normal)
[2017-09-28] MEDS: Amiodarone 200 MG Tablet PO SCH (09:10)
[2017-09-28] MEDS: Senna/Docusate Sodium 8.6/50 MG Tablet PO SCH ×2 (09:10→20:42)
[2017-09-28] MEDS: predniSONE 20 MG Tablet NG/OG SCH ×2 (09:10→20:41)
[2017-09-28] MEDS: Metoprolol Tartrate 25 MG Tablet PO SCH ×2 (09:10→20:42)
[2017-09-28] MEDS: Insulin Detemir Inj 1,000 UNIT/10 ML Vial SQ SCH ×2 (09:11→20:40)
[2017-09-28] MEDS: Insulin NovoLOG Aspart Correctional Sugar Inj SQ SCH ×4 (09:11→20:40)
[2017-09-28] MEDS ORDERED: Dextrose 5% in Water Inj 1,000 ML IV.CONT SCH (09:15)
[2017-09-28] MEDS: Sodium Chloride 23.4% Inj 38.5 MEQ in Water for Inj, Sterile 1,000 ML IV.CONT SCH (22:26)
[2017-09-29] MEDS: methIMAzole 5 MG Tablet PO SCH ×3 (09:02→23:06)
[2017-09-29] MEDS: predniSONE 20 MG Tablet NG/OG SCH ×2 (09:03→21:46)
[2017-09-29] MEDS: Metoprolol Tartrate 25 MG Tablet PO SCH ×2 (09:03→21:46)
[2017-09-29] MEDS: Amiodarone 200 MG Tablet PO SCH (09:03)
[2017-09-29] MEDS: Senna/Docusate Sodium 8.6/50 MG Tablet PO SCH (09:03)
[2017-09-29] MEDS: Insulin NovoLOG Aspart Correctional Sugar Inj SQ SCH ×4 (09:04→21:47)
[2017-09-29] MEDS: Insulin Detemir Inj 1,000 UNIT/10 ML Vial SQ SCH ×3 (09:14→21:47)
[2017-09-29] MEDS: Fluconazole 100 MG Tablet G-TUBE SCH (12:31)
[2017-09-29] MEDS: Lactobacillus Acidophilus/L. Spores Tablet G-TUBE SCH ×2 (12:31→21:46)
[2017-09-29 13:00] LABS: Albumin 2.1 g/dL (3.4-5.0); Calcium 8.1 mg/dL (8.5-10.1); Carbon Dioxide 32.6 meq/L (21.0-32.0); Potassium 4.8 meq/L (3.5-5.1)
[2017-09-29] MEDS: Sodium Chloride 23.4% Inj 38.5 MEQ in Water for Inj, Sterile 1,000 ML IV.CONT SCH (17:23)
[2017-09-30] MEDS: Insulin NovoLOG Aspart Correctional Sugar Inj SQ SCH ×4 (08:44→21:35)
[2017-09-30] MEDS: Insulin Detemir Inj 1,000 UNIT/10 ML Vial SQ SCH ×2 (09:00→21:35)
[2017-09-30 09:38] LABS: Baso % (Auto) 0.1 % (0.0-2.0); Hemoglobin 8.7 gm/dL (11.6-15.3); Lymph # (Auto) 1.3 th/mm3 (1.0-4.8); Lymph % (Auto) 4.1 % (9.0-44.0); Mean Corpuscular HGB Conc 33.4 % (32.0-36.0); Mean Corpuscular Hemoglobin 25.9 pg (27.0-34.0); Mean Corpuscular Volume 77.7 fL (80.0-100.0); Mono % (Auto) 6.5 % (0.0-8.0); Neut # (Auto) 27.5 th/mm3 (1.8-7.7); Neut % (Auto) 89.3 % (16.0-70.0); Platelet Count 120 th/mm3 (150-450); Red Blood Count 3.34 mil/mm3 (4.00-5.30); Red Cell Distribution Width 21.6 % (11.6-17.2); White Blood Count 30.8 th/mm3 (4.0-11.0)
[2017-09-30 10:28] LABS: Lymphocytes 4 % (9-44); Monocytes 1 % (0-8); Myelocytes 7 % (0-0); Platelet Morphology Normal (Normal)
[2017-09-30 10:29] LABS: Calcium 7.8 mg/dL (8.5-10.1); Carbon Dioxide 31.7 meq/L (21.0-32.0); Ovalocytes 1+; Potassium 4.7 meq/L (3.5-5.1)
[2017-09-30] MEDS: predniSONE 20 MG Tablet NG/OG SCH ×2 (10:43→21:34)
[2017-09-30] MEDS: Fluconazole 100 MG Tablet G-TUBE SCH (10:43)
[2017-09-30] MEDS: methIMAzole 5 MG Tablet PO SCH ×3 (10:43→23:11)
[2017-09-30] MEDS: Amiodarone 200 MG Tablet PO SCH (10:43)
[2017-09-30] MEDS: Lactobacillus Acidophilus/L. Spores Tablet G-TUBE SCH ×2 (10:44→21:35)
[2017-09-30] MEDS: Metoprolol Tartrate 25 MG Tablet PO SCH ×2 (10:44→21:38)
[2017-09-30] MEDS: Sodium Chloride 23.4% Inj 38.5 MEQ in Water for Inj, Sterile 1,000 ML IV.CONT SCH (14:29)
[2017-09-30] MEDS ORDERED: Diatrizoate Meglum/Diatrizoate Sod Liq 9 ML UDC PO ONE (18:00)
[2017-09-30 21:47] LABS: Bacteria,Urine Occasional /hpf; Bilirubin,Urine Negative (Negative); Clarity,Urine Clear (Clear); Color,Urine Yellow (Yellw/Straw); Glucose,Urine (UA) Negative (Negative); Leukocyte Esterase,Urine Large (Negative); Nitrite,Urine Negative (Negative); Specific Gravity,Urine 1.015 (1.002-1.035); Squamous Epithelial Cell,Urine <1 /hpf (0-5)
[2017-10-01 07:38] LABS: Baso % (Auto) 0.1 % (0.0-2.0); Hematocrit 26.9 % (35.0-46.0); Hemoglobin 8.6 gm/dL (11.6-15.3); Lymph # (Auto) 1.2 th/mm3 (1.0-4.8); Lymph % (Auto) 3.3 % (9.0-44.0); Mean Corpuscular Hemoglobin 24.9 pg (27.0-34.0); Mean Platelet Volume 9.8 fL (7.0-11.0); Mono # (Auto) 2.1 th/mm3 (0.0-0.9); Mono % (Auto) 5.6 % (0.0-8.0); Neut # (Auto) 34.7 th/mm3 (1.8-7.7); Platelet Count 103 th/mm3 (150-450); Red Blood Count 3.46 mil/mm3 (4.00-5.30); Red Cell Distribution Width 21.7 % (11.6-17.2); White Blood Count 38.2 th/mm3 (4.0-11.0)
[2017-10-01 08:12] LABS: Calcium 7.5 mg/dL (8.5-10.1); Carbon Dioxide 28.7 meq/L (21.0-32.0)
[2017-10-01 08:21] LABS: Lymphocytes 4 % (9-44); Metamyelocytes 1 % (0-1); Monocytes 3 % (0-8); Myelocytes 1 % (0-0); Platelet Morphology Normal (Normal)
[2017-10-01] MEDS: methIMAzole 5 MG Tablet PO SCH ×2 (09:55→15:15)
[2017-10-01] MEDS: Amiodarone 200 MG Tablet PO SCH (09:55)
[2017-10-01] MEDS: Lactobacillus Acidophilus/L. Spores Tablet G-TUBE SCH ×2 (09:55→21:44)
[2017-10-01] MEDS: predniSONE 20 MG Tablet NG/OG SCH (09:55)
[2017-10-01] MEDS: Fluconazole 100 MG Tablet G-TUBE SCH (09:55)
[2017-10-01] MEDS: Insulin NovoLOG Aspart Correctional Sugar Inj SQ SCH ×4 (09:56→21:46)
[2017-10-01] MEDS: Metoprolol Tartrate 25 MG Tablet PO SCH ×2 (09:56→21:46)
[2017-10-01] MEDS: Insulin Detemir Inj 1,000 UNIT/10 ML Vial SQ SCH ×2 (09:57→21:45)
[2017-10-01] MEDS: Piperacil/Tazo 3.375 GM Premix 50 ML IV.SIG SCH (19:53)
[2017-10-02] MEDS: methIMAzole 5 MG Tablet PO SCH ×4 (00:28→23:36)
[2017-10-02] MEDS: Piperacil/Tazo 3.375 GM Premix 50 ML IV.SIG SCH ×4 (00:28→18:01)
[2017-10-02 07:28] LABS: Baso % (Auto) 0.1 % (0.0-2.0); Hematocrit 27.2 % (35.0-46.0); Hemoglobin 8.9 gm/dL (11.6-15.3); Lymph # (Auto) 1.7 th/mm3 (1.0-4.8); Lymph % (Auto) 5.6 % (9.0-44.0); Mean Corpuscular HGB Conc 32.7 % (32.0-36.0); Mean Corpuscular Hemoglobin 25.4 pg (27.0-34.0); Mean Corpuscular Volume 77.7 fL (80.0-100.0); Mean Platelet Volume 10.3 fL (7.0-11.0); Mono % (Auto) 10.1 % (0.0-8.0); Neut # (Auto) 24.9 th/mm3 (1.8-7.7); Neut % (Auto) 84.2 % (16.0-70.0); Platelet Count 103 th/mm3 (150-450); Red Cell Distribution Width 21.9 % (11.6-17.2); White Blood Count 29.5 th/mm3 (4.0-11.0)
[2017-10-02 07:55] LABS: Calcium 7.7 mg/dL (8.5-10.1); Carbon Dioxide 29.3 meq/L (21.0-32.0); Potassium 4.9 meq/L (3.5-5.1)
[2017-10-02] MEDS: Insulin NovoLOG Aspart Correctional Sugar Inj SQ SCH ×4 (08:41→20:30)
[2017-10-02] MEDS: Amiodarone 200 MG Tablet PO SCH (08:45)
[2017-10-02] MEDS: predniSONE 20 MG Tablet NG/OG SCH (08:45)
[2017-10-02] MEDS: Fluconazole 100 MG Tablet G-TUBE SCH (08:45)
[2017-10-02] MEDS: Metoprolol Tartrate 25 MG Tablet PO SCH ×2 (08:46→20:29)
[2017-10-02] MEDS: Lactobacillus Acidophilus/L. Spores Tablet G-TUBE SCH ×2 (08:47→20:29)
[2017-10-02] MEDS: Insulin Detemir Inj 1,000 UNIT/10 ML Vial SQ SCH ×2 (08:47→20:29)
[2017-10-02 09:15] LABS: Lymphocytes 13 % (9-44); Monocytes 11 % (0-8); Myelocytes 2 % (0-0); Platelet Morphology Normal (Normal)
[2017-10-02 09:16] LABS: Ovalocytes 1+
[2017-10-03] MEDS: Piperacil/Tazo 3.375 GM Premix 50 ML IV.SIG SCH ×4 (00:49→18:31)
[2017-10-03 08:49] LABS: Hematocrit 27.9 % (35.0-46.0); Mean Corpuscular HGB Conc 32.1 % (32.0-36.0); Mean Corpuscular Hemoglobin 25.4 pg (27.0-34.0); Mean Corpuscular Volume 79.2 fL (80.0-100.0); Mean Platelet Volume 9.9 fL (7.0-11.0); Platelet Count 97 th/mm3 (150-450); Red Blood Count 3.52 mil/mm3 (4.00-5.30); Red Cell Distribution Width 22.8 % (11.6-17.2); White Blood Count 35.5 th/mm3 (4.0-11.0)
[2017-10-03 09:26] LABS: Albumin 1.8 g/dL (3.4-5.0); Anion Gap 6 meq/L (5-15); Aspartate Aminotransferase 7 U/L (15-37); Blood Urea Nitrogen 43 mg/dL (7-18); Calcium 7.7 mg/dL (8.5-10.1); Chloride 106 meq/L (98-107); Glomerular Filtration Rate 55 mL/min (>89); Glucose,Random 189 mg/dL (74-106); Sodium 142 meq/L (136-145)
[2017-10-03 09:27] LABS: Alanine Aminotransferase 16 U/L (10-53)
[2017-10-03 09:30] LABS: Alkaline Phosphatase 79 U/L (45-117); Total Protein 4.6 g/dL (6.4-8.2)
[2017-10-03] MEDS: Insulin NovoLOG Aspart Correctional Sugar Inj SQ SCH ×4 (11:05→20:48)
[2017-10-03] MEDS: Insulin Detemir Inj 1,000 UNIT/10 ML Vial SQ SCH ×2 (11:06→20:46)
[2017-10-03] MEDS: methIMAzole 5 MG Tablet PO SCH ×3 (11:07→23:14)
[2017-10-03] MEDS: Metoprolol Tartrate 25 MG Tablet PO SCH ×2 (11:07→20:47)
[2017-10-03] MEDS: Lactobacillus Acidophilus/L. Spores Tablet G-TUBE SCH ×2 (11:07→20:47)
[2017-10-03] MEDS: predniSONE 20 MG Tablet NG/OG SCH (11:07)
[2017-10-04] MEDS: Piperacil/Tazo 3.375 GM Premix 50 ML IV.SIG SCH ×4 (00:22→18:50)
[2017-10-04] MEDS: Insulin NovoLOG Aspart Correctional Sugar Inj SQ SCH ×4 (08:00→20:51)
[2017-10-04 09:50] LABS: Hematocrit 29.9 % (35.0-46.0); Hemoglobin 9.8 gm/dL (11.6-15.3); Mean Corpuscular HGB Conc 32.7 % (32.0-36.0); Mean Corpuscular Hemoglobin 26.2 pg (27.0-34.0); Mean Corpuscular Volume 80.2 fL (80.0-100.0); Mean Platelet Volume 9.9 fL (7.0-11.0); Platelet Count 108 th/mm3 (150-450); Red Blood Count 3.73 mil/mm3 (4.00-5.30); Red Cell Distribution Width 22.8 % (11.6-17.2); White Blood Count 24.7 th/mm3 (4.0-11.0)
[2017-10-04] MEDS: methIMAzole 5 MG Tablet PO SCH ×3 (10:04→23:22)
[2017-10-04] MEDS: Lactobacillus Acidophilus/L. Spores Tablet G-TUBE SCH ×2 (10:04→20:50)
[2017-10-04 10:06] LABS: Calcium 8.2 mg/dL (8.5-10.1); Carbon Dioxide 29.4 meq/L (21.0-32.0); Potassium 4.8 meq/L (3.5-5.1)
[2017-10-04] MEDS: predniSONE 20 MG Tablet NG/OG SCH (10:06)
[2017-10-04] MEDS: Metoprolol Tartrate 25 MG Tablet PO SCH ×2 (10:11→22:06)
[2017-10-04] MEDS: Insulin Detemir Inj 1,000 UNIT/10 ML Vial SQ SCH ×2 (10:23→20:51)
[2017-10-05] MEDS: Piperacil/Tazo 3.375 GM Premix 50 ML IV.SIG SCH ×4 (00:39→18:20)
[2017-10-05] MEDS: methIMAzole 5 MG Tablet PO SCH ×3 (06:31→23:10)
[2017-10-05 08:53] LABS: Hematocrit 26.7 % (35.0-46.0); Hemoglobin 8.7 gm/dL (11.6-15.3); Mean Corpuscular HGB Conc 32.4 % (32.0-36.0); Mean Corpuscular Hemoglobin 25.9 pg (27.0-34.0); Mean Platelet Volume 9.4 fL (7.0-11.0); Platelet Count 127 th/mm3 (150-450); Red Blood Count 3.34 mil/mm3 (4.00-5.30); Red Cell Distribution Width 23.2 % (11.6-17.2)
[2017-10-05] MEDS: Lactobacillus Acidophilus/L. Spores Tablet G-TUBE SCH ×2 (10:04→20:15)
[2017-10-05] MEDS: predniSONE 20 MG Tablet NG/OG SCH (10:04)
[2017-10-05] MEDS: Metoprolol Tartrate 25 MG Tablet PO SCH ×2 (10:05→20:13)
[2017-10-05] MEDS: Insulin Detemir Inj 1,000 UNIT/10 ML Vial SQ SCH ×2 (10:06→20:16)
[2017-10-05] MEDS: Insulin NovoLOG Aspart Correctional Sugar Inj SQ SCH ×4 (10:06→20:16)
[2017-10-06] MEDS: Piperacil/Tazo 3.375 GM Premix 50 ML IV.SIG SCH ×4 (00:11→19:44)
[2017-10-06] MEDS: methIMAzole 5 MG Tablet PO SCH ×2 (08:20→15:42)
[2017-10-06] MEDS: Insulin NovoLOG Aspart Correctional Sugar Inj SQ SCH ×4 (08:26→21:39)
[2017-10-06] MEDS: Metoprolol Tartrate 25 MG Tablet PO SCH ×2 (10:29→20:56)
[2017-10-06] MEDS: Lactobacillus Acidophilus/L. Spores Tablet G-TUBE SCH ×2 (10:29→20:56)
[2017-10-06] MEDS: predniSONE 20 MG Tablet NG/OG SCH (10:30)
[2017-10-06] MEDS: Insulin Detemir Inj 1,000 UNIT/10 ML Vial SQ SCH ×2 (15:41→21:39)
[2017-10-07] MEDS: Piperacil/Tazo 3.375 GM Premix 50 ML IV.SIG SCH ×4 (00:25→18:06)
[2017-10-07] MEDS: methIMAzole 5 MG Tablet PO SCH ×4 (00:25→22:58)
[2017-10-07] MEDS: predniSONE 20 MG Tablet NG/OG SCH (09:05)
[2017-10-07] MEDS: Lactobacillus Acidophilus/L. Spores Tablet G-TUBE SCH ×2 (09:05→21:04)
[2017-10-07] MEDS: Metoprolol Tartrate 25 MG Tablet PO SCH ×2 (09:05→21:05)
[2017-10-07] MEDS: Insulin Detemir Inj 1,000 UNIT/10 ML Vial SQ SCH ×2 (09:08→21:06)
[2017-10-07] MEDS: Insulin NovoLOG Aspart Correctional Sugar Inj SQ SCH ×4 (09:08→21:06)
[2017-10-08] MEDS: Piperacil/Tazo 3.375 GM Premix 50 ML IV.SIG SCH ×4 (00:37→18:11)
[2017-10-08] MEDS: Lactobacillus Acidophilus/L. Spores Tablet G-TUBE SCH ×2 (09:09→22:07)
[2017-10-08] MEDS: predniSONE 20 MG Tablet NG/OG SCH (09:09)
[2017-10-08] MEDS: Insulin NovoLOG Aspart Correctional Sugar Inj SQ SCH ×4 (09:11→22:05)
[2017-10-08] MEDS: Insulin Detemir Inj 1,000 UNIT/10 ML Vial SQ SCH ×2 (09:11→22:05)
[2017-10-08] MEDS: methIMAzole 5 MG Tablet PO SCH ×3 (09:11→23:15)
[2017-10-08] MEDS: Metoprolol Tartrate 25 MG Tablet PO SCH ×2 (09:11→22:06)
[2017-10-09] MEDS: Piperacil/Tazo 3.375 GM Premix 50 ML IV.SIG SCH ×4 (00:02→18:16)
[2017-10-09] MEDS: methIMAzole 5 MG Tablet PO SCH ×3 (06:48→23:35)
[2017-10-09 07:20] LABS: Hematocrit 25.1 % (35.0-46.0); Hemoglobin 8.3 gm/dL (11.6-15.3); Mean Corpuscular HGB Conc 33.1 % (32.0-36.0); Mean Corpuscular Hemoglobin 25.9 pg (27.0-34.0); Mean Corpuscular Volume 78.4 fL (80.0-100.0); Mean Platelet Volume 9.1 fL (7.0-11.0); Platelet Count 140 th/mm3 (150-450); Red Cell Distribution Width 23.6 % (11.6-17.2); White Blood Count 15.1 th/mm3 (4.0-11.0)
[2017-10-09 07:26] LABS: Calcium 7.8 mg/dL (8.5-10.1); Carbon Dioxide 26.2 meq/L (21.0-32.0); Potassium 4.4 meq/L (3.5-5.1)
[2017-10-09] MEDS: Metoprolol Tartrate 25 MG Tablet PO SCH ×2 (09:33→21:31)
[2017-10-09] MEDS: predniSONE 20 MG Tablet NG/OG SCH (09:33)
[2017-10-09] MEDS: Lactobacillus Acidophilus/L. Spores Tablet G-TUBE SCH ×2 (09:34→21:31)
[2017-10-09] MEDS: Insulin NovoLOG Aspart Correctional Sugar Inj SQ SCH ×4 (09:34→21:29)
[2017-10-09] MEDS: Insulin Detemir Inj 1,000 UNIT/10 ML Vial SQ SCH ×2 (09:34→21:29)
[2017-10-10] MEDS: Piperacil/Tazo 3.375 GM Premix 50 ML IV.SIG SCH ×4 (00:57→18:47)
[2017-10-10] MEDS: Lactobacillus Acidophilus/L. Spores Tablet G-TUBE SCH ×2 (09:28→21:11)
[2017-10-10] MEDS: Metoprolol Tartrate 25 MG Tablet PO SCH ×2 (09:28→21:11)
[2017-10-10] MEDS: predniSONE 20 MG Tablet NG/OG SCH (09:29)
[2017-10-10] MEDS: methIMAzole 5 MG Tablet PO SCH ×3 (09:29→23:06)
[2017-10-10] MEDS: Insulin NovoLOG Aspart Correctional Sugar Inj SQ SCH ×4 (09:43→23:06)
[2017-10-10] MEDS: Insulin Detemir Inj 1,000 UNIT/10 ML Vial SQ SCH (23:07)
[2017-10-11] MEDS: Piperacil/Tazo 3.375 GM Premix 50 ML IV.SIG SCH ×3 (01:43→12:39)
[2017-10-11] MEDS: Insulin Detemir Inj 1,000 UNIT/10 ML Vial SQ SCH ×3 (07:29→22:48)
[2017-10-11] MEDS: methIMAzole 5 MG Tablet PO SCH ×3 (08:58→22:57)
[2017-10-11] MEDS: predniSONE 20 MG Tablet NG/OG SCH (08:58)
[2017-10-11] MEDS: Lactobacillus Acidophilus/L. Spores Tablet G-TUBE SCH ×2 (08:58→22:46)
[2017-10-11] MEDS: Metoprolol Tartrate 25 MG Tablet PO SCH ×2 (08:58→22:46)
[2017-10-11] MEDS: Insulin NovoLOG Aspart Correctional Sugar Inj SQ SCH ×4 (09:01→22:48)
[2017-10-12] MEDS: Insulin NovoLOG Aspart Correctional Sugar Inj SQ SCH ×4 (08:24→22:14)
[2017-10-12] MEDS: methIMAzole 5 MG Tablet PO SCH ×3 (08:24→22:59)
[2017-10-12] MEDS: Lactobacillus Acidophilus/L. Spores Tablet G-TUBE SCH ×2 (08:25→22:14)
[2017-10-12] MEDS: Insulin Detemir Inj 1,000 UNIT/10 ML Vial SQ SCH ×2 (08:25→22:20)
[2017-10-12] MEDS: Metoprolol Tartrate 25 MG Tablet PO SCH ×2 (08:25→22:25)
[2017-10-12] MEDS: predniSONE 20 MG Tablet NG/OG SCH (08:25)
[2017-10-13] MEDS: Metoprolol Tartrate 25 MG Tablet PO SCH (08:21)
[2017-10-13] MEDS: methIMAzole 5 MG Tablet PO SCH (08:21)
[2017-10-13] MEDS: Insulin NovoLOG Aspart Correctional Sugar Inj SQ SCH ×4 (09:42→21:48)
[2017-10-13] MEDS: Insulin Detemir Inj 1,000 UNIT/10 ML Vial SQ SCH ×2 (09:43→21:48)
[2017-10-13] MEDS: Lactobacillus Acidophilus/L. Spores Tablet G-TUBE SCH ×2 (09:43→21:48)
[2017-10-13] MEDS: predniSONE 20 MG Tablet NG/OG SCH (09:43)
[2017-10-13] MEDS ORDERED: Metoprolol Tartrate 25 MG Tablet NG/OG SCH (10:00)
[2017-10-14] MEDS: Insulin NovoLOG Aspart Correctional Sugar Inj SQ SCH ×3 (09:32→16:50)
[2017-10-14] MEDS: predniSONE 20 MG Tablet NG/OG SCH (09:34)
[2017-10-14] MEDS: Lactobacillus Acidophilus/L. Spores Tablet G-TUBE SCH ×2 (09:34→20:37)
[2017-10-14] MEDS: Insulin Detemir Inj 1,000 UNIT/10 ML Vial SQ SCH ×2 (09:35→20:38)
[2017-10-15] MEDS: Insulin NovoLOG Aspart Correctional Sugar Inj SQ SCH ×5 (00:12→22:29)
[2017-10-15 04:57] LABS: Baso % (Auto) 0.1 % (0.0-2.0); Eos % (Auto) 0.3 % (0.0-4.0); Hematocrit 26.9 % (35.0-46.0); Lymph # (Auto) 2.9 th/mm3 (1.0-4.8); Lymph % (Auto) 20.3 % (9.0-44.0); Mean Corpuscular HGB Conc 33.6 % (32.0-36.0); Mean Corpuscular Hemoglobin 27.1 pg (27.0-34.0); Mean Corpuscular Volume 80.8 fL (80.0-100.0); Mean Platelet Volume 8.3 fL (7.0-11.0); Mono # (Auto) 1.1 th/mm3 (0.0-0.9); Mono % (Auto) 7.7 % (0.0-8.0); Neut # (Auto) 10.3 th/mm3 (1.8-7.7); Neut % (Auto) 71.6 % (16.0-70.0); Platelet Count 115 th/mm3 (150-450); Red Blood Count 3.32 mil/mm3 (4.00-5.30); Red Cell Distribution Width 25.9 % (11.6-17.2); White Blood Count 14.3 th/mm3 (4.0-11.0)
[2017-10-15 05:39] LABS: Alanine Aminotransferase 26 U/L (10-53); Albumin 2.4 g/dL (3.4-5.0); Alkaline Phosphatase 69 U/L (45-117); Anion Gap 6 meq/L (5-15); Aspartate Aminotransferase 10 U/L (15-37); Blood Urea Nitrogen 25 mg/dL (7-18); Calcium 8.4 mg/dL (8.5-10.1); Carbon Dioxide 29.8 meq/L (21.0-32.0); Chloride 106 meq/L (98-107); Glomerular Filtration Rate Greater Than 89 mL/min (>89); Potassium 3.8 meq/L (3.5-5.1); Sodium 142 meq/L (136-145); Thyroid Stimulating Hormone 0.514 uIU/mL (0.358-3.740); Total Protein 5.4 g/dL (6.4-8.2)
[2017-10-15 05:50] LABS: Glucose,Random 45 mg/dL (74-106)
[2017-10-15] MEDS: Dextrose 50% in Water 50 ML Vial IV.PUSH PRN (05:57)
[2017-10-15] MEDS: predniSONE 20 MG Tablet NG/OG SCH (08:42)
[2017-10-15] MEDS: Insulin Detemir Inj 1,000 UNIT/10 ML Vial SQ SCH ×2 (08:42→22:30)
[2017-10-15] MEDS: Lactobacillus Acidophilus/L. Spores Tablet G-TUBE SCH ×2 (08:42→22:30)
[2017-10-16] MEDS: Insulin NovoLOG Aspart Correctional Sugar Inj SQ SCH ×3 (08:32→22:11)
[2017-10-16] MEDS: predniSONE 20 MG Tablet NG/OG SCH (10:10)
[2017-10-16] MEDS: Lactobacillus Acidophilus/L. Spores Tablet G-TUBE SCH ×2 (10:10→22:13)
[2017-10-16] MEDS: Insulin Detemir Inj 1,000 UNIT/10 ML Vial SQ SCH ×2 (10:11→22:13)
[2017-10-17] MEDS: Insulin NovoLOG Aspart Correctional Sugar Inj SQ SCH ×4 (07:58→21:55)
[2017-10-17] MEDS: Lactobacillus Acidophilus/L. Spores Tablet G-TUBE SCH ×2 (10:00→21:56)
[2017-10-17] MEDS: predniSONE 20 MG Tablet NG/OG SCH (10:00)
[2017-10-17] MEDS: Insulin Detemir Inj 1,000 UNIT/10 ML Vial SQ SCH ×2 (10:00→21:57)
[2017-10-18] MEDS: predniSONE 20 MG Tablet NG/OG SCH (09:23)
[2017-10-18] MEDS: Lactobacillus Acidophilus/L. Spores Tablet G-TUBE SCH ×2 (09:23→23:17)
[2017-10-18] MEDS: Insulin NovoLOG Aspart Correctional Sugar Inj SQ SCH ×4 (10:11→23:14)
[2017-10-18] MEDS: Insulin Detemir Inj 1,000 UNIT/10 ML Vial SQ SCH ×2 (10:21→23:17)
[2017-10-19] MEDS: Insulin NovoLOG Aspart Correctional Sugar Inj SQ SCH ×5 (08:00→21:15)
[2017-10-19] MEDS: Dextrose 50% in Water 50 ML Vial IV.PUSH PRN (08:35)
[2017-10-19] MEDS: Insulin Detemir Inj 1,000 UNIT/10 ML Vial SQ SCH ×2 (12:21→21:14)
[2017-10-19] MEDS: Lactobacillus Acidophilus/L. Spores Tablet G-TUBE SCH ×2 (12:21→21:14)
[2017-10-19] MEDS: predniSONE 20 MG Tablet NG/OG SCH (12:22)
[2017-10-20] MEDS: Insulin NovoLOG Aspart Correctional Sugar Inj SQ SCH ×4 (08:42→22:53)
[2017-10-20] MEDS: predniSONE 20 MG Tablet NG/OG SCH (08:42)
[2017-10-20] MEDS: Insulin Detemir Inj 1,000 UNIT/10 ML Vial SQ SCH ×2 (08:43→22:54)
[2017-10-20] MEDS: Lactobacillus Acidophilus/L. Spores Tablet G-TUBE SCH ×2 (08:43→22:53)
[2017-10-21] MEDS: Insulin NovoLOG Aspart Correctional Sugar Inj SQ SCH ×4 (08:35→22:03)
[2017-10-21] MEDS: Insulin Detemir Inj 1,000 UNIT/10 ML Vial SQ SCH ×2 (08:36→22:00)
[2017-10-21] MEDS: predniSONE 20 MG Tablet NG/OG SCH (08:37)
[2017-10-21] MEDS: Lactobacillus Acidophilus/L. Spores Tablet G-TUBE SCH ×2 (08:37→21:59)
[2017-10-22] MEDS: Insulin NovoLOG Aspart Correctional Sugar Inj SQ SCH ×4 (08:00→21:49)
[2017-10-22] MEDS: predniSONE 20 MG Tablet NG/OG SCH (09:48)
[2017-10-22] MEDS: Insulin Detemir Inj 1,000 UNIT/10 ML Vial SQ SCH ×2 (09:48→21:48)
[2017-10-22] MEDS: Lactobacillus Acidophilus/L. Spores Tablet G-TUBE SCH ×2 (09:48→21:47)
[2017-10-23] MEDS: Lactobacillus Acidophilus/L. Spores Tablet G-TUBE SCH ×2 (09:06→21:23)
[2017-10-23] MEDS: predniSONE 20 MG Tablet NG/OG SCH (09:06)
[2017-10-23] MEDS: Insulin Detemir Inj 1,000 UNIT/10 ML Vial SQ SCH ×2 (09:06→21:24)
[2017-10-23] MEDS: Insulin NovoLOG Aspart Correctional Sugar Inj SQ SCH ×4 (09:08→21:24)
[2017-10-24] MEDS: Insulin NovoLOG Aspart Correctional Sugar Inj SQ SCH ×4 (10:33→21:18)
[2017-10-24] MEDS: predniSONE 20 MG Tablet NG/OG SCH (14:55)
[2017-10-24] MEDS: Lactobacillus Acidophilus/L. Spores Tablet G-TUBE SCH ×2 (14:56→21:18)
[2017-10-24] MEDS: Insulin Detemir Inj 1,000 UNIT/10 ML Vial SQ SCH ×2 (14:56→21:18)
[2017-10-25] MEDS: Insulin NovoLOG Aspart Correctional Sugar Inj SQ SCH ×4 (13:28→22:56)
[2017-10-25] MEDS: predniSONE 20 MG Tablet NG/OG SCH (13:28)
[2017-10-25] MEDS: Lactobacillus Acidophilus/L. Spores Tablet G-TUBE SCH ×2 (13:29→22:57)
[2017-10-25] MEDS: Insulin Detemir Inj 1,000 UNIT/10 ML Vial SQ SCH ×2 (13:29→22:56)
[2017-10-26] MEDS: Insulin NovoLOG Aspart Correctional Sugar Inj SQ SCH ×4 (08:49→21:20)
[2017-10-26] MEDS: predniSONE 20 MG Tablet NG/OG SCH (08:50)
[2017-10-26] MEDS: Lactobacillus Acidophilus/L. Spores Tablet G-TUBE SCH ×2 (08:50→21:20)
[2017-10-26] MEDS: Insulin Detemir Inj 1,000 UNIT/10 ML Vial SQ SCH ×2 (08:51→21:20)
[2017-10-27 08:16] LABS: Baso % (Auto) 0.4 % (0.0-2.0); Eos # (Auto) 0.1 th/mm3 (0.0-0.4); Eos % (Auto) 0.5 % (0.0-4.0); Hematocrit 29.3 % (35.0-46.0); Hemoglobin 9.6 gm/dL (11.6-15.3); Lymph # (Auto) 1.6 th/mm3 (1.0-4.8); Lymph % (Auto) 13.7 % (9.0-44.0); Mean Corpuscular HGB Conc 32.8 % (32.0-36.0); Mean Corpuscular Hemoglobin 28.4 pg (27.0-34.0); Mean Corpuscular Volume 86.5 fL (80.0-100.0); Mean Platelet Volume 7.1 fL (7.0-11.0); Mono # (Auto) 1.2 th/mm3 (0.0-0.9); Mono % (Auto) 10.5 % (0.0-8.0); Neut # (Auto) 8.8 th/mm3 (1.8-7.7); Neut % (Auto) 74.9 % (16.0-70.0); Platelet Count 133 th/mm3 (150-450); Red Blood Count 3.39 mil/mm3 (4.00-5.30); Red Cell Distribution Width 23.6 % (11.6-17.2); White Blood Count 11.8 th/mm3 (4.0-11.0)
[2017-10-27 08:42] LABS: Alanine Aminotransferase 25 U/L (10-53); Albumin 2.5 g/dL (3.4-5.0); Anion Gap 7 meq/L (5-15); Aspartate Aminotransferase 8 U/L (15-37); Blood Urea Nitrogen 31 mg/dL (7-18); Calcium 8.6 mg/dL (8.5-10.1); Carbon Dioxide 29.7 meq/L (21.0-32.0); Chloride 110 meq/L (98-107); Glomerular Filtration Rate 87 mL/min (>89); Glucose,Random 156 mg/dL (74-106); Potassium 4.2 meq/L (3.5-5.1); Sodium 147 meq/L (136-145)
[2017-10-27 08:44] LABS: Alkaline Phosphatase 74 U/L (45-117); Total Protein 5.8 g/dL (6.4-8.2)
[2017-10-27 09:14] LABS: Lymphocytes 12 % (9-44); Monocytes 4 % (0-8); Myelocytes 1 % (0-0); Platelet Morphology Normal (Normal)
[2017-10-27] MEDS: Lactobacillus Acidophilus/L. Spores Tablet G-TUBE SCH ×2 (10:03→22:24)
[2017-10-27] MEDS: predniSONE 20 MG Tablet NG/OG SCH (10:03)
[2017-10-27] MEDS: Insulin NovoLOG Aspart Correctional Sugar Inj SQ SCH ×4 (10:03→22:24)
[2017-10-27] MEDS: Insulin Detemir Inj 1,000 UNIT/10 ML Vial SQ SCH ×2 (10:04→22:24)
[2017-10-28] MEDS: Insulin NovoLOG Aspart Correctional Sugar Inj SQ SCH ×4 (08:36→21:26)
[2017-10-28] MEDS: Lactobacillus Acidophilus/L. Spores Tablet G-TUBE SCH ×2 (08:38→21:25)
[2017-10-28] MEDS: predniSONE 10 MG Tablet PO SCH (08:38)
[2017-10-28] MEDS: Insulin Detemir Inj 1,000 UNIT/10 ML Vial SQ SCH ×2 (08:39→21:26)
[2017-10-29] MEDS: Insulin NovoLOG Aspart Correctional Sugar Inj SQ SCH ×4 (08:34→21:24)
[2017-10-29] MEDS: Insulin Detemir Inj 1,000 UNIT/10 ML Vial SQ SCH ×2 (09:24→21:24)
[2017-10-29] MEDS: predniSONE 10 MG Tablet PO SCH (11:57)
[2017-10-29] MEDS: Lactobacillus Acidophilus/L. Spores Tablet G-TUBE SCH ×2 (11:58→21:23)
[2017-10-30] MEDS: Insulin NovoLOG Aspart Correctional Sugar Inj SQ SCH ×4 (08:32→21:53)
[2017-10-30] MEDS: Insulin Detemir Inj 1,000 UNIT/10 ML Vial SQ SCH ×2 (09:25→21:48)
[2017-10-30] MEDS: predniSONE 10 MG Tablet PO SCH (09:26)
[2017-10-30] MEDS: Lactobacillus Acidophilus/L. Spores Tablet G-TUBE SCH ×2 (09:26→21:44)
[2017-10-31] MEDS: Insulin NovoLOG Aspart Correctional Sugar Inj SQ SCH ×4 (08:45→21:09)
[2017-10-31] MEDS: Insulin Detemir Inj 1,000 UNIT/10 ML Vial SQ SCH ×2 (08:54→21:11)
[2017-10-31] MEDS: Lactobacillus Acidophilus/L. Spores Tablet G-TUBE SCH ×3 (08:57→21:09)
[2017-10-31] MEDS: predniSONE 10 MG Tablet PO SCH ×2 (08:57→09:22)
[2017-11-01] MEDS: Insulin NovoLOG Aspart Correctional Sugar Inj SQ SCH ×4 (07:50→22:30)
[2017-11-01] MEDS: Insulin Detemir Inj 1,000 UNIT/10 ML Vial SQ SCH ×2 (08:19→22:23)
[2017-11-01] MEDS: predniSONE 10 MG Tablet PO SCH (08:20)
[2017-11-01] MEDS: Lactobacillus Acidophilus/L. Spores Tablet G-TUBE SCH ×2 (08:20→22:22)
[2017-11-02] MEDS: Insulin NovoLOG Aspart Correctional Sugar Inj SQ SCH ×4 (08:30→22:25)
[2017-11-02] MEDS: predniSONE 10 MG Tablet PO SCH (09:08)
[2017-11-02] MEDS: Insulin Detemir Inj 1,000 UNIT/10 ML Vial SQ SCH ×2 (09:09→22:25)
[2017-11-02] MEDS: Lactobacillus Acidophilus/L. Spores Tablet G-TUBE SCH ×2 (09:09→22:10)
[2017-11-03] MEDS: Lactobacillus Acidophilus/L. Spores Tablet G-TUBE SCH ×2 (09:04→23:16)
[2017-11-03] MEDS: Insulin NovoLOG Aspart Correctional Sugar Inj SQ SCH ×4 (09:05→23:19)
[2017-11-03] MEDS: predniSONE 10 MG Tablet PO SCH (09:05)
[2017-11-03] MEDS: Insulin Detemir Inj 1,000 UNIT/10 ML Vial SQ SCH ×2 (09:06→23:19)
[2017-11-04] MEDS: Insulin NovoLOG Aspart Correctional Sugar Inj SQ SCH ×3 (07:51→21:00)
[2017-11-04] MEDS: Lactobacillus Acidophilus/L. Spores Tablet G-TUBE SCH ×2 (09:20→22:45)
[2017-11-04] MEDS: predniSONE 10 MG Tablet PO SCH (09:20)
[2017-11-04] MEDS: Insulin Detemir Inj 1,000 UNIT/10 ML Vial SQ SCH ×2 (09:22→22:45)
[2017-11-05] MEDS: predniSONE 10 MG Tablet PO SCH (08:06)
[2017-11-05] MEDS: Lactobacillus Acidophilus/L. Spores Tablet G-TUBE SCH ×2 (08:06→20:45)
[2017-11-05] MEDS: Insulin Detemir Inj 1,000 UNIT/10 ML Vial SQ SCH ×2 (08:07→20:45)
[2017-11-05] MEDS: Insulin NovoLOG Aspart Correctional Sugar Inj SQ SCH ×4 (08:07→20:45)
[2017-11-06] MEDS: Lactobacillus Acidophilus/L. Spores Tablet G-TUBE SCH ×2 (08:14→20:21)
[2017-11-06] MEDS: predniSONE 10 MG Tablet PO SCH (08:14)
[2017-11-06] MEDS: Insulin NovoLOG Aspart Correctional Sugar Inj SQ SCH ×4 (08:14→20:24)
[2017-11-06] MEDS: Insulin Detemir Inj 1,000 UNIT/10 ML Vial SQ SCH ×2 (08:15→20:22)
[2017-11-07] MEDS: predniSONE 10 MG Tablet PO SCH (10:38)
[2017-11-07] MEDS: Lactobacillus Acidophilus/L. Spores Tablet G-TUBE SCH ×2 (10:39→21:36)
[2017-11-07] MEDS: Insulin NovoLOG Aspart Correctional Sugar Inj SQ SCH ×4 (10:39→21:38)
[2017-11-07] MEDS: Insulin Detemir Inj 1,000 UNIT/10 ML Vial SQ SCH ×2 (10:45→21:37)
[2017-11-08] MEDS: Insulin NovoLOG Aspart Correctional Sugar Inj SQ SCH ×5 (07:59→20:21)
[2017-11-08] MEDS: Lactobacillus Acidophilus/L. Spores Tablet G-TUBE SCH ×2 (08:00→20:21)
[2017-11-08] MEDS: predniSONE 10 MG Tablet PO SCH (08:00)
[2017-11-08] MEDS: Insulin Detemir Inj 1,000 UNIT/10 ML Vial SQ SCH ×2 (08:01→20:21)
[2017-11-08 10:27] LABS: Baso % (Auto) 0.3 % (0.0-2.0); Eos % (Auto) 0.2 % (0.0-4.0); Hematocrit 33.1 % (35.0-46.0); Hemoglobin 10.8 gm/dL (11.6-15.3); Lymph # (Auto) 1.3 th/mm3 (1.0-4.8); Lymph % (Auto) 8.6 % (9.0-44.0); Mean Corpuscular HGB Conc 32.6 % (32.0-36.0); Mean Corpuscular Hemoglobin 28.3 pg (27.0-34.0); Mean Corpuscular Volume 86.7 fL (80.0-100.0); Mean Platelet Volume 6.5 fL (7.0-11.0); Mono # (Auto) 0.6 th/mm3 (0.0-0.9); Mono % (Auto) 4.1 % (0.0-8.0); Neut # (Auto) 13.5 th/mm3 (1.8-7.7); Neut % (Auto) 86.8 % (16.0-70.0); Platelet Count 298 th/mm3 (150-450); Red Blood Count 3.82 mil/mm3 (4.00-5.30); Red Cell Distribution Width 19.9 % (11.6-17.2); White Blood Count 15.5 th/mm3 (4.0-11.0)
[2017-11-08 10:47] LABS: Albumin 2.5 g/dL (3.4-5.0); Anion Gap 10 meq/L (5-15); Aspartate Aminotransferase 23 U/L (15-37); Blood Urea Nitrogen 26 mg/dL (7-18); Calcium 8.7 mg/dL (8.5-10.1); Carbon Dioxide 25.5 meq/L (21.0-32.0); Chloride 105 meq/L (98-107); Glomerular Filtration Rate Greater Than 89 mL/min (>89); Glucose,Random 95 mg/dL (74-106); Magnesium 1.9 mg/dL (1.5-2.5); Potassium 4.6 meq/L (3.5-5.1); Sodium 140 meq/L (136-145)
[2017-11-08 10:48] LABS: Alanine Aminotransferase 27 U/L (10-53)
[2017-11-08 10:50] LABS: Alkaline Phosphatase 73 U/L (45-117); Total Protein 6.1 g/dL (6.4-8.2)
[2017-11-09] MEDS: predniSONE 10 MG Tablet PO SCH (09:38)
[2017-11-09] MEDS: Insulin NovoLOG Aspart Correctional Sugar Inj SQ SCH ×4 (09:38→20:22)
[2017-11-09] MEDS: Lactobacillus Acidophilus/L. Spores Tablet G-TUBE SCH ×2 (09:38→20:31)
[2017-11-09] MEDS: Insulin Detemir Inj 1,000 UNIT/10 ML Vial SQ SCH ×2 (09:39→20:32)
[2017-11-10] MEDS: Lactobacillus Acidophilus/L. Spores Tablet G-TUBE SCH ×2 (08:56→21:14)
[2017-11-10] MEDS: predniSONE 10 MG Tablet PO SCH (08:56)
[2017-11-10] MEDS: Insulin NovoLOG Aspart Correctional Sugar Inj SQ SCH ×4 (09:01→21:14)
[2017-11-10] MEDS: Insulin Detemir Inj 1,000 UNIT/10 ML Vial SQ SCH ×2 (09:01→21:15)
[2017-11-11] MEDS: Insulin NovoLOG Aspart Correctional Sugar Inj SQ SCH ×3 (08:14→17:36)
[2017-11-11] MEDS: Insulin Detemir Inj 1,000 UNIT/10 ML Vial SQ SCH (08:14)
[2017-11-11] MEDS: Lactobacillus Acidophilus/L. Spores Tablet G-TUBE SCH ×2 (10:04→23:59)
[2017-11-11] MEDS: predniSONE 10 MG Tablet PO SCH (10:04)
[2017-11-12] MEDS: Insulin NovoLOG Aspart Correctional Sugar Inj SQ SCH ×5 (12:17→22:11)
[2017-11-12] MEDS: Lactobacillus Acidophilus/L. Spores Tablet G-TUBE SCH ×2 (12:18→22:37)
[2017-11-12] MEDS: predniSONE 10 MG Tablet PO SCH (12:35)
[2017-11-12] MEDS: Insulin Detemir Inj 1,000 UNIT/10 ML Vial SQ SCH ×3 (12:36→22:11)
[2017-11-13] MEDS: Insulin NovoLOG Aspart Correctional Sugar Inj SQ SCH ×4 (09:31→22:18)
[2017-11-13] MEDS: Lactobacillus Acidophilus/L. Spores Tablet G-TUBE SCH ×3 (09:31→22:17)
[2017-11-13] MEDS: predniSONE 10 MG Tablet PO SCH ×2 (09:31→11:15)
[2017-11-13] MEDS: Insulin Detemir Inj 1,000 UNIT/10 ML Vial SQ SCH ×2 (09:31→22:18)
[2017-11-14] MEDS: Insulin NovoLOG Aspart Correctional Sugar Inj SQ SCH ×4 (08:05→21:45)
[2017-11-14] MEDS: Lactobacillus Acidophilus/L. Spores Tablet G-TUBE SCH ×2 (08:05→21:55)
[2017-11-14] MEDS: predniSONE 10 MG Tablet PO SCH (08:06)
[2017-11-14] MEDS: Insulin Detemir Inj 1,000 UNIT/10 ML Vial SQ SCH (08:11)
[2017-11-15] MEDS: Insulin Detemir Inj 1,000 UNIT/10 ML Vial SQ SCH ×3 (00:11→20:38)
[2017-11-15] MEDS: Insulin NovoLOG Aspart Correctional Sugar Inj SQ SCH ×4 (08:09→20:38)
[2017-11-15] MEDS: Lactobacillus Acidophilus/L. Spores Tablet G-TUBE SCH ×2 (08:59→20:37)
[2017-11-15] MEDS: predniSONE 10 MG Tablet PO SCH (09:00)
[2017-11-16] MEDS: Insulin NovoLOG Aspart Correctional Sugar Inj SQ SCH ×4 (09:05→20:24)
[2017-11-16] MEDS: predniSONE 10 MG Tablet PO SCH (09:06)
[2017-11-16] MEDS: Lactobacillus Acidophilus/L. Spores Tablet G-TUBE SCH ×2 (09:06→21:44)
[2017-11-16] MEDS: Insulin Detemir Inj 1,000 UNIT/10 ML Vial SQ SCH ×2 (09:06→21:44)
[2017-11-17] MEDS: predniSONE 10 MG Tablet PO SCH (09:12)
[2017-11-17] MEDS: Lactobacillus Acidophilus/L. Spores Tablet G-TUBE SCH ×2 (09:12→22:39)
[2017-11-17] MEDS: Insulin Detemir Inj 1,000 UNIT/10 ML Vial SQ SCH ×2 (09:13→22:39)
[2017-11-17] MEDS: Insulin NovoLOG Aspart Correctional Sugar Inj SQ SCH ×4 (09:13→22:39)
[2017-11-18 08:04] LABS: Baso # (Auto) 0.1 th/mm3 (0.0-0.2); Baso % (Auto) 0.5 % (0.0-2.0); Eos # (Auto) 0.1 th/mm3 (0.0-0.4); Eos % (Auto) 0.6 % (0.0-4.0); Hematocrit 32.4 % (35.0-46.0); Hemoglobin 10.6 gm/dL (11.6-15.3); Lymph # (Auto) 2.7 th/mm3 (1.0-4.8); Mean Corpuscular HGB Conc 32.8 % (32.0-36.0); Mean Corpuscular Hemoglobin 28.5 pg (27.0-34.0); Mean Corpuscular Volume 86.9 fL (80.0-100.0); Mean Platelet Volume 6.6 fL (7.0-11.0); Mono # (Auto) 1.3 th/mm3 (0.0-0.9); Mono % (Auto) 8.8 % (0.0-8.0); Neut # (Auto) 10.2 th/mm3 (1.8-7.7); Neut % (Auto) 71.1 % (16.0-70.0); Platelet Count 341 th/mm3 (150-450); Red Blood Count 3.73 mil/mm3 (4.00-5.30); Red Cell Distribution Width 17.9 % (11.6-17.2); White Blood Count 14.3 th/mm3 (4.0-11.0)
[2017-11-18 08:27] LABS: Alanine Aminotransferase 16 U/L (10-53); Albumin 2.5 g/dL (3.4-5.0); Anion Gap 9 meq/L (5-15); Aspartate Aminotransferase 8 U/L (15-37); Blood Urea Nitrogen 22 mg/dL (7-18); Carbon Dioxide 27.8 meq/L (21.0-32.0); Chloride 107 meq/L (98-107); Glomerular Filtration Rate Greater Than 89 mL/min (>89); Glucose,Random 79 mg/dL (74-106); Magnesium 1.8 mg/dL (1.5-2.5); Phosphorus 4.5 mg/dL (2.5-4.9); Sodium 144 meq/L (136-145)
[2017-11-18] MEDS: Insulin NovoLOG Aspart Correctional Sugar Inj SQ SCH ×4 (08:27→20:33)
[2017-11-18] MEDS: Insulin Detemir Inj 1,000 UNIT/10 ML Vial SQ SCH ×2 (08:28→20:33)
[2017-11-18] MEDS: predniSONE 10 MG Tablet PO SCH (08:29)
[2017-11-18] MEDS: Lactobacillus Acidophilus/L. Spores Tablet G-TUBE SCH ×2 (08:29→20:33)
[2017-11-18 08:30] LABS: Alkaline Phosphatase 61 U/L (45-117); Total Protein 6.1 g/dL (6.4-8.2)
[2017-11-19] MEDS: Insulin NovoLOG Aspart Correctional Sugar Inj SQ SCH ×4 (09:06→20:47)
[2017-11-19] MEDS: Lactobacillus Acidophilus/L. Spores Tablet G-TUBE SCH ×2 (09:07→20:47)
[2017-11-19] MEDS: predniSONE 5 MG Tablet PO SCH (09:07)
[2017-11-19] MEDS: Insulin Detemir Inj 1,000 UNIT/10 ML Vial SQ SCH ×2 (09:25→20:48)
[2017-11-20] MEDS: Insulin Detemir Inj 1,000 UNIT/10 ML Vial SQ SCH ×2 (09:00→22:14)
[2017-11-20] MEDS: predniSONE 5 MG Tablet PO SCH (16:47)
[2017-11-20] MEDS: Insulin NovoLOG Aspart Correctional Sugar Inj SQ SCH ×3 (16:47→22:14)
[2017-11-20] MEDS: Lactobacillus Acidophilus/L. Spores Tablet G-TUBE SCH ×2 (16:48→22:13)
[2017-11-21] MEDS: Lactobacillus Acidophilus/L. Spores Tablet G-TUBE SCH ×2 (08:30→21:43)
[2017-11-21] MEDS: predniSONE 5 MG Tablet PO SCH (08:30)
[2017-11-21] MEDS: Insulin NovoLOG Aspart Correctional Sugar Inj SQ SCH ×4 (08:31→21:44)
[2017-11-21] MEDS: Insulin Detemir Inj 1,000 UNIT/10 ML Vial SQ SCH ×2 (08:31→21:44)
[2017-11-22] MEDS: Lactobacillus Acidophilus/L. Spores Tablet G-TUBE SCH ×2 (09:46→22:06)
[2017-11-22] MEDS: Insulin Detemir Inj 1,000 UNIT/10 ML Vial SQ SCH ×2 (09:47→22:46)
[2017-11-22] MEDS: Insulin NovoLOG Aspart Correctional Sugar Inj SQ SCH ×4 (09:47→22:46)
[2017-11-22] MEDS: predniSONE 5 MG Tablet PO SCH (09:47)
[2017-11-23] MEDS: Lactobacillus Acidophilus/L. Spores Tablet G-TUBE SCH ×2 (08:49→21:40)
[2017-11-23] MEDS: Insulin NovoLOG Aspart Correctional Sugar Inj SQ SCH ×4 (08:49→21:39)
[2017-11-23] MEDS: Insulin Detemir Inj 1,000 UNIT/10 ML Vial SQ SCH ×2 (08:55→21:41)
[2017-11-24] MEDS: Insulin NovoLOG Aspart Correctional Sugar Inj SQ SCH ×3 (08:30→20:17)
[2017-11-24] MEDS: Insulin Detemir Inj 1,000 UNIT/10 ML Vial SQ SCH ×2 (11:02→20:08)
[2017-11-24] MEDS: Lactobacillus Acidophilus/L. Spores Tablet G-TUBE SCH ×2 (11:02→20:07)
[2017-11-25] MEDS: Insulin NovoLOG Aspart Correctional Sugar Inj SQ SCH ×5 (08:09→20:33)
[2017-11-25] MEDS: Lactobacillus Acidophilus/L. Spores Tablet G-TUBE SCH ×2 (08:09→20:32)
[2017-11-25] MEDS: Insulin Detemir Inj 1,000 UNIT/10 ML Vial SQ SCH ×2 (08:10→20:33)
[2017-11-25] MEDS ORDERED: Amiodarone 200 MG Tablet PO SCH (12:45)
[2017-11-25] MEDS: Metoprolol Tartrate 25 MG Tablet G-TUBE SCH ×2 (14:16→17:23)
[2017-11-25] MEDS: methIMAzole 5 MG Tablet PO SCH ×2 (14:17→17:23)
[2017-11-25] MEDS: Amiodarone 200 MG Tablet G-TUBE SCH (14:17)
[2017-11-26] MEDS: Metoprolol Tartrate 25 MG Tablet G-TUBE SCH (08:50)
[2017-11-26] MEDS: Insulin NovoLOG Aspart Correctional Sugar Inj SQ SCH ×2 (08:51→12:02)
[2017-11-26] MEDS: methIMAzole 5 MG Tablet PO SCH ×2 (08:51→12:02)
[2017-11-26] MEDS: Amiodarone 200 MG Tablet G-TUBE SCH (08:51)
[2017-11-26] MEDS: Lactobacillus Acidophilus/L. Spores Tablet G-TUBE SCH (08:51)
[2017-11-26] MEDS: Insulin Detemir Inj 1,000 UNIT/10 ML Vial SQ SCH (08:58)
[2017-11-26] MEDS ORDERED: Aspirin 325 MG Tablet G-TUBE SCH (12:00)
[2017-11-26] MEDS ORDERED: Metoprolol Tartrate 25 MG Tablet G-TUBE SCH (21:00)
== END 2017-11-26 13:00 ==
LOC: HCIS → HIMC 18:00 → HCIS 09-16 18:54 → N04 09-23 22:16
PROVIDERS: ADMIT Internal Medicine; ATTEND Internal Medicine